=== PATIENT | female | born 1960 | race Caucasian/White ===

== ENCOUNTER → 2017-11-15 13:47 | Outpatient (CLI) | payer OTHER, SELFPAY ==
--- NOTE | 2017-11-15 15:04 | NEURO ---
NCS and/or EMG Patient Report Ordering Doctor: Eron Benitez DATE OF SERVICE: 11/15/17 Annia Briggs is a 57 year old female who presents for electrodiagnostic testing of the left upper limb due to hand numbness. electrodiagnostic findings: prolonged left median motor latency with normal amplitude and reduced conduction velocity. Normal ulnar motor response, including conduction across the elbow. Prolonged median sensory latency. Normal ulnar and radial sensory responses. Needle EMG testing reveals no evidence of denervation with normal motor unit action potentials. Electrodiagnostic Asssessment: This is an abnormal study 1) Findings demonstrate left median mononeuropathy. This is consistent with an advanced left carpal tunnel syndrome.
== END ==
PROVIDERS: Family Provider Family Medicine; PCP Family Medicine; Visit Provider Orthopaedic Surgery
DX: G56.02 Carpal tunnel syndrome, left upper limb (principal)
CPT/HCPCS: 95886; 95910

== ENCOUNTER → 2017-12-20 16:00 | Outpatient (CLI) | payer OTHER, SELFPAY ==
[2017-12-23 12:42] LABS: HPV Reflexed? NOT INDICATED
== END ==
PROVIDERS: Visit Provider Obstetrics & Gynecology
DX: Z12.4 Encounter for screening for malignant neoplasm of cervix (principal)
CPT/HCPCS: 88175; G0145

== ENCOUNTER 2018-02-09 23:02 | Emergency (ER) | payer OTHER, SELFPAY ==
--- NOTE | 2018-02-09 23:03 | ED.RN ---
NO OLD EKG'S IN MUSE
[2018-02-09 23:04] VITALS: BP 135/92; PULSE 184; RESP 25; TEMP 36.6; O2SAT 98; BMI 42.2
--- NOTE | 2018-02-09 23:20 | EKG12_ITS ---
Test Reason : CP/DISCOMFORT Blood Pressure : / mmHG Vent. Rate : 182 BPM Atrial Rate : 091 BPM P-R Int : 000 ms QRS Dur : 094 ms QT Int : 256 ms P-R-T Axes : 000 -44 117 degrees QTc Int : 445 ms Supraventricular tachycardia Left axis deviation Left ventricular hypertrophy with repolarization abnormality Abnormal ECG Confirmed by ARIN FORD ([id number]), website/blog editor ELIU ROACH ([id number] on 02/13/2018 2:52:55 PM Referred By: NICOLASA Confirmed By:ARIN FORD
--- NOTE | 2018-02-09 23:21 | ED.VISSUMM ---
- ER Visit Summary Date of Service: 02/09/18 Chief Complaint: [Palpitations and chest pain] History of Present Illness: The patient is a 57 F [who presents the emergency department with palpitations and chest pain. It started approximately an hour ago while she was watching TV. She felt like her heart was racing and then got tightness in her chest that felt like her asthma but she did not think it was her asthma. No shortness of breath. She feels a little weak and shaky no dizziness. She has diabetes and high cholesterol and asthma. No change of medications no change in diet] Physical Examination: [] Heart rate 181 blood pressure 135/92 respiratory rate 25 pulse 98% on room air temperature 97 WN WD NAD PERRL EOMI MMM NECK supple and nontender, no masses Regular tachycardic rhythm no murmur rub or gallop, no peripheral edema, symmetric radial pulses CTAB no respiratory distress ABDOMEN is soft and nontender, normal bowel sounds, no distension, no rebound or guarding SKIN is warm and dry no rashes Alert and Oriented x3, CN II-XII in tact, no motor or sensory deficits, gait normal No lymphadenopathy Anxious Test Results: [] Emergency Department Course and Treatment: [Vagal maneuvers were attempted but were unsuccessful. Patient was given 6 mg of adenosine and converted to a sinus rhythm. There were no complications patient was given fluids screening labs chest x-ray and TSH will be obtained. Like sugar was 291 TSH was mildly elevated. Repeat EKG after adenosine showed a sinus tachycardia with no ischemia and troponin was normal. I spoke with Dr. Pelayo the patient will be placed on 12.5 mg of Lopressor twice daily and she will follow-up with cardiology. She was given precautions for which to return. She is totally asymptomatic at this time.] Treatment Plan: [] Disposition: [Discharge] Impression: [1. SVT 2. Chemical cardioversion with adenosine 3. Mild hypothyroid 4. Hyperglycemia] This note was generated with [employer]du[employer]tvation software. It may contain incorrect words, spelling, and punctuation that were not noted in review of the chart prior to signing ED Disposition - Plan for ED Patient: Chief Complaint: Palpitations Referrals: Ismael Schafer MD [Primary Care Provider] -
[2018-02-09 23:24] VITALS: BP 129/96; PULSE 109; RESP 24; O2SAT 96
--- NOTE | 2018-02-09 23:24 | EKG12_ITS ---
Test Reason : REPEAT Blood Pressure : / mmHG Vent. Rate : 108 BPM Atrial Rate : 108 BPM P-R Int : 162 ms QRS Dur : 080 ms QT Int : 368 ms P-R-T Axes : 053 029 070 degrees QTc Int : 493 ms Sinus tachycardia Otherwise normal ECG Confirmed by ARIN FORD ([id number]), production editor ELIU ROACH ([id number]) on 02/13/2018 4:07:39 PM Referred By: NICOLASA Confirmed By:ARIN FORD
[2018-02-09] MEDS: Aspirin 81 MG TAB.CHEW 324 MG PO (23:31)
[2018-02-09] MEDS: 0.9% Normal Saline 1,000 ML 1000 ML IV (23:31)
[2018-02-09] MEDS: Adenosine 6 MG/2 ML Syringe IV (23:35)
[2018-02-09 23:37] LABS: Absolute Lymphocyte Count 2.45 X10^3/ul (0.83-4.51); Absolute Neutrophil Count 4.1 X10^3/uL (2.0-7.7); Basophil# 0.02 X10^3/uL; Basophil% 0.3 % (0-1); Hematocrit 41.5 % (37-47); Hemoglobin 13.4 g/dl (12.0-15.0); Lymphocyte # 2.45 X10^3/ul (4.0); Lymphocyte % 32.9 % (19-41); Mean Corp Hgb Conc 32.3 g/gl (32-36); Mean Corpuscular Hgb 30.4 pg (27.0-32.0); Mean Corpuscular Volume 94.1 fL (81-99); Mean Platelet Vol. 9.2 fl (6.2-12.0); Monocyte# 0.62 X10^3/uL; Monocyte% 8.3 % (0-10); Neutrophil # 4.05 X10^3/uL (2.7-7.7); Neutrophil % 54.4 % (47-70); POSITIVE COUNT NO; POSITIVE DIFFERENTIAL NO; POSITIVE MORPHOLOGY NO; Platelet Count 284 K/mm3 (150-450); RBC Distribution Width SD 44.9 fl (35.1-43.9); Red Blood Count 4.41 M/mm3 (4.2-5.4); White Blood Count 7.5 K/mm3 (4.4-11.0)
--- NOTE | 2018-02-09 23:40 | RAD_ITS ---
STUDY: X-RAY CHEST REASON FOR EXAM: Female, 57 years old. Palpitations TECHNIQUE: Single frontal view COMPARISON: None. FINDINGS: The lungs are clear and expanded. There is no demonstrated pleural abnormality. Normal size heart. Normal mediastinum and gena. Normal visualized pulmonary arteries. Normal visualized aortic arch and descending thoracic aorta. Normal visualized thoracic spine. Normal visualized ribs, clavicles, and shoulders. There is no demonstrated abnormality of the visualized soft tissue structures of the upper abdomen. RAD/Chest 1 View (Portable) IMPRESSION: Normal x-ray examination of the chest. Electronically Signed: Danyel Cullen MD at 0:47 EDT , Service support ,
[2018-02-10 00:01] LABS: Anion Gap 8 (5-15); BUN 16 mg/dL (7-18); BUN/Creat Ratio 16.9 RATIO (10-20); Calcium,Total 9.2 mg/dL (8.5-10.1); Chloride 104 mmol/L (98-107); Creatinine, Serum 0.95 mg/dL (0.55-1.02); EST Glomerular Filtration Rate 65 mL/min (>60); Est Glom Filt Rate - Afr Amer 78 mL/min (>60); Estimated Creatinine Clearance 56.42 ml/min; Glucose 291 mg/dL (74-106); Sodium Level 138 mmol/L (136-145); Thyroid Stim Hormone (TSH) 4.83 uIU/mL (0.358-3.74)
[2018-02-10 00:12] VITALS: BP 150/77; PULSE 109; RESP 13; O2SAT 96
[2018-02-10 00:34] VITALS: BP 130/68; PULSE 105; RESP 15; O2SAT 95
[2018-02-10] MEDS: Metoprolol Tartrate 25 MG Tablet 12.5 MG PO (00:47)
--- NOTE | 2018-02-10 00:51 | ED.DEP ---
ED Disposition - Plan for ED Patient: Chief Complaint: Palpitations Instructions: ED Tachycardia Pat PSVT Prescriptions: Metoprolol Tartrate [Lopressor (beta natividad)] 12.5 mg PO BID #60 tablet Referrals: Brando Pelayo MD [STAFF PHYSICIAN] - 1 Week Ismael Schafer MD [Primary Care Provider] - 1 Week
== END 2018-02-10 00:59 | disposition home or self-care (01) ==
LOC: ED 02-10 00:22
PROVIDERS: Emergency Provider Emergency Medicine; Family Provider Family Medicine; PCP Family Medicine
DX: I47.1 Supraventricular tachycardia (principal); E03.9 Hypothyroidism, unspecified; E11.65 Type 2 diabetes mellitus with hyperglycemia; E78.00 Pure hypercholesterolemia, unspecified; J45.909 Unspecified asthma, uncomplicated; E66.9 Obesity, unspecified
CPT/HCPCS: 92960; 71045; 80048; 84443; 84484; 85025; 93005; 99285; A4216; J0153

== ENCOUNTER → 2018-02-20 12:20 | Outpatient (CLI) | payer OTHER, SELFPAY ==
[2018-02-20 13:26] LABS: AST(SGOT) 57 U/L (15-37); Alanine Aminotransfer ALT/SGPT 46 U/L (13-56); Albumin, Serum 3.9 g/dL (3.2-5.0); Alkaline Phosphatase 86 U/L (45-117); Bilirubin, Direct 0.14 mg/dL (0.00-0.30); Cholesterol 149 mg/dL (200); Globulin 3.6 g/dL (2.2-4.2); High Density Lipoprotein 63 mg/dL; Protein, Total 7.5 g/dL (6.4-8.2); T4 Total, Thyroxin 9.8 ug/dL (4.8-13.9); Thyroid Stim Hormone (TSH) 1.68 uIU/mL (0.358-3.74); Triglycerides 135 mg/dL; Very Low Density Lipoprotein 27 mg/dL (5-40)
== END ==
PROVIDERS: Family Provider Family Medicine; PCP Family Medicine; Visit Provider Internal Medicine Cardiovascular Disease
DX: E78.5 Hyperlipidemia, unspecified (principal); I47.1 Supraventricular tachycardia; E66.9 Obesity, unspecified
CPT/HCPCS: 36415; 80061; 80076; 84436; 84443

== ENCOUNTER → 2018-03-02 20:00 | Outpatient (CLI) | payer OTHER, SELFPAY | PROVIDERS: Family Provider Family Medicine; PCP Family Medicine; Visit Provider Internal Medicine Cardiovascular Disease | DX: G47.10 Hypersomnia, unspecified (principal); I47.1 Supraventricular tachycardia; E66.9 Obesity, unspecified | CPT/HCPCS: 95810 ==

== ENCOUNTER → 2018-03-07 12:49 | Outpatient (CLI) | payer OTHER, SELFPAY ==
--- NOTE | 2018-03-07 12:50 | ECHOD_ITS ---
Reason For Study: Arrhythmia Procedure This was a 2D Doppler, Color Flow transthoracic echocardiogram. Exam performed in department. Left Ventricle Mild concentric left ventricular hypertrophy. The estimated ejection fraction is 65 %. Stage 1 diastolic dysfunction. No regional wall motion abnormalities noted. Right Ventricle Normal size and thickness. Normal systolic function. Atria Normal left atrium. Normal right atrium. Normal atrial septum. Mitral Valve The mitral valve is structurally normal. No prolapse or stenosis seen. Tricuspid Valve Normal tricuspid valve. Unable to estimate RV systolic pressure due to inadequate jet, pulmonary artery pressure probably normal. Aortic Valve Trisinus/trileaflet aortic valve. Normal aortic valve. Pulmonic Valve The pulmonic valve is not well visualized. Great Vessels Normal aortic root. Normal arch. Normal inferior vena cava. Inferior vena cava collapse with sniff. Pericardium/Pleural No pericardial effusion. MMode/2D Measurements & Calculations LVIDd: 4.6 cm IVSd: 1.5 cm Ao root diam: 2.7 cm LVIDs: 2.6 cm LVPWd: 1.1 cm LA dimension: 3.1 cm RVDd: 3.3 cm FS: 43.9 % LAV(MOD-bp): 27.5 ml LA A4 area: 11.9 cm2 RA A4 area: 10.2 cm2 LAV(MOD-bp) Indexed: 12.9 ml/m2 LAV(MOD-sp2): 26.6 ml LAV(MOD-sp4): 23.7 ml Doppler Measurements & Calculations MV E max adam: 75.2 cm/sec Lat Peak E' Adam: 8.6 cm/sec Med Peak E' Adam: 9.2 cm/sec MV A max adam: 91.0 cm/sec E/E' lat: 8.8 E/E' med: 8.2 MV E/A: 0.83 Ao V2 max: 223.8 cm/sec LV V1 max: 119.3 cm/sec PA V2 max: 128.2 cm/sec Ao max P.4 mmHg LV V1 max P.7 mmHg Ao V2 mean: 157.8 cm/sec LV V1 mean P.5 mmHg Ao mean P.2 mmHg LV V1 mean: 89.3 cm/sec Ao V2 VTI: 38.2 cm LV V1 VTI: 22.6 cm Interpretation Summary Mild concentric left ventricular hypertrophy. The estimated ejection fraction is 65 %. Stage 1 diastolic dysfunction. Unable to estimate RV systolic pressure due to inadequate jet, pulmonary artery pressure probably normal. There is no comparison study available. Ordering Physician: Brando Pelayo Referring Physician: Ismael Schafer Performed By: Myrtle Jacome, BERNARD, RVT
== END ==
PROVIDERS: Family Provider Family Medicine; PCP Family Medicine; Visit Provider Internal Medicine Cardiovascular Disease
DX: I47.1 Supraventricular tachycardia (principal); E78.5 Hyperlipidemia, unspecified; E66.9 Obesity, unspecified
CPT/HCPCS: 93306

== ENCOUNTER → 2018-04-09 20:00 | Outpatient (CLI) | payer OTHER, SELFPAY | PROVIDERS: Family Provider Family Medicine; PCP Family Medicine; Visit Provider Nurse Practitioner Acute Care | DX: G47.33 Obstructive sleep apnea (adult) (pediatric) (principal) | CPT/HCPCS: 95811 ==

== ENCOUNTER → 2018-04-11 10:30 | Outpatient (CLI) | payer OTHER, SELFPAY ==
--- NOTE | 2018-04-11 10:32 | STE_ITS ---
Reason For Study: ARRHYTHMIA Stress Results Protocol: Henrique Protocol Maximum Predicted HR: 163 bpm Target HR: 139 bpm% Max imum Predicted HR: 101 % DurationHeart Rate Stage (mm:ss) (bpm) BPCom ment BASELINE 83 138/70 2CC DEFINITY STAGE 1 3:00 13 7 180/64 STAGE 2 3:00 16 4 186/68 RECOVERY 100 142/8 03CC DEFINITY Stress Duration: 6:00 mm:ss Maximum Stress HR: 164 bpm Baseline Echocardiogram Findings The estimated ejection fraction is 65 %. Stress Echo Wall motion Data Resting WMIntermediate WMStress WM Resting Wall Motion Wall Motion Stress No regional wall motion No regional wall motion abnormalities noted. abnormalities noted. EKG Data Normal intervals are noted. Normal stress electrocardiogram. The patient exercised according to the regular Henrique protocol for a total duration of 6:00. The maximum heart rate attained was 169 beats per minute. This was 103% of maximum predicted heart rate. The patient exercised into stage 3 of the Henrique protocol. During stress, there were no ST or T wave changes noted to suggest ischemia. No arrhythmias noted. Interpretation Summary The estimated ejection fraction is 65 %. Normal adequate treadmill echocardiogram. Negative for ischemia by EKG and echocardiographic criteria. No anginal symptoms noted. Below average exercise capacity for age. No arrhythmias noted. Decreased sensitivity due to poor echo windows requiring Definity enhancing agent. Final LVEF is 75%. No complications. Ordering Physician: Brando Pelayo Referring Physician: Brando Pelayo Performed By: Robe Jon RCS
== END ==
PROVIDERS: Family Provider Family Medicine; PCP Family Medicine; Visit Provider Internal Medicine Cardiovascular Disease
DX: E66.9 Obesity, unspecified (principal); E78.5 Hyperlipidemia, unspecified; I47.1 Supraventricular tachycardia
CPT/HCPCS: 93017; 93350; Q9957; A4216; C8928

== ENCOUNTER → 2018-05-01 10:00 | Outpatient (CLI) | payer OTHER, SELFPAY ==
--- NOTE | 2018-05-01 14:22 | PFT ---
INTRODUCTION: The patient is a 57-year-old female that presents for pulmonary function testing secondary to a diagnosis of asthma. Respiratory therapy reports good patient effort. Bronchodilators were used during testing. INTERPRETATION: Forced expiration spirometry demonstrates no evidence of a large airways obstructive ventilatory defect. There was no significant response to aerosolized bronchodilators, based upon strict ATS criteria. Spirograms are of good quality and plateau normally. The respiratory flow volume loop appears normal. Body plethysmography was performed and reveals a decreased TLC to 3.98 L, 81% of predicted, indicative of a mild restrictive ventilatory defect. The remainder of the lung volumes are symmetrically reduced. Diffusing capacity by single breath CO is mildly reduced at 73% of predicted. IMPRESSION: These pulmonary function studies demonstrate the presence of a mild restrictive ventilatory defect with symmetric reduction in diffusing capacity.
== END ==
PROVIDERS: Family Provider Family Medicine; PCP Family Medicine; Visit Provider Nurse Practitioner Acute Care
DX: J45.909 Unspecified asthma, uncomplicated (principal)
CPT/HCPCS: 94060; 94726; 94729

== ENCOUNTER → 2018-11-14 12:38 | Outpatient (CLI) | payer OTHER, SELFPAY ==
[2018-09-05 10:18] VITALS: BMI 45.4
[2018-10-29 12:44] VITALS: BMI 45.4
--- NOTE | 2018-11-14 12:42 | BI_ITS ---
MAMMOGRAPHY - BILATERAL SCREENING REASON FOR EXAM: Female, 58 years old. Routine annual screening examination. PERTINENT HISTORY: Non-contributory. TECHNIQUE: Digital bilateral breast kaylin (3D mammographic acquisition) in the CC and MLO projections. 2-D mediolateral oblique (MLO) and craniocaudad (CC) views of both breasts were obtained. CAD: Full Field Digital Mammography with Computer Added Detection was performed. COMPARISON: Comparison is made with prior study dated October 05, 2017 and August 10, 2016. FINDINGS: Breast Composition: The breasts are almost entirely fatty. There are no dominant masses or suspicious calcifications. No other significant abnormalities are identified. There has been no significant change since the prior study. BI/SCREENING MAMM (CAD), BILAT IMPRESSION: Stable bilateral screening mammogram. Yearly follow-up mammogram recommended. (A) ASSESSMENT CATEGORY: BIRADS Category 1: Negative. A letter regarding these results will be sent to the patient by the facility within 30 days. Approximately 10% of breast cancers are not detected by mammography. A normal mammogram should not delay biopsy of a clinically suspicious abnormality. [id number] Electronically Signed: John Pratt MD at 8:09 EST , Service support ,
== END ==
PROVIDERS: Family Provider Family Medicine; PCP Internal Medicine; Referring Provider Obstetrics & Gynecology; Visit Provider Obstetrics & Gynecology
DX: Z12.31 Encounter for screening mammogram for malignant neoplasm of breast (principal)
CPT/HCPCS: 77063; 77067

== ENCOUNTER → 2019-01-18 | Outpatient (CLI) | payer OTHER, SELFPAY ==
[2019-01-18 16:53] VITALS: BMI 45.4
--- NOTE | 2019-01-18 17:01 | RAD_ITS ---
STUDY: X-RAY CHEST REASON FOR EXAM: Female, 58 years old. Shortness of breath. TECHNIQUE: PA and lateral views of the chest. COMPARISON: February 09, 2018. FINDINGS: The lungs are expanded. There is patchy right basilar airspace consolidation and atelectasis. There is no demonstrated pleural abnormality. There is borderline cardiomegaly. Normal mediastinum and gena. Normal visualized pulmonary arteries. There is atherosclerotic calcification of the aortic arch with tortuosity. There is demineralization of the osseous structures. There are degenerative changes of the spine. Normal visualized ribs, clavicles, and shoulders. There is no demonstrated abnormality of the visualized soft tissue structures of the upper abdomen. RAD/Chest PA and Lateral IMPRESSION: Patchy right basilar airspace consolidation and/or atelectasis could represent early pneumonia. Electronically Signed: Niya Smith MD at 17:23 EDT , Service support ,
== END | disposition home or self-care (01) ==
LOC: MTRAD 17:00
PROVIDERS: Family Provider Family Medicine; PCP Family Medicine; Referring Provider Physician Assistant Surgical; Visit Provider Physician Assistant Surgical
DX: J20.9 Acute bronchitis, unspecified (principal)
CPT/HCPCS: 71046

== ENCOUNTER → 2019-01-22 08:43 | Outpatient (CLI) | payer OTHER, SELFPAY ==
[2019-01-22 08:18] VITALS: BMI 45.4
--- NOTE | 2019-01-22 09:12 | RAD_ITS ---
STUDY: X-RAY CHEST REASON FOR EXAM: Female, 58 years old. Chest pain. TECHNIQUE: Single frontal view of the chest. COMPARISON: January 18, 2019 FINDINGS: There is stable mild hyperexpansion. The right basilar opacity noted on the prior study has resolved. There is no demonstrated pleural abnormality. There is stable borderline cardiomegaly. Normal mediastinum and gena. Normal visualized pulmonary arteries. Normal visualized aortic arch and descending thoracic aorta. There are diffuse degenerative changes of the visualized thoracic spine. Normal visualized ribs, clavicles, and shoulders. There is no demonstrated abnormality of the visualized soft tissue structures of the upper abdomen. RAD/Chest PA and Lateral IMPRESSION: Borderline cardiomegaly with mild hyperexpansion. No right lower lobe opacity on today's study. No acute finding. Electronically Signed: Cuco Beal MD at 10:44 EDT , Service support ,
[2019-01-22 12:26] LABS: Absolute Lymphocyte Count 1.18 X10^3/ul (0.83-4.51); Absolute Neutrophil Count 3.4 X10^3/uL (2.0-7.7); Basophil# 0.01 X10^3/uL; Basophil% 0.2 % (0-1); Eosinophil# 0.33 X10^3/uL; Eosinophils% 6.2 % (0-5); Hematocrit 38.7 % (37-47); Hemoglobin 12.6 g/dl (12.0-15.0); Lymphocyte # 1.18 X10^3/ul (4.0); Lymphocyte % 22.1 % (19-41); Mean Corp Hgb Conc 32.6 g/gl (32-36); Mean Corpuscular Hgb 30.6 pg (27.0-32.0); Mean Corpuscular Volume 93.9 fL (81-99); Mean Platelet Vol. 9.3 fl (6.2-12.0); Monocyte# 0.39 X10^3/uL; Monocyte% 7.3 % (0-10); Neutrophil # 3.43 X10^3/uL (2.7-7.7); Platelet Count 262 K/mm3 (150-450); RBC Distribution Width CV 13.2 % (11.6-14.6); Red Blood Count 4.12 M/mm3 (4.2-5.4); White Blood Count 5.4 K/mm3 (4.4-11.0)
[2019-01-22 12:27] LABS: POSITIVE COUNT NO; POSITIVE DIFFERENTIAL NO; POSITIVE MORPHOLOGY NO
[2019-01-22 12:30] LABS: BUN 8 mg/dL (7-18); Creatinine, Serum 0.74 mg/dL (0.55-1.02); EST Glomerular Filtration Rate 86 mL/min (>60); Glucose 86 mg/dL (74-106)
[2019-01-22 12:31] LABS: ALB/GLOB Ratio 1.1 RATIO (0.9-2.4); AST(SGOT) 20 U/L (15-37); Alanine Aminotransfer ALT/SGPT 26 U/L (13-56); Albumin, Serum 3.7 g/dL (3.2-5.0); Alkaline Phosphatase 76 U/L (45-117); Anion Gap 6 (5-15); BUN/Creat Ratio 10.9 RATIO (10-20); Calcium,Total 8.7 mg/dL (8.5-10.1); Chloride 106 mmol/L (98-107); Est Glom Filt Rate - Afr Amer 104 mL/min (>60); Globulin 3.4 g/dL (2.2-4.2); Potassium 3.6 mmol/L (3.5-5.1); Protein, Total 7.1 g/dL (6.4-8.2); Sodium Level 140 mmol/L (136-145)
[2019-01-22 12:32] LABS: AST(SGOT) 20 U/L (15-37); Alanine Aminotransfer ALT/SGPT 26 U/L (13-56); Albumin, Serum 3.7 g/dL (3.2-5.0); Alkaline Phosphatase 73 U/L (45-117); Bilirubin, Direct 0.07 mg/dL (0.00-0.30); Cholesterol 141 mg/dL (200); Globulin 3.4 g/dL (2.2-4.2); High Density Lipoprotein 54 mg/dL; Protein, Total 7.1 g/dL (6.4-8.2); Triglycerides 216 mg/dL; Very Low Density Lipoprotein 43 mg/dL (5-40)
== END ==
PROVIDERS: Internal Medicine Cardiovascular Disease; Family Provider Internal Medicine; PCP Internal Medicine; Referring Provider Internal Medicine; Visit Provider Internal Medicine
DX: E78.5 Hyperlipidemia, unspecified (principal); E11.9 Type 2 diabetes mellitus without complications; J18.1 Lobar pneumonia, unspecified organism
CPT/HCPCS: 36415; 71046; 80053; 80061; 80076; 85025

== ENCOUNTER → 2019-09-24 13:04 | Outpatient (CLI) | payer OTHER, SELFPAY ==
[2019-08-28 15:29] VITALS: BMI 45.4
[2019-09-24 13:56] LABS: Absolute Lymphocyte Count 1.49 X10^3/uL (0.83-4.51); Absolute Neutrophil Count 3.8 X10^3/uL (2.0-7.7); Basophil# 0.02 X10^3/uL; Basophil% 0.3 % (0-1); Eosinophil# 0.22 X10^3/uL; Eosinophils% 3.7 % (0-5); Hematocrit 39.1 % (37-47); Hemoglobin 12.8 g/dL (12.0-15.0); Lymphocyte # 1.49 X10^3/ul (4.0); Mean Corp Hgb Conc 32.7 g/dL (32-36); Mean Corpuscular Hgb 30.8 pg (27.0-32.0); Mean Corpuscular Volume 94.2 fL (81-99); Monocyte# 0.45 X10^3/uL; Monocyte% 7.5 % (0-10); NRBC Flagged by Analyzer 0 % (0-5); Neutrophil # 3.76 X10^3/uL (2.7-7.7); Platelet Count 268 K/mm3 (150-450); RBC Distribution Width CV 12.7 % (11.6-14.6); Red Blood Count 4.15 M/mm3 (4.2-5.4)
[2019-09-24 14:23] LABS: ALB/GLOB Ratio 1.3 RATIO (0.9-2.4); AST(SGOT) 59 U/L (15-37); Alanine Aminotransfer ALT/SGPT 46 U/L (13-56); Albumin, Serum 4.1 g/dL (3.2-5.0); Alkaline Phosphatase 94 U/L (45-117); Anion Gap 7 (5-15); BUN 13 mg/dL (7-18); BUN/Creat Ratio 17.1 RATIO (10-20); Calcium,Total 9.3 mg/dL (8.5-10.1); Chloride 105 mmol/L (98-107); Creatinine, Serum 0.76 mg/dL (0.55-1.02); EST Glomerular Filtration Rate 83 mL/min (>60); Est Glom Filt Rate - Afr Amer 100 mL/min (>60); Globulin 3.2 g/dL (2.2-4.2); Glucose 166 mg/dL (74-106); Potassium 3.6 mmol/L (3.5-5.1); Protein, Total 7.3 g/dL (6.4-8.2); Sodium Level 141 mmol/L (136-145); T4 Free Direct 0.82 ng/dL (0.76-1.46); Thyroid Stim Hormone (TSH) 1.82 uIU/mL (0.358-3.74)
== END ==
PROVIDERS: Family Provider Internal Medicine; PCP Internal Medicine; Referring Provider Internal Medicine; Visit Provider Internal Medicine
DX: F32.9 Major depressive disorder, single episode, unspecified (principal)
CPT/HCPCS: 36415; 80053; 84439; 84443; 85025

== ENCOUNTER → 2020-11-20 13:23 | Outpatient (CLI) | payer OTHER, SELFPAY ==
[2020-11-05 09:03] VITALS: BMI 40.8
--- NOTE | 2020-11-20 13:25 | BI_ITS ---
MAMMOGRAPHY - BILATERAL SCREENING REASON FOR EXAM: Female, 60 years old. Routine annual screening examination. PERTINENT HISTORY: Non-contributory. TECHNIQUE: Digital bilateral breast merritt (3D mammographic acquisition) in the CC and MLO projections. 2-D mediolateral oblique (MLO) and craniocaudad (CC) views of both breasts were obtained. CAD: Full Field Digital Mammography with Computer Added Detection was performed. COMPARISON: Comparison is made with prior study dated 11/14/2018 and 10/05/2017. FINDINGS: Breast Composition: The breasts are almost entirely fatty. There are no dominant masses or suspicious calcifications. No other significant abnormalities are identified. There has been no significant change since the prior study. BI/SCRN MAMM (CAD)W/MERRITT BILAT IMPRESSION: Stable bilateral screening mammogram. Yearly follow-up mammogram recommended. (A) ASSESSMENT CATEGORY: BIRADS Category 1: Negative. A letter regarding these results will be sent to the patient by the facility within 30 days. Approximately 10% of breast cancers are not detected by mammography. A normal mammogram should not delay biopsy of a clinically suspicious abnormality. [id number] Electronically Signed: John Pratt MD at 14:33 EST , Service support ,
== END ==
PROVIDERS: PCP Internal Medicine; Referring Provider Student in an Organized Health Care Education/Training Program; Visit Provider Student in an Organized Health Care Education/Training Program
DX: Z12.31 Encounter for screening mammogram for malignant neoplasm of breast (principal)
CPT/HCPCS: 77063; 77067

== ENCOUNTER → 2020-12-18 11:54 | Outpatient (CLI) | payer OTHER, SELFPAY ==
[2020-11-05 09:03] VITALS: BMI 40.8
[2020-12-23 11:09] LABS: HPV APTIMA, High Risk Negative (Negative)
== END ==
PROVIDERS: PCP Internal Medicine; Visit Provider Student in an Organized Health Care Education/Training Program
DX: Z12.4 Encounter for screening for malignant neoplasm of cervix (principal)
CPT/HCPCS: 87624; 88175; G0145

== ENCOUNTER → 2021-04-15 11:35 | Outpatient (CLI) | payer OTHER, SELFPAY ==
[2021-04-15 11:09] VITALS: BMI 45.1
[2021-04-15 14:58] LABS: Absolute Lymphocyte Count 1.43 X10^3/uL (0.83-4.51); Absolute Neutrophil Count 2.9 X10^3/uL (2.0-7.7); Basophil# 0.02 X10^3/uL; Basophil% 0.4 % (0-1); Eosinophil# 0.26 X10^3/uL; Eosinophils% 5.2 % (0-5); Hematocrit 37.9 % (37-47); Hemoglobin 12.2 g/dL (12.0-15.0); Lymphocyte # 1.43 X10^3/ul (0.83-4.51); Lymphocyte % 28.6 % (19-41); Mean Corp Hgb Conc 32.2 g/dL (32-36); Mean Corpuscular Hgb 30.6 pg (27.0-32.0); Mean Platelet Vol. 9.3 fl (6.2-12.0); Monocyte# 0.39 X10^3/uL; Monocyte% 7.8 % (0-10); NRBC Flagged by Analyzer 0 % (0-5); Neutrophil # 2.89 X10^3/uL (2.7-7.7); Neutrophil % 57.8 % (47-70); Platelet Count 257 K/mm3 (150-450); RBC Distribution Width CV 12.9 % (11.6-14.6); RBC Distribution Width SD 44.6 fl (35.1-43.9); Red Blood Count 3.99 M/mm3 (4.2-5.4)
[2021-04-15 15:19] LABS: ALB/GLOB Ratio 1.3 RATIO (0.9-2.4); AST(SGOT) 18 U/L (15-37); Alanine Aminotransfer ALT/SGPT 28 U/L (13-56); Albumin, Serum 3.9 g/dL (3.2-5.0); Alkaline Phosphatase 91 U/L (45-117); Anion Gap 9 (5-15); BUN 13 mg/dL (7-18); Calcium,Total 8.8 mg/dL (8.5-10.1); Chloride 103 mmol/L (98-107); Cholesterol 168 mg/dL (200); Creatinine, Serum 0.69 mg/dL (0.55-1.02); EST Glomerular Filtration Rate 93 mL/min (>60); Est Glom Filt Rate - Afr Amer 112 mL/min (>60); Globulin 3.1 g/dL (2.2-4.2); Glucose 97 mg/dL (74-106); High Density Lipoprotein 72 mg/dL; Sodium Level 142 mmol/L (136-145); Thyroid Stim Hormone (TSH) 1.69 uIU/mL (0.358-3.74); Triglycerides 168 mg/dL; Very Low Density Lipoprotein 34 mg/dL (5-40)
== END ==
PROVIDERS: PCP Internal Medicine; Referring Provider Physician Assistant; Visit Provider Physician Assistant
DX: E11.9 Type 2 diabetes mellitus without complications (principal); F32.9 Major depressive disorder, single episode, unspecified; I10 Essential (primary) hypertension
CPT/HCPCS: 36415; 80053; 80061; 84443; 85025

== ENCOUNTER → 2021-06-25 09:33 | Outpatient (CLI) | payer OTHER, SELFPAY ==
[2021-05-25 09:54] VITALS: BMI 45.1
--- NOTE | 2021-06-26 10:17 | PFT ---
INTRODUCTION: The patient is a 60-year-old female that presents for pulmonary function studies secondary to a diagnosis of asthma. Respiratory therapy reported good patient effort. Bronchodilators were used during testing. INTERPRETATION: Forced expiration spirometry demonstrates no evidence of a large airways obstructive ventilatory defect. There was no significant response to aerosolized bronchodilators. Spirograms are of good quality and plateau normally. Body plethysmography was performed and reveals lung volumes to be within normal limits. Diffusing capacity by single breath CO is at the lower limits of normal. IMPRESSION: Grossly normal pulmonary function studies.
== END ==
PROVIDERS: PCP Internal Medicine; Referring Provider Nurse Practitioner Acute Care; Visit Provider Nurse Practitioner Acute Care
DX: J45.41 Moderate persistent asthma with (acute) exacerbation (principal)
CPT/HCPCS: 94060; 94726; 94729

== ENCOUNTER 2021-08-06 07:41 | Emergency (ER) | payer OTHER, SELFPAY ==
[2021-08-06] VITALS (7 sets, daily range): BP systolic 126–167; BP diastolic 69–105; PULSE 97–171; RESP 14–20; TEMP 36.7; O2SAT 94–96; BMI 44.6
[2021-08-06] MEDS: Adenosine 6 MG/2 ML Syringe IV (07:50)
--- NOTE | 2021-08-06 07:52 | EKG12_ITS ---
Test Reason : PALPS/TACHY Blood Pressure : / mmHG Vent. Rate : 169 BPM Atrial Rate : 178 BPM P-R Int : 000 ms QRS Dur : 096 ms QT Int : 302 ms P-R-T Axes : 000 -40 129 degrees QTc Int : 506 ms Poor data quality, interpretation may be adversely affected Supraventricular tachycardia Left axis deviation Left ventricular hypertrophy with repolarization abnormality Abnormal ECG Confirmed by SPARKLE MONTES, TRACEY ([id number]), manager editorial EMIL BLACK ([id number]) on 08/10/2021 10:33:55 AM Referred By: TANNA Confirmed By:TRACEY VILLAGRAN MD
--- NOTE | 2021-08-06 07:53 | EKG12_ITS ---
Test Reason : REPEAT-ADENOSINE Blood Pressure : / mmHG Vent. Rate : 161 BPM Atrial Rate : 161 BPM P-R Int : 248 ms QRS Dur : 090 ms QT Int : 296 ms P-R-T Axes : 095 -38 126 degrees QTc Int : 484 ms Supraventricular tachycardia Left axis deviation ST & T wave abnormality, consider lateral ischemia Abnormal ECG Confirmed by SPARKLE MONTES, TRACEY ([id number]), international editorial producer EMIL BLACK ([id number]) on 08/10/2021 10:34:26 AM Referred By: TANNA Confirmed By:TRACEY VILLAGRAN MD
--- NOTE | 2021-08-06 07:54 | EX.ED.DYSGE1 ---
HPI History of Present Illness Chief Complaint: Palpitations Informant: patient Onset/Context/Timing Onset: Hours (1) Context: Sudden Onset (woke her up from sleep) Timing: Continuous Quality: racing HB Location: chest Current Severity: Severe Maximum Severity: Severe Worsened by: nothing Relieved by: nothing Associated Symptoms Associated Symptoms: none Narrative Narrative: Patient woke up with racing palpitations. No chest pain, shortness of breath, lightheadedness, sweating, focal neurologic symptoms. No recent illness. Does not use illicit substances. Had this happen once before and required pharmacologic cardioversion after modified Valsalva failed. Did follow-up with cardiology and has had no other tests since then or medications. Prior similar symptoms: Yes [facility] Medical History Asthma Bronchitis Carpal tunnel syndrome Dysthymic disorder Hyperlipidemia Obesity Seasonal depression Supraventricular tachycardia Type 2 diabetes mellitus without complications Home Medications fluocinonide 0.05 % topical cream 1 applic TOPICAL BID #120 g 11/05/19 [Rx Last Taken Unknown] bupropion HCl 300 mg 24 hr tablet, extended release 300 mg PO QAM #90 tab 04/15/21 [Rx Last Taken Unknown] losartan 25 mg tablet 25 mg PO DAILY #90 tab 04/15/21 [Rx Last Taken Unknown] metformin 500 mg tablet 500 mg PO BID #180 tab 04/15/21 [Rx Last Taken Unknown] pioglitazone 30 mg tablet 30 mg PO DAILY #90 tab 04/15/21 [Rx Last Taken Unknown] rosuvastatin 10 mg tablet 10 mg PO QHS #90 tab 04/15/21 [Rx Last Taken Unknown] albuterol sulfate 90 mcg/actuation aerosol inhaler 2 puff INHALATION Q4H PRN PRN #18 g 04/30/21 [Rx Last Taken Unknown] omeprazole 40 mg capsule,delayed release 40 mg PO DAILY #30 cap 04/30/21 [Rx Last Taken Unknown] budesonide-formoterol HFA 160 mcg-4.5 mcg/actuation aerosol inhaler 2 puff INHALATION Q12H #10.2 g 05/06/21 [Rx Last Taken Unknown] azelastine-fluticasone 137 mcg-50 mcg/spray nasal spray 1 spray INTRANASAL BID #23 g 05/13/21 [Rx Last Taken Unknown] ipratropium 0.5 mg-albuterol 3 mg (2.5 mg base)/3 mL nebulization soln 3 ml INHALATION TID PRN #90 vial 05/17/21 [Rx Last Taken Unknown] cephalexin 500 mg tablet 500 mg PO TID #15 tab 06/28/21 [Rx Last Taken Unknown] dulaglutide 3 mg/0.5 mL subcutaneous pen injector 3 mg .ROUTE QWEEK 90 Days #2 ml 07/16/21 [Rx Last Taken Unknown] Allergy/AdvReac Type Severity Reaction Status Date / Time lisinopril AdvReac cough Verified 08/06/21 07:41 pravastatin AdvReac myalgias Verified 08/06/21 07:41 sertraline AdvReac anorgasmia Verified 08/06/21 07:41 simvastatin [From Zocor] AdvReac myalgias Verified 08/06/21 07:41 Family History Mother Diabetes Father COPD (chronic obstructive pulmonary disease) emphysema Alcohol abuse Surgical History History of appendectomy History of bilateral carpal tunnel release History of left oophorectomy Social History household members: spouse housing: house current occupational status: employed current occupation: [employer] [place], [place] pets and animals: Yes pets and animals: dog(s) Smoking Status: Unknown if ever smoked second hand exposure: No alcohol intake: never substance use type: does not use ROS ROS ED Constitutional Constitutional ED: Denies chills or fever(s) Eyes Eyes: Denies change in vision or diplopia ENT ENT ED: Denies rhinorrhea or sore throat Cardiovascular Cardiovascular: Reports palpitations; Denies chest pain Respiratory/Chest Respiratory/Chest: Denies cough or dyspnea Gastrointestinal Gastrointestinal: Denies abdominal pain, diarrhea, nausea or vomiting Genitourinary Genitourinary ED: Denies dysuria or hematuria Musculoskeletal Musculoskeletal: Denies back pain or neck pain Integumentary Denies abscess or rash Neurologic Neurologic: Denies headache(s), paresthesias or weakness Psychiatric Psychiatric: Denies anxiety or suicidal thoughts EXAM Physical Exam Const Vital Signs: 08/06/21 07:42 08/06/21 07:50 08/06/21 08:17 Temperature 98.1 F Temperature Source Temporal Pulse Rate 169 H 171 H 107 H Respiratory Rate 18 Blood Pressure 167/105 H Blood Pressure Mean 125 Pulse Ox 96 Oxygen Delivery Method Room Air 08/06/21 08:18 08/06/21 08:40 08/06/21 09:03 Temperature Temperature Source Pulse Rate 102 H 102 H 97 Respiratory Rate 14 17 16 Blood Pressure 141/76 H 141/76 H 126/69 H Blood Pressure Mean 97 97 88 Pulse Ox 96 94 95 Oxygen Delivery Method Room Air Room Air Room Air Positive well nourished, well developed and obese General Appearance ED: well developed and NAD Nutritional Appearance: obese HEENT Reports moist mucous membranes normocephalic and atraumatic Eyes PERRL and EOMs intact bilaterally Neck full ROM and supple Resp normal respiratory effort and clear to auscultation bilaterally Cardio regular rate, regular rhythm and no murmurs Jugular Venous Distention: Negative for JVD Rate: tachycardic GI non-tender and non-distended Auscultation: normoactive bowel sounds Palpation: soft Back/Spine no CVA tenderness General Back: other FROM Extremity normal to inspection General Extremety ED: Negative for edema, pulses abnormal or tenderness General Extremity: Negative for edema or pulses abnormal Neuro oriented x3, CN's II-XII intact bilaterally and no sensory deficits noted Sensorium / Orientation: awake and alert Motor Exam: strength 5/5 throughout Skin no rashes or lesions noted and no wounds MDM MDM MDM Narrative Medical decision making narrative: Patient was given adenosine 6 mg after we discussed this. She converted from 170s SVT to a different morphology narrow complex rhythm at around 140, but then after about 3 or 4 seconds went right back into the initial supraventricular tachycardia at 170 and she continued to feel palpitations. Therefore felt repeating adenosine probably was not valuable so started her on amiodarone, but before the bolus was begun the patient walked to the bathroom and came back and her heart rate was down to 105 and she is in sinus rhythm and her symptoms resolved. Therefore we observed her in the ER for another hour or 2, she had no recurrence of symptoms and she feels fine. Labs are unremarkable. EKG was repeated and is similar to her prior. Advised to follow-up with cardiology. Lab Data Attestation: I reviewed the patient's lab results. Labs: Laboratory Results - last 24 hr 08/06/21 08/06/21 07:45 07:45 WBC 5.0 RBC 4.44 Hgb 13.7 Hct 41.6 MCV 93.7 MCH 30.9 MCHC 32.9 RDW Std Deviation 42.8 RDW Coeff of Sia 12.4 Plt Count 288 MPV 9.0 Immature Gran % (Auto) 0.200 Neut % (Auto) 52.7 Lymph % (Auto) 33.3 Callaway % (Auto) 9.8 Eos % (Auto) 3.6 Baso % (Auto) 0.4 Absolute Neuts (auto) 2.6 Absolute Lymphs (auto) 1.66 Nucleated RBC % 0 Sodium 141 Potassium 3.5 Chloride 104 Carbon Dioxide 28.0 Anion Gap 9 BUN 15 Creatinine 0.81 Estim Creat Clear Calc 63.78 Est GFR (MDRD) Af Amer 92 Est GFR (MDRD) Non-Af 76 BUN/Creatinine Ratio 18.5 Glucose 162 H Calcium 9.5 Troponin I High Sens 7 EKG Initial EKG: Attestation: I personally reviewed and interpreted this EKG as follows: Interpretation: SVT Follow-up EKG: Attestation: I personally reviewed and interpreted this EKG as follows: Interpretation: Sinus Tachycardia Prior: Changed 3rd post spot conversion: Attestation: I personally reviewed and interpreted this EKG as follows: Interpretation: Sinus Rhythm and No Acute Injury Pattern Prior: Unchanged (compared w/ old EKGs) Discharge Plan Triage Chief Complaint: Palpitations ED Provider: Eron Bernabe Dx/Rx/DC Orders Clinical Impression: Supraventricular tachycardia Instructions: ED Tachycardia: PAT Prescriptions: No Action tiotropium bromide [Spiriva Respimat] 1.25 mcg/actuation mist RF: 0 pioglitazone 30 mg tablet 30 mg PO DAILY Qty: 90 RF: 3 metformin 500 mg tablet 500 mg PO BID Qty: 180 RF: 3 losartan 25 mg tablet 25 mg PO DAILY Qty: 90 RF: 3 bupropion HCl 300 mg tablet extended release 24 hr 300 mg PO QAM Qty: 90 RF: 0 rosuvastatin 10 mg tablet 10 mg PO QHS Qty: 90 RF: 3 Trulicity 3 mg/0.5 mL pen injector 3 mg .ROUTE QWEEK 90 Days Qty: 2 RF: 3 ipratropium-albuterol 0.5 mg-3 mg(2.5 mg base)/3 mL solution for nebulization 3 ml inhalation TID PRN (Reason: SOB &/OR WHEEZING) Qty: 90 RF: 6 fluocinonide 0.05 % cream 1 applic TOPICAL BID Qty: 120 RF: 2 omeprazole 40 mg capsule,delayed release(DR/EC) 40 mg PO DAILY Qty: 30 RF: 3 albuterol sulfate 90 mcg/actuation HFA aerosol inhaler 2 puff INHALATION Q4H PRN PRN (Reason: Sob &/Or Wheezing) Qty: 18 RF: 3 Symbicort 160-4.5 mcg/actuation HFA aerosol inhaler 2 puff INHALATION Q12H Qty: 10.2 RF: 6 azelastine-fluticasone 137-50 mcg/spray spray,non-aerosol 1 spray intranasal BID Qty: 23 RF: 6 cephalexin 500 mg tablet 500 mg PO TID Qty: 15 RF: 0 Primary Care Provider: Ramo Rico Referrals: Lino Meneses MD [STAFF PHYSICIAN] - As soon as possible Ramo Rico MD [Primary Care Provider] - Disposition Disposition: Home, Self Care
[2021-08-06 08:01] LABS: Absolute Lymphocyte Count 1.66 X10^3/uL (0.83-4.51); Absolute Neutrophil Count 2.6 X10^3/uL (2.0-7.7); Basophil# 0.02 X10^3/uL; Basophil% 0.4 % (0-1); Eosinophil# 0.18 X10^3/uL; Eosinophils% 3.6 % (0-5); Hematocrit 41.6 % (37-47); Hemoglobin 13.7 g/dL (12.0-15.0); Lymphocyte # 1.66 X10^3/ul (0.83-4.51); Lymphocyte % 33.3 % (19-41); Mean Corp Hgb Conc 32.9 g/dL (32-36); Mean Corpuscular Hgb 30.9 pg (27.0-32.0); Mean Corpuscular Volume 93.7 fL (81-99); Monocyte# 0.49 X10^3/uL; Monocyte% 9.8 % (0-10); NRBC Flagged by Analyzer 0 % (0-5); Neutrophil # 2.62 X10^3/uL (2.7-7.7); Neutrophil % 52.7 % (47-70); Platelet Count 288 K/mm3 (150-450); RBC Distribution Width CV 12.4 % (11.6-14.6); RBC Distribution Width SD 42.8 fl (35.1-43.9); Red Blood Count 4.44 M/mm3 (4.2-5.4)
[2021-08-06 08:19] LABS: Anion Gap 9 (5-15); BUN 15 mg/dL (7-18); BUN/Creat Ratio 18.5 RATIO (10-20); Calcium,Total 9.5 mg/dL (8.5-10.1); Chloride 104 mmol/L (98-107); Creatinine, Serum 0.81 mg/dL (0.55-1.02); EST Glomerular Filtration Rate 76 mL/min (>60); Est Glom Filt Rate - Afr Amer 92 mL/min (>60); Estimated Creatinine Clearance 63.78 ml/min; Glucose 162 mg/dL (74-106); Potassium 3.5 mmol/L (3.5-5.1); Sodium Level 141 mmol/L (136-145); Troponin-I HS 7 pg/mL (3.0-54.0)
--- NOTE | 2021-08-06 08:45 | EKG12_ITS ---
Test Reason : REPEAT Blood Pressure : / mmHG Vent. Rate : 097 BPM Atrial Rate : 097 BPM P-R Int : 168 ms QRS Dur : 076 ms QT Int : 370 ms P-R-T Axes : 043 012 058 degrees QTc Int : 469 ms Normal sinus rhythm Normal ECG Confirmed by SPARKLE MONTES, TRACEY ([id number]), associate entertainment editor EMIL BLACK ([id number]) on 08/10/2021 10:34:40 AM Referred By: TANNA Confirmed By:TRACEY VILLAGRAN MD
== END 2021-08-06 09:21 | disposition home or self-care (01) ==
PROVIDERS: Emergency Provider Emergency Medicine; PCP Internal Medicine
DX: I47.1 Supraventricular tachycardia (principal); E66.9 Obesity, unspecified
CPT/HCPCS: 80048; 84484; 85025; 93005; 96374; 99284; J7030; A4216; J0153

== ENCOUNTER → 2021-09-30 12:01 | Outpatient (CLI) | payer OTHER, SELFPAY ==
--- NOTE | 2021-09-30 12:02 | RAD_ITS ---
STUDY: X-RAY CHEST REASON FOR EXAM: Female, 61 years old. Technologist Notes covid pos 11 days ago, last 2 nights having trouble breathing covid positive TECHNIQUE: XR Chest 2 Views COMPARISON: 4.9.19 FINDINGS: Left lower lobe infiltrate. Normal size heart. Normal mediastinum and gena. Normal visualized pulmonary arteries. There is atherosclerotic calcification of the aortic arch with tortuosity. There are diffuse degenerative changes of the visualized thoracic spine. There is degenerative osteoarthritis of the bilateral shoulders. There is no demonstrated abnormality of the visualized soft tissue structures of the upper abdomen. RAD/Chest PA and Lateral IMPRESSION: Left lower lobe infiltrate. Electronically Signed: Gio Jaime MD at 16:50 EST , Service support ,
== END ==
PROVIDERS: PCP Internal Medicine; Referring Provider Nurse Practitioner Family; Visit Provider Nurse Practitioner Family
DX: U07.1 COVID-19 (principal)
CPT/HCPCS: 71046

== ENCOUNTER → 2021-10-11 09:58 | Outpatient (CLI) | payer OTHER, SELFPAY ==
[2021-10-11 12:44] LABS: T4 Free Direct 0.99 ng/dL (0.76-1.46); Thyroid Stim Hormone (TSH) 1.92 uIU/mL (0.358-3.74)
== END ==
PROVIDERS: PCP Internal Medicine; Referring Provider Internal Medicine; Visit Provider Internal Medicine
DX: R25.1 Tremor, unspecified (principal)
CPT/HCPCS: 36415; 84439; 84443

== ENCOUNTER 2021-10-27 10:54 | Outpatient (CLI) | payer OTHER, SELFPAY ==
--- NOTE | 2021-10-27 10:57 | ECHOCS_ITS ---
Reason For Study: Cardiac Murmur Procedure This was a 2D Doppler, Color Flow transthoracic echocardiogram. The study was technically difficult. Contrast injection was performed. Exam performed in department. Left Ventricle Normal LV size. Left ventricular systolic function is normal. The estimated ejection fraction is 65 %. No evidence for diastolic dysfunction. No regional wall motion abnormalities noted. Right Ventricle Normal RV size. Normal systolic function. Atria Normal left atrium. Normal right atrium. No doppler evidence for ASD. Mitral Valve There is no mitral annular calcification. Normal mitral valve. Trivial mitral valve insufficiency. Tricuspid Valve Normal tricuspid valve. Trivial tricuspid valve insufficiency. Right ventricular systolic pressure estimated to be 23 mmHg. Aortic Valve Trisinus/trileaflet aortic valve. Mild focal aortic valve calcification. Pulmonic Valve The pulmonic valve is not well visualized. Trivial pulmonic valve insufficiency. Great Vessels Normal sized aortic root. Pericardium/Pleural No pericardial effusion. Medication Diluted definity 3ml given slow IV push to enhance endocardial definition. MMode/2D Measurements & Calculations LVIDd: 6.0 cm IVSd: 1.1 cm LVOT diam: 2.1 cm LVIDs: 4.0 cm LVPWd: 1.1 cm RVDd: 3.3 cm FS: 33.4 % LVOT area: 3.4 cm2 Ao root diam: 2.8 cm LAV(MOD-bp): 46.7 ml LVAd ap4: 27.3 cm2 LAV(MOD-bp) Indexed: 21.2 ml/m2 LVLd ap4: 7.1 cm LAV(MOD-sp2): 49.7 ml EDV(MOD-sp4): 86.0 ml LAV(MOD-sp4): 41.8 ml EDV(sp4-el): 89.1 ml LVAs ap4: 14.6 cm2 LVLs ap4: 5.9 cm ESV(MOD-sp4): 30.6 ml ESV(sp4-el): 30.3 ml EF(MOD-sp4): 64.4 % EF(sp4-el): 66.0 % SV(MOD-sp4): 55.4 ml SV(sp4-el): 58.8 ml LA A4 area: 16.0 cm2 LA dimension(2D): 3.9 cm RA A4 area: 9.3 cm2 Doppler Measurements & Calculations MV E max adam: 77.8 cm/sec Lat Peak E' Adam: 7.2 cm/sec Med Peak E' Adam: 5.9 cm/sec MV A max adam: 97.2 cm/sec E/E' lat: 10.8 E/E' med: 13.1 MV E/A: 0.80 Ao V2 max: 253.6 cm/sec LV V1 max: 124.0 cm/sec SV(LVOT): 86.6 ml Ao max P.7 mmHg LV V1 max P.2 mmHg Ao V2 mean: 176.3 cm/sec LV V1 mean P.8 mmHg Ao mean P.7 mmHg LV V1 mean: 94.0 cm/sec Ao V2 VTI: 50.6 cm LV V1 VTI: 25.8 cm MARCIA(I,D): 1.7 cm2 MARCIA(V,D): 1.6 cm2 PA V2 max: 110.7 cm/sec TR max adam: 225.7 cm/sec TR max P.4 mmHg ECHO/Echo Complete W/ Contrast Interpretation Summary The study was technically difficult. Contrast injection was performed. Left ventricular systolic function is normal. The estimated ejection fraction is 65 %. Trivial mitral valve insufficiency. Trivial tricuspid valve insufficiency. Mild focal aortic valve calcification. Trivial pulmonic valve insufficiency. Right ventricular systolic pressure estimated to be 23 mmHg. No evidence for diastolic dysfunction. Ordering Physician: Mine Alvarado Referring Physician: Mine Alvarado Performed By: Myrtle Jacome RDCS, EARL
== END 2021-10-27 23:59 | disposition short-term general hospital (02) ==
LOC: PSN 10:56
PROVIDERS: PCP Internal Medicine; Referring Provider Nurse Practitioner Gerontology; Visit Provider Nurse Practitioner Gerontology
DX: I47.1 Supraventricular tachycardia (principal); R01.1 Cardiac murmur, unspecified
CPT/HCPCS: 93225; 93226; 93306; Q9957; A4216; C8929

== ENCOUNTER → 2022-10-28 | Outpatient (CLI) | payer OTHER, SELFPAY ==
[2022-10-28 12:29] LABS: Absolute Lymphocyte Count 1.29 X10^3/uL (0.83-4.51); Basophil# 0.01 X10^3/uL; Basophil% 0.2 % (0-1); Eosinophil# 0.21 X10^3/uL; Eosinophils% 3.5 % (0-5); Hematocrit 36.2 % (37-47); Hemoglobin 12.3 g/dL (12.0-15.0); Lymphocyte # 1.29 X10^3/ul (0.83-4.51); Lymphocyte % 21.8 % (19-41); Mean Corpuscular Hgb 31.6 pg (27.0-32.0); Mean Corpuscular Volume 93.1 fL (81-99); Mean Platelet Vol. 9.1 fl (6.2-12.0); Monocyte# 0.45 X10^3/uL; Monocyte% 7.6 % (0-10); NRBC Flagged by Analyzer 0 % (0-5); Neutrophil # 3.95 X10^3/uL (2.7-7.7); Neutrophil % 66.6 % (47-70); Platelet Count 256 K/mm3 (150-450); RBC Distribution Width CV 12.7 % (11.6-14.6); RBC Distribution Width SD 43.6 fl (35.1-43.9); Red Blood Count 3.89 M/mm3 (4.2-5.4); White Blood Count 5.9 K/mm3 (4.4-11.0)
[2022-10-28 13:34] LABS: ALB/GLOB Ratio 1.2 RATIO (0.9-2.4); AST(SGOT) 21 U/L (15-37); Alanine Aminotransfer ALT/SGPT 25 U/L (13-56); Albumin, Serum 3.8 g/dL (3.2-5.0); Alkaline Phosphatase 84 U/L (45-117); Anion Gap 6 (5-15); BUN 14 mg/dL (7-18); BUN/Creat Ratio 22.5 RATIO (10-20); Calcium,Total 9.1 mg/dL (8.5-10.1); Chloride 105 mmol/L (98-107); Cholesterol 132 mg/dL (200); Creatinine, Serum 0.62 mg/dL (0.55-1.02); EST Glomerular Filtration Rate 103 mL/min (>60); Est Glom Filt Rate - Afr Amer 125 mL/min (>60); Globulin 3.1 g/dL (2.2-4.2); Glucose 105 mg/dL (74-106); High Density Lipoprotein 69 mg/dL; Potassium 3.8 mmol/L (3.5-5.1); Protein, Total 6.9 g/dL (6.4-8.2); Sodium Level 140 mmol/L (136-145); Thyroid Stim Hormone (TSH) 1.61 uIU/mL (0.358-3.74); Triglycerides 132 mg/dL; Very Low Density Lipoprotein 26 mg/dL (5-40)
== END | disposition home or self-care (01) ==
PROVIDERS: PCP Internal Medicine; Referring Provider Nurse Practitioner Family; Visit Provider Nurse Practitioner Family
DX: I10 Essential (primary) hypertension (principal); E11.9 Type 2 diabetes mellitus without complications
CPT/HCPCS: 36415; 80053; 80061; 84443; 85025

== ENCOUNTER → 2023-02-09 | Outpatient (CLI) | payer OTHER, SELFPAY ==
--- NOTE | 2023-02-09 15:15 | RAD_ITS ---
STUDY: X-RAY CHEST REASON FOR EXAM: Female, 62 years old. short of breath TECHNIQUE: Single PA view of the chest. COMPARISON: 09/30/2021 FINDINGS: The lungs are clear and expanded. There is no demonstrated pleural abnormality. Normal size heart. Normal mediastinum and gena. Normal visualized pulmonary arteries. Normal visualized aortic arch and descending thoracic aorta. Normal visualized thoracic spine. Normal visualized ribs, clavicles, and shoulders. There is no demonstrated abnormality of the visualized soft tissue structures of the upper abdomen. RAD/Chest PA and Lateral IMPRESSION: No evidence of acute cardiopulmonary process. Electronically Signed: Zoran Molina DO at 15:40 EDT ,
== END | disposition home or self-care (01) ==
LOC: MTRAD 15:15
PROVIDERS: PCP Internal Medicine; Referring Provider Physician Assistant; Visit Provider Physician Assistant
DX: R06.02 Shortness of breath (principal)
CPT/HCPCS: 71046

== ENCOUNTER → 2023-03-07 | Outpatient (CLI) | payer OTHER, SELFPAY ==
[2023-03-07 17:07] LABS: Bacteria 0 SEEN /hpf (None Seen); Mucous, Urine 0 SEEN /hpf (<or=2+); Red Blood Cells-Urine 0 SEEN /hpf (0-5)
[2023-03-07 18:23] LABS: Color, Urine Yellow (Yellow); Glucose, Dipstick Normal (Normal); Ketone-Dipstick Negative (Negative); Leukocyte Esterase-Dipstick 500 /ul (Negative); Nitrite-Dipstick Negative (Negative); Occult Blood-Urine Negative /ul (Negative); Protein-Dipstick Negative (Negative); Urine Bilirubin Dipstick Negative (Negative); Urine Clarity Sl. Cloudy (Clear); Urine Urobilinogen Normal (Normal)
[2023-03-07 18:39] LABS: Amorphous Sediment 1+ URATE; Squamous Epithelial Cells - UA 0-5 SEEN /hpf (5-10); White Blood Cells 25-50 SEEN /hpf (0-5)
== END | disposition home or self-care (01) ==
LOC: LABSPEC 16:17
PROVIDERS: PCP Internal Medicine; Referring Provider Physician Assistant Surgical; Visit Provider Physician Assistant Surgical
DX: R39.15 Urgency of urination (principal)
CPT/HCPCS: 81001; 87077; 87086; 87088; 87186

== ENCOUNTER → 2023-05-05 | Outpatient (CLI) | payer OTHER, SELFPAY ==
[2023-05-05 13:12] LABS: Anion Gap 7 (5-15); BUN 14 mg/dL (7-18); BUN/Creat Ratio 21.7 RATIO (10-20); Calcium,Total 9.1 mg/dL (8.5-10.1); Chloride 106 mmol/L (98-107); Creatinine, Serum 0.65 mg/dL (0.55-1.02); EST Glomerular Filtration Rate 99 mL/min (>60); Est Glom Filt Rate - Afr Amer 119 mL/min (>60); Glucose 113 mg/dL (74-106); Potassium 3.8 mmol/L (3.5-5.1); Sodium Level 143 mmol/L (136-145)
[2023-05-05 14:54] LABS: AST(SGOT) 30 U/L (15-37); Alanine Aminotransfer ALT/SGPT 28 U/L (13-56); Albumin, Serum 3.7 g/dL (3.2-5.0); Alkaline Phosphatase 86 U/L (45-117); Bilirubin, Direct 0.15 mg/dL (0.00-0.30); Cholesterol 144 mg/dL (200); Globulin 3.1 g/dL (2.2-4.2); High Density Lipoprotein 77 mg/dL; Protein, Total 6.8 g/dL (6.4-8.2); Triglycerides 108 mg/dL; Very Low Density Lipoprotein 22 mg/dL (5-40)
[2023-05-05 14:55] LABS: Microalbumin,Random Urine 5.5 mg/L (NO RANGE EST.); Microalbumin:Creatinine Ratio 13.5 mg/g CRE (<30 mg/g CRE)
== END | disposition home or self-care (01) ==
LOC: BIMLAB 10:29
PROVIDERS: Nurse Practitioner Gerontology; PCP Internal Medicine; Referring Provider Internal Medicine; Visit Provider Internal Medicine
DX: E78.5 Hyperlipidemia, unspecified (principal); E11.9 Type 2 diabetes mellitus without complications
CPT/HCPCS: 36415; 80048; 80061; 80076; 82043; 82570

== ENCOUNTER → 2023-05-12 | Outpatient (CLI) | payer OTHER, SELFPAY ==
--- NOTE | 2023-05-12 10:39 | BI_ITS ---
MAMMOGRAPHY - BILATERAL SCREENING REASON FOR EXAM: Female, 62 years old. Routine annual screening examination. PERTINENT HISTORY: Non-contributory. TECHNIQUE: Digital bilateral breast merritt (3D mammographic acquisition) in the CC and MLO projections. 2-D mediolateral oblique (MLO) and craniocaudad (CC) views of both breasts were obtained. CAD: Full Field Digital Mammography with Computer Added Detection was performed. COMPARISON: Comparison is made with prior study of November 20, 2020 and November 14, 2018. FINDINGS: Breast Composition: The breasts are almost entirely fatty. There are no dominant masses or suspicious calcifications. Stable small benign appearing bilateral axillary lymph nodes. No other significant abnormalities are identified. There has been no significant change since the prior study. BI/SCRN MAMM (CAD)W/MERRITT BILAT IMPRESSION: Stable bilateral screening mammogram. Yearly follow-up mammogram recommended. (A) ASSESSMENT CATEGORY: BIRADS Category 2: Benign. A letter regarding these results will be sent to the patient by the facility within 30 days. Approximately 10% of breast cancers are not detected by mammography. A normal mammogram should not delay biopsy of a clinically suspicious abnormality. [id number] Electronically Signed: John Pratt MD at 12:23 EDT ,
== END | disposition home or self-care (01) ==
LOC: OPBI 10:38
PROVIDERS: PCP Internal Medicine; Referring Provider Internal Medicine; Visit Provider Internal Medicine
DX: Z12.31 Encounter for screening mammogram for malignant neoplasm of breast (principal)
CPT/HCPCS: 77063; 77067

== ENCOUNTER → 2023-05-19 | Outpatient (CLI) | payer OTHER, SELFPAY ==
--- NOTE | 2023-05-19 15:10 | RAD_ITS ---
HISTORY: Left Knee Pain. TECHNIQUE: XR Knee 3 Views. COMPARISON: None. FINDINGS: BONES : No acute fracture identified. Mineralization unremarkable. JOINTS: No dislocation. Mild joint space narrowing and small degenerative osteophytes. Mild joint effusion. SOFT TISSUES: Peripheral vascular disease noted. RAD/Knee 3 Views IMPRESSION: No acute fracture or dislocation identified . Mild degenerative change of the left knee. Electronically Signed: Charis Mai MD at 14:53 EDT ,
== END | disposition home or self-care (01) ==
LOC: MTRAD 15:09
PROVIDERS: PCP Internal Medicine; Referring Provider Internal Medicine; Visit Provider Internal Medicine
DX: M25.562 Pain in left knee (principal)
CPT/HCPCS: 73562

== ENCOUNTER → 2023-11-10 | Outpatient (CLI) | payer OTHER, SELFPAY ==
--- OUTSIDE RECORDS SUMMARY | 2023-11-10 11:28 | XMS RPT_ITS | CCD ---
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 Role Phone SIDNEY CONTEH Attending Unavailable SIDNEY CONTEH Referring Unavailable MIKE POOL (PA) Referring Unavailable BRENDA GARCIA (HEALTH SAFETY MANAGER) Attending UnavailWILLIAM Espino Attending Unavailable SIDNEY CONTEH Referring Unavailable SIDNEY CONTEH Attending Unavailable SIDNEY CONTEH Referring Unavailable SIDNEY CONTEH Referring Unavailable Allergies Allergy Classification Reported Allergen(s) Allergy Type Date of Onset Reaction(s) Facility (1 source) Lisinopril; Translations: [LISINOPRIL] Drug Allergy 12-16-2016 [facility] Repository (1 source) Pravastatin; Translations: [PRAVASTATIN SODIUM] Drug Allergy 11-08-2007 [facility] Repository (1 source) Sertraline; Translations: [SERTRALINE] Drug Allergy 06-26-2008 [facility] Repository (1 source) Simvastatin; Translations: [SIMVASTATIN] Drug Allergy 11-08-2007 [facility] Repository Problems Active Problems Problem Classification Problem Date Documented Da te Episodic/Chronic Diabetes mellitus without complication (1 source) Type 2 diabetes mellitus without complications; Translations: [Type 2 diabetes mellitus without complications] Onset: 04-30-2018 Chronic Disorders of lipid metabolism (1 source) Hyperlipidemia, unspecified; Translations: [Hyperlipidemia, unspecified] Onset: 09-07-2016 Chronic Past or Other Problems Problem Classification Problem Date Documented Da te Episodic/Chronic Other aftercare (1 source) 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; Translations: [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] Onset: 04-30-2018 Episodic Results Test Name Value Interpretation Reference Range Facil ity Encounters Encounter Date Encounter Type Care Provider Facility Start: 07-30-2018 End: 07-30-2018 Patient encounter procedure SIDNEY CONTEH [facility] Start: 07-30-2018 End: 07-31-2018 Patient encounter procedure SIDNEY Kulkarni [facility] Start: 05-29-2018 End: 05-29-2018 Patient encounter procedure WILLIAM Plunkett LISS [facility] Start: 05-07-2018 End: 05-09-2018 Patient encounter procedure BRENDA (HEALTH SAFETY MANAGER) JOSE [facility] Start: 05-04-2018 End: 05-07-2018 Patient encounter procedure MIKE (PA) [facility] Start: 04-30-2018 End: 04-30-2018 Patient encounter procedure SIDNEY Kulkarni [facility] Start: 04-27-2018 End: 04-30-2018 Patient encounter procedure SIDNEY Kulkarni [facility] Summary Purpose Family History No Family History Records FoundNo Family History Records Found Advance Directives No Advanced Directives Records FoundNo Advanced Directives Records Found Additional Source Comments INFORMATION SOURCE (unrecogn ized section and content) DATE CREATED AUTHOR AUTHOR'S ORGANIZ ATION 02/08/2019 [facility] FOR RECORDS PERTAINING TO PATIENTS WHO ARE OR HAVE BEEN ENROLLED IN A CHEMICAL DEPENDENCY/SUBSTANCEABUSE PROGRAM, SOME INFORMATION MAY BE OMITTED. This clinical summary was aggregated from multiple sources. Caution should be exercised in using it in the provision of clinical care. This summary normalizes information from multiple sources, and as a consequence, information in this document may materially change the coding, format and clinical context of patient data. In addition, data may be omitted in some cases. CLINICAL DECISIONS SHOULD BE BASED ON THE PRIMARY CLINICAL RECORDS. [employer] provides no warranty or guarantee of the accuracy or completeness of information in this document.
[2023-11-10 12:49] LABS: Anion Gap 4 (5-15); BUN 15 mg/dL (7-18); BUN/Creat Ratio 20.5 RATIO (10-20); Calcium,Total 9.3 mg/dL (8.5-10.1); Chloride 105 mmol/L (98-107); Creatinine, Serum 0.73 mg/dL (0.55-1.02); EST Glomerular Filtration Rate 85 mL/min (>60); Est Glom Filt Rate - Afr Amer 103 mL/min (>60); Glucose 115 mg/dL (74-106); Sodium Level 141 mmol/L (136-145)
[2023-11-10 12:51] LABS: AST(SGOT) 22 U/L (15-37); Alanine Aminotransfer ALT/SGPT 25 U/L (13-56); Albumin, Serum 3.9 g/dL (3.2-5.0); Alkaline Phosphatase 83 U/L (45-117); Bilirubin, Direct 0.16 mg/dL (0.00-0.30); Cholesterol 137 mg/dL (200); Globulin 2.7 g/dL (2.2-4.2); High Density Lipoprotein 82 mg/dL; Protein, Total 6.6 g/dL (6.4-8.2); Triglycerides 97 mg/dL; Very Low Density Lipoprotein 19 mg/dL (5-40)
== END | disposition home or self-care (01) ==
LOC: BIMLAB 10:36
PROVIDERS: Physician Assistant Medical; PCP Internal Medicine; Referring Provider Internal Medicine; Visit Provider Internal Medicine
DX: I10 Essential (primary) hypertension (principal); E78.00 Pure hypercholesterolemia, unspecified
CPT/HCPCS: 36415; 80048; 80061; 80076

== ENCOUNTER → 2024-02-02 | Outpatient (CLI) | payer OTHER, SELFPAY ==
[2024-02-02 12:19] LABS: Absolute Lymphocyte Count 1.08 X10^3/uL (0.83-4.51); Absolute Neutrophil Count 2.7 X10^3/uL (2.0-7.7); Basophil# 0.03 X10^3/uL; Basophil% 0.7 % (0-1); Eosinophil# 0.12 X10^3/uL; Eosinophils% 2.8 % (0-5); Hematocrit 37.6 % (37-47); Lymphocyte # 1.08 X10^3/ul (0.83-4.51); Lymphocyte % 24.9 % (19-41); Mean Corp Hgb Conc 31.9 g/dL (32-36); Mean Corpuscular Hgb 30.3 pg (27.0-32.0); Mean Corpuscular Volume 94.9 fL (81-99); Mean Platelet Vol. 9.3 fl (6.2-12.0); Monocyte# 0.41 X10^3/uL; Monocyte% 9.4 % (0-10); NRBC Flagged by Analyzer 0 % (0-5); Neutrophil # 2.69 X10^3/uL (2.7-7.7); Platelet Count 306 K/mm3 (150-450); RBC Distribution Width CV 13.2 % (11.6-14.6); RBC Distribution Width SD 45.8 fl (35.1-43.9); Red Blood Count 3.96 M/mm3 (4.2-5.4); White Blood Count 4.3 K/mm3 (4.4-11.0)
[2024-02-02 12:37] LABS: Vitamin D,25 Hydroxy 24.1 ng/mL
[2024-02-02 12:41] LABS: ALB/GLOB Ratio 1.3 RATIO (0.9-2.4); AST(SGOT) 27 U/L (15-37); Alanine Aminotransfer ALT/SGPT 26 U/L (13-56); Albumin, Serum 3.9 g/dL (3.2-5.0); Alkaline Phosphatase 81 U/L (45-117); Anion Gap 5 (5-15); BUN 12 mg/dL (7-18); Calcium,Total 9.2 mg/dL (8.5-10.1); Chloride 108 mmol/L (98-107); Creatinine, Serum 0.67 mg/dL (0.55-1.02); EST Glomerular Filtration Rate 95 mL/min (>60); Est Glom Filt Rate - Afr Amer 115 mL/min (>60); Globulin 3.1 g/dL (2.2-4.2); Glucose 112 mg/dL (74-106); Potassium 3.9 mmol/L (3.5-5.1); Sodium Level 141 mmol/L (136-145)
== END | disposition home or self-care (01) ==
LOC: BIMLAB 11:15
PROVIDERS: PCP Internal Medicine; Visit Provider Internal Medicine
DX: Z13.21 Encounter for screening for nutritional disorder (principal); E11.9 Type 2 diabetes mellitus without complications
CPT/HCPCS: 36415; 80053; 82306; 85025

== ENCOUNTER → 2024-05-03 | Outpatient (CLI) | payer OTHER, SELFPAY ==
[2024-05-03 12:25] LABS: Absolute Lymphocyte Count 1.17 X10^3/uL (0.83-4.51); Absolute Neutrophil Count 2.9 X10^3/uL (2.0-7.7); Basophil# 0.03 X10^3/uL; Basophil% 0.6 % (0-1); Eosinophils% 4.3 % (0-5); Hematocrit 38.6 % (37-47); Hemoglobin 12.6 g/dL (12.0-15.0); Lymphocyte # 1.17 X10^3/ul (0.83-4.51); Lymphocyte % 24.9 % (19-41); Mean Corp Hgb Conc 32.6 g/dL (32-36); Mean Corpuscular Hgb 30.4 pg (27.0-32.0); Mean Platelet Vol. 9.3 fl (6.2-12.0); Monocyte# 0.38 X10^3/uL; Monocyte% 8.1 % (0-10); NRBC Flagged by Analyzer 0 % (0-5); Neutrophil % 61.9 % (47-70); Platelet Count 285 K/mm3 (150-450); Red Blood Count 4.15 M/mm3 (4.2-5.4); White Blood Count 4.7 K/mm3 (4.4-11.0)
[2024-05-03 12:35] LABS: Anion Gap 7 (5-15); BUN 12 mg/dL (7-18); BUN/Creat Ratio 15.1 RATIO (10-20); Calcium,Total 9.7 mg/dL (8.5-10.1); Chloride 104 mmol/L (98-107); EST Glomerular Filtration Rate 77 mL/min (>60); Est Glom Filt Rate - Afr Amer 94 mL/min (>60); Glucose 123 mg/dL (74-106); Potassium 3.8 mmol/L (3.5-5.1); Sodium Level 139 mmol/L (136-145)
[2024-05-03 12:37] LABS: Microalbumin,Random Urine 5.9 mg/L (NO RANGE EST.); Microalbumin:Creatinine Ratio 8.4 mg/g CRE (<30 mg/g CRE)
[2024-05-03 14:36] LABS: AST(SGOT) 22 U/L (15-37); Alanine Aminotransfer ALT/SGPT 24 U/L (13-56); Alkaline Phosphatase 86 U/L (45-117); Bilirubin, Direct 0.15 mg/dL (0.00-0.30); Cholesterol 129 mg/dL (200); Globulin 3.2 g/dL (2.2-4.2); High Density Lipoprotein 69 mg/dL; Protein, Total 7.2 g/dL (6.4-8.2); Triglycerides 107 mg/dL; Very Low Density Lipoprotein 21 mg/dL (5-40)
[2024-05-03 15:50] LABS: Vitamin D,25 Hydroxy 48.6 ng/mL
== END | disposition home or self-care (01) ==
PROVIDERS: Physician Assistant Medical; PCP Internal Medicine; Referring Provider Internal Medicine; Visit Provider Internal Medicine
DX: E11.9 Type 2 diabetes mellitus without complications (principal); I10 Essential (primary) hypertension; E78.00 Pure hypercholesterolemia, unspecified; Z13.21 Encounter for screening for nutritional disorder
CPT/HCPCS: 36415; 80048; 80061; 80076; 82043; 82306; 82570; 85025

== ENCOUNTER → 2024-05-08 | Outpatient (CLI) | payer OTHER, SELFPAY ==
--- NOTE | 2024-05-08 09:04 | ECHOD_ITS ---
Reason For Study: MURMUR Procedure This was a 2D Doppler, Color Flow transthoracic echocardiogram. Exam performed in department. Left Ventricle Normal LV size. Mild concentric left ventricular hypertrophy. The left ventricular ejection fraction is 65 %. Left ventricular systolic function is normal. Stage 1 diastolic dysfunction. No regional wall motion abnormalities noted. Right Ventricle Normal RV size. Normal systolic function. Tricuspid Valve Normal tricuspid valve. Aortic Valve Moderate focal aortic valve calcification. Peak aortic valve gradient 28 mmHg. Mean aortic valve gradient 17 mmHg. Mild aortic stenosis. Pulmonic Valve Normal pulmonic valve. Great Vessels Normal aortic root. The pulmonary artery is normal size. Inferior vena cava collapse with respiration. Pericardium/Pleural No pericardial effusion. MMode/2D Measurements & Calculations LVIDd: 4.4 cm IVSd: 1.4 cm LVOT diam: 2.0 cm LVIDs: 2.5 cm LVPWd: 1.2 cm LVOT area: 3.0 cm2 RVDd: 3.4 cm FS: 42.7 % Ao root diam: 3.1 cm LAV(MOD-bp): 46.6 ml LVAd ap4: 18.3 cm2 LAV(MOD-bp) Indexed: 22.2 ml/m2 LVLd ap4: 7.2 cm LAV(MOD-sp2): 45.2 ml EDV(MOD-sp4): 39.0 ml LAV(MOD-sp4): 46.3 ml EDV(sp4-el): 39.6 ml LVAs ap4: 9.7 cm2 LVLs ap4: 5.7 cm ESV(MOD-sp4): 14.3 ml ESV(sp4-el): 14.0 ml EF(MOD-sp4): 63.4 % EF(sp4-el): 64.5 % SV(MOD-sp4): 24.7 ml SV(MOD-sp2): 20.8 ml LVAd ap2: 16.7 cm2 LVLd ap2: 7.0 cm EDV(MOD-sp2): 33.7 ml EDV(sp2-el): 33.9 ml LVAs ap2: 9.4 cm2 LVLs ap2: 6.0 cm ESV(MOD-sp2): 12.8 ml ESV(sp2-el): 12.3 ml EF(MOD-sp2): 61.9 % SV(sp4-el): 25.5 ml LA A4 area: 18.0 cm2 LA dimension(2D): 3.8 cm TAPSE: 1.8 cm RA A4 area: 11.5 cm2 Time Measurements MV dec time: 0.19 sec Doppler Measurements & Calculations MV E max adam: 87.8 cm/sec Lat Peak E' Adam: 9.1 cm/sec Med Peak E' Adam: 7.6 cm/sec MV A max adam: 91.8 cm/sec E/E' lat: 9.6 E/E' med: 11.6 MV E/A: 0.96 MV dec slope: 458.9 cm/sec2 Ao V2 max: 267.3 cm/sec LV V1 max: 121.1 cm/sec Ao max P.7 mmHg LV V1 max P.9 mmHg Ao V2 mean: 199.0 cm/sec LV V1 mean P.5 mmHg Ao mean P.2 mmHg LV V1 mean: 104.6 cm/sec Ao V2 VTI: 54.6 cm LV V1 VTI: 27.5 cm AV (velocity ratio): 0.50 MARCIA(I,D): 1.5 cm2 MARCIA(V,D): 1.4 cm2 SV(LVOT): 83.2 ml PA V2 max: 102.3 cm/sec PA max PG (full): 3.1 mmHg ECHO/Echo Complete Interpretation Summary Normal LV size. The left ventricular ejection fraction is 65 %. Left ventricular systolic function is normal. Stage 1 diastolic dysfunction. Moderate focal aortic valve calcification. Mean aortic valve gradient 17 mmHg. Mild aortic stenosis. Mild concentric left ventricular hypertrophy. Ordering Physician: Alia Boo Referring Physician: Ramo Rico Performed By: Tena Corea RDCS
== END | disposition home or self-care (01) ==
LOC: CVS 08:55
PROVIDERS: PCP Internal Medicine; Referring Provider Physician Assistant Medical; Visit Provider Physician Assistant Medical
DX: R01.1 Cardiac murmur, unspecified (principal)
CPT/HCPCS: 93306

== ENCOUNTER → 2024-11-06 | Outpatient (CLI) | payer BC, SELFPAY ==
--- NOTE | 2024-11-06 09:04 | BI_ITS ---
MAMMOGRAPHY - BILATERAL SCREENING REASON FOR EXAM: Female, 64 years old. Routine annual screening examination. PERTINENT HISTORY: Non-contributory. TECHNIQUE: Digital bilateral breast merritt (3D mammographic acquisition) in the CC and MLO projections. 2-D mediolateral oblique (MLO) and craniocaudad (CC) views of both breasts were obtained. CAD: Full Field Digital Mammography with Computer Added Detection was performed. COMPARISON: Comparison is made with prior study dated May 12, 2023 and November 20, 2020. FINDINGS: Breast Composition: The breasts are almost entirely fatty. There are no dominant masses or suspicious calcifications. No other significant abnormalities are identified. There has been no significant change since the prior study. BI/SCRN MAMM (CAD)W/MERRITT BILAT IMPRESSION: Stable bilateral screening mammogram. Yearly follow-up mammogram recommended. (A) ASSESSMENT CATEGORY: BIRADS Category 1: Negative. A letter regarding these results will be sent to the patient by the facility within 30 days. Approximately 10% of breast cancers are not detected by mammography. A normal mammogram should not delay biopsy of a clinically suspicious abnormality. [id number] Electronically Signed: John Pratt MD at 10:51 EST ,
[2024-11-06 13:20] LABS: ALB/GLOB Ratio 1.2 RATIO (0.9-2.4); AST(SGOT) 14 U/L (15-37); Alanine Aminotransfer ALT/SGPT 21 U/L (13-56); Albumin, Serum 3.8 g/dL (3.2-5.0); Alkaline Phosphatase 82 U/L (45-117); Anion Gap 5 (5-15); BUN 20 mg/dL (7-18); BUN/Creat Ratio 28.7 RATIO (10-20); Bilirubin, Direct 0.13 mg/dL (0.00-0.30); Calcium,Total 9.4 mg/dL (8.5-10.1); Chloride 104 mmol/L (98-107); EST Glomerular Filtration Rate 90 mL/min (>60); Est Glom Filt Rate - Afr Amer 109 mL/min (>60); Globulin 3.3 g/dL (2.2-4.2); Glucose 92 mg/dL (74-106); Potassium 3.7 mmol/L (3.5-5.1); Protein, Total 7.1 g/dL (6.4-8.2); Sodium Level 139 mmol/L (136-145)
[2024-11-06 13:23] LABS: Cholesterol 143 mg/dL (200); High Density Lipoprotein 75 mg/dL; Triglycerides 86 mg/dL; Very Low Density Lipoprotein 17 mg/dL (5-40)
== END | disposition home or self-care (01) ==
PROVIDERS: Physician Assistant Medical; PCP Internal Medicine; Referring Provider Internal Medicine; Visit Provider Internal Medicine
DX: Z12.31 Encounter for screening mammogram for malignant neoplasm of breast (principal); E11.69 Type 2 diabetes mellitus with other specified complication; E78.00 Pure hypercholesterolemia, unspecified
CPT/HCPCS: 36415; 77063; 77067; 80053; 80061; 82248

== ENCOUNTER → 2024-12-25 | Outpatient (CLI) | payer BC, SELFPAY ==
[2024-12-31 15:08] LABS: HPV APTIMA, High Risk Negative (Negative)
== END | disposition home or self-care (01) ==
PROVIDERS: PCP Internal Medicine; Visit Provider Advanced Practice Midwife
DX: Z12.4 Encounter for screening for malignant neoplasm of cervix (principal); Z78.0 Asymptomatic menopausal state
CPT/HCPCS: 87624; 88175; G0145

== ENCOUNTER 2025-03-26 09:07 | Emergency (ER) | payer BC, SELFPAY ==
[2025-03-26 09:08] VITALS: BP 138/69; PULSE 91; RESP 18; TEMP 36.1; O2SAT 98; BMI 39.4
--- NOTE | 2025-03-26 10:00 | RAD_ITS ---
PROCEDURE: CHEST PA AND LATERAL 03/26/2025 REASON FOR EXAM: CHEST PAIN TECHNIQUE: Frontal and lateral views of the chest. COMPARISON: Chest x-ray of 02/09/2023. RAD/Chest PA and Lateral IMPRESSION: Generalized osteopenia is seen. No acute osseous change is evident. No pleural effusion or pneumothorax is seen. The lungs appear clear of acute disease. The cardiomediastinal silhouette is within the normal range. No evidence of acute cardiopulmonary disease. Reading Location: [address]
--- NOTE | 2025-03-26 10:00 | EKG12_ITS ---
Test Reason : Blood Pressure : */* mmHG Vent. Rate : 83 BPM Atrial Rate : 83 BPM P-R Int : 174 ms QRS Dur : 98 ms QT Int : 378 ms P-R-T Axes : 53 -28 85 degrees QTcB Int : 444 ms Sinus rhythm with Premature atrial complexes Incomplete right bundle branch block Moderate voltage criteria for LVH, may be normal variant ( R in aVL , Danyel product ) Borderline ECG Confirmed by Mynor Alvarado ([id number]), research editor EMIL BLACK ([id number]) on 03/27/2025 6:53:34 AM Referred By: Gatito Confirmed By: Mynor Alvarado
--- NOTE | 2025-03-26 10:06 | EDS_ITS ---
HPI History of Present Illness Chief Complaint: Palpitations Detail of Chief Complaint: Palpitations since 11 PM last night. Informant: patient and spouse/S.O. Onset/Context/Timing Onset: Today and Yesterday Activity at onset: sudden Timing: Intermittent Current Severity: Gone Narrative Narrative: 64-year-old female history of GERD and diabetes. No cardiac history otherwise. No prior NE nor stents nor bypass. States since 11 PM last night she has had palpitations. Currently they are resolved. She denies any chest pain or shortness of breath. No history of thyroid disease. Prior history of palpitations without specific diagnosis. Prior Similar Symptoms: Yes Recent Illness/Hospitalization: No CVD Risk Factors: Positive for Diabetes PE Risk Factors: Negative for Recent Travel/Surgery, Recent Immobilization, Prior DVT or PE, Cancer or OCP + Smoking + >/=35 TAD Risk Factors: Negative for Marfan's Syndrome [facility] Medical History Colon cancer screening Health care maintenance Intertriginous dermatitis associated with moisture Post-menopausal Encounter for vitamin deficiency screening Pneumonia Gastroenteritis Osteoarthritis of left knee Breast cancer screening Venous insufficiency (chronic) (peripheral) Left knee pain Asthmatic bronchitis with exacerbation Contact with and (suspected) exposure to other viral communicable diseases URI (upper respiratory infection) Essential hypertension Hearing impairment Tremor COVID-19 Carpal tunnel syndrome Strain of right ankle and foot Urinary tract infection Chills (without fever) Right lower lobe pneumonia Acute bronchitis Asthma Seasonal depression Bronchitis Dysthymic disorder Obesity Asthma Hyperlipidemia Type 2 diabetes mellitus without complications Supraventricular tachycardia Home Medications ?Medication ?Instructions ?Recorded ?Last Taken ?Type fluocinonide 0.05 % topical cream 1 applic topical BID #120 grams 01/06/23 Unknown Rx pioglitazone 45 mg tablet 45 mg PO DAILY #90 TABLETS 0 01/12/24 Unknown Rx blood sugar diagnostic (FreeStyle #200 ea 08/05/24 Unk nown Rx Lite Strips) blood-glucose meter (FreeStyle #1 ea 08/05/24 Unknown Rx Lite Meter kit) lancets 28 gauge (FreeStyle #200 ea 08/05/24 Unknown R x Lancets) bupropion HCl 300 mg 24 hr tablet, 300 mg PO QAM #90 t abs 12/04/24 Unknown Rx extended release rosuvastatin 5 mg tablet 5 mg PO QHS #90 tabs 5 Unknown Rx metformin 500 mg tablet,extended See Rx Instructions . Route 02/03/25 Unknown Rx release 24 hr .COMPLEX #180 tabs tirzepatide 7.5 mg/0.5 mL 7.5 mg (0.5 mL) subcut QWEEK 1 02/11/25 Unknown Rx subcutaneous pen injector month #2.5 mL losartan 25 mg tablet 25 mg PO DAILY #90 TABLETS 0 03/10/25 Unknown Rx Allergy/AdvReac Type Severity Reaction Status Date / Time lisinopril AdvReac cough Verified 02/17/25 15:11 pravastatin AdvReac myalgias Verified 02/17/25 15:11 sertraline AdvReac anorgasmia Verified 02/17/25 15:11 simvastatin (From Zocor) AdvReac myalgias Verified 02/17/25 15:11 Family History Mother Diabetes Father COPD (chronic obstructive pulmonary disease) emphysema Alcohol abuse Surgical History History of appendectomy History of left oophorectomy History of bilateral carpal tunnel release Social History adopted: No household members: spouse housing: house number of children: 6 current occupational status: employed current occupation: [employer] [place], [place] pets and animals: Yes pets and animals: dog(s) history of recent travel: No sexually active: Yes Smoking Status: Never smoker second hand exposure: No alcohol intake: never substance use type: does not use diet: other well-balanced diet: daily or most days caffeine: No eating out: rarely or never during the past year weight has: decreased > 10 lbs what type of physical activity do you participate in: walking manjula/mandaen: Non-Sabianist/Independent seatbelt use: always do you feel safe at home: Yes additional social history: - Don ROS ROS ED ROS Narrative Patient is currently resolved. No chest pain. No shortness of breath. Constitutional Constitutional ED: Denies chills or fever(s) Eyes Eyes: Reports none ENT ENT ED: Denies ear pain Cardiovascular Cardiovascular: Reports as per HPI and palpitations; Denies chest pain or racing heartbeat Respiratory/Chest Respiratory/Chest: Denies cough, dyspnea or dyspnea on exertion Gastrointestinal Gastrointestinal: Denies abdominal pain Genitourinary Genitourinary ED: Denies dysuria or hematuria Musculoskeletal Musculoskeletal: Denies arthralgias Integumentary Denies abscess Neurologic Neurologic: Denies headache(s) Psychiatric Psychiatric: Denies anxiety Endocrine Endocrinology: Denies cold intolerance Hematologic/Lymphatic Hematologic/Lymphatic: Denies easy bleeding, easy bruising or lymphadenopathy Allergic/Immunologic Allergic/Immunologic ED: Denies mouth swelling, tongue swelling or urticaria EXAM Physical Exam Narrative Exam Narrative: 64-year-old female sitting upright in bed. Vital signs are stable afebrile. Pulse ox 98% on room air no hypoxia. Spouse at bedside. H EENT exam pupils round react to light. Moist mucous membranes. No facial droop. Normal speech. Neck nontender. No JVD. No thyromegaly. No mass. Lungs clear to auscultation bilaterally. Heart regular rhythm rate about 90 no murmur. Currently she is not having any abnormal rhythm on the monitor. She is on normal sinus rhythm. On her EKG she has PACs. Abdomen soft, nontender, nondistended, normal bowel sounds without peritoneal signs. Moving all 4 extre mities. Nontender no edema. Normal strength. Normal range of motion. Back nontender. Neurologic exam she is awake alert. Answering questions following commands. Const Vital Signs: 03/26/25 09:08 03/26/25 09:53 03/26/25 10:00 Temperature 97 F L Temperature Source Temporal Pulse Rate 91 Respiratory Rate 18 Respiratory Effort Normal Respiratory Pattern Normal Blood Pressure 138/69 H Blood Pressure Mean 92 Pulse Ox 98 Oxygen Delivery Method Room Air Room Air 03/26/25 11:25 Temperature Temperature Source Pulse Rate 79 Respiratory Rate 16 Respiratory Effort Respiratory Pattern Blood Pressure 107/50 L Blood Pressure Mean 69 Pulse Ox 94 Oxygen Delivery Method Positive well developed; Negative for cachectic, contractures or unkempt General Appearance ED: well developed and NAD; Negative for unkempt, cachectic, contractures or pallor Nutritional Appearance: Negative for cachectic HEENT Reports moist mucous membranes normocephalic and atraumatic; Negative for trauma or tenderness Eyes PERRL and EOMs intact bilaterally General Eye ED: Negative for pale conjunctiva or scleral icterus Neck no lymphadenopathy, supple and no JVD General: Negative for tenderness Chest Wall inspection of chest normal and palpation of chest normal Chest: Negative for tenderness Resp normal respiratory effort and clear to auscultation bilaterally Auscultation: Negative for rales, rhonchi, wheezes or diminished lung sounds Cardio regular rate, regular rhythm, S1 normal heart sound, S2 normal heart sound and no murmurs Rate: Negative for bradycardia or tachycardic Rhythm: Negative for abnormal rhythm Peripheral Pulses: pulses 2+ throughout GI normal to inspection, nondistended, normoactive bowel sounds, soft to palpation, non-tender, non-distended and no masses Back/Spine no CVA tenderness and no thoracic nor lumbar tenderness General Back: Negative for CVA tenderness Cervical Spine: Negative for cervical spine tenderness Extremity normal to inspection General Extremety ED: Negative for edema, pulses abnormal or tenderness General Extremity: Negative for edema or pulses abnormal Neuro oriented x3 and CN's II-XII intact bilaterally Sensorium / Orientation: awake, alert, oriented to person, oriented to place and oriented to time; Negative for confused, lethargic or stuporous Motor Exam: strength 5/5 throughout Psych mental status grossly normal Appearance: Negative for unkempt Attitude: No agitated Mood & Affect: Negative for depressed, anxious or tearful Skin no rashes or lesions noted and no wounds General Skin Exam: Negative for jaundice or pallor Rashes: No rashes noted Trauma: Negative for abrasion or laceration MDM MDM MDM Narrative Medical decision making narrative: 64-year-old female with palpitations currently resolved. Consider thyroid disease, anemia, electrolyte abnormalities. She undergo cardiac workup. If that is negative she will be discharged to home. I do not think this is an NE. Repeat exam patient doing well at 12 PM. Normal sinus rhythm rate of 83. We went over her test results. She and her are comfortable being discharged to home. History & Record Review Discussion w/independent historian: Patient and Family Additional record(s) reviewed:: Prior inpatient record, Prior outpatient record, Prior ED visit and Prior labs Lab Data Attestation: I reviewed the patient's lab results. Lab results narrative: CBC showed a white count of 4.2. H&H 12.5 and 37. Platelets 244. Electrolytes show sodium 140. Gap 12. BUN of 18 creatinine 0.64. Glucose 92. Troponins 8. TSH is normal at 2.0. Chest x-ray normal. Labs: Laboratory Results - last 24 hr 03/26/25 10:00 WBC 4.2 L RBC 4.01 L Hgb 12.5 Hct 37.2 MCV 92.8 MCH 31.2 MCHC 33.6 RDW Std Deviation 43.9 RDW Coeff of Sia 12.8 Plt Count 244 MPV 8.8 Immature Gran % (Auto) 0.200 Neut % (Auto) 63.0 Lymph % (Auto) 23.7 [place] % (Auto) 9.3 Eos % (Auto) 3.6 Baso % (Auto) 0.2 Absolute Neuts (auto) 2.6 Absolute Lymphs (auto) 0.99 Nucleated RBC % 0 Sodium 140 Potassium 3.7 Chloride 103 Carbon Dioxide 24.7 Anion Gap 12 BUN 18 Creatinine 0.64 L Estim Creat Clear Calc 104.51 Est GFR (MDRD) Non-Af 99 BUN/Creatinine Ratio 27.5 H Glucose 92 Calcium 9.5 Troponin T High Sens 8 TSH 2.030 Radiography Chest X-Ray - ED: 2 View, Read by ED Physician, Read by Radiologist, Normal, Lungs, Mediastinum, Bony Structures, No Acute Disease and Chronic Changes Diagnostic Testing: Clinical Impression(s) from Imaging Studies Chest X-Ray 03/26/25 10:00 IMPRESSION: Generalized osteopenia is seen. No acute osseous change is evident. No pleural effusion or pneumothorax is seen. The lungs appear clear of acute disease. The cardiomediastinal silhouette is within the normal range. No evidence of acute cardiopulmonary disease. Reading Location: [address] Chest x-ray, 2 views, interpreted by myself and radiologist. Shows chronic changes no acute process. Normal cardiac silhouette. Normal lung magana. Normal mediastinum. Rhythm Strip Rhythm Strip: Sinus Rhythm Rate: 83 Ectopy: None and PAC(s) EKG Initial EKG: Attestation: I personally reviewed and interpreted this EKG as follows: Interpretation: Sinus Rhythm and No Acute Injury Pattern Comments: Normal sinus rhythm rate of 83 no acute signs of NE or ischemia. Occasional PACs. Discharge Plan Triage Chief Complaint: Palpitations ED Provider: Mich Jimenez Dx/Rx/DC Orders Clinical Impression: Heart palpitations, APC (atrial premature contractions), History of diabetes mellitus Instructions: ED Palpitations Prescriptions: No Action (DME) lancets [FreeStyle Lancets] 28 gauge misc See Rx Instructions .ROUTE .MEDSUPPLY Qty: 200 3RF Rx Instructions: check blood glucose bid for type 2 DM (DME) FreeStyle Lite Strips Strip See Rx Instructions .ROUTE .MEDSUPPLY Qty: 200 3RF Rx Instructions: check blood glucose BID for type 2 DM (DME) blood-glucose meter [FreeStyle Lite Meter] Kit See Rx Instructions .MEDSUPPLY Qty: 1 0RF Rx Instructions: As directed, check blood glucose daily for type 2 DM fluocinonide 0.05 % cream 1 applic TOPICAL BID Qty: 120 2RF pioglitazone 45 mg tablet 45 mg PO DAILY Qty: 90 3RF bupropion HCl 300 mg tablet extended release 24 hr 300 mg PO QAM Qty: 90 1RF rosuvastatin 5 mg tablet 5 mg PO QHS Qty: 90 1RF metformin 500 mg tablet extended release 24 hr See Rx Instructions .ROUTE .COMPLEX Qty: 180 1RF Dose Instruction: TAKE 1 TABLET TWICE A DAY Rx Instructions: TAKE 1 TABLET TWICE A DAY tirzepatide 7.5 mg/0.5 mL pen injector 7.5 mg subcut QWEEK 30 Days Qty: 2.5 3RF losartan 25 mg tablet 25 mg PO DAILY Qty: 90 1RF Primary Care Provider: Ramo Rico Referrals: Ramo Rico MD [Primary Care Provider] - As Needed Activity Restrictions/Additional Instructions: You have premature atrial contractions. Your labs look good. Follow-up with your doctor as needed. Generally these will come and go. They s hould resolve on their own. There is no medications we need to put you on for them. Print Language: Pashto Disposition Disposition: Home, Self Care
[2025-03-26 10:31] LABS: Absolute Lymphocyte Count 0.99 X10^3/uL (0.83-4.51); Absolute Neutrophil Count 2.6 X10^3/uL (2.0-7.7); Basophil# 0.01 X10^3/uL; Basophil% 0.2 % (0-1); Eosinophil# 0.15 X10^3/uL; Eosinophils% 3.6 % (0-5); Hematocrit 37.2 % (37-47); Hemoglobin 12.5 g/dL (12.0-15.0); Lymphocyte # 0.99 X10^3/ul (0.83-4.51); Lymphocyte % 23.7 % (19-41); Mean Corp Hgb Conc 33.6 g/dL (32-36); Mean Corpuscular Hgb 31.2 pg (27.0-32.0); Mean Corpuscular Volume 92.8 fL (81-99); Mean Platelet Vol. 8.8 fl (6.2-12.0); Monocyte# 0.39 X10^3/uL; Monocyte% 9.3 % (0-10); NRBC Flagged by Analyzer 0 % (0-5); Neutrophil # 2.63 X10^3/uL (2.7-7.7); Platelet Count 244 K/mm3 (150-450); RBC Distribution Width CV 12.8 % (11.6-14.6); RBC Distribution Width SD 43.9 fl (35.1-43.9); Red Blood Count 4.01 M/mm3 (4.2-5.4); White Blood Count 4.2 K/mm3 (4.4-11.0)
[2025-03-26 11:18] LABS: Anion Gap 12 (5-15); BUN 18 mg/dL (4-19); BUN/Creat Ratio 27.5 RATIO (10-20); Calcium,Total 9.5 mg/dL (7.6-11.0); Carbon Dioxide 24.7 mmol/L (21.0-32.0); Chloride 103 mmol/L (98-108); Creatinine, Serum 0.64 mg/dL (0.70-1.20); EST Glomerular Filtration Rate 99 (>60); Estimated Creatinine Clearance 104.51 ml/min (50-250); Glucose 92 mg/dL (70-99); Potassium 3.7 mmol/L (3.3-5.1); Sodium Level 140 mmol/L (133-145); Troponin T High Sensitivity 8 ng/L (<=14)
[2025-03-26 11:25] VITALS: BP 107/50; PULSE 79; RESP 16; O2SAT 94
[2025-03-26 12:00] VITALS: BP 108/74; PULSE 72; RESP 18; TEMP 36.6; O2SAT 99
--- OUTSIDE RECORDS SUMMARY | 2025-03-26 20:34 | XMS RPT_ITS | CCD ---
Author Organization [facility] CliniSyal Care Team Providers Care Business Solutions Architect Name Role Phone SIDNEY SCHAFER Attending Unavailable SIDNEY SCHAFER Referring Unavailable MIKE ROBBINS (PA) Referring Unavailable MELBA GU (JOSI) Attending UnavailWILLIAM Espino Attending Unavailable SIDNEY SCHAFER Referring Unavailable SIDNEY SCHAFER Attending Unavailable SIDNEY SCHAFER Referring Unavailable SIDNEY SCHAFER Referring Unavailable Dr. Ramo Rico Primary Care Provider [phone] Dr. Ramo Rico Referring Provider [phone] Dr. Alberto Pan Attending Provider Lisbeth REGIONAL LOSS PREVENTION MANAGER, REGIONAL LOSS PREVENTION MANAGER-C Sidney Attending Provider Dr. Ramo Rico Primary Care Provider [phone] Dr. Ramo Rico Referring Provider [phone] Lisbeth REGIONAL LOSS PREVENTION MANAGER, REGIONAL LOSS PREVENTION MANAGER-C Sidney Attending Provider [phone] Emilie REGIONAL LOSS PREVENTION MANAGER, REGIONAL LOSS PREVENTION MANAGER-C Anh Attending Provider JAKE Mann Attending Provider Dr. Ramo Rico Primary Care Provider [phone] Dr. Ramo Rico Referring Provider [phone] JAKE Murillo Attending Provider JAKE Connors Attending Provider Dr. Ramo Rico Attending Provider [phone] Narciso Ramirez Attending Provider [phone] Dr. Ramo Rico Primary Care Provider [phone] Oleghe, Dr. Ralph Referring Provider [phone] Emilie TREVINO, DES Kamara Attending Provider JAKE Murillo Attending Provider Jacky, Dr. Ralph Attending Provider [phone] Jacky, Dr. Ralph Primary Care Provider [phone] Dr. Ramo Rico Attending Provider [phone] Jacky, Dr. Ralph Referring Provider [phone] Dr. Henrique Liang Attending Provider JAKE Murillo Attending Provider Jacky MONTES, Dr. Ralph Primary Care Provider Jacky MONTES, Dr. Ralph Attending Provider [phone] Jacky MONTES, Dr. Ralph Referring Provider [phone] Xenia Leija CNM Attending Provider [phone] Jacky MONTES, Dr. Ralph Primary Care Provider Jacky MONTES, Dr. Ralph Referring Provider [phone] Jacky MONTES, Dr. Ralph Attending Provider [phone] Dr. Breezy Martinez DO Attending Provider Zaira MONTES, Dr. Huynh Attending Provider [phone] Clifford Mann Attending Provider Olebreezye, Efewongbe Attending Unavailable Oleghe, Efewongbe Primary Care Unavailable Oleghe, Efewongbe Referring Unavailable Oleghe, Efewongbe Primary Care Unavailable Meagan Connors Referring Unavail able Meagan Connors Attending Unavail able Oleghe, Efewongbe Referring Unavailable Anh Phan NP Attending Unavailable Oleghe, Efewongbe Primary Care Unavailable Oleghe, Efewongbe Attending Unavailable Oleghe, Efewongbe Referring Unavailable Oleghe, Efewongbe Primary Care Unavailable Oleghe, Efewongbe Primary Care Unavailable Oleghe, Efewongbe Referring Unavailable Meagan Connors Attending Unavail able Oleghe, Efewongbe Attending Unavailable Oleghe, Efewongbe Primary Care Unavailable Oleghe, Efewongbe Referring Unavailable Oleghe, Efewongbe Referring Unavailable Clifford Mann Attending Unavailable Oleghe, Efewongbe Primary Care Unavailable Oleghe, Efewongbe Referring Unavailable Oleghe, Efewongbe Attending Unavailable Oleghe, Efewongbe Primary Care Unavailable Oleghe, Efewongbe Referring Unavailable Xenia Leija Attending Unavailable Oleghe, Efewongbe Primary Care Unavailable Oleghe, Efewongbe Referring Unavailable Oleghe, Efewongbe Attending Unavailable Oleghe, Efewongbe Primary Care Unavailable Oleghe, Efewongbe Referring Unavailable Breezy Martinez Attending Unavailable Oleghe, Efewongbe Primary Care Unavailable Oleghe, Efewongbe Primary Care Unavailable Lino Meneses Attending Unavailable Oleghe, Efewongbe Primary Care Unavailable Oleghe, Efewongbe Referring Unavailable Clifford Mann Attending Unavailable Oleghe, Efewongbe Primary Care Unavailable Lino Meneses Attending Unavailable Oleghe, Efewongbe Referring Unavailable Oleghe, Efewongbe Primary Care Unavailable Ale Esposito Attending Unavailable Xenia Leija Attending Unavailable Oleghe, Efewongbe Primary Care Unavailable Oleghe, Efewongbe Attending Unavailable Oleghe, Efewongbe Referring Unavailable Oleghe, Efewongbe Primary Care Unavailable Dr. Mich Jimenez MD Emergency Provider Allergies Allergy Classification Reported Allergen(s) Allergy Type Date of Onset Reaction(s) Facility (11 sources) Lisinopril; Translations: [LISINOPRIL] Drug Allergy 12-16-2016 cough [facility] Repository (1 source) Pravastatin; Translations: [PRAVASTATIN SODIUM] Drug Allergy 11-08-2007 [facility] Repository (11 sources) Sertraline; Translations: [SERTRALINE] Drug Allergy 06-26-2008 anorgasmia [facility] Repository (11 sources) Simvastatin; Translations: [SIMVASTATIN] Drug Allergy 11-08-2007 myalgias [facility] Repository (9 sources) Pravastatin Drug Allergy 10-28-2022 myalgias [facility] (1 source) Pravastatin Drug Allergy 02-17-2025 [facility] Repository Medications Current Medications Medication Drug Class(es) Dates Sig (Normalized) Sig (Original) Blood-Glucose Meter (Freestyle Lite Meter) kit (3 sources) Start: 08-05-2024 Blood-Glucose Meter (Freestyle Lite Meter) kit Active 0 .MEDSUPPLY August 05, 2024 12:00am As directed, check blood glucose daily for type 2 DM Tirzepatide 7.5 mg/0.5 mL pen injector (4 sources) Start: 02-11-2025 Tirzepatide 7.5 mg/0.5 mL pen injector Active 7.5 mg SC EVERY WEEK 2.5 February 11, 2025 1:52pm Start: 02-10-2025 End: 02-11-2025 Tirzepatide 7.5 mg/0.5 mL pe n injector Discontinued 5 mg SC EVERY WEEK 1.666 February 10, 2025 10:47am February 11, 2025 1:52pm Completed/Discontinued Medications Medication Drug Class(es) Dates Sig (Normalized) Sig (Original) [id number] 200 actuat albuterol 0.09 mg/actuat metered dose inhaler (20 sources) beta2-Adrenergic Agonist Start: 01-31-2020 End: 05-03-2024 Albuterol Sulfate 90 mcg/actuation HFA aerosol inhaler Discontinued 2 NMA INHALATION EVERY 4 HOURS NEEDED as needed for Sob &/Or Wheezing 6.7 October 25, 2023 11:21am May 03, 2024 10:55am Start: 01-31-2020 End: 10-25-2023 take 1 puff(s) by inhalation every four hours as needed Albuterol Sulfate Discontinued 2 PUFF INHALATION EVERY 4 HOURS NEEDED 18 April 30, 2021 2:22pm October 28, 2022 12:22pm Start: 02-10-2018 End: 01-31-2020 Albuterol Sulfate 1 INHALER inhaler Discontinued 2 NMA INHALATION EVERY 4 HOURS NEEDED as needed for Sob &/Or Wheezing February 10, 2018 12:00am January 31, 2020 11:19am Start: 02-10-2018 End: 01-31-2020 take 1 puff(s) by inhalation every four hours as needed Albuterol Sulfate Discontinued 2 PUFF INHALATION EVERY 4 HOURS NEEDED February 10, 2018 12:00am January 31, 2020 11:19am albuterol 0.833 mg/ml / ipratropium bromide 0.167 mg/ml inhalation solution (9 sources) Anticholinergic, beta2-Adrenergic Agonist Start: 05-17-2021 End: 05-03-2024 take 1 mL by inhalation three times daily as needed for wheezing Ipratropium-Albuterol 0.5 mg-3 mg(2.5 mg base)/3 mL solution for nebulization Discontinued 3 mL INHALATION THREE TIMES A DAY as needed for SOB &/OR WHEEZING May 17, 2021 12:00am May 03, 2024 10:56am Start: 05-17-2021 take 1 mL by inhalat ion three times daily Ipratropium-Albuterol Active 3 ML INHALATION THREE TIMES A DAY May 17, 2021 12:00am amoxicillin 500 mg oral tablet (3 sources) Penicillin-class Antibacterial Start: 06-11-2024 End: 07-01-2024 take 1 tablet by mouth three times daily Amoxicillin 500 mg tablet Discontinued 500 mg PO THREE TIMES A DAY June 11, 2024 12:00am July 01, 2024 1:52pm amoxicillin 875 mg / clavulanate 125 mg oral tablet (13 sources) Penicillin-class Antibacterial Start: 01-16-2024 End: 01-26-2024 Amoxicillin-Pot Clavulanate 875-125 mg tablet Discontinued 1 {tbl} PO Q12H 20 January 16, 2024 12:00am January 25, 2024 12:00am January 26, 2024 12:07am Start: 01-16-2024 End: 01-26-2024 take 1 tablet by mouth every twelve hours Amoxicillin-Pot Clavulanate Discontinued 1 TABLET PO Q12H 20 January 16, 2024 12:00am January 26, 2024 12:07am Start: 01-15-2019 End: 01-22-2019 Amoxicillin-Pot Clavulanate (Augmentin) 875-125 mg tablet Discontinued 1 {tbl} PO TWICE A DAY January 15, 2019 12:00am January 22, 2019 8:53am azelastine hydrochloride 0.137 mg/actuat / fluticasone propionate 0.05 mg/actuat metered dose nasal spray (20 sources) Corticosteroid, Histamine-1 Receptor Antagonist Start: 03-25-2021 End: 08-05-2024 Azelastine-Fluticasone 137-50 mcg/spray spray,non-aerosol Discontinued 1 NMA INTRANASAL TWICE A DAY April 26, 2023 8:07am August 05, 2024 10:41am administer into each nostril Start: 03-25-2021 End: 04-26-2023 take 1 spray(s) nasal route twice daily Azelastine-Fluticasone Discontinued 1 SPRAY INTRANASAL TWICE A DAY May 13, 2021 11:16am April 26, 2023 8:08am administer into each nostril azithromycin 250 mg oral tablet (20 sources) Macrolide Antimicrobial Start: 2023 End: 11-10-2023 take 2-5 tablets by mouth once daily Azithromycin 250 mg tablet Discontinued 0 PO .COMPLEX 2023 1:00am November 10, 2023 11:06am take 500 mg today (day 1), then 250 mg for 4 days (days 2-5) PO Start: 02-09-2023 End: 04-11-2023 Azithromycin 250 mg tablet Discontinued 250 mg PO daily February 09, 2023 12:00am April 11, 2023 10:13am 2 tablets today, then 1 tablet daily on days 2 through 5 Start: 09-30-2021 End: 10-11-2021 Azithromycin 250 mg tablet Discontinued 0 PO .COMPLEX September 30, 2021 1:00am October 11, 2021 10:32am Take two tablets by mouth on day one then one tablet by mouth on days 2-5 Start: 10-23-2018 End: 10-29-2018 take 1 tablet by mouth once daily Azithromycin 250 mg tablet Discontinued 250 mg PO daily October 23, 2018 1:00am October 29, 2018 9:22am 120 actuat budesonide 0.16 mg/actuat / formoterol fumarate 0.0045 mg/actuat metered dose inhaler (20 sources) Corticosteroid, beta2-Adrenergic Agonist Start: 05-06-2021 End: 05-26-2022 Budesonide-Formoterol (Symbicort) 160-4.5 mcg/actuation HFA aerosol inhaler Discontinued 2 NMA INHALATION Q12H 10.2 May 23, 2022 9:28am May 26, 2022 9:26am Start: 05-06-2021 End: 05-26-2022 take 1 puff(s) by inhalation every twelve hours Budesonide-Formoterol (Symbicort) 160-4.5 mcg/actuation HFA aerosol inhaler Discontinued 2 PUFF INHALATION Q12H 10.2 May 23, 2022 9:28am May 26, 2022 9:26am Start: 08-05-2020 End: 05-06-2021 Budesonide-Formoterol (Symbi isi) 160-4.5 mcg/actuation HFA aerosol inhaler Discontinued 2 NMA INHALATION Q12H 10.2 August 05, 2020 1:33pm May 06, 2021 2:43pm Start: 08-05-2020 End: 05-06-2021 take 1 puff(s) by inhalation every twelve hours Budesonide-Formoterol (Symbicort) 160-4.5 mcg/actuation HFA aerosol inhaler Discontinued 2 PUFF INHALATION Q12H 10.2 August 05, 2020 1:33pm May 06, 2021 2:43pm Start: 08-05-2020 End: 05-06-2021 take 1 puff(s) by inhalation every twelve hours Budesonide-Formoterol (Symbicort) 160-4.5 mcg/actuation HFA aerosol inhaler Discontinued 2 PUFF INHALATION Q12H 10.2 August 05, 2020 12:33pm May 06, 2021 1:43pm Start: 03-16-2018 End: 08-05-2020 Budesonide-Formoterol (Symbi isi) 160-4.5 mcg/actuation HFA aerosol inhaler Discontinued 2 NMA INHALATION Q12H 10.2 July 03, 2019 8:42am January 31, 2020 11:19am Start: 03-16-2018 End: 08-05-2020 take 1 puff(s) by inhalation every twelve hours Budesonide-Formoterol (Symbicort) 160-4.5 mcg/actuation HFA aerosol inhaler Discontinued 2 PUFF INHALATION Q12H 10.2 July 03, 2019 8:42am January 31, 2020 11:19am 24 hr buPROPion hydrochloride 300 mg extended release oral tablet (20 sources) Aminoketone Start: 11-05-2019 End: 12-04-2024 take 1 tablet by mouth once daily in the morning Bupropion Hcl 300 mg tablet extended release 24 hr Discontinued 300 mg PO EVERY MORNING February 13, 2024 10:40am December 04, 2024 1:42pm Start: 08-28-2019 End: 11-05-2019 take 1 tablet by mouth once daily in the morning Bupropion Hcl 150 mg tablet extended release 24 hr Discontinued 150 mg PO EVERY MORNING October 29, 2019 9:51am November 05, 2019 1:07pm Start: 10-29-2018 End: 08-28-2019 take 1 tablet by mouth once daily in the morning Bupropion Hcl 300 mg tablet extended release 24 hr Discontinued 300 mg PO EVERY MORNING October 29, 2018 1:00am August 28, 2019 4:45pm Start: 02-20-2018 End: 10-29-2018 take 1 tablet by mouth twice daily Bupropion Hcl 200 mg tablet extended release 12 hr Discontinued 200 mg PO TWICE A DAY February 20, 2018 10:37am October 29, 2018 11:40am Start: 02-10-2018 End: 02-20-2018 take 1 tablet by mouth once daily Bupropion Hcl 200 MG tablet extended release 12 hr Discontinued 200 mg PO DAILY February 10, 2018 12:00am February 20, 2018 10:38am cephalexin 500 mg oral tablet (9 sources) Cephalosporin Antibacterial Start: 06-28-2021 End: 09-07-2021 take 1 tablet by mouth three times daily Cephalexin 500 mg tablet Discontinued 500 mg PO THREE TIMES A DAY June 28, 2021 12:00am September 07, 2021 4:11pm dexamethasone 6 mg oral tablet (9 sources) Corticosteroid Start: 09-30-2021 End: 10-11-2021 take 1 tablet by mouth once daily Dexamethasone (Decadron) 6 mg tablet Discontinued 6 mg PO DAILY September 30, 2021 1:00am October 11, 2021 10:32am Dulaglutide (20 sources) GLP-1 Receptor Agonist Start: 04-16-2024 End: 08-05-2024 Dulaglutide 3 mg/0.5 mL pen injector Discontinued 3 mg SC EVERY WEEK 6.5 April 16, 2024 4:56pm August 05, 2024 10:57am Start: 10-20-2023 End: 04-16-2024 Dulaglutide 3 mg/0.5 mL pen injector Discontinued 3 mg SC EVERY WEEK 6.5 October 20, 2023 3:40pm April 16, 2024 4:57pm Start: 10-20-2023 Dulaglutide Ac tive 3 MG SC EVERY WEEK 6.5 October 20, 2023 3:40pm Start: 10-20-2023 Dulaglutide Ac tive 3 MG SC EVERY WEEK 6.5 October 20, 2023 2:40pm Start: 11-04-2022 End: 10-20-2023 Dulaglutide 3 mg/0.5 mL pen injector Discontinued 3 mg SC EVERY WEEK 6.5 November 04, 2022 8:40am October 20, 2023 3:40pm Start: 11-04-2022 End: 10-20-2023 Dulaglutide Discontinued 3 M G SC EVERY WEEK 6.5 November 04, 2022 8:40am October 20, 2023 3:40pm Start: 11-04-2022 End: 10-20-2023 Dulaglutide Discontinued 3 M G SC EVERY WEEK 6.5 November 04, 2022 7:40am October 20, 2023 2:40pm Start: 11-04-2022 Dulaglutide Ac tive 3 MG SC EVERY WEEK 6.5 November 04, 2022 8:40am Start: 11-04-2022 Dulaglutide Ac tive 3 MG SC EVERY WEEK 6.5 November 04, 2022 7:40am Start: 10-28-2022 End: 11-04-2022 Dulaglutide 3 mg/0.5 mL pen injector Discontinued 3 mg SC EVERY WEEK 6.5 October 28, 2022 12:20pm November 04, 2022 8:40am Start: 10-28-2022 End: 11-04-2022 Dulaglutide Discontinued 3 M G SC EVERY WEEK 6.5 October 28, 2022 12:20pm November 04, 2022 8:40am Start: 10-28-2022 End: 11-04-2022 Dulaglutide Discontinued 3 M G SC EVERY WEEK 6.5 October 28, 2022 11:20am November 04, 2022 7:40am Start: 12-07-2021 End: 10-28-2022 Dulaglutide 3 mg/0.5 mL pen injector Discontinued 3 mg SC EVERY WEEK 6.5 December 07, 2021 8:47am October 28, 2022 12:20pm Start: 12-07-2021 End: 10-28-2022 Dulaglutide Discontinued 3 M G SC EVERY WEEK 6.5 December 07, 2021 8:47am October 28, 2022 12:20pm Start: 12-07-2021 End: 10-28-2022 Dulaglutide Discontinued 3 M G SC EVERY WEEK 6.5 December 07, 2021 7:47am October 28, 2022 11:20am Start: 12-02-2021 End: 12-07-2021 Dulaglutide 3 mg/0.5 mL pen injector Discontinued 3 mg SC EVERY WEEK 6.5 December 02, 2021 4:10pm December 07, 2021 8:49am Start: 12-02-2021 End: 12-07-2021 Dulaglutide Discontinued 3 M G SC EVERY WEEK 6.5 December 02, 2021 4:10pm December 07, 2021 8:49am Start: 12-02-2021 End: 12-07-2021 Dulaglutide Discontinued 3 M G SC EVERY WEEK 6.5 December 02, 2021 3:10pm December 07, 2021 7:49am Start: 12-02-2021 End: 12-02-2021 Dulaglutide 3 mg/0.5 mL pen injector Discontinued 3 mg SC EVERY WEEK 6.5 December 02, 2021 3:20pm December 02, 2021 4:10pm Start: 12-02-2021 End: 12-02-2021 Dulaglutide Discontinued 3 M G SC EVERY WEEK 6.5 December 02, 2021 3:20pm December 02, 2021 4:10pm Start: 12-02-2021 End: 12-02-2021 Dulaglutide Discontinued 3 M G SC EVERY WEEK 6.5 December 02, 2021 2:20pm December 02, 2021 3:10pm Start: 12-02-2021 End: 12-02-2021 inject 4.5 mg by subcutaneous injection every week Dulaglutide 3 mg/0.5 mL pen injector Discontinued 3 mg SC EVERY WEEK 6.5 December 02, 2021 3:20pm December 02, 2021 3:21pm 4.5 mg subcut every week; Start: 12-02-2021 End: 12-02-2021 inject 4.5 mg by subcutaneous injection every week Dulaglutide Discontinued 3 MG SC EVERY WEEK 6.5 December 02, 2021 3:20pm December 02, 2021 3:21pm 4.5 mg subcut every week; Start: 12-02-2021 End: 12-02-2021 inject 4.5 mg by subcutaneous injection every week Dulaglutide Discontinued 3 MG SC EVERY WEEK 6.5 December 02, 2021 2:20pm December 02, 2021 2:21pm 4.5 mg subcut every week; Start: 10-11-2021 End: 12-02-2021 inject 4.5 mg by subcutaneous injection every week Dulaglutide 4.5 mg/0.5 mL pen injector Discontinued 4.5 mg SC EVERY WEEK 2 October 11, 2021 10:51am December 02, 2021 3:20pm 4.5 mg subcut every week; Start: 10-11-2021 End: 12-02-2021 inject 4.5 mg by subcutaneous injection every week Dulaglutide Discontinued 4.5 MG SC EVERY WEEK 2 October 11, 2021 10:51am December 02, 2021 3:20pm 4.5 mg subcut every week; Start: 10-11-2021 End: 12-02-2021 inject 4.5 mg by subcutaneous injection every week Dulaglutide Discontinued 4.5 MG SC EVERY WEEK 2 October 11, 2021 9:51am December 02, 2021 2:20pm 4.5 mg subcut every week; Start: 07-16-2021 End: 10-11-2021 Dulaglutide (Trulicity) 3 mg /0.5 mL pen injector Discontinued 3 mg .ROUTE EVERY WEEK 2 July 16, 2021 11:24am October 11, 2021 10:52am 3 mg every week; Start: 07-16-2021 End: 10-11-2021 Dulaglutide (Trulicity) 3 mg /0.5 mL pen injector Discontinued 3 MG .ROUTE EVERY WEEK 2 July 16, 2021 11:24am October 11, 2021 10:52am 3 mg every week; Start: 07-16-2021 End: 10-11-2021 Dulaglutide (Trulicity) 3 mg /0.5 mL pen injector Discontinued 3 MG .ROUTE EVERY WEEK 2 July 16, 2021 10:24am October 11, 2021 9:52am 3 mg every week; Start: 06-14-2021 End: 07-16-2021 Dulaglutide (Trulicity) 1.5 mg/0.5 mL pen injector Discontinued 1.5 mg .ROUTE EVERY WEEK 2 June 14, 2021 4:39pm July 16, 2021 11:25am 1.5 mg every week; Start: 05-02-2019 End: 06-14-2021 Dulaglutide (Trulicity) 1.5 mg/0.5 mL pen injector Discontinued 0 .ROUTE .COMPLEX 2 April 05, 2021 12:37pm April 15, 2021 11:34am INJECT 1 DOSE ONCE EVERY WEEK Start: 11-26-2018 End: 05-02-2019 Dulaglutide 1.5 mg/0.5 mL pe n injector Discontinued 1.5 mg SC EVERY WEEK 2 February 13, 2019 8:40am May 02, 2019 9:25am Start: 10-29-2018 End: 11-26-2018 Dulaglutide (Trulicity) 0.75 mg/0.5 mL pen injector Discontinued 0.75 mg SC EVERY WEEK 2 October 29, 2018 1:00am November 26, 2018 12:14pm exenatide (9 sources) GLP-1 Receptor Agonist Start: 02-10-2018 End: 03-16-2018 inject 10 ug by subcutaneous injection twice daily Bymario Discontinued 10 ug SQ TWICE A DAY February 10, 2018 12:00am March 16, 2018 10:51am Start: 02-10-2018 End: 03-16-2018 inject 10 ug by subcutaneous injection twice daily Byetta Discontinued 10 MCG SQ TWICE A DAY February 10, 2018 12:00am March 16, 2018 10:51am Start: 02-10-2018 End: 03-16-2018 inject 10 ug by subcutaneous injection twice daily Byetta Discontinued 10 MCG SQ TWICE A DAY February 09, 2018 11:00pm March 16, 2018 9:51am fluocinonide 0.5 mg/ml topical cream (20 sources) Corticosteroid Start: 11-05-2019 End: 01-06-2023 Fluocinonide 0.05 % cream Discontinued 1 NMA TOPICAL TWICE A DAY 120 November 05, 2019 2:30pm January 06, 2023 11:10am fluticasone propionate 0.05 mg/actuat metered dose nasal spray (20 sources) Corticosteroid Start: 03-16-2018 End: 03-25-2021 Fluticasone Propionate 50 mcg/actuation spray,suspension Discontinued 2 NMA INTRANASAL DAILY July 29, 2020 9:23am March 25, 2021 11:13am Start: 03-16-2018 End: 03-25-2021 Fluticasone Propionate Disco ntinued 2 SPRAY INTRANASAL DAILY July 29, 2020 9:23am March 25, 2021 11:13am Fluticasone Propion-Salmeterol (20 sources) Corticosteroid, beta2-Adrenergic Agonist Start: 01-02-2024 End: 01-16-2024 Fluticasone Propion-Salmeterol (Advair Hfa) 230-21 mcg/actuation HFA aerosol inhaler Discontinued 2 NMA INHALATION TWICE A DAY 3 January 02, 2024 8:49am January 16, 2024 4:12pm Start: 01-02-2024 End: 01-16-2024 take 1 puff(s) by inhalation twice daily Fluticasone Propion-Salmeterol (Advair Hfa) 230-21 mcg/actuation HFA aerosol inhaler Discontinued 2 PUFF INHALATION TWICE A DAY 3 January 02, 2024 8:49am January 16, 2024 4:12pm Start: 01-03-2023 End: 01-02-2024 Fluticasone Propion-Salmeter ol (Advair Hfa) 230-21 mcg/actuation HFA aerosol inhaler Discontinued 2 NMA INHALATION TWICE A DAY 3 January 03, 2023 10:52am January 02, 2024 8:49am Start: 01-03-2023 End: 01-02-2024 take 1 puff(s) by inhalation twice daily Fluticasone Propion-Salmeterol (Advair Hfa) 230-21 mcg/actuation HFA aerosol inhaler Discontinued 2 PUFF INHALATION TWICE A DAY 3 January 03, 2023 10:52am January 02, 2024 8:49am Start: 01-03-2023 take 1 puff(s) by in halation twice daily Fluticasone Propion-Salmeterol (Advair Hfa) 230-21 mcg/actuation HFA aerosol inhaler Active 2 PUFF INHALATION TWICE A DAY 3 January 03, 2023 9:52am Start: 01-03-2023 take 1 puff(s) by in halation twice daily Fluticasone Propion-Salmeterol (Advair Hfa) 230-21 mcg/actuation HFA aerosol inhaler Active 2 PUFF INHALATION TWICE A DAY 3 January 03, 2023 10:52am Start: 05-26-2022 End: 01-03-2023 Fluticasone Propion-Salmeter ol (Advair Hfa) 230-21 mcg/actuation HFA aerosol inhaler Discontinued 2 NMA INHALATION TWICE A DAY 3 May 26, 2022 12:00am January 03, 2023 10:52am Start: 05-26-2022 End: 01-03-2023 take 1 puff(s) by inhalation twice daily Fluticasone Propion-Salmeterol (Advair Hfa) 230-21 mcg/actuation HFA aerosol inhaler Discontinued 2 PUFF INHALATION TWICE A DAY 3 May 25, 2022 11:00pm January 03, 2023 9:52am Start: 05-26-2022 End: 01-03-2023 take 1 puff(s) by inhalation twice daily Fluticasone Propion-Salmeterol (Advair Hfa) 230-21 mcg/actuation HFA aerosol inhaler Discontinued 2 PUFF INHALATION TWICE A DAY 3 May 26, 2022 12:00am January 03, 2023 10:52am Start: 05-26-2022 take 1 puff(s) by in halation twice daily Fluticasone Propion-Salmeterol (Advair Hfa) 230-21 mcg/actuation HFA aerosol inhaler Active 2 PUFF INHALATION TWICE A DAY 3 May 25, 2022 11:00pm glimepiride 2 mg oral tablet (20 sources) Sulfonylurea Start: 11-26-2018 End: 09-24-2019 take 1 tablet by mouth once daily in the morning Glimepiride 2 mg tablet Discontinued 2 mg PO EVERY MORNING August 07, 2019 5:13pm September 24, 2019 2:36pm Start: 03-16-2018 End: 11-26-2018 take 1 tablet by mouth once daily in the morning Glimepiride (Amaryl) 4 mg tablet Discontinued 4 mg PO EVERY MORNING March 16, 2018 12:00am November 26, 2018 12:14pm levoFLOXacin 750 mg oral tablet (18 sources) Quinolone Antimicrobial Start: 01-18-2019 End: 01-27-2019 take 1 tablet by mouth once daily Levofloxacin (Levaquin) 750 mg tablet Discontinued 750 mg PO DAILY 5 5 January 22, 2019 2:00pm January 26, 2019 12:00am January 27, 2019 12:09am 3 ml liraglutide 6 mg/ml pen injector (18 sources) GLP-1 Receptor Agonist Start: 10-29-2018 End: 10-29-2018 Liraglutide (Victoza 2-Vasquez) 0.6 mg/0.1 mL (18 mg/3 mL) pen injector Discontinued 1.2 mg SC DAILY October 29, 2018 10:56am October 29, 2018 11:43am Start: 09-28-2018 End: 10-29-2018 Liraglutide (Victoza 2-Vasquez) 0.6 mg/0.1 mL (18 mg/3 mL) pen injector Discontinued 0.6 mg SC DAILY September 28, 2018 1:00am October 29, 2018 10:57am losartan potassium 25 mg oral tablet (20 sources) Angiotensin 2 Receptor Vasile Start: 10-29-2018 End: 03-10-2025 take 1 tablet by mouth once daily Losartan 25 mg tablet Discontinued 25 mg PO DAILY May 30, 2024 7:54am March 10, 2025 8:12pm Start: 02-10-2018 End: 03-16-2018 take 1 tablet by mouth once daily Losartan 25 MG tablet Discontinued 25 mg PO DAILY February 10, 2018 12:00am March 16, 2018 10:51am 24 hr metFORMIN hydrochloride 500 mg extended release oral tablet (20 sources) Biguanide Start: 05-01-2023 End: 02-03-2025 Metformin 500 mg tablet extended release 24 hr Discontinued 0 .ROUTE .COMPLEX 180 October 21, 2024 10:23am February 03, 2025 11:11am TAKE 1 TABLET TWICE A DAY Start: 05-01-2023 Metformin Acti ve 0 .ROUTE .COMPLEX 180 May 01, 2023 5:39pm TAKE 1 TABLET TWICE A DAY Start: 02-08-2022 End: 05-01-2023 take 1 tablet by mouth twice daily Metformin 500 mg tablet extended release 24hr Discontinued 500 mg PO TWICE A DAY 180 May 04, 2022 1:51pm May 01, 2023 5:39pm Start: 11-11-2021 End: 02-08-2022 Metformin 500 mg tablet Discontinued 500 mg PO THREE TIMES A DAY 270 90 November 11, 2021 2:31pm February 08, 2022 9:58am Take 1000mg at night and 500 in the morning. Start: 11-11-2021 End: 02-08-2022 Metformin Discontinued 500 M G PO THREE TIMES A DAY 270 90 November 11, 2021 2:31pm February 08, 2022 9:58am Take 1000mg at night and 500 in the morning. Start: 09-28-2018 End: 11-11-2021 take 1 tablet by mouth twice daily Metformin 500 mg tablet Discontinued 500 mg PO TWICE A DAY 180 October 29, 2020 10:44am April 15, 2021 11:34am Start: 03-16-2018 End: 09-28-2018 Metformin 1,000 mg tablet Discontinued 1500 mg PO TWICE DAILY WITH MEALS March 16, 2018 10:51am September 28, 2018 12:56pm Start: 03-16-2018 End: 09-28-2018 take 1500 mg by mouth twice daily at mealtime Metformin Discontinued 1500 MG PO TWICE DAILY WITH MEALS March 16, 2018 10:51am September 28, 2018 12:56pm Start: 02-10-2018 End: 03-16-2018 take 1 tablet by mouth twice daily at mealtime Metformin 1,000 MG tablet Discontinued 1000 mg PO TWICE DAILY WITH MEALS February 10, 2018 12:00am March 16, 2018 10:52am methylPREDNISolone 4 mg oral tablet (13 sources) Corticosteroid Start: 2023 End: 09-20-2023 take 1 tablet by mouth once Methylprednisolone (Medrol (Vasquez)) 4 mg tablets,dose pack Discontinued 4 mg PO per package directions 05 04September 14, 2023 1:00am September 19, 2023 1:00am September 20, 2023 1:05am Start: 02-09-2023 End: 04-11-2023 take 1 tablet by mouth once Methylprednisolone (Medrol (Vasquez)) 4 mg tablets,dose pack Discontinued 0 PO per package directions February 09, 2023 12:00am April 11, 2023 10:14am PO PER PKG DIR 24 hr metoprolol succinate 50 mg extended release oral tablet (20 sources) beta-Adrenergic Vasile Start: 10-12-2022 End: 04-11-2023 take 1 tablet by mouth once daily Metoprolol Succinate 50 mg tablet extended release 24 hr Discontinued 50 mg PO DAILY October 12, 2022 1:00am April 11, 2023 10:14am Start: 09-28-2018 End: 10-29-2018 Metoprolol Tartrate 25 mg ta blet Discontinued 12.5 mg PO .COMPLEX September 28, 2018 1:00am October 29, 2018 10:55am 12.5 mg PO bid but pt has not been taking; Start: 09-28-2018 End: 10-29-2018 take 12.5 mg by mouth twice daily Metoprolol Tartrate Discontinued 12.5 MG PO .COMPLEX September 28, 2018 1:00am October 29, 2018 10:55am 12.5 mg PO bid but pt has not been taking; Start: 02-10-2018 End: 09-05-2018 Metoprolol Tartrate 25 MG ta blet Discontinued 12.5 mg PO TWICE A DAY 60 February 10, 2018 12:00am September 05, 2018 12:14pm Start: 02-10-2018 End: 09-05-2018 take 12.5 mg by mouth twice daily Metoprolol Tartrate Discontinued 12.5 MG PO TWICE A DAY 60 February 10, 2018 12:00am September 05, 2018 12:14pm naproxen 250 mg oral tablet (18 sources) Nonsteroidal Anti-inflammatory Drug Start: 01-22-2019 End: 05-09-2019 take 1 tablet by mouth twice daily as needed for fever Naproxen 250 mg tablet Discontinued 250 mg PO TWICE A DAY as needed for Chills/fever 60 February 19, 2019 4:59pm May 09, 2019 2:23pm Nirmatrelvir-Ri tonavir (9 sources) Start: 06-16-2022 End: 10-12-2022 Nirmatrelvir-Riton avir (Paxlovid (Eua)) 300 mg (150 mg x 2)-100 mg tablets,dose pack Discontinued 0 PO .COMPLEX June 16, 2022 12:00am October 12, 2022 2:50pm take TWO 150 mg tablets of nirmatrelvir with ONE 100 mg tablet of ritonavir twice daily for 5 days PO Start: 06-16-2022 End: 10-12-2022 Nirmatrelvir-Ritonavir (Paxl ovid (Eua)) 300 mg (150 mg x 2)-100 mg tablets,dose pack Discontinued 0 PO .COMPLEX June 15, 2022 11:00pm October 12, 2022 1:50pm take TWO 150 mg tablets of nirmatrelvir with ONE 100 mg tablet of ritonavir twice daily for 5 days PO nitrofurantoin, macrocrystals 25 mg / nitrofurantoin, monohydrate 75 mg oral capsule (20 sources) Nitrofuran Antibacterial Start: 03-09-2023 End: 03-16-2023 take 1 capsule by mouth every twelve hours at mealtime Nitrofurantoin Monohyd/M-Cryst 100 mg capsule Discontinued 1 NMA PO Q12H 14 March 09, 2023 12:00am March 15, 2023 12:00am March 16, 2023 12:03am administer with a meal/food; swallow whole; do not open, crush, dissolve , or chew Start: 06-27-2021 End: 06-28-2021 take 1 capsule by mouth twice daily at mealtime Nitrofurantoin Monohyd/M-Cryst (Macrobid) 100 mg capsule Discontinued 100 mg PO TWICE A DAY June 27, 2021 12:00am June 28, 2021 9:11am must administer with a meal/food Start: 04-19-2019 End: 04-27-2019 take 1 capsule by mouth every twelve hours at mealtime Nitrofurantoin Monohyd/M-Cryst 100 mg capsule Discontinued 1 NMA PO Q12H 14 April 19, 2019 12:00am April 25, 2019 12:00am April 27, 2019 12:08am administer with a meal/food; swallow whole; do not open, crush, dissolve , or chew nystatin 100 unt/mg topical powder (3 sources) Polyene Antifungal Start: 05-03-2024 End: 07-01-2024 Nystatin 100,000 unit/gram powder Discontinued 1 NMA TOPICAL THREE TIMES A DAY 60 May 03, 2024 12:00am July 01, 2024 1:52pm omeprazole 40 mg delayed release oral capsule (20 sources) Proton Pump Inhibitor Start: 04-30-2021 End: 02-10-2025 take 1 capsule by mouth once daily Omeprazole 40 mg capsule,delayed release(DR/EC) Discontinued 40 mg PO DAILY December 30, 2024 4:12pm February 10, 2025 10:22am pioglitazone 45 mg oral tablet (20 sources) Peroxisome Proliferator Receptor alpha Agonist, Peroxisome Proliferator Receptor gamma Agonist, Thiazolidinedione Start: 10-12-2022 End: 01-12-2024 Pioglitazone 45 mg tablet Discontinued 0 .ROUTE .COMPLEX January 16, 2023 8:43am January 12, 2024 8:34am TAKE 1 TABLET DAILY Start: 04-27-2022 End: 10-12-2022 Pioglitazone 45 mg tablet Discontinued 30 mg PO DAILY April 27, 2022 9:36am October 12, 2022 2:51pm Start: 04-27-2022 End: 10-12-2022 take 30 mg by mouth once daily Pioglitazone Discontinu ed 30 MG PO DAILY April 27, 2022 9:36am October 12, 2022 2:51pm Start: 02-08-2022 End: 04-27-2022 take 1 tablet by mouth once daily Pioglitazone 45 mg tablet Discontinued 45 mg PO DAILY February 08, 2022 10:00am April 27, 2022 9:37am Start: 08-12-2019 End: 02-08-2022 take 1 tablet by mouth once daily Pioglitazone 30 mg tablet Discontinued 30 mg PO DAILY July 08, 2020 2:11pm April 15, 2021 11:34am Start: 02-10-2018 End: 05-27-2019 take 1 tablet by mouth once daily Pioglitazone 30 MG tablet Discontinued 30 mg PO DAILY February 10, 2018 12:00am May 27, 2019 11:19am predniSONE 20 mg oral tablet (20 sources) Start: 05-17-2021 End: 05-25-2021 take 3 tablets by mouth once daily at mealtime Prednisone 20 mg tablet Discontinued 60 mg PO daily May 17, 2021 12:00am May 25, 2021 12:48pm administer with food or milk Start: 05-17-2021 End: 05-25-2021 take 60 mg by mouth once daily at mealtime Prednisone Discontinued 60 MG PO daily May 17, 2021 12:00am May 25, 2021 12:48pm administer with food or milk Start: 01-15-2019 End: 01-22-2019 take 2 tablets by mouth once daily at mealtime Prednisone 20 mg tablet Discontinued 40 mg PO daily January 15, 2019 12:00am January 22, 2019 8:53am administer with food or milk Start: 01-15-2019 End: 01-22-2019 take 40 mg by mouth once daily at mealtime Prednisone Discontinued 40 MG PO daily January 15, 2019 12:00am January 22, 2019 8:53am administer with food or milk Start: 10-23-2018 End: 10-29-2018 take 3 tablets by mouth once daily at mealtime Prednisone 20 mg tablet Discontinued 60 mg PO daily October 23, 2018 1:00am October 29, 2018 9:23am administer with food or milk Start: 10-23-2018 End: 10-29-2018 take 60 mg by mouth once daily at mealtime Prednisone Discontinued 60 MG PO daily October 23, 2018 1:00am October 29, 2018 9:23am administer with food or milk promethazine hydrochloride 12.5 mg oral tablet (9 sources) Phenothiazine Start: 01-22-2019 End: 05-09-2019 take 1 tablet by mouth three times daily as needed for nausea and vomiting Promethazine 12.5 mg tablet Discontinued 12.5 mg PO THREE TIMES A DAY as needed for nausea and vomiting January 22, 2019 12:00am May 09, 2019 2:23pm rosuvastatin calcium 5 mg oral tablet (20 sources) HMG-CoA Reductase Inhibitor Start: 04-05-2024 End: 12-04-2024 take 1 tablet by mouth at bedtime Rosuvastatin 5 mg tablet Discontinued 5 mg PO AT BEDTIME August 22, 2024 9:18am December 04, 2024 1:42pm Start: 02-10-2018 End: 04-05-2024 take 1 tablet by mouth at bedtime Rosuvastatin 10 mg tablet Discontinued 10 mg PO AT BEDTIME 90 June 14, 2023 7:37pm April 05, 2024 10:27am Tirzepatide (Mounjaro) 5 mg/ 0.5 mL pen injector (8 sources) Start: 02-03-2025 End: 02-10-2025 Tirzepatide (Mounjaro) 5 mg/ 0.5 mL pen injector Discontinued 5 mg SC EVERY WEEK 2 February 03, 2025 10:12am February 10, 2025 10:49am Start: 09-05-2024 End: 02-03-2025 Tirzepatide (Mounjaro) 5 mg/ 0.5 mL pen injector Discontinued 5 mg SC EVERY WEEK 2 September 05, 2024 8:00pm February 03, 2025 10:13am Start: 09-05-2024 Tirzepatide (M ounjaro) 5 mg/0.5 mL pen injector Active 5 mg SC EVERY WEEK 2 September 05, 2024 8:00pm Start: 08-05-2024 End: 09-05-2024 Tirzepatide (Mounjaro) 5 mg/ 0.5 mL pen injector Discontinued 5 mg SC EVERY WEEK August 05, 2024 12:00am September 05, 2024 8:00pm 24 hr venlafaxine 75 mg extended release oral capsule (9 sources) Serotonin and Norepinephrine Reuptake Inhibitor Start: 08-28-2019 End: 09-24-2019 take 1 capsule by mouth once daily Venlafaxine 75 mg capsule,extended release 24hr Discontinued 75 mg PO DAILY 60 August 28, 2019 1:00am September 24, 2019 2:37pm Problems Active Problems Problem Classification Problem Date Documented Date Episodic/Chronic Abdominal pain (9 sources) Female genital organ symptoms; Translations: [Pelvic and perineal pain] 03-07-2023 Episodic Acute bronchitis (9 sources) Acute bronchitis; Translations: [Acute bronchitis, unspecified] 10-05-2022 Episodic Asthma (20 sources) Moderate persistent asthma uncontrolled; Translations: [Moderate persistent asthma, uncomplicated] 12-12-2018 Chronic Cardiac dysrhythmias (13 sources) Supraventricular tachycardia; Translations: [Supraventricular tachycardia] 08-06-2021 Chronic Cardiac dysrhythmias (11 sources) Palpitations; Translations: [Palpitations] 09-07-2021 Episodic Diabetes mellitus with complications (2 sources) Type 2 diabetes mellitus with other specified complication; Translations: [Type 2 diabetes mellitus with hyperglycemia] Onset: 08-05-2024 Chronic Diabetes mellitus without complication (20 sources) Type 2 diabetes mellitus without complications; Translations: [Type 2 diabetes mellitus] Onset: 04-30-2018 11-11-2021 Chronic Disorders of lipid metabolism (15 sources) Hyperlipidemia, unspecified; Translations: [Hyperlipidemia] Onset: 09-07-2016 02-19-2018 Chronic Essential hypertension (20 sources) Essential hypertension; Translations: [Essential (primary) hypertension] Onset: 11-06-2024 10-05-2022 Chronic Heart valve disorders (13 sources) Heart murmur; Translations: [Cardiac murmur, unspecified] Onset: 05-22-2024 09-07-2021 Episodic Immunizations and screening for infectious disease (11 sources) Contact with and (suspected) exposure to other viral communicable diseases; Translations: [Contact with or suspected exposure to other viral communicable disease] 02-09-2023 Episodic Mood disorders (11 sources) Depressive disorder; Translations: [Depression] Onset: 11-06-2024 10-29-2018 Chronic Noninfectious gastroenteritis (7 sources) Gastroenteritis; Translations: [Noninfective gastroenteritis and colitis, unspecified] 11-10-2023 Episodic Osteoarthritis (12 sources) Osteoarthritis of left knee joint; Translations: [Unilateral primary osteoarthritis, left knee] Onset: 02-10-2025 05-25-2023 Chronic Other diseases of veins and lymphatics (7 sources) Peripheral venous insufficiency; Translations: [Venous insufficiency (chronic) (peripheral)] 05-05-2023 Episodic Other diseases of veins and lymphatics (5 sources) Venous insufficiency (chronic) (peripheral); Translations: [Venous (peripheral) insufficiency, unspecified] 05-05-2023 Episodic Other ear and sense organ disorders (9 sources) Hearing loss; Translations: [Unspecified hearing loss, unspecified ear] 02-08-2022 Chronic Other inflammatory condition of skin (3 sources) Irritant contact dermatitis; Translations: [Erythema intertrigo] 05-03-2024 Episodic Other lower respiratory disease (9 sources) Dyspnea; Translations: [Shortness of breath] 05-25-2021 Episodic Other nervous system disorders (9 sources) Carpal tunnel syndrome; Translations: [Carpal tunnel syndrome, unspecified upper limb] 07-16-2021 Chronic Other nervous system disorders (9 sources) Tremor; Translations: [Tremor, unspecified] 10-11-2021 Episodic Other non-traumatic joint disorders (11 sources) Pain in left knee; Translations: [Left knee pain] Onset: 02-17-2025 05-05-2023 Episodic Other nutritional; endocrine; and metabolic disorders (11 sources) Body mass index 40+ - severely obese; Translations: [Morbid (severe) obesity due to excess calories] 10-29-2018 Chronic Other nutritional; endocrine; and metabolic disorders (9 sources) Obesity; Translations: [Obesity, unspecified] 05-30-2018 Chronic Other nutritional; endocrine; and metabolic disorders (2 sources) Morbid (severe) obesity due to excess calories; Translations: [Morbid obesity] 12-27-2022 Chronic Other nutritional; endocrine; and metabolic disorders (1 source) Obesity, unspecified; Translations: [Obesity, unspecified] 08-17-2023 Chronic Other nutritional; endocrine; and metabolic disorders (1 source) H/O: diabetes mellitus; Translations: [Personal history of other endocrine, nutritional and metabolic disease] 03-26-2025 Episodic Other screening for suspected conditions (not mental disorders or infectious disease) (20 sources) Patient encounter status; Translations: [Encounter for other screening for malignant neoplasm of breast] Onset: 05-03-2024 05-05-2023 Episodic Other upper respiratory infections (20 sources) Posterior rhinorrhea; Translations: [Postnasal drip] 03-16-2018 Episodic Pneumonia (except that caused by tuberculosis or sexually transmitted disease) (9 sources) Right lower zone pneumonia; Translations: [Pneumonia, unspecified organism] 10-05-2022 Episodic Residual codes; unclassified (9 sources) Obstructive sleep apnea syndrome; Translations: [Obstructive sleep apnea (adult) (pediatric)] 08-05-2020 Chronic Comment on above: CPAP 15 cmH2O by ful lface mask Residual codes; unclassified (3 sources) Obstructive sleep apnea (adult) (pediatric); Translations: [Obstructive sleep apnea (adult)(pediatric)] 12-27-2022 Chronic Residual codes; unclassified (9 sources) Chill; Translations: [Chills (without fever)] 10-05-2022 Episodic Residual codes; unclassified (4 sources) Postmenopausal state; Translations: [Asymptomatic menopausal state] 02-02-2024 Episodic Residual codes; unclassified (1 source) Asymptomatic menopausal state; Translations: [Asymptomatic postmenopausal status (age-related) (natural)] 02-02-2024 Episodic Sprains and strains (9 sources) Strain of tendon of foot and ankle; Translations: [Strain of unspecified muscle and tendon at ankle and foot level, right foot, initial encounter] 10-05-2022 Episodic Unclassified (4 sources) Osteoarthritis of left knee; Translations: [M17.12 - Unilateral primary osteoarthritis, left knee] Urinary tract infections (9 sources) Urinary tract infectious disease; Translations: [Urinary tract infection, site not specified] 10-05-2022 Episodic Viral infection (9 sources) Disease caused by 2019-nCoV; Translations: [COVID-19] 10-05-2022 Episodic Past or Other Problems Problem Classification Problem Date Documented Da te Episodic/Chronic Other aftercare (1 source) Other penitentiary (current) drug therapy; Translations: [Other superintendent terminal (current) drug therapy] Onset: 04-30-2018 Episodic Results Test Name Value Interpretation Reference Range Facility Absolute lymphocyte countOrd ered By: Mich Jimenez on 03-26-2025 Lymphocytes Auto (Unsp spec) [#/Vol] 0.99 10*3/uL 0.83-4.51 [facility] Absolute neutrophil countOrd ered By: Mich Jimenez on 03-26-2025 Neutrophils (Bld) [#/Vol] 2.6 10*3/uL 2.0-7.7 [facility] Anion gap in Serum or Plasma Ordered By: Mich Jimenez on 03-26-2025 Anion gap [Moles/Vol] 12 mmol/L 5-15 [facility] Automated lymphocyte count a s percentage of total leukocytesOrdered By: Mich Jimenez on 03-26-2025 Lymphocytes/100 WBC Auto (Unsp spec) 23.7 % 19-41 [facility] BUN/creatinine ratioOrdered By: Mich Jimenez on 03-26-2025 Urea nitrogen/Creatinine [Mass ratio] 27.5 mg/mg High 10-20 [facility] Basophil percentageOrdered B y: Mich Jimenez on 03-26-2025 Basophils/100 WBC (Bld) 0.2 % 0-1 [facility] Carbon dioxide, total [Moles /volume] in Central venous bloodOrdered By: Mich Jimenez on 03-26-2025 CO2 [Moles/Vol] 24.7 mmol/L 21.0-32.0 [facility] Chloride assayOrdered By: Simeon Jimenez on 03-26-2025 Chloride [Moles/Vol] 103 mmol/L 98-108 [facility] Eosinophil percentageOrdered By: Mich Jimenez on 03-26-2025 Eosinophils/100 WBC (Bld) 3.6 % 0-5 [facility] Erythrocyte distribution wid th ratioOrdered By: Mich Jimenez on 03-26-2025 Erythrocyte distribution width (RBC) [Ratio] 12.8 % 11.6-14.6 [facility] Erythrocyte distribution wid th standard deviationOrdered By: Mich Jimenez on 03-26-2025 Erythrocyte distribution width (RBC) [Ratio] 43.9 fl 35.1-43.9 [facility] Glomerular filtration rate ( GFR) estimation/1.73 sq m using serum, plasma, or whole bOrdered By: Mich Jimenez on 03-26-2025 GFR/1.73 sq M.predicted among non-blacks MDRD (S/P/Bld) [Vol rate/Area] 99 mL/min/{1.73_m2} >60 [facility] Comment on above: mL/min/1.73m2 CKD-EP I Creatinine Equation (2020) Hematocrit Auto (Bld) [Volum e fraction]Ordered By: Mich Jimenez on 03-26-2025 Hematocrit (Bld) [Volume fraction] 37.2 % 37-47 [facility] Hemoglobin measurementOrdere d By: Mich Jimenez on 03-26-2025 Hemoglobin (Bld) [Mass/Vol] 12.5 g/dL 12.0-15.0 [facility] Immature granulocytes/100 WB C Auto (Bld)Ordered By: Mich Jimenez on 03-26-2025 Immature granulocytes/100 WBC (Bld) 0.200 % 0.0-0.9 [facility] Comment on above: IG% - Immature Granu locytes (promyelocytes, myelocytes and metamyelocytes) > 1% indicates that a LEFT SHIFT is Present. MCV (mean corpuscular volume ) determinationOrdered By: Mich Jimenez on 03-26-2025 MCV (RBC) [Entitic vol] 92.8 fL 81-99 [facility] Mean corpuscular hemoglobin (MCH) determinationOrdered By: Mich Jimenez on 03-26-2025 MCH (RBC) [Entitic mass] 31.2 pg 27.0-32.0 [facility] Mean corpuscular hemoglobin concentration (MCHC) determinationOrdered By: Mich Jimenez on 03-26-2025 MCHC (RBC) [Mass/Vol] 33.6 g/dL 32-36 [facility] Mean platelet volume determi nationOrdered By: Mich Jimenez on 03-26-2025 Platelet mean volume (Bld) [Entitic vol] 8.8 fL 6.2-12.0 [facility] Monocyte percentageOrdered B y: Mich Jimenez on 03-26-2025 Monocytes/100 WBC (Bld) 9.3 % 0-10 [facility] Neutrophil percentageOrdered By: Mich Jimenez on 03-26-2025 Neutrophils/100 WBC (Bld) 63.0 % 47-70 [facility] Nucleated red blood cell per centageOrdered By: Mich Jimenez on 03-26-2025 Nucleated RBC/100 WBC (Bld) [Ratio] 0 % 0-5 [facility] Platelet countOrdered By: Simeon Jimenez on 03-26-2025 Platelets (Bld) [#/Vol] 244 10*3/uL 150-450 [facility] Potassium measurement (mass/ volume)Ordered By: Mich Jimenez on 03-26-2025 Potassium (Unsp spec) [Mass/Vol] 3.7 mmol/L 3.3-5.1 [facility] RBC Auto (Bld) [#/Vol]Ordere d By: Mich Jimenez on 03-26-2025 RBC (Bld) [#/Vol] 4.01 10*6/uL Low 4.2-5.4 [facility] Serum creatinine measurement (mass/volume)Ordered By: Mich Jimenez on 03-26-2025 Creatinine [Mass/Vol] 0.64 mg/dL Low 0.70-1.20 [facility] Serum glucose measurement (m ass/volume)Ordered By: Mich Jimenez on 03-26-2025 Glucose [Mass/Vol] 92 mg/dL 70-99 [facility] Serum or plasma calcium paolo urement (mass/volume)Ordered By: Mich Jimenez on 03-26-2025 Calcium [Mass/Vol] 9.5 mg/dL 7.6-11.0 [facility] Serum or plasma urea nitroge n measurement (mass/volume)Ordered By: Mich Jimenez on 03-26-2025 Urea nitrogen [Mass/Vol] 18 mg/dL 4-19 [facility] Sodium levelOrdered By: Mich Jimenez on 03-26-2025 Sodium [Moles/Vol] 140 mmol/L 133-145 [facility] TSH DL <= 0.005 mIU/L QnOrde red By: Mich Jimenez on 03-26-2025 TSH Qn 2.030 uIU/mL 0.300-4.200 [facility] Troponin T.cardiac [Mass/vol ume] in Serum or Plasma by High sensitivity methodOrdered By: Mich Jimenez on 03-26-2025 Troponin T.cardiac High sensitivity method [Mass/Vol] 8 ng/L <14 [facility] White blood cell (WBC) count Ordered By: Mich Jimenez on 03-26-2025 WBC (Bld) [#/Vol] 4.2 10*3/uL Low 4.4-11.0 [facility] Rapid group A Streptococcus antigen assay at point of careOrdered By: Clifford Damon on 03-17-2025 S. pyogenes Ag IA.rapid Ql (Throat) Negative [facility] Urgent Care Visit Reporton 0 03-17-2025 Urgent Care Visit Report [facility] [address], [address] [place] [address] OFFICE VISIT Date of Service: 03/17/25 MR#: [id number] Acct: [id number] Name: CHESTERANNIA Dylon Rep #: [id number] : [id number] Provider: JAKE Lewis Age/Sex: 64/F Location: [facility] Status: Signed Intake Vital Signs 02/17/25 15:11 03/17/25 11:36 Height 5 ft 4 in Weight: 235 lb 2 oz BMI 40.4 BP 130/80 H Position Sitting Pulse 93 Temp 98.8 F Temp Source Oral Pulse Oximetry (%) 98 Oxygen Delivery Method room air Intake Visit Reasons: SORE THROAT Accompanied by: Self Allergies lisinopril Adverse Reaction (Verified 02/17/25 15:11) cough pravastatin Adverse Reaction (Verified 02/17/25 15:11) myalgias sertraline Adverse Reaction (Verified 02/17/25 15:11) anorgasmia simvastatin (From Zocor) Adverse Reaction (Verified 02/17/25 15:11) myalgias Nurse's Note: Patient has a Sore throat that has been going on since last mon. Patient states when it first happen she would get jolts of pain shooting to her left ear. PFS Medical History Colon cancer screening Health care maintenance Intertriginous dermatitis associated with moisture Post-menopausal Encounter for vitamin deficiency screening Pneumonia Gastroenteritis Osteoarthritis of left knee Breast cancer screening Venous insufficiency (chronic) (peripheral) Left knee pain Asthmatic bronchitis with exacerbation Contact with and (suspected) exposure to other viral communicable diseases URI (upper respiratory infection) Essential hypertension Hearing impairment Tremor COVID-19 Carpal tunnel syndrome Strain of right ankle and foot Urinary tract infection Chills (without fever) Right lower lobe pneumonia Acute bronchitis Asthma Seasonal depression Bronchitis Dysthymic disorder Obesity Asthma Hyperlipidemia Type 2 diabetes mellitus without complications Supraventricular tachycardia Surgical History History of appendectomy History of left oophorectomy History of bilateral carpal tunnel release Family History Mother Diabetes Father COPD (chronic obstructive pulmonary disease) emphysema Alcohol abuse Social History adopted: No household members: spouse housing: house number of children: 6 current occupational status: employed current occupation: [employer] pets and animals: Yes pets and animals: dog(s) history of recent travel: No sexually active: Yes Smoking Status: Never smoker second hand exposure: No alcohol intake: never substance use type: does not use diet: other well-balanced diet: daily or most days caffeine: No eating out: rarely or never during the past year weight has: decreased > 10 lbs what type of physical activity do you participate in: walking manjula/yarsani: Non-Anabaptist/Indep endent seatbelt use: always do you feel safe at home: Yes additional social history: - Don Female Reproductive History Menstrual Date of menopause: 11/16/99 (early 40s) HPI HPI Details: ANNIA BRIGGS, is a 64 F who presents to the office today for initial evaluation at the [facility] for approximately 5-day history of persistent irritated/sore throat without swollen tender cervical lymph nodes in front of neck, no cough, no fever. Minimally painful swallowing appreciated though no difficulty swallowing/drooling. No rash. No complaints of chest pressure/shortness of breath/dyspnea on exertion. No close contacts with similar complaints. ???No [id number] products taken to assist. Requesting POC screening for streptococcal pharyngitis. No other associated symptoms and no other alleviating/aggravating factors. ROS Const Constitutional: No other (As above) Exam Const General: cooperative, healthy appearing and no acute distress Orientation: alert, awake and oriented x3 HENMT Head: normal to inspection Ears: hearing grossly normal bilaterally, external ears normal, TM's normal bilaterally and EAC's normal Nose: external nose normal, nares normal, septum normal and no nasal discharge Face and sinus: normal facial exam, sinuses nontender and face symmetric Mouth: oral mucosae normal, lip normal, tongue normal and oropharynx normal Throat: posterior oropharynx normal, uvula midline, abnormal tonsil bilaterally trace erythema; no exudates and no hypertrophy and no postnasal drainage Eyes General: appearance normal, both eyes and all related structures Neck Neck: normal visual inspection, full ROM, no meningeal signs, supple and no lymphadenopathy (Bilateral anterior cervical lymph node without s (more content not included)... Normal [facility] Knee 4 or More Viewson 02-17 Knee 4 or More Views [facility] [address] [place] [address] Knee 4 or More Views MR#: [id number] Acct: [id number] Name: ANNIA BRIGGS Rep #: [id number] : 1960 F 64 From: Nas Alexandra MD PCP: Dr. Ramo Rico MD Status: DEP AMB Study: Knee 4 or More Views Date of Exam: 02/17/25 Exam# [id number] Ordering Dr: Breezy Martinez DO PROCEDURE: KNEE 4 OR MORE VIEWS 02/17/2025 REASON FOR EXAM: KNEE PAIN TECHNIQUE: Four views left knee COMPARISON: 05/19/2023 FINDINGS: Interval increase of the lateral joint space narrowing now moderate with again note of marginal osteophyte formation. There is a moderate joint effusion. Mild joint space narrowing of the medial aspect of the patellofemoral compartment. No fracture or dislocation. Arterial vascular calcifications again noted. RAD/Knee 4 or More Views IMPRESSION: Interval worsening of the previously noted osteoarthrosis within the lateral compartment as above. There is a moderate joint effusion. Reading Location: [facility] CC: Dr. Ramo Rico MD; Dr. 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 Breezy powell DO Age/Sex: 64/F Location: [facility] Status: Signed Intake Vital Signs 02/10/25 10:23 02/17/25 15:11 Height 5 ft 4 in 5 ft 4 in Weight: 240 lb 6 oz 235 lb 2 oz BMI 41.2 40.4 BP 116/72 Blood Pressure Location Lt brachial Position Sitting Respiration 16 Pulse 85 Pulse Source Monitor Temp 96.6 F L Temp Source Temporal Pulse Oximetry (%) 95 Oxygen Delivery Method room air Intake Visit Reasons: LEFT KNEE Chief Complaint: Left Knee Pain Accompanied by: Self Is patient in pain?: Yes Allergies lisinopril Adverse Reaction (Verified 02/17/25 15:11) cough pravastatin Adverse Reaction (Verified 02/17/25 15:11) myalgias sertraline Adverse Reaction (Verified 02/17/25 15:11) anorgasmia simvastatin (From Zocor) Adverse Reaction (Verified 02/17/25 15:11) myalgias Medications ???Medication ???Instructions ???Recorded ???Confirmed ???Type fluocinonide 0.05 % topical cream 1 applic topical BID #120 grams 0 01/06/23 02/17/25 Rx pioglitazone 45 mg tablet 45 mg PO DAILY #90 TABLETS 4 02/17/25 Rx losartan 25 mg tablet 25 mg PO DAILY #90 TABLETS 4 02/17/25 Rx blood sugar diagnostic (FreeStyle #200 ea 08/05/24 02/17/25 Rx Lite Strips) blood-glucose meter (FreeStyle #1 ea 08/05/24 02/17/25 Rx Lite Meter kit) lancets 28 gauge (FreeStyle #200 ea 08/05/24 02/17/25 Rx Lancets) bupropion HCl 300 mg 24 hr tablet, 300 mg PO QAM #90 tabs 12/04/24 02/17/25 Rx extended release rosuvastatin 5 mg tablet 5 mg PO QHS #90 tabs 12/04/24 05/03/09 Rx metformin 500 mg tablet,extended See Rx Instructions .Route 5 02/17/25 Rx release 24 hr .COMPLEX #180 tabs tirzepatide 7.5 mg/0.5 mL 7.5 mg (0.5 mL) subcut QWEEK 1 02/17/25 Rx subcutaneous pen injector month #2.5 mL PFSH Medical History Colon cancer screening Health care maintenance Intertriginous dermatitis associated with moisture Post-menopausal Encounter for vitamin deficiency screening Pneumonia Gastroenteritis Osteoarthritis of left knee Breast cancer screening Venous insufficiency (chronic) (peripheral) Left knee pain Asthmatic bronchitis with exacerbation Contact with and (suspected) exposure to other viral communicable diseases URI (upper respiratory infection) Essential hypertension Hearing impairment Tremor COVID-19 Carpal tunnel syndrome Strain of right ankle and foot Urinary tract infection Chills (without fever) Right lower lobe pneumonia Acute bronchitis Asthma Seasonal depression Bronchitis Dysthymic disorder Obesity Asthma Hyperlipidemia Type 2 diabetes mellitus without complications Supraventricular tachycardia Surgical History History of appendectomy History of left oophorectomy History of bilateral carpal tunnel release Family History Mother Diabetes Father COPD (chronic obstructive pulmonary disease) emphysema Alcohol abuse Social History adopted: No household members: spouse housing: house number of children: 6 current occupational status: employed current occupation: [employer] [place], [place] pets and animals: Yes pets and animals: dog(s) history of recent travel: No sexually active: Yes Smoking Status: Never smoker second hand exposure: No alcohol intake: never substance use type: does not use diet: other well-balanced diet: daily or most days caffeine: No eating out: rarely or never during the past year weight has: decreased > 10 lbs what type of physical activity do you participate in: walking manjula/yarsani: Non-Anabaptist/Indep endent seatbelt use: always do you feel safe at home: Yes additional social history: - Don HPI LEFT KNEE Details: This documentation accurately reflects the service provided and the decisions made by me, Dr. Breezy Martinez, DO 02/17/25 0815. Part of today???s visit was documented by Magy Nieto ATC, acting as scribe. ANNIA BRIGGS is a 64 year old F with medical history significant for but not limited to Asthma, Bronchitis, Dysthymic disorder, Hyperlipidemia, Obesity BMI 41.2, Seasonal depression, Supraventricular tachycardia, Type 2 diabetes mellitus, chronic venous insufficiency, hearing impairment, tremor, here today for left knee pain. Patient states the knee has been bothering her for at least 3 months. She denies any injury t (more content not included)... Normal [facility] Internal Medicine Office Vis itoteetee 02-10-2025 Internal Medicine Office Visit [facility] [address] [place] [address] [place] [address] OFFICE VISIT Date of Service: 02/10/25 MR#: [id number] Acct: [id number] Name: ANNIA BRIGGS Rep #: [id number] : 1960 Provider: Dr. Ramo chairez MD Age/Sex: 64/F Location: [facility] Status: Signed Intake Vital Signs 11/06/24 09:43 12/25/24 11:07 02/10/25 10:23 Height 5 ft 4 in 5 ft 4 in 5 ft 4 in Weight: 240 lb 6 oz BMI 41.2 BP 116/72 Blood Pressure Location Lt brachial Position Sitting Respiration 16 Pulse 85 Pulse Source Monitor Temp 96.6 F L Temp Source Temporal Pulse Oximetry (%) 95 Oxygen Delivery Method room air Intake Visit Reasons: 3 M FU Chief Complaint: fu Cleaner Required: No Accompanied by: Self Is patient in pain?: Yes (left knee pain and giving out when bending ) Pain scale (1-10): 5 Allergies lisinopril Adverse Reaction (Verified 02/10/25 10:12) cough pravastatin Adverse Reaction (Verified 02/10/25 10:12) myalgias sertraline Adverse Reaction (Verified 02/10/25 10:12) anorgasmia simvastatin (From Zocor) Adverse Reaction (Verified 02/10/25 10:12) myalgias Medications ???Medication ???Instructions ???Recorded ???Confirmed ???Type fluocinonide 0.05 % topical cream 1 applic topical BID #120 grams 0 01/06/23 02/10/25 Rx pioglitazone 45 mg tablet 45 mg PO DAILY #90 TABLETS 4 02/10/25 Rx losartan 25 mg tablet 25 mg PO DAILY #90 TABLETS 4 02/10/25 Rx blood sugar diagnostic (FreeStyle #200 ea 08/05/24 02/10/25 Rx Lite Strips) blood-glucose meter (FreeStyle #1 ea 08/05/24 02/10/25 Rx Lite Meter kit) lancets 28 gauge (FreeStyle #200 ea 08/05/24 02/10/25 Rx Lancets) bupropion HCl 300 mg 24 hr tablet, 300 mg PO QAM #90 tabs 12/04/24 02/10/25 Rx extended release rosuvastatin 5 mg tablet 5 mg PO QHS #90 tabs 12/04/2401/15 Rx metformin 500 mg tablet,extended See Rx Instructions .Route 5 02/10/25 Rx release 24 hr .COMPLEX #180 tabs tirzepatide 7.5 mg/0.5 mL 5 mg (0.3333 mL) subcut QWEEK 1 02/10/25 Rx subcutaneous pen injector month #1.666 mL Have you fallen in the past year?: No Nurse's Note: left knee swollen painful and difficult with ambulation PFSH Medical History Colon cancer screening Health care maintenance Intertriginous dermatitis associated with moisture Post-menopausal Encounter for vitamin deficiency screening Pneumonia Gastroenteritis Osteoarthritis of left knee Breast cancer screening Venous insufficiency (chronic) (peripheral) Left knee pain Asthmatic bronchitis with exacerbation Contact with and (suspected) exposure to other viral communicable diseases URI (upper respiratory infection) Essential hypertension Hearing impairment Tremor COVID-19 Carpal tunnel syndrome Strain of right ankle and foot Urinary tract infection Chills (without fever) Right lower lobe pneumonia Acute bronchitis Asthma Seasonal depression Bronchitis Dysthymic disorder Obesity Asthma Hyperlipidemia Type 2 diabetes mellitus without complications Supraventricular tachycardia Surgical History History of appendectomy History of left oophorectomy History of bilateral carpal tunnel release Family History Mother Diabetes Father COPD (chronic obstructive pulmonary disease) emphysema Alcohol abuse Social History adopted: No household members: spouse housing: house number of children: 6 current occupational status: employed current occupation: [employer] [place], [place] pets and animals: Yes pets and animals: dog(s) history of recent travel: No sexually active: Yes Smoking Status: Never smoker second hand exposure: No alcohol intake: never substance use type: does not use diet: other well-balanced diet: daily or most days caffeine: No eating out: rarely or never during the past year weight has: decreased > 10 lbs what type of physical activity do you participate in: walking manjula/yarsani: Non-Anabaptist/Indep endent seatbelt use: always do you feel safe at home: Yes additional social history: - Don Female Reproductive History Menstrual Date of menopause: 11/16/99 (early 40s) HPI HPI Chief Complaint: fu Details: ANNIA BRIGGS, is a 64 F who presents to the office today for follow-up of her chronic conditions. Also has some concerns. Chronic left knee pain/osteoarthritis. In 2022, she received an injection which she found helpful. Lately, has noted worsening pain. Worse with activity. No falls. History of diabetes mellitus type 2 and A1c stable at 6. (more content not included)... Normal [facility] Laboratory - Hematology and Cell countsOrdered By: Ramo Rico on 02-10-2025 HbA1c (Bld) [Mass fraction] 6.0 % 4.2-6.3 [facility] PAP IG HPV APTIMA /,45on 12-31-2024 ADEQ Comment Normal . [facility] Comment on above: Order Comment: Speci men Comment: [id number] Comment: Source.............CervixSpecimen Comment: Other..............Post MenopausalSpecimen Comment: No. of containers..01 ThinPrep Vial Result Comment: Sati sfactory for evaluation. Endocervical and/or squamous metaplastic cells (endocervical component) are present. Areas of partially obscuring inflammatory exudate are present. Performed By: #### L 7400.0280 ####[facility] [id number] [facility]. [place], [place], [id number] COMM . Normal . [facility] Comment on above: [facility]: [id number] Comment: Source.............CervixSpecimen Comment: Other..............Post MenopausalSpecimen Comment: No. of containers..01 ThinPrep Vial Performed By: #### L 7400.0280 ####[facility] [address] [facility]. [place], [place], [id number] COMMENT Comment Normal . [facility] Comment on above: [facility]: [facility] Comment: [id number] Comment: Source.............CervixSpecimen Comment: Other..............Post MenopausalSpecimen Comment: No. of containers..01 ThinPrep Vial Result Comment: This liquid based ThinPrep(R) pap test was screened with the use of an image guided system. Performed By: #### L 7400.0280 ####[facility] [address] [place], [address] DIAG Comment Normal . [facility] Comment on above: Order Comment: Speci men Comment: [id number] Comment: Source.............CervixSpecimen Comment: Other..............Post MenopausalSpecimen Comment: No. of containers..01 ThinPrep Vial Result Comment: NEGA TIVE FOR INTRAEPITHELIAL LESION OR MALIGNANCY. Performed By: #### L 7400.0280 ####[facility] [address] [place], [address] HPV APTIMA, HR Negative Normal Negative [facility] Comment on above: Order Comment: Speci men Comment: [id number] Comment: Source.............CervixSpecimen Comment: Other..............Post MenopausalSpecimen Comment: No. of containers..01 ThinPrep Vial Result Comment: This nucleic acid amplification test detects fourteen high- risk HPV types (16,18,31,33,35,39,45,51,52,56,58,59,66,68) without differentiation. Performed By: #### L 7400.0280 ####[facility] [address] [place], [address] HPV Marissa Rfx Comment Normal . [facility] Comment on above: Order Comment: Speci men Comment: [id number] Comment: Source.............CervixSpecimen Comment: Other..............Post MenopausalSpecimen Comment: No. of containers..01 ThinPrep Vial Result Comment: Crit eria not met, HPV Genotype not performed. Performed at: - [facility] [id number] Exhibit Technician: Radha Bolivar MD, Phone: [phone] Performed at: = - [facility] [address] [id number] Exhibit Technician: Radha Bolivar MD, Phone: [phone] Performed By: #### L 7400.0280 ####[facility] [address] [place], [address] PAPSMR Comment Normal . [facility] Comment on above: Order Comment: Speci men Comment: [id number] Comment: Source.............CervixSpecimen Comment: Other..............Post MenopausalSpecimen Comment: No. of containers..01 ThinPrep Vial Result Comment: The Pap smear is a screening test designed to aid in the detection of premalignant and malignant conditions of the uterine cervix. It is not a diagnostic procedure and should not be used as the sole means of detecting cervical cancer. Both false-positive and false-negative reports do occur. Performed By: #### L 7400.0280 ####[facility] [address] [place], [address] PERFORM Comment Normal . [facility] Comment on above: Order Comment: Speci men Comment: [id number] Comment: Source.............CervixSpecimen Comment: Other..............Post MenopausalSpecimen Comment: No. of containers..01 ThinPrep Vial Result Comment: Marissa Salas, Traffic Counter (ASCP) Performed By: #### L 7400.0280 ####[facility] [address] [place], [address] Cervical or vaginal specimen microscopic examination by liquid based cytology (reportOrdered By: Xenia Leija on 12-25-2024 Cytology report Cyto stain.thin prep Doc (Cvx/Vag) Comment . [facility] Comment on above: Criteria not met, HP V Genotype not performed.Performed at: [address] [id number] Director: Radha Bolivar MD, Phone: [phone] at: =[address] [id number] Director: Radha Bolivar MD, Phone: [phone] Cervical or vagninal specime n microscopic examination by cytology stain (reported asOrdered By: Xenia Leija on 12-25-2024 Cytology report Cyto stain Doc (Cvx/Vag) Comment . [facility] Comment on above: The Pap smear is a s creening test designed to aid in thedetection of premalignant and malignant conditions of theuterine cervix. It is not a diagnostic procedure andshould not be used as the sole means of detecting cervicalcancer. Both false-positive and false-negative reports dooccur. Erp Implementation Consultant Cyto stain Nom (C vx/Vag) [ID]Ordered By: Xenia Leija on 12-25-2024 Pap Smear Performed By Comment . [facility] Comment on above: Carlos Grant totechnologist (ASCP) Cytology report Cyto stain D oc (Cvx/Vag)Ordered By: Xenia Leija on 12-25-2024 Thin Prep Pap Smear Comment . [facility] Comment on above: The Pap smear is a s creening test designed to aid in thedetection of premalignant and malignant conditions of theuterine cervix. It is not a diagnostic procedure andshould not be used as the sole means of detecting cervicalcancer. Both false-positive and false-negative reports dooccur. Cytology report Cyto stain.t hin prep Doc (Cvx/Vag)Ordered By: Xenia Leija on 12-25-2024 HPV Genotype Special Info Comment . [facility] Comment on above: Criteria not met, HP V Genotype not performed.Performed at: [address] [id number] Director: Radha Bolivar MD, Phone: [phone] at: =G - [facility] [address] [place] [id number] Director: Radha Bolivar MD, Phone: [phone] Detection in cervical specim en of any of human papilloma virus (HPV) 16, 18, 31, 33,Ordered By: Xneia Leija on 12-25-2024 HPV 16+18+31+33+35+39+45+51 +52+56+58+59+66+68 DNA Probe+sig amp Ql (Cvx) Negative Negative [facility] Comment on above: This nucleic acid am plification test detects fourteen high-risk HPV types (16,18,31,33,35,39,45,51,52,56,58,59,66,68)without differentiation. HPV 16+18+31+33+35+39+45+51+ 52+56+58+59+66+68 DNA Probe+sig amp Ql (Cvx)Ordered By: Xenia Leija on 12-25-2024 Human Papillomavirus High Risk Negative Negative [facility] Comment on above: This nucleic acid am plification test detects fourteen high-risk HPV types (16,18,31,33,35,39,45,51,52,56,58,59,66,68)without differentiation. Image-guided ThinPrep PapOrd ered By: Xenia Leija on 12-25-2024 Pap Smear Note Comment . [facility] Comment on above: This liquid based Th inPrep(R) pap test was screened withthe use of an image guided system. Image-guided liquid-based Pa pOrdered By: Xenia Leija on 12-25-2024 Pap Smear Diagnosis Comment . [facility] Comment on above: NEGATIVE FOR INTRAEP ITHELIAL LESION OR MALIGNANCY. Laboratory - CytologyOrdered By: Xenia Leija on 12-25-2024 Erp Implementation Consultant Cyto stain Nom (Cvx/Vag) [ID] Comment . [facility] Comment on above: Carlos Grant totechnologist (ASCP) Laboratory - Miscellaneous t estsOrdered By: Xenia Leija on 12-25-2024 Service comment (Unsp spec) [Interp] . . [facility] No Panel InformationOrdered By: Xenia Leija on 12-25-2024 Pap Smear Specimen Adequacy Comment . [facility] Comment on above: Satisfactory for jluis luation. Endocervical and/or squamous metaplasticcells (endocervical component) are present.Areas of partially obscuring inflammatory exudate are present. Construction Safety Manager Office Visit Reporton 12-25-2024 Construction Safety Manager Office Visit Report [facility] [address] [facility] [address] [facility], [address] [place] [address] OFFICE VISIT Date of Service: 12/25/24 MR#: [id number] Acct: [id number] Name: ANNIA BRIGGS Rep #: [id number] : 1960 Provider: MAHESH Childs ams Age/Sex: 64/F Location: [facility] Status: Signed Intake Vital Signs 08/05/24 10:41 11/06/24 09:43 12/25/24 11:04 12/25/24 11:07 Height 5 ft 4 in 5 ft 4 in 5 ft 4 in 5 ft 4 in Weight: 227 lb 229 lb 233 lb BMI 38.9 39.3 39.9 BP 122/70 H 136/66 H 119/66 Blood Pressure Location Lt brachial Lt brachial Position Sitting Sitting Respiration 14 16 Pulse 75 87 Pulse Source Monitor Monitor Temp 98.9 F Pulse Oximetry (%) 98 98 Oxygen Delivery Method room air room air 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) Allergies lisinopril Adverse Reaction (Verified 12/25/24 11:05) cough pravastatin Adverse Reaction (Verified 12/25/24 11:05) myalgias sertraline Adverse Reaction (Verified 12/25/24 11:05) anorgasmia simvastatin (From Zocor) Adverse Reaction (Verified 12/25/24 11:05) myalgias Medications ???Medication ???Instructions ???Recorded ???Confirmed ???Type fluocinonide 0.05 % topical cream 1 applic topical BID #120 grams 0 01/06/23 12/25/24 Rx pioglitazone 45 mg tablet 45 mg PO DAILY #90 TABLETS 4 12/25/24 Rx omeprazole 40 mg capsule,delayed 40 mg PO DAILY #90 caps 05/13/24 0 12/25/24 Rx release losartan 25 mg tablet 25 mg PO DAILY #90 TABLETS 4 12/25/24 Rx blood sugar diagnostic (FreeStyle #200 ea 08/05/24 12/25/24 Rx Lite Strips) blood-glucose meter (FreeStyle #1 ea 08/05/24 12/25/24 Rx Lite Meter kit) lancets 28 gauge (FreeStyle #200 ea 08/05/24 12/25/24 Rx Lancets) tirzepatide 5 mg/0.5 mL 5 mg (0.5 mL) subcut QWEEK #2 mL 1 11/05/23 12/25/24 Rx subcutaneous pen injector (Mauri) metformin 500 mg tablet,extended See Rx Instructions .Route 5 12/25/24 Rx release 24 hr .COMPLEX #180 tabs bupropion HCl 300 mg 24 hr tablet, 300 mg PO QAM #90 tabs 12/04/24 12/25/24 Rx extended release rosuvastatin 5 mg tablet 5 mg PO QHS #90 tabs 12/04/2412/14 Rx Post menopausal: Yes Date of menopause: 11/16/99 (early 40s) [facility] Medical History Colon cancer screening Health care maintenance Intertriginous dermatitis associated with moisture Post-menopausal Encounter for vitamin deficiency screening Pneumonia Gastroenteritis Osteoarthritis of left knee Breast cancer screening Venous insufficiency (chronic) (peripheral) Left knee pain Asthmatic bronchitis with exacerbation Contact with and (suspected) exposure to other viral communicable diseases URI (upper respiratory infection) Essential hypertension Hearing impairment Tremor COVID-19 Carpal tunnel syndrome Strain of right ankle and foot Urinary tract infection Chills (without fever) Right lower lobe pneumonia Acute bronchitis Asthma Seasonal depression Bronchitis Dysthymic disorder Obesity Asthma Hyperlipidemia Type 2 diabetes mellitus without complications Supraventricular tachycardia Surgical History History of appendectomy History of left oophorectomy History of bilateral carpal tunnel release Family History Mother Diabetes Father COPD (chronic obstructive pulmonary disease) emphysema Alcohol abuse Social History adopted: No household members: spouse housing: house number of children: 6 current occupational status: employed current occupation: [employer] [place], [place] pets and animals: Yes pets and animals: dog(s) history of recent travel: No sexually active: Yes Smoking Status: Never smoker second hand exposure: No alcohol intake: never substance use type: does not use diet: other well-balanced diet: daily or most days caffeine: No eating out: rarely or never during the past year weight has: decreased > 10 lbs what type of physical activity do you participate in: walking manjula/yarsani: Non-Anabaptist/Indep endent seatbelt use: always do you feel safe at home: Yes additional social history: - Don HPI Encounter for routine gynecological examination Details: ANNIA BRIGGS is a 64 year old who presents for new annual exam. Last PAP: 12/2020 History of abnormal PAP: no Last mammogram: 10/2024-PCP History of abnormal mammogram: no Colon cancer screening: PCP Other preventative health care screenings: PCP Female Reproductive History Questions: sexually active: Yes, dyspareunia: No and PCB: No Date of menopause: 11/16/99 (early 40s) Menopausal Symptoms: No hot flashes, No night (more content not included)... Normal [facility] Service comment (Unsp spec) [Interp]Ordered By: Xenia Leija on 12-25-2024 Pap Smear Comment (3) . . [facility] Albumin to globulin ratioOrd ered By: Ramo Rico on 11-06-2024 Albumin/Globulin [Mass ratio] 1.2 {ratio} 0.9-2.4 [facility] Bilirubin directOrdered By: Ramo Rico on 11-06-2024 Bilirubin.direct [Mass/Vol] 0.13 mg/dL 0.00-0.30 [facility] Bilirubin, Directon 11-06-19 25 Bilirubin.direct [Mass/Vol] 0.13 mg/dL Normal 0.00-0.30 [facility] Comment on above: Order Comment: DR. Mauricio PLATA ORDERED CMP MEAGAN NICHOLS ORDERED LIVER Performed By: #### L 501.4700, L500.4050 #### [facility] Laboratory [address] [place], [address] Bilirubin, totalOrdered By: Ramo Rico on 11-06-2024 Bilirubin [Mass/Vol] 0.40 mg/dL 0.20-1.00 [facility] Comment on above: For patients on eltr ombopag therapy, use of Dimension [place] TBIL is not recommended. Blood urea nitrogen (BUN)/cr eatinine ratioOrdered By: Ramo Rico on 11-06-2024 Urea nitrogen/Creatinine [Mass ratio] 28.7 mg/mg High 10-20 [facility] Carbon dioxide measurementOr dered By: Ramo Rico on 11-06-2024 CO2 [Moles/Vol] 30.0 mmol/L 21.0-32.0 [facility] Chloride measurementOrdered By: Ramo Rico on 11-06-2024 Chloride [Moles/Vol] 104 mmol/L 98-107 [facility] Comprehensive Metabolic Prof ilon 11-06-2024 Albumin [Mass/Vol] 3.8 g/dL Normal 3.2-5.0 [facility] Comment on above: Order Comment: DR. Mauricio PLATA ORDERED CMP MEAGAN VITALNUNO ORDERED LIVER Performed By: #### L 501.4700, L500.4050 #### [facility] [address] [place], [address] Albumin/Globulin [Mass ratio] 1.2 {ratio} Normal 0.9-2.4 [facility] Comment on above: Order Comment: DR. Mauricio PLATA ORDERED PIERCE LACYELLE ZAHRAANUNO ORDERED LIVER Performed By: #### L 501.4700, L500.4050 #### [facility] [address] [place], [address] ALK P 82 U/L Normal 45-117 [facility] Comment on above: Order Comment: DR. Mauricio PLATA ORDERED CMP MEAGAN VITALNUNO ORDERED LIVER Performed By: #### L 501.4700, L500.4050 #### [facility] [address] [place], [address] ALT [Catalytic activity/Vol] 21 U/L Normal 13-56 [facility] Comment on above: Order Comment: DR. Mauricio PLATA ORDERED CMP MEAGAN NICHOLS ORDERED LIVER Performed By: #### L 501.4700, [id number] #### [facility] [address] [place], [address] AST [Catalytic activity/Vol] 14 U/L Low 15-37 [facility] Comment on above: Order Comment: DR. Mauricio PLATA ORDERED CMP MEAGAN NICHOLS ORDERED LIVER Performed By: #### L 501.4700, [id number] #### [facility] [address] [place], [address] Bilirubin [Mass/Vol] 0.40 mg/dL Normal 0.20-1.00 [facility] Comment on above: Order Comment: DR. Mauricio PLATA ORDERED CMP MEAGAN NICHOLS ORDERED LIVER Result Comment: For patients on eltrombopag therapy, use of Dimension [place] TBIL is not recommended. Performed By: #### L 501.4700, L500.4050 #### [facility] [address] [place], [address] BUN/CRE 28.7 RATIO High 10-20 [facility] Comment on above: Order Comment: DR. Mauricio PLATA ORDERED CMP MEAGAN NICHOLS ORDERED LIVER Performed By: #### L 501.4700, [id number] #### [facility] [address] [place], [address] CA,Total 9.4 mg/dL Normal 8.5-10.1 [facility] Comment on above: Order Comment: DR. Mauricio PLATA ORDERED CMP MEAGAN NICHOLS ORDERED LIVER Performed By: #### L 501.4700, [id number] #### [facility] [address] [place], [address] Chloride [Moles/Vol] 104 mmol/L Normal 98-107 [facility] Comment on above: Order Comment: DR. Mauricio PLATA ORDERED CMP MEAGAN NICHOLS ORDERED LIVER Performed By: #### L 501.4700, [id number] #### [facility] [address] [place], [address] CO2 [Moles/Vol] 30.0 mmol/L Normal 21.0-32.0 [facility] Comment on above: Order Comment: DR. Mauricio PLATA ORDERED CMP MEAGAN MAGDALENA ORDERED LIVER Performed By: #### L 501.4700, [id number] #### [facility] [address] [place], [address] Creatinine [Mass/Vol] 0.70 mg/dL Normal 0.55-1.02 [facility] Comment on above: Order Comment: DR. Mauricio PLATA ORDERED CMP MEAGAN TAPIASUBHA ORDERED LIVER Result Comment: The validity of the calculated GFR GFRAA in patients over 70 years has not been determined. Clinical correlation is essential. Performed By: #### L 501.4700, L500.4050 #### [facility] [address] [place], [address] EST GFR - AA 109 mL/min Normal >60 [facility] Comment on above: Order Comment: DR. Mauricio PLATA ORDERED CMP MEAGAN NICHOLS ORDERED LIVER Result Comment: Afri can Tristanian GFR Calc Performed By: #### L 501.4700, L500.4050 #### [facility] [address] [place], [address] GAP 5 Normal 5-15 [facility] Comment on above: Order Comment: DR. Mauricio PLATA ORDERED CMP MEAGAN VITALNUNO ORDERED LIVER Performed By: #### L 501.4700, [id number] #### [facility] [address] [place], [address] GFR/1.73 sq M.predicted among non-blacks MDRD (S/P/Bld) [Vol rate/Area] 90 mL/min/{1.73_m2} Normal >60 [facility] Comment on above: Order Comment: DR. Mauricio PLATA ORDERED CMP MEAGAN NICHOLS ORDERED LIVER Result Comment: Non- GFR Calc Performed By: #### L 501.4700, L500.4050 #### [facility] [address] [place], [address] Globulin (S) [Mass/Vol] 3.3 g/dL Normal 2.2-4.2 [facility] Comment on above: Order Comment: DR. Mauricio PLATA ORDERED CMP MEAGAN NICHOLS ORDERED LIVER Performed By: #### L 501.4700, [id number] #### [facility] [address] [place], [address] Glucose [Mass/Vol] 92 mg/dL Normal 74-106 [facility] Comment on above: Order Comment: DR. Mauricio PLATA ORDERED CMP MEAGAN NICHOLS ORDERED LIVER Performed By: #### L 501.4700, [id number] #### [facility] [address] [place], [address] Potassium [Moles/Vol] 3.7 mmol/L Normal 3.5-5.1 [facility] Comment on above: Order Comment: DR. Mauricio PLATA ORDERED CMP MEAGAN NICHOLS ORDERED LIVER Performed By: #### L 501.4700, [id number] #### [facility] [address] [place], [address] Sodium [Moles/Vol] 139 mmol/L Normal 136-145 [facility] Comment on above: Order Comment: DR. Mauricio PLATA ORDERED CMP MEAGAN TAPIALL ORDERED LIVER Performed By: #### L 501.4700, [id number] #### [facility] [address] [place], [address] T PROT 7.1 g/dL Normal 6.4-8.2 [facility] Comment on above: Order Comment: DR. Mauricio PLATA ORDERED CMP MEAGAN TAPIALL ORDERED LIVER Performed By: #### L 501.4700, [id number] #### [facility] [address] [place], [address] Urea nitrogen [Mass/Vol] 20 mg/dL High 7-18 [facility] Comment on above: Order Comment: DR. Mauricio PLATA ORDERED CMP MEAGAN NICHOLS ORDERED LIVER Performed By: #### L 501.4700, L500.4050 #### [facility] [address] [place], [address] Estimated glomerular filtrat ion rate (GFR) AmericanOrdered By: Ramo Rico on 11-06-2024 Estimated GFR (MDRD) Amer 109 mL/min >60 [facility] Comment on above: GFR Calc Glomerular filtration rate ( GFR) estimationOrdered By: Ramo Rico on 11-06-2024 Estimated GFR (MDRD) Non-Af Amer 90 mL/min >60 [facility] Comment on above: Non- GFR Calc Glucose measurementOrdered B y: Ramo Rico on 11-06-2024 Glucose [Mass/Vol] 92 mg/dL 74-106 [facility] High density lipoprotein (HD L) measurementOrdered By: Meagan Boo on 11-06-2024 Cholesterol in HDL [Mass/Vol] 75 mg/dL >40 [facility] Comment on above: The drugs N-Acetylcy steine and Metamizole may falsely depress this assay. Reference Range HDL <40 mg/dL Low HDL Cholesterol HDL >or= 60 mg/dL High HDL Cholesterol Internal Medicine Office Vis iton 11-06-2024 Internal Medicine Office Visit [facility] [address] [place] [address] [place] [address] OFFICE VISIT Date of Service: 11/06/24 MR#: [id number] Acct: [id number] Name: ANNIA BRIGGS Rep #: [id number] : 1960 Provider: Dr. Ramo chairez MD Age/Sex: 64/F Location: [facility] Status: Signed Intake Vital Signs 08/05/24 10:41 11/06/24 09:43 Height 5 ft 4 in 5 ft 4 in Weight: 229 lb BMI 39.3 BP 136/66 H Blood Pressure Location Lt brachial Position Sitting Respiration 16 Pulse 87 Pulse Source Monitor Pulse Oximetry (%) 98 Oxygen Delivery Method room air Intake Visit Reasons: 3 M FU Chief Complaint: Follow-up chronic conditions Cleaner Required: No Accompanied by: Self Is patient in pain?: No Allergies lisinopril Adverse Reaction (Verified 11/06/24 09:41) cough pravastatin Adverse Reaction (Verified 11/06/24 09:41) myalgias sertraline Adverse Reaction (Verified 11/06/24 09:41) anorgasmia simvastatin (From Zocor) Adverse Reaction (Verified 11/06/24 09:41) myalgias Medications ???Medication ???Instructions ???Recorded ???Confirmed ???Type fluocinonide 0.05 % topical cream 1 applic topical BID #120 grams 01/06/23 11/06/24 Rx pioglitazone 45 mg tablet 45 mg PO DAILY #90 TABLETS 01/12/24 11/06/24 Rx bupropion HCl 300 mg 24 hr tablet, 300 mg PO QAM #90 tabs 02/13/24 11/06/24 Rx extended release omeprazole 40 mg capsule,delayed 40 mg PO DAILY #90 caps 05/13/24 11/06/24 Rx release losartan 25 mg tablet 25 mg PO DAILY #90 TABLETS 05/30/24 11/06/24 Rx blood sugar diagnostic (FreeStyle #200 ea 08/05/24 08/05/24 Rx Lite Strips) blood-glucose meter (FreeStyle #1 ea 08/05/24 08/05/24 Rx Lite Meter kit) lancets 28 gauge (FreeStyle #200 ea 08/05/24 08/05/24 Rx Lancets) rosuvastatin 5 mg tablet 5 mg PO QHS #90 tabs 08/22/24 11/06/24 Rx tirzepatide 5 mg/0.5 mL 5 mg (0.5 mL) subcut QWEEK #2 mL 09/05/24 11/06/24 Rx subcutaneous pen injector (Mauri) metformin 500 mg tablet,extended See Rx Instructions .Route 10/21/24 11/06/24 Rx release 24 hr .COMPLEX #180 tabs PFSH Medical History Colon cancer screening Health care maintenance Intertriginous dermatitis associated with moisture Post-menopausal Encounter for vitamin deficiency screening Pneumonia Gastroenteritis Osteoarthritis of left knee Breast cancer screening Venous insufficiency (chronic) (peripheral) Left knee pain Asthmatic bronchitis with exacerbation Contact with and (suspected) exposure to other viral communicable diseases URI (upper respiratory infection) Essential hypertension Hearing impairment Tremor COVID-19 Carpal tunnel syndrome Strain of right ankle and foot Urinary tract infection Chills (without fever) Right lower lobe pneumonia Acute bronchitis Asthma Seasonal depression Bronchitis Dysthymic disorder Obesity Asthma Hyperlipidemia Type 2 diabetes mellitus without complications Supraventricular tachycardia Surgical History History of appendectomy History of left oophorectomy History of bilateral carpal tunnel release Family History Mother Diabetes Father COPD (chronic obstructive pulmonary disease) emphysema Alcohol abuse Social History household members: spouse housing: house current occupational status: employed current occupation: [employer] [place], [place] pets and animals: Yes pets and animals: dog(s) Smoking Status: Never smoker second hand exposure: No alcohol intake: never substance use type: does not use HPI HPI Chief Complaint: Follow-up chronic conditions Details: ANNIA BRIGGS, is a 64 F who presents to the office today for follow-up of her chronic medical conditions. No acute concerns at this time. History of diabetes mellitus type 2 and at her last visit, she was switched to Mounjaro for due to availability concerns of Trulicity. Tolerated Mounjaro well with no concerns for hypoglycemia. Also on Actos and metformin which she is taking as prescribed. History of hypertension, initial blood pressure was 136/66, repeat was 132/70 mmHg. Currently on losartan which she is also taking as prescribed. No chest pain, palpitation or shortness of breath. Other chronic medical conditions are stable. ROS Const Constitutional: No body ache, chills, excessive sweating, fatigue, fever(s), frequent falls, headache(s), snoring, weakness, sleep problems or change in appetite Eyes Eyes: No blurry vision, change in vision, discharge, floaters, visual disturbances, eye pain or Light sensitivity ENT ENT: No abnormal hearing, ear or mastoid pain, tinnitus, balance pro (more content not included)... Normal [facility] Laboratory - Chemistry and C hemistry - challengeOrdered By: Ramo Rico on 11-06-2024 AST [Catalytic activity/Vol] 14 U/L Low 15-37 [facility] - Hematology and Cell countson 11-06-2024 HbA1c (Bld) [Mass fraction] 6.0 % 4.2-6.3 [facility] Lipid Profileon 11-06-2024 Cholesterol [Mass/Vol] 143 mg/dL Normal 200 [facility] Comment on above: Result Comment: <200 mg/dL Desirable 200-240 mg/dL Borderline >240 mg/dL High Risk Performed By: #### L 500.4100 ####[facility] [id number] [facility] [address] Cholesterol in HDL [Mass/Vol] 75 mg/dL Normal [facility] Comment on above: Result Comment: The drugs N-Acetylcysteine and Metamizole may falsely depress this assay. Reference Range HDL <40 mg/dL Low HDL Cholesterol HDL >or= 60 mg/dL High HDL Cholesterol Performed By: #### L 500.4100 ####[facility] [id number] [facility] [address] Cholesterol in LDL [Mass/Vol] 51 mg/dL Normal 0-130 [facility] Comment on above: Performed By: #### L 500.4100 ####[facility] [id number] [facility] [address] Cholesterol in VLDL [Mass/Vol] 17 mg/dL Normal 5-40 [facility] Comment on above: Performed By: #### L 500.4100 ####[facility] [address] [facility] [address] Triglyceride [Mass/Vol] 86 mg/dL Normal [facility] Comment on above: Result Comment: The drugs N-Acetylcysteine and Metamizole may falsely depress this assay. Serum Triglycerides Reference Interval Normal <150 mg/dL Borderline high 150 - 199 mg/dL High 200 - 499 mg/dL Very High > or = 500 mg/dL Performed By: #### L 500.4100 ####[facility] [id number] [place], [place], [address] Low density lipoprotein (LDL ) cholesterol measurementOrdered By: Meagan Boo on 11-06-2024 Cholesterol in LDL [Mass/Vol] 51 mg/dL 0-130 [facility] Potassium measurementOrdered By: Ramo Rico on 11-06-2024 Potassium [Moles/Vol] 3.7 mmol/L 3.5-5.1 [facility] SCRN MAMM (CAD)W/MERRITT BILATo n 11-06-2024 SCRN MAMM (CAD)W/MERRITT BILAT [facility] Imaging Services [address] [place], [place] [id number] SCRN MAMM (CAD)W/MERRITT BILAT MR#: [id number] Acct: [id number] Name: ANNIA BRIGGS Rep #: [id number] : 1960 F 64 From: John hu MD PCP: Dr. Ramo Rico MD Status: [facility] Study: SCRN MAMM (CAD)W/MERRITT BILAT Date of Exam: 10/17 12/10 Exam# [id number] Ordering Dr: Ramo Rico MD [id number] MAMMOGRAPHY - BILATERAL SCREENING REASON FOR EXAM: Female, 64 years old. Routine annual screening examination. PERTINENT HISTORY: Non-contributory. TECHNIQUE: Digital bilateral breast merritt (3D mammographic acquisition) in the CC and MLO projections. 2-D mediolateral oblique (MLO) and craniocaudad (CC) views of both breasts were obtained. CAD: Full Field Digital Mammography with Computer Added Detection was performed. COMPARISON: Comparison is made with prior study dated May 12, 2023 and November 20, 2020. FINDINGS: Breast Composition: The breasts are almost entirely fatty. There are no dominant masses or suspicious calcifications. No other significant abnormalities are identified. There has been no significant change since the prior study. BI/SCRN MAMM (CAD)W/MERRITT BILAT IMPRESSION: Stable bilateral screening mammogram. Yearly follow-up mammogram recommended. (A) ASSESSMENT CATEGORY: BIRADS Category 1: Negative. A letter regarding these results will be sent to the patient by the facility within 30 days. Approximately 10% of breast cancers are not detected by mammography. A normal mammogram should not delay biopsy of a clinically suspicious abnormality. [id number] Electronically Signed: John Pratt MD at 10:51 EST , CC: Dr. 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 Normal [facility] Serum anion gap measurementO rdered By: Ramo Rico on 11-06-2024 Anion gap [Moles/Vol] 5 mmol/L 5-15 [facility] Serum globulin measurementOr dered By: Ramo Rico on 11-06-2024 Globulin (S) [Mass/Vol] 3.3 g/dL 2.2-4.2 [facility] Serum or plasma alanine clancy otransferase (ALT) measurementOrdered By: Ramo Rico on 11-06-2024 ALT [Catalytic activity/Vol] 21 U/L 13-56 [facility] Serum or plasma albumin paolo urement (mass/volume)Ordered By: Ramo Rico on 11-06-2024 Albumin [Mass/Vol] 3.8 g/dL 3.2-5.0 [facility] Serum or plasma alkaline shantel sphatase measurementOrdered By: Ramo Rico on 11-06-2024 ALP [Catalytic activity/Vol] 82 U/L 45-117 [facility] Serum or plasma calcium paolo urement (mass/volume)Ordered By: Ramo Rico on 11-06-2024 Calcium [Mass/Vol] 9.4 mg/dL 8.5-10.1 [facility] Serum or plasma cholesterol measurement (mass/volume)Ordered By: Meagan Boo on 11-06-2024 Cholesterol [Mass/Vol] 143 mg/dL <200 [facility] Comment on above: <200 mg/dL Desirable 200-240 mg/dL Borderline >240 mg/dL High Risk Serum or plasma creatinine m easurement (mass/volume)Ordered By: Ramo Rico on 11-06-2024 Creatinine [Mass/Vol] 0.70 mg/dL 0.55-1.02 [facility] Comment on above: The validity of the calculated GFR & GFRAA in patients over 70 years has not been determined. Clinical correlation is essential. Serum or plasma urea nitroge n measurement (mass/volume)Ordered By: Ramo Rico on 11-06-2024 Urea nitrogen [Mass/Vol] 20 mg/dL High 7-18 [facility] Sodium levelOrdered By: Zeynep Rico on 11-06-2024 Sodium [Moles/Vol] 139 mmol/L 136-145 [facility] Total proteinOrdered By: Lowell Rico on 11-06-2024 Protein [Mass/Vol] 7.1 g/dL 6.4-8.2 [facility] Triglycerides measurementOrd ered By: Meagan Boo on 11-06-2024 Triglyceride [Mass/Vol] 86 mg/dL <199 [facility] Comment on above: The drugs N-Acetylcy steine and Metamizole may falsely depress this assay.Serum Triglycerides Reference Interval Normal <150 mg/dL Borderline high 150 - 199 mg/dL High 200 - 499 mg/dL Very High > or = 500 mg/dL Very low density lipoprotein (VLDL) cholesterol measurementOrdered By: Meagan Boo on 11-06-2024 VLDL Cholesterol 17 mg/dL 5-40 [facility] Internal Medicine Office Vis kvng 08-05-2024 Internal Medicine Office Visit [facility] [address] [place] [address] [place] [address] OFFICE VISIT Date of Service: 08/05/24 MR#: [id number] Acct: [id number] Name: ANNIA BRIGGS Rep #: [id number] : 1960 Provider: Dr. Ramo chairez MD Age/Sex: 63/F Location: [facility] Status: Signed Intake Vital Signs 05/03/24 10:57 07/01/24 08:03 08/05/24 10:41 Height 5 ft 4 in 5 ft 4 in 5 ft 4 in Weight: 225 lb 227 lb BMI 38.6 38.9 BP 117/69 122/70 H Blood Pressure Location Lt brachial Lt brachial Position Sitting Sitting Respiration 18 14 Pulse 82 75 Pulse Source Monitor Monitor Temp 96.9 F L 98.9 F Temp Source Temporal Pulse Oximetry (%) 96 98 Oxygen Delivery Method room air room air Intake Visit Reasons: 3 M FU Chief Complaint: 3 M FU Cleaner Required: No Is patient in pain?: No Allergies lisinopril Adverse Reaction (Verified 08/05/24 10:33) cough pravastatin Adverse Reaction (Verified 08/05/24 10:33) myalgias sertraline Adverse Reaction (Verified 08/05/24 10:33) anorgasmia simvastatin (From Zocor) Adverse Reaction (Verified 08/05/24 10:33) myalgias Medications ???Medication ???Instructions ???Recorded ???Confirmed ???Type fluocinonide 0.05 % topical cream 1 applic topical BID #120 grams 01/06/23 08/05/24 Rx pioglitazone 45 mg tablet 45 mg PO DAILY #90 TABLETS 01/12/24 08/05/24 Rx bupropion HCl 300 mg 24 hr tablet, 300 mg PO QAM #90 tabs 02/13/24 08/05/24 Rx extended release rosuvastatin 5 mg tablet 5 mg PO QHS #90 tabs 04/05/24 08/05/24 Rx metformin 500 mg tablet,extended See Rx Instructions .Route 04/23/24 08/05/24 Rx release 24 hr .COMPLEX #180 tabs omeprazole 40 mg capsule,delayed 40 mg PO DAILY #90 caps 05/13/24 08/05/24 Rx release losartan 25 mg tablet 25 mg PO DAILY #90 TABLETS 05/30/24 08/05/24 Rx blood sugar diagnostic (FreeStyle #200 ea 08/05/24 08/05/24 Rx Lite Strips) blood-glucose meter (FreeStyle #1 ea 08/05/24 08/05/24 Rx Lite Meter kit) lancets 28 gauge (FreeStyle #200 ea 08/05/24 08/05/24 Rx Lancets) tirzepatide 5 mg/0.5 mL 5 mg (0.5 mL) subcut QWEEK #2 mL 08/05/24 08/05/24 Rx subcutaneous pen injector (Mauri) Nurse's Note: Declines flu shot. [facility] Medical History (Updated 08/05/24 @ 12:[address] Ramo Rico MD) Colon cancer screening Health care maintenance Intertriginous dermatitis associated with moisture Post-menopausal Encounter for vitamin deficiency screening Pneumonia Gastroenteritis Osteoarthritis of left knee Breast cancer screening Venous insufficiency (chronic) (peripheral) Left knee pain Asthmatic bronchitis with exacerbation Contact with and (suspected) exposure to other viral communicable diseases URI (upper respiratory infection) Essential hypertension Hearing impairment Tremor COVID-19 Carpal tunnel syndrome Strain of right ankle and foot Urinary tract infection Chills (without fever) Right lower lobe pneumonia Acute bronchitis Asthma Seasonal depression Bronchitis Dysthymic disorder Obesity Asthma Hyperlipidemia Type 2 diabetes mellitus without complications Supraventricular tachycardia Surgical History History of appendectomy History of left oophorectomy History of bilateral carpal tunnel release Family History Mother Diabetes Father COPD (chronic obstructive pulmonary disease) emphysema Alcohol abuse Social History household members: spouse housing: house current occupational status: employed current occupation: [place], [place] pets and animals: Yes pets and animals: dog(s) Smoking Status: Never smoker second hand exposure: No alcohol intake: never substance use type: does not use HPI HPI Chief Complaint: 3 M FU Details: ANNIA BRIGGS, is a 63 F who presents to the office today for follow-up of her chronic medical conditions. No acute concerns at this time. A1c today is at 5.8 down from 6. No concerns for hypoglycemia. Does not routinely check her numbers at home largely because she has run out of testing strips. Has had difficulties feeling Trulicity. Also on metformin and pioglitazone. Other chronic medical conditions are stable. Blood pressure today at 122/70 mmHg. No chest pain, palpitation or shortness of breath. ROS Const Constitutional: No body ache, chills, excessive sweating, fatigue, fever(s), frequent falls, headache(s), snoring, weakness, sleep problems or change in appetite Eyes Eyes: No blurry vision, change in vision, floaters, visual disturbances, eye pain or Light sensitivity ENT ENT: No abnormal hearing, ear or mastoid pain, tinnitus, b (more content not included)... Normal [facility] Pulmonary Visit Reporton Pulmonary Visit Report [facility] of [address] [place] [address] OFFICE VISIT Date of Service: 07/01/24 MR#: [id number] Acct: [id number] Name: ANNIA BRIGGS Rep #: [id number] : 1960 Provider: DES Phan Age/Sex: 63/F Location: [facility] Status: Signed Assessment and Plan Assessment and Plan (1) EMELYN (obstructive sleep apnea): Status: Chronic Comment: CPAP 15 cmH2O by fullface mask Plan: Stable, she is using and benefiting from Pap therapy. No indication for titration study at this time. Contact the office for any new or worsening symptoms in the meantime. Follow-up in 1 year. (2) Obesity: Status: Chronic Qualifiers: Obesity type: due to excess calories Obesity classification: adult class 3 (BMI >= 40) Serious obesity comorbidity presence: with serious comorbidity Body mass index: BMI 40.0-44.9 Qualified Code(s): E66.01 - Morbid (severe) obesity due to excess calories; Z68.41 - Body mass index (BMI) 40.0-44.9, adult Plan: Continue to encourage weight loss. (3) Asthma: Status: Chronic Qualifiers: Asthma severity: moderate Asthma persistence: persistent Asthma complication type: with acute exacerbation Qualified Code(s): J45.41 - Moderate persistent asthma with (acute) exacerbation Plan: Asymptomatic at this time. She is not requiring any maintenance medications. No additional testing at this time. Follow-up in 1 year. Contact the office with any new or worsening symptoms in the meantime. Plan Details Follow Up: 1 Year ([facility]) HPI 6 M FU Chief Complaint: Routine follow-up HPI Comments Details: This patient presents to the office today for follow-up of her obstructive sleep apnea. She is ambulatory and currently on room air. She has not been seen in the ED or urgent care recently for any respiratory illness. She has not required any antibiotics or prednisone for any breathing problems. She is not currently on any maintenance inhalers. She is no longer requiring the use of nasal steroids. If you recall, she is a lifelong never smoker. She denies any shortness of breath whatsoever. She denies any cough, sputum production or hemoptysis. She denies any wheezing, chest tightness, chest pain or palpitations. She denies any fever, chills or body aches. She reports excellent compliance with PAP therapy. She wakes up feeling rested and refreshed. She denies any difficulty with excessive nocturia. She denies any difficulty with dry mouth. She is waking up feeling rested and refreshed. She has not been having morning headaches. Compliance report for the past 30 days shows 100% compliance with an average use of 7 hours and 14 minutes per night. Current setting is CPAP 15 cm of water with a residual AHI 0.8 events per hour. Leaks do not appear to be an issue. Intake Vital Signs 12/25/23 11:25 05/03/24 10:57 07/01/24 08:03 Height 5 ft 4 in 5 ft 4 in 5 ft 4 in Weight: 225 lb BMI 38.6 BP 117/69 Blood Pressure Location Lt brachial Position Sitting Respiration 18 Pulse 82 Pulse Source Monitor Temp 96.9 F L Temperature Source Temporal Artery Pulse Oximetry (%) 96 Oxygen Delivery Method room air Intake Visit Reasons: 6 M FU Cleaner Required: No DME Vendor: cpap- [employer] Accompanied by: Self Is patient in pain?: No Allergies lisinopril Adverse Reaction (Verified 05/03/24 10:55) cough pravastatin Adverse Reaction (Verified 05/03/24 10:55) myalgias sertraline Adverse Reaction (Verified 05/03/24 10:55) anorgasmia simvastatin (From Zocor) Adverse Reaction (Verified 05/03/24 10:55) myalgias Medications ???Medication ???Instructions ???Recorded ???Confirmed ???Type fluocinonide 0.05 % topical cream 1 applic topical BID #120 grams 01/06/23 07/01/24 Rx azelastine 137 mcg-fluticasone 50 1 spray intranasal BID #23 grams 04/26/23 07/01/24 Rx mcg/spray nasal spray pioglitazone 45 mg tablet 45 mg PO DAILY #90 TABLETS 01/12/24 07/01/24 Rx bupropion HCl 300 mg 24 hr tablet, 300 mg PO QAM #90 tabs 02/13/24 07/01/24 Rx extended release rosuvastatin 5 mg tablet 5 mg PO QHS #90 tabs 04/05/24 07/01/24 Rx dulaglutide 3 mg/0.5 mL 3 mg (0.5 mL) subcut QWEEK 3 04/16/24 07/01/24 Rx subcutaneous pen injector months #6.5 mL metformin 500 mg tablet,extended See Rx Instructions .Route 04/23/24 07/01/24 Rx release 24 hr .COMPLEX #180 tabs omeprazole 40 mg capsule,delayed 40 mg PO DAILY #90 caps 05/13/24 07/01/24 Rx release losartan 25 mg tablet 25 mg PO DAILY #90 TABLETS 05/30/24 07/01/24 Rx Have you fallen in the past year?: No [facility] Medical History (Reviewed 07/01/24 @ 14:01 by Anh Phan REGIONAL LOSS PREVENTION MANAGER, REGIONAL LOSS PREVENTION MANAGER-C) Intertriginous dermatitis associated with moisture Post-menopausal Encounter for vitamin deficiency screening Pneumonia Gastr (more content not included)... Normal [facility] Urgent Care Visit Reporton 0 06-11-2024 Urgent Care Visit Report [facility] [address] , [address] [place] [address] OFFICE VISIT Date of Service: 06/11/24 MR#: [id number] Acct: [id number] Name: ANNIA BRIGGS Rep #: [id number] : 1960 Provider: JAKE Lewis Age/Sex: 63/F Location: [facility] Status: Signed Intake Vital Signs 05/03/24 10:57 06/11/24 12:17 Height 5 ft 4 in Weight: 232 lb BMI 39.8 BP 130/70 H 128/68 H Blood Pressure Location Lt brachial Lt brachial Position Sitting Sitting Respiration 16 14 Pulse 80 86 Pulse Source Monitor Auscultation Temp 97.6 F L 97.8 F Temp Source Temporal Temporal Pulse Oximetry (%) 97 97 Oxygen Delivery Method room air Intake Visit Reasons: TABARES/SINUS PRESSURE/CHEST CONGESTION Chief Complaint: 3 M FU Allergies lisinopril Adverse Reaction (Verified 05/03/24 10:55) cough pravastatin Adverse Reaction (Verified 05/03/24 10:55) myalgias sertraline Adverse Reaction (Verified 05/03/24 10:55) anorgasmia simvastatin (From Zocor) Adverse Reaction (Verified 05/03/24 10:55) myalgias [facility] Medical History (Updated 05/03/24 @ 12:[address] Ramo Rico MD) Intertriginous dermatitis associated with moisture Post-menopausal Encounter for vitamin deficiency screening Pneumonia Gastroenteritis Osteoarthritis of left knee Breast cancer screening Venous insufficiency (chronic) (peripheral) Left knee pain Asthmatic bronchitis with exacerbation Contact with and (suspected) exposure to other viral communicable diseases URI (upper respiratory infection) Essential hypertension Hearing impairment Tremor COVID-19 Carpal tunnel syndrome Strain of right ankle and foot Urinary tract infection Chills (without fever) Right lower lobe pneumonia Acute bronchitis Asthma Seasonal depression Bronchitis Dysthymic disorder Obesity Asthma Hyperlipidemia Type 2 diabetes mellitus without complications Supraventricular tachycardia Surgical History History of appendectomy History of left oophorectomy History of bilateral carpal tunnel release Family History Mother Diabetes Father COPD (chronic obstructive pulmonary disease) emphysema Alcohol abuse Social History household members: spouse housing: house current occupational status: employed current occupation: [place], [place] pets and animals: Yes pets and animals: dog(s) Smoking Status: Never smoker second hand exposure: No alcohol intake: never substance use type: does not use HPI HPI Chief Complaint: 3 M FU Details: ANNIA BRIGGS, is a 63 F who presents to the office today for initial evaluation at the [facility] for approximately 5-day history of progressively worsening chills, forehead pressure/congestion with purulent postnasal drip newly developing over last 48-72 hours and irritated throat. No complaints of fever, myalgias, fatigue, runny nose, or nausea/vomiting/diarrhea . No complaints of chest pain/shortness of breath/dyspnea on exertion. No close contacts with similar complaints. Home COVID- 19 test this morning was negative; refusing all POC screening here as a result. No other associated symptoms and no other alleviating/aggravating factors. ROS Const Constitutional: No other (as above) Exam Const General: cooperative, healthy appearing and no acute distress Nutritional Appearance: average body habitus Orientation: alert, awake and oriented x3 HENMT Head: normal to inspection Ears: hearing grossly normal bilaterally, external ears normal, TM's normal bilaterally and EAC's normal Nose: external nose normal, nares normal, septum normal and no nasal discharge Face and sinus: normal facial exam, sinuses tender (bilateral frontal) and face symmetric Mouth: oral mucosae normal, lip normal, tongue normal and oropharynx normal Throat: posterior oropharynx normal, tonsils normal, uvula midline and postnasal drainage (Purulent) Eyes General: appearance normal, both eyes and all related structures Neck Neck: normal visual inspection, full ROM, no meningeal signs, supple and lymphadenopathy (Bilateral anterior cervical lymph node swelling/tender to palpation) Neck mass: No Thyroid: thyroid normal Chest Chest palpation inspection: normal inspection of the chest Resp Effort Inspection: normal respiratory effort and able to speak in complete sentences Auscultation: Bilateral: Clear to Auscultation Cardio Palpation: normal PMI Rate: regular rate Rhythm: regular rhythm Heart Sounds: S1 normal, S2 normal, no gallops, no murmurs and no rubs Pulses: radial pulses present GI Inspection: normal to inspection Skin General: no rashes or lesions noted (more content not included)... Normal [facility] Echo Completeon 05-08-2024 Echo Complete [facility] [place] [address] Echo Complete 05/08/24 0916 MR#: [id number] Acct: [id number] Name: ANNIA BRIGGS Rep #: [id number] : 1960 63 From: Lino Meneses MD Attending Dr: JAKE Givens Status: REG CLI Ordering Dr: Meagan Boo Date: 04/16 02/06 Location: [facility] Sex: F C Admitted: Reason For Study: MURMUR Procedure This was a 2D Doppler, Color Flow transthoracic echocardiogram. Exam performed in department. Left Ventricle Normal LV size. Mild concentric left ventricular hypertrophy. The left ventricular ejection fraction is 65 %. Left ventricular systolic function is normal. Stage 1 diastolic dysfunction. No regional wall motion abnormalities noted. Right Ventricle Normal RV size. Normal systolic function. Tricuspid Valve Normal tricuspid valve. Aortic Valve Moderate focal aortic valve calcification. Peak aortic valve gradient 28 mmHg. Mean aortic valve gradient 17 mmHg. Mild aortic stenosis. Pulmonic Valve Normal pulmonic valve. Great Vessels Normal aortic root. The pulmonary artery is normal size. Inferior vena cava collapse with respiration. Pericardium/Pleural No pericardial effusion. MMode/2D Measurements Calculations LVIDd: 4.4 cm IVSd: 1.4 cm LVOT diam: 2.0 cm LVIDs: 2.5 cm LVPWd: 1.2 cm LVOT area: 3.0 cm2 RVDd: 3.4 cm FS: 42.7 % Ao root diam: 3.1 cm LAV(MOD-bp): 46.6 ml LVAd ap4: 18.3 cm2 LAV(MOD-bp) Indexed: 22.2 ml/m2 LVLd ap4: 7.2 cm LAV(MOD-sp2): 45.2 ml EDV(MOD-sp4): 39.0 ml LAV(MOD-sp4): 46.3 ml EDV(sp4-el): 39.6 ml LVAs ap4: 9.7 cm2 LVLs ap4: 5.7 cm ESV(MOD-sp4): 14.3 ml ESV(sp4-el): 14.0 ml EF(MOD-sp4): 63.4 % EF(sp4-el): 64.5 % SV(MOD-sp4): 24.7 ml SV(MOD-sp2): 20.8 ml LVAd ap2: 16.7 cm2 LVLd ap2: 7.0 cm EDV(MOD-sp2): 33.7 ml EDV(sp2-el): 33.9 ml LVAs ap2: 9.4 cm2 LVLs ap2: 6.0 cm ESV(MOD-sp2): 12.8 ml ESV(sp2-el): 12.3 ml EF(MOD-sp2): 61.9 % SV(sp4-el): 25.5 ml LA A4 area: 18.0 cm2 LA dimension(2D): 3.8 cm TAPSE: 1.8 cm RA A4 area: 11.5 cm2 Time Measurements MV dec time: 0.19 sec Doppler Measurements Calculations MV E max lakhwinder: 87.8 cm/sec Lat Peak E' Lakhwinder: 9.1 cm/sec Med Peak E' Lakhwinder: 7.6 cm/sec MV A max lakhwinder: 91.8 cm/sec E/E' lat: 9.6 E/E' med: 11.6 MV E/A: 0.96 MV dec slope: 458.9 cm/sec2 Ao V2 max: 267.3 cm/sec LV V1 max: 121.1 cm/sec Ao max P.7 mmHg LV V1 max P.9 mmHg Ao V2 mean: 199.0 cm/sec LV V1 mean P.5 mmHg Ao mean P.2 mmHg LV V1 mean: 104.6 cm/sec Ao V2 VTI: 54.6 cm LV V1 VTI: 27.5 cm AV (velocity ratio): 0.50 MARCIA(I,D): 1.5 cm2 MARCIA(V,D): 1.4 cm2 SV(LVOT): 83.2 ml PA V2 max: 102.3 cm/sec PA max PG (full): 3.1 mmHg ECHO/Echo Complete Interpretation Summary Normal LV size. The left ventricular ejection fraction is 65 %. Left ventricular systolic function is normal. Stage 1 diastolic dysfunction. Moderate focal aortic valve calcification. Mean aortic valve gradient 17 mmHg. Mild aortic stenosis. Mild concentric left ventricular hypertrophy. Ordering Physician: Meagan Boo Referring Physician: Ramo Rico Performed By: Tena Corea RDCS 05/08/24 1039 Date Lino Meneses MD CC: Dr. 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, [address] CA,Total 9.7 mg/dL Normal 8.5-10.1 [facility] Comment on above: Performed By: #### L 100.0100, L502.0250, L500.2500, L506.1000 ####[facility] [address] [place], [address] Chloride [Moles/Vol] 104 mmol/L Normal 98-107 [facility] Comment on above: Performed By: #### L 100.0100, L502.0250, L500.2500, L506.1000 ####[facility] [address] [place], [address] CO2 [Moles/Vol] 28.0 mmol/L Normal 21.0-32.0 [facility] Comment on above: Performed By: #### L 100.0100, L502.0250, L500.2500, L506.1000 ####[facility] [address] [place], [address] Creatinine [Mass/Vol] 0.80 mg/dL Normal 0.55-1.02 [facility] Comment on above: Result Comment: The validity of the calculated GFR GFRAA in patients over 70 years has not been determined. Clinical correlation is essential. Performed By: #### L 100.0100, L502.0250, L500.2500, L506.1000 ####[facility] [address] [place], [address] EST GFR - AA 94 mL/min Normal >60 [facility] Comment on above: Result Comment: Afri can Tristanian GFR Calc Performed By: #### L 100.0100, L502.0250, L500.2500, L506.1000 ####[facility] [address] [place], [address] GAP 7 Normal 5-15 [facility] Comment on above: Performed By: #### L 100.0100, L502.0250, L500.2500, L506.1000 ####[facility] [address] [place], [address] GFR/1.73 sq M.predicted among non-blacks MDRD (S/P/Bld) [Vol rate/Area] 77 mL/min/{1.73_m2} Normal >60 [facility] Comment on above: Result Comment: Non- GFR Calc Performed By: #### L 100.0100, L502.0250, L500.2500, L506.1000 ####[facility] [address] [place], [address] Glucose [Mass/Vol] 123 mg/dL High 74-106 [facility] Comment on above: Result Comment: Fast ing Glucose result from 100 to 125 mg/dL suggests IMPAIRED HOMEOSTASIS per A.D.A. criteria. Performed By: #### L 100.0100, L502.0250, L500.2500, L506.1000 ####[facility] [address] [place], [address] Potassium [Moles/Vol] 3.8 mmol/L Normal 3.5-5.1 [facility] Comment on above: Performed By: #### L 100.0100, L502.0250, L500.2500, L506.1000 ####[facility] [address] [place], [address] Sodium [Moles/Vol] 139 mmol/L Normal 136-145 [facility] Comment on above: Performed By: #### L 100.0100, L502.0250, L500.2500, L506.1000 ####[facility] [address] [place], [address] Urea nitrogen [Mass/Vol] 12 mg/dL Normal 7-18 [facility] Comment on above: Performed By: #### L 100.0100, L502.0250, L500.2500, L506.1000 ####[facility] [address] [place], [address] CBC W/Diff, Automatedon 04-15 Absolute Lymph 1.17 X10 3/uL Normal 0.83-4.51 [facility] Comment on above: Performed By: #### L 100.0100, L502.0250, L500.2500, L506.1000 #### [facility] [address] [place], [address] Absolute Neut 2.9 X10 3/uL Normal 2.0-7.7 [facility] Comment on above: Performed By: #### L 100.0100, L502.0250, L500.2500, L506.1000 #### [facility] [address] [place], [address] Basophils/100 WBC (Bld) 0.6 % Normal 0-1 [facility] Comment on above: Performed By: #### L 100.0100, L502.0250, L500.2500, L506.1000 #### [facility] [address] [place], [address] Eosinophils/100 WBC (Bld) 4.3 % Normal 0-5 [facility] Comment on above: Performed By: #### L 100.0100, L502.0250, L500.2500, L506.1000 #### [facility] [address] [place], [address] Erythrocyte distribution width (RBC) [Ratio] 13.0 % Normal 11.6-14.6 [facility] Comment on above: Performed By: #### L 100.0100, L502.0250, L500.2500, L506.1000 #### [facility] [address] [place], [address] Hematocrit (Bld) [Volume fraction] 38.6 % Normal 37-47 [facility] Comment on above: Performed By: #### L 100.0100, L502.0250, L500.2500, L506.1000 #### [facility] [address] [place], [address] Hemoglobin (Bld) [Mass/Vol] 12.6 g/dL Normal 12.0-15.0 [facility] Comment on above: Performed By: #### L 100.0100, L502.0250, L500.2500, L506.1000 #### [facility] [address] [place], [address] IG% 0.200 Normal 0.0-0.9 [facility] Comment on above: Result Comment: IG% - Immature Granulocytes (promyelocytes, myelocytes and metamyelocytes) > 1% indicates that a LEFT SHIFT is Present. Performed By: #### L 100.0100, L502.0250, L500.2500, L506.1000 #### [facility] [address] [place], [address] Lymphocytes/100 WBC (Bld) 24.9 % Normal 19-41 [facility] Comment on above: Performed By: #### L 100.0100, L502.0250, L500.2500, L506.1000 #### [facility] [address] [place], [address] MCH (RBC) [Entitic mass] 30.4 pg Normal 27.0-32.0 [facility] Comment on above: Performed By: #### L 100.0100, L502.0250, L500.2500, L506.1000 #### [facility] [address] [place], [address] MCHC (RBC) [Mass/Vol] 32.6 g/dL Normal 32-36 [facility] Comment on above: Performed By: #### L 100.0100, L502.0250, L500.2500, L506.1000 #### [facility] [address] [place], [address] MCV (RBC) [Entitic vol] 93.0 fL Normal 81-99 [facility] Comment on above: Performed By: #### L 100.0100, L502.0250, L500.2500, L506.1000 #### [facility] [address] [place], [address] Monocytes/100 WBC (Bld) 8.1 % Normal 0-10 [facility] Comment on above: Performed By: #### L 100.0100, L502.0250, L500.2500, L506.1000 #### [facility] [address] [place], [address] Neutrophils/100 WBC (Bld) 61.9 % Normal 47-70 [facility] Comment on above: Performed By: #### L 100.0100, L502.0250, L500.2500, L506.1000 #### [facility] [address] [place], [address] Nucleated RBC (Bld) [#/Vol] 0 10*3/uL Normal 0-5 [facility] Comment on above: Performed By: #### L 100.0100, L502.0250, L500.2500, L506.1000 #### [facility] [address] [place], [address] Platelet mean volume (Bld) [Entitic vol] 9.3 fL Normal 6.2-12.0 [facility] Comment on above: Performed By: #### L 100.0100, L502.0250, L500.2500, L506.1000 #### [facility] [address] [place], [address] Platelets (Bld) [#/Vol] 285 10*3/uL Normal 150-450 [facility] Comment on above: Performed By: #### L 100.0100, L502.0250, L500.2500, L506.1000 #### [facility] [address] [place], [address] RBC (Bld) [#/Vol] 4.15 10*6/uL Low 4.2-5.4 [facility] Comment on above: Performed By: #### L 100.0100, L502.0250, L500.2500, L506.1000 #### [facility] [address] [place], [address] RDW SD 44.0 fl High 35.1-43.9 [facility] Comment on above: Performed By: #### L 100.0100, L502.0250, L500.2500, L506.1000 #### [facility] [address] [place], [address] WBC (Bld) [#/Vol] 4.7 10*3/uL Normal 4.4-11.0 [facility] Comment on above: Performed By: #### L 100.0100, L502.0250, L500.2500, L506.1000 #### [facility] [place], [address] Internal Medicine Office Vis kvng 05-03-2024 Internal Medicine Office Visit [facility] [address] [place] [address] [place] [address] OFFICE VISIT Date of Service: 05/03/24 MR#: [id number] Acct: [id number] Name: ANNIA BRIGGS Rep #: [id number] : 1960 Provider: Dr. Ramo chairez MD Age/Sex: 63/F Location: [facility] Status: Signed Intake Vital Signs 02/02/24 10:58 04/05/24 10:06 05/03/24 10:57 Height 5 ft 4 in 5 ft 4 in 5 ft 4 in Weight: 232 lb BMI 39.8 BP 130/70 H Blood Pressure Location Lt brachial Position Sitting Respiration 16 Pulse 80 Pulse Source Monitor Temp 97.6 F L Temp Source Temporal Pulse Oximetry (%) 97 Oxygen Delivery Method room air Intake Visit Reasons: 3 M FU Chief Complaint: 3 M FU Is patient in pain?: No Allergies lisinopril Adverse Reaction (Verified 05/03/24 10:55) cough pravastatin Adverse Reaction (Verified 05/03/24 10:55) myalgias sertraline Adverse Reaction (Verified 05/03/24 10:55) anorgasmia simvastatin (From Zocor) Adverse Reaction (Verified 05/03/24 10:55) myalgias Medications ???Medication ???Instructions ???Recorded ???Confirmed ???Type fluocinonide 0.05 % topical cream 1 applic topical BID #120 grams 01/06/23 05/03/24 Rx azelastine 137 mcg-fluticasone 50 1 spray intranasal BID #23 grams 04/26/23 05/03/24 Rx mcg/spray nasal spray losartan 25 mg tablet 25 mg PO DAILY #90 tabs 06/05/23 05/03/24 Rx omeprazole 40 mg capsule,delayed 40 mg PO DAILY #90 caps 06/06/23 05/03/24 Rx release pioglitazone 45 mg tablet 45 mg PO DAILY #90 TABLETS 01/12/24 05/03/24 Rx bupropion HCl 300 mg 24 hr tablet, 300 mg PO QAM #90 tabs 02/13/24 05/03/24 Rx extended release rosuvastatin 5 mg tablet 5 mg PO QHS #90 tabs 04/05/24 05/03/24 Rx dulaglutide 3 mg/0.5 mL 3 mg (0.5 mL) subcut QWEEK 3 04/16/24 05/03/24 Rx subcutaneous pen injector months #6.5 mL metformin 500 mg tablet,extended See Rx Instructions .Route 04/23/24 05/03/24 Rx release 24 hr .COMPLEX #180 tabs nystatin 100,000 unit/gram topical 1 applic topical TID #60 grams 05/03/24 05/03/24 Rx powder Have you fallen in the past year?: No [facility] Medical History (Updated 05/03/24 @ 12:[address] Ramo Rico MD) Intertriginous dermatitis associated with moisture Post-menopausal Encounter for vitamin deficiency screening Pneumonia Gastroenteritis Osteoarthritis of left knee Breast cancer screening Venous insufficiency (chronic) (peripheral) Left knee pain Asthmatic bronchitis with exacerbation Contact with and (suspected) exposure to other viral communicable diseases URI (upper respiratory infection) Essential hypertension Hearing impairment Tremor COVID-19 Carpal tunnel syndrome Strain of right ankle and foot Urinary tract infection Chills (without fever) Right lower lobe pneumonia Acute bronchitis Asthma Seasonal depression Bronchitis Dysthymic disorder Obesity Asthma Hyperlipidemia Type 2 diabetes mellitus without complications Supraventricular tachycardia Surgical History History of appendectomy History of left oophorectomy History of bilateral carpal tunnel release Family History Mother Diabetes Father COPD (chronic obstructive pulmonary disease) emphysema Alcohol abuse Social History household members: spouse housing: house current occupational status: employed current occupation: [employer] [place] pets and animals: Yes pets and animals: dog(s) Smoking Status: Never smoker second hand exposure: No alcohol intake: never substance use type: does not use HPI HPI Chief Complaint: 3 M FU Details: ANNIA BRIGGS, is a 63 F who presents to the office today for follow-up of her chronic medical conditions. A1c is at 6, down from 6.6 . Continues to make dietary changes. Taking medication as prescribed. No concerns for hypoglycemia. With the weather, she had noted increased redness/irritation between her abdominal folds. OTC measures have not been helpful. NO chills, fever or feeling of unwell. Other chronic medical conditions are stable. ROS Const Constitutional: No body ache, chills, excessive sweating, fatigue, fever(s), frequent falls, headache(s), snoring, weakness, sleep problems or change in appetite Eyes Eyes: No blurry vision, change in vision, bulging eyes, floaters, visual disturbances or Light sensitivity ENT ENT: No abnormal hearing, ear or mastoid pain, tinnitus, nosebleed/epistaxis, nasal congestion, nasal discharge, headache(s), neck pain or sore throat Resp Respiratory: No cough, chest congestion, pain on inspiration, shortness of breath, snoring or wheezing Cardio Cardiology: No chest pain at rest, chest pain with exertio (more content not included)... Normal [facility] Lipid Profileon 05-03-2024 Cholesterol [Mass/Vol] 129 mg/dL Normal 200 [facility] Comment on above: Result Comment: <200 mg/dL Desirable 200-240 mg/dL Borderline >240 mg/dL High Risk Performed By: #### L 500.4100, L500.3400 ####[facility] [address] [place], [address] Cholesterol in HDL [Mass/Vol] 69 mg/dL Normal [facility] Comment on above: Result Comment: The drugs N-Acetylcysteine and Metamizole may falsely depress this assay. Reference Range HDL <40 mg/dL Low HDL Cholesterol HDL >or= 60 mg/dL High HDL Cholesterol Performed By: #### L 500.4100, L500.3400 ####[facility] [address] [place], [address] Cholesterol in LDL [Mass/Vol] 39 mg/dL Normal 0-130 [facility] Comment on above: Performed By: #### L 500.4100, L500.3400 ####[facility] [address] [place], [address] Cholesterol in VLDL [Mass/Vol] 21 mg/dL Normal 5-40 [facility] Comment on above: Performed By: #### L 500.4100, L500.3400 ####[facility] [address] [place], [address] Triglyceride [Mass/Vol] 107 mg/dL Normal [facility] Comment on above: Result Comment: The drugs N-Acetylcysteine and Metamizole may falsely depress this assay. Serum Triglycerides Reference Interval Normal <150 mg/dL Borderline high 150 - 199 mg/dL High 200 - 499 mg/dL Very High > or = 500 mg/dL Performed By: #### L 500.4100, L500.3400 ####[facility] [address] [place], [address] Liver Profileon 05-03-2024 Albumin [Mass/Vol] 4.0 g/dL Normal 3.2-5.0 [facility] Comment on above: Performed By: #### L 500.4100, L500.3400 ####[facility] [address] [place], [address] ALK P 86 U/L Normal 45-117 [facility] Comment on above: Performed By: #### L 500.4100, L500.3400 ####[facility] [address] [place], [address] ALT [Catalytic activity/Vol] 24 U/L Normal 13-56 [facility] Comment on above: Performed By: #### L 500.4100, L500.3400 ####[facility] [address] [place], [address] AST [Catalytic activity/Vol] 22 U/L Normal 15-37 [facility] Comment on above: Performed By: #### L 500.4100, L500.3400 ####[facility] [address] [place], [address] Bilirubin [Mass/Vol] 0.40 mg/dL Normal 0.20-1.00 [facility] Comment on above: Result Comment: For patients on eltrombopag therapy, use of Dimension [place] TBIL is not recommended. Performed By: #### L 500.4100, L500.3400 ####[facility] [address] [place], [address] Bilirubin.direct [Mass/Vol] 0.15 mg/dL Normal 0.00-0.30 [facility] Comment on above: Performed By: #### L 500.4100, L500.3400 ####[facility] [address] [place], [address] Globulin (S) [Mass/Vol] 3.2 g/dL Normal 2.2-4.2 [facility] Comment on above: Performed By: #### L 500.4100, L500.3400 ####[facility] [address] [place], [address] T PROT 7.2 g/dL Normal 6.4-8.2 [facility] Comment on above: Performed By: #### L 500.4100, L500.3400 ####[facility] [address] [place], [address] Microalb:Creat Ratio,Random URon 05-03-2024 Creatinine [Mass/Vol] 70.20 mg/dL Normal NO RAN GE EST. [facility] Comment on above: Performed By: #### L 100.0100, L502.0250, L500.2500, L506.1000 ####[facility] [address] [place], [address] MALB:CRE 8.4 mg/g CRE Normal <30 mg/g CRE [facility] Comment on above: Performed By: #### L 100.0100, L502.0250, L500.2500, L506.1000 ####[facility] [address] [place], [address] MICROALBUMIN,UR 5.9 mg/L Normal NO RANGE EST. [facility] Comment on above: Performed By: #### L 100.0100, L502.0250, L500.2500, L506.1000 ####[facility] [address] [place], [address] Vitamin D,25 Hydroxyon 05-03 Vitamin D 25-OH 48.6 ng/mL Normal [facility] Comment on above: Result Comment: Lulu min D 25(OH) Status Range Deficiency <20 ng/mL (50nmol/L) Insufficiency 20 - 30 ng/mL (50 - 75 nmol/L) Sufficiency 30 - 100 ng/mL (75 - 250 nmol/L) Toxicity >100 ng/mL (>250 nmol/L) Performed By: #### L 100.0100, L502.0250, L500.2500, L506.1000 ####[facility] [address] [place], [address] Cardiology Visit Reporton Cardiology Visit Report [facility] [address] [place] [address] OFFICE VISIT Date of Service: 04/05/24 MR#: [id number] Acct: [id number] Name: ANNIA BRIGGS Rep #: [id number] : 1960 Provider: JAKE Escoto Age/Sex: 63/F Location: [facility] Status: Signed HPI [facility] History of Present Illness Details: ANNIA BRIGGS, is a 32 year old female that presents to the office today for a cardiovascular visit. She has a history of SVT, diabetes, hypertension, hypercholesterolemia, obstructive sleep apnea. Pt does occasionally have palpitations, these do not last long. These are pretty rare. She does not have any chest pain or worsening shortness of breath. She does not have any lightheadedness and or dizziness. She has changed her diet and has lost 20 pounds since the beginning of the year. Intake Vital Signs 04/11/23 10:04 02/02/24 10:58 04/05/24 10:02 04/05/24 10:06 Height 5 ft 4 in 5 ft 4 in 5 ft 4 in 5 ft 4 in Weight: 236 lb BMI 40.5 BP 130/73 H Blood Pressure Location Lt brachial Position Sitting Respiration 18 Pulse 77 Pulse Source Monitor Pulse Oximetry (%) 98 Intake Visit Reasons: 1 Y FU Cleaner Required: No Is patient in pain?: No Allergies lisinopril Adverse Reaction (Verified 04/05/24 10:02) cough pravastatin Adverse Reaction (Verified 04/05/24 10:02) myalgias sertraline Adverse Reaction (Verified 04/05/24 10:02) anorgasmia simvastatin (From Zocor) Adverse Reaction (Verified 04/05/24 10:02) myalgias Medications ???Medication ???Instructions ???Recorded ???Confirmed ???Type ipratropium 0.5 mg-albuterol 3 mg 3 ml inhalation TID PRN SOB /OR 05/17/21 04/05/24 Rx (2.5 mg base)/3 mL nebulization WHEEZING #90 vials soln fluocinonide 0.05 % topical cream 1 applic topical BID #120 grams 01/06/23 04/05/24 Rx azelastine 137 mcg-fluticasone 50 1 spray intranasal BID #23 grams 04/26/23 04/05/24 Rx mcg/spray nasal spray metformin 500 mg tablet,extended See Rx Instructions .Route 05/01/23 04/05/24 Rx release 24 hr .COMPLEX #180 tabs losartan 25 mg tablet 25 mg PO DAILY #90 tabs 06/05/23 04/05/24 Rx omeprazole 40 mg capsule,delayed 40 mg PO DAILY #90 caps 06/06/23 04/05/24 Rx release dulaglutide 3 mg/0.5 mL 3 mg (0.5 mL) subcut QWEEK 3 10/20/23 04/05/24 Rx subcutaneous pen injector months #6.5 mL albuterol sulfate 90 mcg/actuation 2 puff inhalation Q4H PRN PRN Sob 10/25/23 04/05/24 Rx aerosol inhaler /Or Wheezing #6.7 grams pioglitazone 45 mg tablet 45 mg PO DAILY #90 TABLETS 01/12/24 04/05/24 Rx bupropion HCl 300 mg 24 hr tablet, 300 mg PO QAM #90 tabs 02/13/24 04/05/24 Rx extended release rosuvastatin 5 mg tablet 5 mg PO QHS #90 tabs 04/05/24 04/05/24 Rx PFSH Medical History (Updated 02/02/24 @ 11:[address] Ramo Rico MD) Post-menopausal Encounter for vitamin deficiency screening Pneumonia Gastroenteritis Osteoarthritis of left knee Breast cancer screening Venous insufficiency (chronic) (peripheral) Left knee pain Asthmatic bronchitis with exacerbation Contact with and (suspected) exposure to other viral communicable diseases URI (upper respiratory infection) Essential hypertension Hearing impairment Tremor COVID-19 Carpal tunnel syndrome Strain of right ankle and foot Urinary tract infection Chills (without fever) Right lower lobe pneumonia Acute bronchitis Asthma Seasonal depression Bronchitis Dysthymic disorder Obesity Asthma Hyperlipidemia Type 2 diabetes mellitus without complications Supraventricular tachycardia Surgical History History of appendectomy History of left oophorectomy History of bilateral carpal tunnel release Family History Mother Diabetes Father COPD (chronic obstructive pulmonary disease) emphysema Alcohol abuse Social History household members: spouse housing: house current occupational status: employed current occupation: [employer] [place] pets and animals: Yes pets and animals: dog(s) Smoking Status: Never smoker second hand exposure: No alcohol intake: never substance use type: does not use ROS Const Const: Negative for fatigue, weakness, headache(s), frequent falls, difficulty sleeping or excessive sweating Eyes Eyes: Negative for loss of peripheral vision, transient loss of vision, blurry vision, double vision or tunnel vision ENT ENT: Negative for headache(s), dizziness, Nosebleed/epistaxis or balance problems Cardio Chest Pain: No Palpitations: Yes feels like its: irregular Edema: Bilateral (Occasionally) Muscle aches with walking: None Resp Respiratory: Negativ (more content not included)... Normal [facility] Absolute lymphocyte countOrd ered By: Ramo Rico on 02-02-2024 Lymphocytes Auto (Unsp spec) [#/Vol] 1.08 10*3/uL 0.83-4.51 [facility] Automated lymphocyte count a s percentage of total leukocytesOrdered By: Ramo Rico on 02-02-2024 Lymphocytes/100 WBC Auto (Unsp spec) 24.9 % 19-41 [facility] Basophil percentageOrdered B y: Ramo Rico on 02-02-2024 Basophils/100 WBC (Bld) 0.7 % 0-1 [facility] Bilirubin [Mass/Vol] 0.50 mg/dL 0.20-1.00 [facility] Comment on above: For patients on eltr ombopag therapy, use of Dimension [place] TBIL is not recommended. Chloride [Moles/Vol] 108 mmol/L 98-107 [facility] Eosinophils/100 WBC (Bld) 2.8 % 0-5 [facility] Glucose [Mass/Vol] 112 mg/dL 74-106 [facility] Comment on above: Fasting Glucose resu lt from 100 to 125 mg/dL suggests IMPAIRED HOMEOSTASIS per A.D.A. criteria. Hemoglobin (Bld) [Mass/Vol] 12.0 g/dL 12.0-15.0 [facility] Monocytes/100 WBC (Bld) 9.4 % 0-10 [facility] Neutrophils (Bld) [#/Vol] 2.7 10*3/uL 2.0-7.7 [facility] Neutrophils/100 WBC (Bld) 62.0 % 47-70 [facility] Potassium [Moles/Vol] 3.9 mmol/L 3.5-5.1 [facility] Protein [Mass/Vol] 7.0 g/dL 6.4-8.2 [facility] Sodium [Moles/Vol] 141 mmol/L 136-145 [facility] WBC (Bld) [#/Vol] 4.3 10*3/uL 4.4-11.0 [facility] Determination of erythrocyte mean corpuscular volume (MCV)Ordered By: Ramo Bolivarbela on 02-02-2024 MCV (RBC) [Entitic vol] 94.9 fL 81-99 [facility] Erythrocyte distribution wid th ratioOrdered By: Ramo Rico on 02-02-2024 Erythrocyte distribution width (RBC) [Ratio] 13.2 % 11.6-14.6 [facility] Erythrocyte distribution wid th standard deviationOrdered By: [facility] Bolivarkiarra on 02-02-2024 Erythrocyte distribution width (RBC) [Entitic vol] 45.8 fL 35.1-43.9 [facility] Hematocrit Auto (Bld) [Volum e fraction]Ordered By: [facility] Brunswickabimbola Rico on 02-02-2024 Hematocrit (Bld) [Volume fraction] 37.6 % 37-47 [facility] Immature granulocytes/100 WB C Auto (Bld)Ordered By: [facility] Jacky on 02-02-2024 Immature granulocytes/100 WBC (Bld) 0.200 % 0.0-0.9 [facility] Comment on above: IG% - Immature Granu locytes (promyelocytes, myelocytes and metamyelocytes) > 1% indicates that a LEFT SHIFT is Present. Laboratory - Chemistry and C hemistry - challengeOrdered By: reynabrooklynabimbola Lutzkiarra on 02-02-2024 Albumin/Globulin [Mass ratio] 1.3 {ratio} 0.9-2.4 [facility] ALP [Catalytic activity/Vol] 81 U/L 45-117 [facility] ALT [Catalytic activity/Vol] 26 U/L 13-56 [facility] CO2 [Moles/Vol] 28.0 mmol/L 21.0-32.0 [facility] Globulin (S) [Mass/Vol] 3.1 g/dL 2.2-4.2 [facility] Urea nitrogen/Creatinine [Mass ratio] 18.0 mg/mg 10-20 [facility] - Hematology and Cell countsOrdered By: Zeynepbrooklynabimbola Rico on 02-02-2024 MCH (RBC) [Entitic mass] 30.3 pg 27.0-32.0 [facility] MCHC (RBC) [Mass/Vol] 31.9 g/dL 32-36 [facility] Nucleated RBC/100 WBC (Bld) [Ratio] 0 % 0-5 [facility] Platelet mean volume (Bld) [Entitic vol] 9.3 fL 6.2-12.0 [facility] Platelets (Bld) [#/Vol] 306 10*3/uL 150-450 [facility] - Hematology and Cell countson 02-02-2024 HbA1c (Bld) [Mass fraction] 6.6 % 4.2-6.3 [facility] No Panel InformationOrdered By: Ramo Rico on 02-02-2024 Estimated GFR (MDRD) Amer 115 mL/min >60 [facility] Comment on above: GFR Calc Estimated GFR (MDRD) Non-Af Amer 95 mL/min >60 [facility] Comment on above: Non- GFR Calc Vitamin D 25-Hydroxy 24.1 ng/mL [facility] Comment on above: Vitamin D 25(OH) Sta tus Range Deficiency <20 ng/mL (50nmol/L) Insufficiency 20 - 30 ng/mL (50 - 75 nmol/L) Sufficiency 30 - 100 ng/mL (75 - 250 nmol/L) Toxicity >100 ng/mL (>250 nmol/L) RBC Auto (Bld) [#/Vol]Ordere d By: Ramo Rico on 02-02-2024 RBC (Bld) [#/Vol] 3.96 10*6/uL 4.2-5.4 [facility] Serum or plasma calcium paolo urement (mass/volume)Ordered By: Ramo Rico on 02-02-2024 Calcium [Mass/Vol] 9.2 mg/dL 8.5-10.1 [facility] Serum or plasma creatinine m easurement (mass/volume)Ordered By: Ramo Rico on 02-02-2024 Creatinine [Mass/Vol] 0.67 mg/dL 0.55-1.02 [facility] Comment on above: The validity of the calculated GFR & GFRAA in patients over 70 years has not been determined. Clinical correlation is essential. Serum or plasma urea nitroge n measurement (mass/volume)Ordered By: Ramo Rico on 02-02-2024 Urea nitrogen [Mass/Vol] 12 mg/dL 7-18 [facility] Thin prep Papanicolaou smear with manual screeningOrdered By: Ramo Rico on 02-02-2024 Thin prep Papanicolaou smear with manual screening 3.9 g/dL 3.2-5.0 [facility] Thin prep Papanicolaou smear with manual screening 27 U/L 15-37 [facility] Thin prep Papanicolaou smear with manual screening 5 5-15 [facility] Laboratory - Microbiology an d Antimicrobial susceptibilityon 01-16-2024 SARS-CoV-2 (COVID-19) RNA KIRA+probe Ql (Unsp spec) Not detected [facility] No Panel Informationon 01-15 Influenza Types A,B Rapid (Clinic) Not detected [facility] Basophil percentageOrdered B y: Meagan Boo on 11-10-2023 Bilirubin [Mass/Vol] 0.40 mg/dL 0.20-1.00 [facility] Comment on above: For patients on eltr ombopag therapy, use of Dimension [place] TBIL is not recommended. Cholesterol [Mass/Vol] 137 mg/dL <200 [facility] Comment on above: <200 mg/dL Desirable 200-240 mg/dL Borderline >240 mg/dL High Risk Protein [Mass/Vol] 6.6 g/dL 6.4-8.2 [facility] Triglyceride [Mass/Vol] 97 mg/dL <199 [facility] Comment on above: The drugs N-Acetylcy steine and Metamizole may falsely depress this assay.Serum Triglycerides Reference Interval Normal <150 mg/dL Borderline high 150 - 199 mg/dL High 200 - 499 mg/dL Very High > or = 500 mg/dL Basophil percentageOrdered B y: Ramo Rico on 11-10-2023 Chloride [Moles/Vol] 105 mmol/L 98-107 [facility] Glucose [Mass/Vol] 115 mg/dL 74-106 [facility] Comment on above: Fasting Glucose resu lt from 100 to 125 mg/dL suggests IMPAIRED HOMEOSTASIS per A.D.A. criteria. Potassium [Moles/Vol] 4.0 mmol/L 3.5-5.1 [facility] Sodium [Moles/Vol] 141 mmol/L 136-145 [facility] Direct bilirubinOrdered By: Meagan Boo on 11-10-2023 Bilirubin.direct [Mass/Vol] 0.16 mg/dL 0.00-0.30 [facility] High density lipoprotein (HD L) measurementOrdered By: Meagan Boo on 11-10-2023 Cholesterol in HDL (Body fld) [Mass/Vol] 82 mg/dL >40 [facility] Comment on above: The drugs N-Acetylcy steine and Metamizole may falsely depress this assay. Reference Range HDL <40 mg/dL Low HDL Cholesterol HDL >or= 60 mg/dL High HDL Cholesterol Laboratory - Chemistry and C hemistry - challengeOrdered By: Meagan Boo on 11-10-2023 ALP [Catalytic activity/Vol] 83 U/L 45-117 [facility] ALT [Catalytic activity/Vol] 25 U/L 13-56 [facility] Globulin (S) [Mass/Vol] 2.7 g/dL 2.2-4.2 [facility] Laboratory - Chemistry and C hemistry - challengeOrdered By: Ramo Rico on 11-10-2023 CO2 [Moles/Vol] 32.0 mmol/L 21.0-32.0 [facility] Urea nitrogen/Creatinine [Mass ratio] 20.5 mg/mg 10-20 [facility] Laboratory - Hematology and Cell countson 11-10-2023 HbA1c (Bld) [Mass fraction] 7.0 % 4.2-6.3 [facility] Low density lipoprotein (LDL ) cholesterol measurementOrdered By: Meagan Boo on 11-10-2023 Cholesterol in LDL (Body fld) [Moles/Vol] 36 mg/dL 0-130 [facility] No Panel InformationOrdered By: Ramo Rico on 11-10-2023 Estimated GFR (MDRD) Amer 103 mL/min >60 [facility] [facility] Comment on above: GFR Calc Estimated GFR (MDRD) Non-Af Amer 85 mL/min >60 [facility] Comment on above: Non- GFR Calc Serum or plasma calcium paolo urement (mass/volume)Ordered By: Ramo Rico on 11-10-2023 Calcium [Mass/Vol] 9.3 mg/dL 8.5-10.1 [facility] Serum or plasma creatinine m easurement (mass/volume)Ordered By: Ramo Rico on 11-10-2023 Creatinine [Mass/Vol] 0.73 mg/dL 0.55-1.02 [facility] Comment on above: The validity of the calculated GFR & GFRAA in patients over 70 years has not been determined. Clinical correlation is essential. Serum or plasma urea nitroge n measurement (mass/volume)Ordered By: Ramo Rico on 11-10-2023 Urea nitrogen [Mass/Vol] 15 mg/dL 7-18 [facility] Thin prep Papanicolaou smear with manual screeningOrdered By: Meagan Boo on 11-10-2023 Thin prep Papanicolaou smear with manual screening 3.9 g/dL 3.2-5.0 [facility] Thin prep Papanicolaou smear with manual screening 22 U/L 15-37 [facility] Thin prep Papanicolaou smear with manual screeningOrdered By: Ramo Rico on 11-10-2023 Thin prep Papanicolaou smear with manual screening 4 5-15 [facility] Very low density lipoprotein (VLDL) cholesterol measurementOrdered By: Meagan Boo on 11-10-2023 Cholesterol in VLDL Calc [Moles/Vol] 19 mg/dL 5-40 [facility] Basophil percentageOrdered B y: Xenia Alvarado on 05-05-2023 Bilirubin [Mass/Vol] 0.50 mg/dL 0.20-1.00 [facility] Comment on above: For patients on eltr ombopag therapy, use of Dimension [place] TBIL is not recommended. Cholesterol [Mass/Vol] 144 mg/dL <200 [facility] Comment on above: <200 mg/dL Desirable 200-240 mg/dL Borderline >240 mg/dL High Risk Protein [Mass/Vol] 6.8 g/dL 6.4-8.2 [facility] Triglyceride [Mass/Vol] 108 mg/dL <199 [facility] Comment on above: The drugs N-Acetylcy steine and Metamizole may falsely depress this assay.Serum Triglycerides Reference Interval Normal <150 mg/dL Borderline high 150 - 199 mg/dL High 200 - 499 mg/dL Very High > or = 500 mg/dL Basophil percentageOrdered B y: Ramo Rico on 05-05-2023 Chloride [Moles/Vol] 106 mmol/L 98-107 [facility] Glucose [Mass/Vol] 113 mg/dL 74-106 [facility] Comment on above: Fasting Glucose resu lt from 100 to 125 mg/dL suggests IMPAIRED HOMEOSTASIS per A.D.A. criteria. Potassium [Moles/Vol] 3.8 mmol/L 3.5-5.1 [facility] Sodium [Moles/Vol] 143 mmol/L 136-145 [facility] Direct bilirubinOrdered By: Xenia Alvarado on 05-05-2023 Bilirubin.direct [Mass/Vol] 0.15 mg/dL 0.00-0.30 [facility] Laboratory - Chemistry and C hemistry - challengeOrdered By: Xenia Alvarado on 05-05-2023 ALP [Catalytic activity/Vol] 86 U/L 45-117 [facility] ALT [Catalytic activity/Vol] 28 U/L 13-56 [facility] Globulin (S) [Mass/Vol] 3.1 g/dL 2.2-4.2 [facility] Laboratory - Chemistry and C hemistry - challengeOrdered By: Ramo Rico on 05-05-2023 CO2 [Moles/Vol] 30.0 mmol/L 21.0-32.0 [facility] Urea nitrogen/Creatinine [Mass ratio] 21.7 mg/mg 10-20 [facility] Laboratory - Hematology and Cell countson 05-05-2023 HbA1c (Bld) [Mass fraction] 7.0 % 4.2-6.3 [facility] No Panel InformationOrdered By: Ramo Rico on 05-05-2023 Urine Microalbumin/Creatinine Ratio 13.5 mg/g CRE <30 [facility] Estimated GFR (MDRD) Amer 119 mL/min >60 [facility] Comment on above: GFR Calc Estimated GFR (MDRD) Non-Af Amer 99 mL/min >60 [facility] Comment on above: Non- GFR Calc Serum or plasma albumin paolo urement (mass/volume)Ordered By: Xenia Alvarado on 07-21-2023 Albumin [Mass/Vol] 3.7 g/dL 3.2-5.0 [facility] Serum or plasma calcium paolo urement (mass/volume)Ordered By: Ramo Rico on 05-05-2023 Calcium [Mass/Vol] 9.1 mg/dL 8.5-10.1 [facility] Serum or plasma cholesterol in HDL measurement (mass/volume)Ordered By: Xenia Alvarado on 05-05-2023 Cholesterol in HDL [Mass/Vol] 77 mg/dL >40 [facility] Comment on above: The drugs N-Acetylcy steine and Metamizole may falsely depress this assay. Reference Range HDL <40 mg/dL Low HDL Cholesterol HDL >or= 60 mg/dL High HDL Cholesterol Serum or plasma cholesterol in VLDL measurement (mass/volume)Ordered By: Xenia Alvarado on 05-05-2023 Cholesterol in VLDL [Mass/Vol] 22 mg/dL 5-40 [facility] Serum or plasma creatinine m easurement (mass/volume)Ordered By: Ramo Rico on 05-05-2023 Creatinine [Mass/Vol] 0.65 mg/dL 0.55-1.02 [facility] Comment on above: The validity of the calculated GFR & GFRAA in patients over 70 years has not been determined. Clinical correlation is essential. Serum or plasma low density lipoprotein (LDL) cholesterol measurement (mass/volume)Ordered By: Xenia Alvarado on 05-05-2023 Cholesterol in LDL [Mass/Vol] 45 mg/dL 0-130 [facility] Serum or plasma urea nitroge n measurement (mass/volume)Ordered By: Ramo Rico on 05-05-2023 Urea nitrogen [Mass/Vol] 14 mg/dL 7-18 [facility] Thin prep Papanicolaou smear with manual screeningOrdered By: Ramo Rico on 05-05-2023 Thin prep Papanicolaou smear with manual screening 5.5 mg/L NO RANGE EST. [facility] Thin prep Papanicolaou smear with manual screening 7 5-15 [facility] Thin prep Papanicolaou smear with manual screeningOrdered By: Xenia Alvarado on 05-05-2023 Thin prep Papanicolaou smear with manual screening 30 U/L 15-37 [facility] Urine creatinine measurement (mass/volume)Ordered By: Ramo Rico on 05-05-2023 Creatinine (U) [Mass/Vol] 40.80 mg/dL NO RANGE EST. [facility] Amorphous sediment detection in urine sediment by light microscopyOrdered By: Luis Manuel Montalvo on 03-07-2023 Amorphous sediment LM Ql (Urine sed) 1+ URATE [facility] Basophil percentageOrdered B y: Luis Manuel Montalvo on 03-07-2023 Basophil percentage 25-50 SEEN /hpf 0-5 [facility] Bilirubin Test strip Ql (U)O rdered By: Luis Manuel Montalvo on 03-07-2023 Bilirubin Ql (U) Negative Negative [facility] Culture, urineOrdered By: Dennis Montalvo on 03-07-2023 Bacteria identified Cx Nom (U) Klebsiella pneumoniae sp pneum [facility] Ketones Test strip Ql (U)Ord ered By: Luis Manuel Montalvo on 03-07-2023 Ketones Ql (U) Negative Negative [facility] Laboratory - Chemistry and C hemistry - challengeon 03-07-2023 Bilirubin Ql (U) Negative [facility] Glucose Ql (U) Negative [facility] Ketones Ql (U) Negative [facility] pH (U) 6.0 [pH] [facility] Specific gravity (U) [Rel density] 1.020 [facility] Urobilinogen (U) [Mass/Vol] 0.9505396 mg/dL [facility] Laboratory - Hematology and Cell countson 03-07-2023 Hemoglobin Ql (U) Negative [facility] Laboratory - Specimen inform ationon 03-07-2023 Clarity (U) Clear [facility] Color (U) Yellow [facility] Laboratory - Urinalysison Nitrite Ql (U) Negative [facility] Protein Ql (U) Negative [facility] Mucus LM Ql (Urine sed)Order ed By: Luis Manuel Montalvo on 03-07-2023 Mucus Ql (Urine sed) 0 SEEN /hpf [facility] Nitrite Test strip Ql (U)Ord ered By: Luis Manuel Montalvo on 03-07-2023 Nitrite Ql (U) Negative Negative [facility] No Panel Informationon 03-07 Urine Leukocytes Negatve [facility] Urine Non-Hemolyzed Blood Negative [facility] Protein Test strip Ql (U)Ord ered By: Luis Manuel Montalvo on 03-07-2023 Protein Ql (U) Negative Negative [facility] Squamous epithelial cells de tection in urine sediment by light microscopyOrdered By: Luis Manuel Montalvo on 03-07-2023 Epithelial cells.squamous LM Ql (Urine sed) 0-5 SEEN /hpf 5-10 [facility] Urine blood detectionOrdered By: Luis Manuel Montalvo on 03-07-2023 RBC Ql (U) Negative Negative [facility] RBC Ql (U) 0 SEEN /hpf 0-5 [facility] Urine clarityOrdered By: Paras Montalvo on 03-07-2023 Clarity (U) Sl. Cloudy Clear [facility] Urine color determinationOrd ered By: Luis Manuel Montalvo on 03-07-2023 Color (U) Yellow Yellow [facility] Urine glucose detectionOrder ed By: Luis Manuel Montalvo on 03-07-2023 Glucose Ql (U) Normal mg/dl Normal [facility] Urine leukocyte esterase det ection by dipstickOrdered By: Luis Manuel Montalvo on 03-07-2023 Leukocyte esterase Test strip Ql (U) 500 /ul Negative [facility] Urine pHOrdered By: Luis Manuel sanchez on 03-07-2023 pH (U) 6.0 [pH] 5.0 - 8.0 [facility] Urine sediment bacteria coun t by microscopy (number/high power field)Ordered By: Luis Manuel Montalvo on 03-07-2023 Bacteria LM.HPF (Urine sed) [#/Area] 0 /[HPF] None Seen [facility] Urine specific gravity measu rementOrdered By: Luis Manuel Montalvo on 03-07-2023 Specific gravity (U) [Rel density] 1.010 1.002-1.030 [facility] Urobilinogen Auto test strip Ql (U)Ordered By: Luis Manuel Montalvo on 03-07-2023 Urobilinogen Ql (U) Normal mg/dl Normal [facility] Absolute lymphocyte countOrd ered By: Sidney Bob on 10-28-2022 Lymphocytes Auto (Unsp spec) [#/Vol] 1.29 10*3/uL 0.83-4.51 [facility] Basophil percentageOrdered B y: Sidney Bob on 10-28-2022 Basophils/100 WBC (Bld) 0.2 % 0-1 [facility] Bilirubin [Mass/Vol] 0.50 mg/dL 0.20-1.00 [facility] Comment on above: For patients on eltr ombopag therapy, use of Dimension [place] TBIL is not recommended. Chloride [Moles/Vol] 105 mmol/L 98-107 [facility] Cholesterol [Mass/Vol] 132 mg/dL <200 [facility] Comment on above: <200 mg/dL Desirable 200-240 mg/dL Borderline >240 mg/dL High Risk Eosinophils/100 WBC (Bld) 3.5 % 0-5 [facility] Glucose [Mass/Vol] 105 mg/dL 74-106 [facility] Comment on above: Fasting Glucose resu lt from 100 to 125 mg/dL suggests IMPAIRED HOMEOSTASIS per A.D.A. criteria. Neutrophils (Bld) [#/Vol] 4.0 10*3/uL 2.0-7.7 [facility] Neutrophils/100 WBC (Bld) 66.6 % 47-70 [facility] Potassium [Moles/Vol] 3.8 mmol/L 3.5-5.1 [facility] Protein [Mass/Vol] 6.9 g/dL 6.4-8.2 [facility] Sodium [Moles/Vol] 140 mmol/L 136-145 [facility] Triglyceride [Mass/Vol] 132 mg/dL <199 [facility] Comment on above: The drugs N-Acetylcy steine and Metamizole may falsely depress this assay.Serum Triglycerides Reference Interval Normal <150 mg/dL Borderline high 150 - 199 mg/dL High 200 - 499 mg/dL Very High > or = 500 mg/dL WBC (Bld) [#/Vol] 5.9 10*3/uL 4.4-11.0 [facility] Blood erythrocytes count (nu mber/volume)Ordered By: Sidney Bob on 10-28-2022 RBC (Bld) [#/Vol] 3.89 10*6/uL 4.2-5.4 [facility] Blood hemoglobin measurement (mass/volume)Ordered By: Sidney Bob on 10-28-2022 Hemoglobin (Bld) [Mass/Vol] 12.3 g/dL 12.0-15.0 [facility] Blood lymphocytes/100 leukoc ytesOrdered By: Sidney Bob on 10-28-2022 Lymphocytes/100 WBC (Bld) 21.8 % 19-41 [facility] Blood monocytes/100 leukocyt esOrdered By: Sidney Bob on 10-28-2022 Monocytes/100 WBC (Bld) 7.6 % 0-10 [facility] Blood platelet mean volumeOr dered By: Sidney Bob on 10-28-2022 Platelet mean volume (Bld) [Entitic vol] 9.1 fL 6.2-12.0 [facility] Determination of erythrocyte mean corpuscular volume (MCV)Ordered By: Sidney Bob on 10-28-2022 MCV (RBC) [Entitic vol] 93.1 fL 81-99 [facility] Hematocrit Auto (Bld) [Volum e fraction]Ordered By: Sidney Bob on 10-28-2022 Hematocrit (Bld) [Volume fraction] 36.2 % 37-47 [facility] Laboratory - Chemistry and C hemistry - challengeOrdered By: Sidney Bob on 10-28-2022 ALP [Catalytic activity/Vol] 84 U/L 45-117 [facility] ALT [Catalytic activity/Vol] 25 U/L 13-56 [facility] CO2 [Moles/Vol] 29.0 mmol/L 21.0-32.0 [facility] Globulin (S) [Mass/Vol] 3.1 g/dL 2.2-4.2 [facility] Urea nitrogen/Creatinine [Mass ratio] 22.5 mg/mg 10-20 [facility] Laboratory - Hematology and Cell countsOrdered By: Sidney Bob on 10-28-2022 Erythrocyte distribution width (RBC) [Entitic vol] 43.6 fL 35.1-43.9 [facility] Erythrocyte distribution width (RBC) [Ratio] 12.7 % 11.6-14.6 [facility] Immature granulocytes/100 WBC (Bld) 0.300 % 0.0-0.9 [facility] Comment on above: IG% - Immature Granu locytes (promyelocytes, myelocytes and metamyelocytes) > 1% indicates that a LEFT SHIFT is Present. MCH (RBC) [Entitic mass] 31.6 pg 27.0-32.0 [facility] Nucleated RBC/100 WBC (Bld) [Ratio] 0 % 0-5 [facility] MCHC Auto (RBC) [Mass/Vol]Or dered By: Sidney Bob on 10-28-2022 MCHC (RBC) [Mass/Vol] 34.0 g/dL 32-36 [facility] No Panel InformationOrdered By: Sidney Bob on 10-28-2022 Estimated GFR (MDRD) Amer 125 mL/min >60 [facility] Comment on above: GFR Calc Estimated GFR (MDRD) Non-Af Amer 103 mL/min >60 [facility] Comment on above: Non- GFR Calc Thyroid Stimulating Hormone (TSH) 1.61 uIU/mL 0.358-3.74 [facility] Platelets bldOrdered By: Maranda Bob on 10-28-2022 Platelets (Bld) [#/Vol] 256 10*3/uL 150-450 [facility] Serum or plasma albumin paolo urement (mass/volume)Ordered By: Sidney Bob on 10-28-2022 Albumin [Mass/Vol] 3.8 g/dL 3.2-5.0 [facility] Serum or plasma albumin/glob ulin mass ratioOrdered By: Sidney Bob on 10-28-2022 Albumin/Globulin [Mass ratio] 1.2 {ratio} 0.9-2.4 [facility] Serum or plasma calcium paolo urement (mass/volume)Ordered By: Sidney Bob on 10-28-2022 Calcium [Mass/Vol] 9.1 mg/dL 8.5-10.1 [facility] Serum or plasma cholesterol in HDL measurement (mass/volume)Ordered By: Sidney Bob on 10-28-2022 Cholesterol in HDL [Mass/Vol] 69 mg/dL >40 [facility] Comment on above: The drugs N-Acetylcy steine and Metamizole may falsely depress this assay. Reference Range HDL <40 mg/dL Low HDL Cholesterol HDL >or= 60 mg/dL High HDL Cholesterol Serum or plasma cholesterol in VLDL measurement (mass/volume)Ordered By: Sidney Bob on 10-28-2022 Cholesterol in VLDL [Mass/Vol] 26 mg/dL 5-40 [facility] Serum or plasma creatinine m easurement (mass/volume)Ordered By: Sidney Bob on 10-28-2022 Creatinine [Mass/Vol] 0.62 mg/dL 0.55-1.02 [facility] Comment on above: The validity of the calculated GFR & GFRAA in patients over 70 years has not been determined. Clinical correlation is essential. Serum or plasma low density lipoprotein (LDL) cholesterol measurement (mass/volume)Ordered By: Sidney Bob on 10-28-2022 Cholesterol in LDL [Mass/Vol] 37 mg/dL 0-130 [facility] Serum or plasma urea nitroge n measurement (mass/volume)Ordered By: Sidney Bob on 10-28-2022 Urea nitrogen [Mass/Vol] 14 mg/dL 7-18 [facility] Thin prep Papanicolaou smear with manual screeningOrdered By: Sidney Bob on 10-28-2022 Thin prep Papanicolaou smear with manual screening 21 U/L 15-37 [facility] Thin prep Papanicolaou smear with manual screening 6 5-15 [facility] OBSOLETEon 02-04-2019 OBSOLETE Refill (FAMPWS) -------- ANNIA BRIGGS ([id number]) 1960 F Date Time Provider Department 02/04/19 YENIFER STOVER FAMPWS During your visit today, we recorded the following information about you: Lucy Flores LPN 02/04/2019 10:00 AM Signed Received a fax request for prescription listed below. Patient has been identified by name and date of : Yes Pharmacy phones for refill(s): Pending Prescriptions Disp Refills ROSUVASTATIN 10 MG TABLET 90 tablet 3 Sig: Take 1 tablet by mouth daily at bedtime. JOVANA: No Date of last office visit in primary care: 07/30/18 Last 2 Encounter Wt Readings: Date: Wt: 07/30/2018 117.4 kg (258 lb 12.8 oz) 05/29/2018 115.3 kg (254 lb 3.2 oz) Previous labs/tests for medication: Cholesterol: HDL Cholesterol (mg/dL) Date Value 04/30/2018 61 LDL Cholesterol (mg/dL) Date Value 04/30/2018 57 ALT (U/L) Date Value 04/30/2018 22 Non HDL Cholesterol (mg/dL) Date Value 04/30/2018 84 Please advise. Thank you. Lucy Flores [employer] Allergies As of Date: 02/04/2019 Noted Allergy Reaction LISINOPRIL 12/16/2016 3 - Cough PRAVACHOL (PRAVASTATIN SODIUM) 11/08/2007 5 - Intolerance Comments: Severe myalgias SERTRALINE 06/26/2008 5 - Intolerance Comments: anorgasmia ZOCOR (SIMVASTATIN) 11/08/2007 5 - Intolerance Comments: Severe myalgias Date Reviewed: 07/30/2018 Reviewed by: Angela Maxwell Ma - Fully Assessed Reason for Visit: Refill Request [94] Refill Request [94] Reason For Visit History Recorded Order(s):rosuvastatin (CRESTOR) 10 mg tabletTake 1 tablet by mouth daily at bedtime.Disp: 90 tabletRfl: 0 Prescriptions as of 02/04/2019 Sig: ROSUVASTATIN 10 MG TABLET Take 1 tablet by mouth daily * GLIMEPIRIDE 4 MG TABLET TAKE 1 TABLET DAILY WITH SARAHI* METFORMIN ER 500 MG TABLET,EX* Take 2 in the am and 1 at nig* PIOGLITAZONE 30 MG TABLET TAKE 1 TABLET DAILY FLUOCINONIDE 0.05 % TOPICAL C* Apply 1 application to affect* LIRAGLUTIDE 0.6 MG/0.1 ML (18* Inject 1.2 mg daily via pen BUPROPION HCL SR 200 MG TABLE* TAKE 1 TABLET TWICE A DAY BLOOD SUGAR DIAGNOSTIC STRIPS Test blood sugar(s) 2 times d* LOSARTAN 25 MG TABLET TAKE 1 TABLET DAILY FLUTICASONE PROPIONATE 50 MCG* Use 1 [place] in each nostril o* COMPOUNDED PRESCRIPTION Nebulizer machine with tubing* ALBUTEROL SULFATE 2.5 MG/3 ML* Use 3 mL via nebulizer every * ALBUTEROL SULFATE HFA 90 MCG/* Inhale 2 Puffs as instructed * BUDESONIDE-FORMOTEROL HFA 160* Inhale 2 Puffs as instructed * BLOOD-GLUCOSE METER KIT Glucose Meter of Choice - Kit* LANCETS Test blood sugar(s) 2 times d* PEN NEEDLE, DIABETIC 31 GAUGE* Use as directed 2-3 times bonnie* OMEGA-3 FATTY ACIDS 500 MG CA* Take 2 capsules by mouth once* ADULT LOW DOSE ASPIRIN 81 MG * Take one(1) tablet daily. Problem List As Of Date 02/04/2019 Noted Resolved Type II or unspecified type diabetes mellitus w*INVALID FOR*09/07/2016 More... Hyperlipidemia [E78.5] INVALID FOR* Obesity, unspecified [E66.9] INVALID FOR*03/31/2017 Abdominal pain, generalized [R10.84] INVALID FOR*11/30/2010 DYSTHYMIC DISORDER [F34.1] INVALID FOR* Asthma [J45.909] INVALID FOR* Type 2 diabetes mellitus without complication (*INVALID FOR* More... Trigger ring finger of right hand [M65.341] INVALID FOR*11/24/2017 Morbid obesity (HCC) [E66.01] Left carpal tunnel syndrome [G56.02] INVALID FOR* More... Essential hypertension [I10] INVALID FOR* Prescriptions ordered this encounter Disp Refills Start End ROSUVASTATIN 10 MG TABLET 90 t* 0 02/04/2019 Route: ORAL Sig: Take 1 tablet by mouth daily at bedtime. Medications Discontinued During This Encounter rosuvastatin (CRESTOR) 10 mg tablet 90 t* 3 02/08/2018 02/04/2019 Sig: TAKE 1 TABLET DAILY AT BEDTIME Disc: Reason for discontinue is not on file. Encounter Status:Closed by LUCY FLORES LPN on 02/07/19 [facility] OBSOLETEon 01-17-2019 OBSOLETE Refill (FAMPWS) -------- ANNIA BRIGGS ([id number]) 1960 F Date Time Provider Department 01/17/19 SIDNEY SCHAFER FAMPWS During your visit today, we recorded the following information about you: Germania Ellsworthjaden Jaden 01/17/2019 9:18 AM Signed Patient has been identified by name and date of : Yes Pending Prescriptions Disp Refills GLIMEPIRIDE 4 MG TABLET 90 tablet 1 JOVANA: No RX INSTRUCTIONS: Patient aware RX will be sent to pharmacy. No need to notify patient. Last visit 07/30/18 Future visit none Last filled 07/16/18 90 with 1 Germania Kaufman Julee Mejia APRN.CNP 01/17/2019 9:20 AM Signed Needs to reschedule 3 month follow up for diabetes, chronic medical conditions. The following approved medication requests have been transmitted electronically. Signed Prescriptions Disp Refills glimepiride (AMARYL) 4 mg tablet 90 tablet 1 Sig: TAKE 1 TABLET DAILY WITH BREAKFAST JOVANA: No Authorizing Provider: HUSEYIN MEJIA ([facility]) SHON Frankel Ma 01/17/2019 9:30 AM Signed Please contact pt to set up appt. Dede Gallardo 01/17/2019 11:05 AM Signed Spoke with patient and she reported that she is now seeing Dr. Rico at [facility] Dede Chaudhari Ma 01/17/2019 11:10 AM Signed PCP updated. Dede Chaudhari Ma Allergies As of Date: 01/17/2019 Noted Allergy Reaction LISINOPRIL 12/16/2016 3 - Cough PRAVACHOL (PRAVASTATIN SODIUM) 11/08/2007 5 - Intolerance Comments: Severe myalgias SERTRALINE 06/26/2008 5 - Intolerance Comments: anorgasmia ZOCOR (SIMVASTATIN) 11/08/2007 5 - Intolerance Comments: Severe myalgias Date Reviewed: 07/30/2018 Reviewed by: Angela Maxwell Ma - Fully Assessed Order(s):glimepiride (AMARYL) 4 mg tabletTAKE 1 TABLET DAILY WITH BREAKFASTDisp: 90 tabletRfl: 1 Prescriptions as of 01/17/2019 Sig: GLIMEPIRIDE 4 MG TABLET TAKE 1 TABLET DAILY WITH SARAHI* METFORMIN ER 500 MG TABLET,EX* Take 2 in the am and 1 at nig* PIOGLITAZONE 30 MG TABLET TAKE 1 TABLET DAILY FLUOCINONIDE 0.05 % TOPICAL C* Apply 1 application to affect* LIRAGLUTIDE 0.6 MG/0.1 ML (18* Inject 1.2 mg daily via pen BUPROPION HCL SR 200 MG TABLE* TAKE 1 TABLET TWICE A DAY BLOOD SUGAR DIAGNOSTIC STRIPS Test blood sugar(s) 2 times d* LOSARTAN 25 MG TABLET TAKE 1 TABLET DAILY FLUTICASONE PROPIONATE 50 MCG* Use 1 [place] in each nostril o* COMPOUNDED PRESCRIPTION Nebulizer machine with tubing* ALBUTEROL SULFATE 2.5 MG/3 ML* Use 3 mL via nebulizer every * ROSUVASTATIN 10 MG TABLET TAKE 1 TABLET DAILY AT BEDTIME ALBUTEROL SULFATE HFA 90 MCG/* Inhale 2 Puffs as instructed * BUDESONIDE-FORMOTEROL HFA 160* Inhale 2 Puffs as instructed * BLOOD-GLUCOSE METER KIT Glucose Meter of Choice - Kit* LANCETS Test blood sugar(s) 2 times d* PEN NEEDLE, DIABETIC 31 GAUGE* Use as directed 2-3 times bonnie* OMEGA-3 FATTY ACIDS 500 MG CA* Take 2 capsules by mouth once* ADULT LOW DOSE ASPIRIN 81 MG * Take one(1) tablet daily. Problem List As Of Date 01/17/2019 Noted Resolved Type II or unspecified type diabetes mellitus w*INVALID FOR*09/07/2016 More... Hyperlipidemia [E78.5] INVALID FOR* Obesity, unspecified [E66.9] INVALID FOR*03/31/2017 Abdominal pain, generalized [R10.84] INVALID FOR*11/30/2010 DYSTHYMIC DISORDER [F34.1] INVALID FOR* Asthma [J45.909] INVALID FOR* Type 2 diabetes mellitus without complication (*INVALID FOR* More... Trigger ring finger of right hand [M65.341] INVALID FOR*11/24/2017 Morbid obesity (HCC) [E66.01] Left carpal tunnel syndrome [G56.02] INVALID FOR* More... Essential hypertension [I10] INVALID FOR* Prescriptions ordered this encounter Disp Refills Start End GLIMEPIRIDE 4 MG TABLET 90 t* 1 01/17/2019 Sig: TAKE 1 TABLET DAILY WITH BREAKFAST Medications Discontinued During This Encounter glimepiride (AMARYL) 4 mg tablet 90 t* 1 07/16/2018 01/17/2019 Sig: TAKE 1 TABLET DAILY WITH BREAKFAST Disc: Reason for discontinue is not on file. Encounter Status:Closed by DEDE CHAUDHARI MA on 01/17/19 Normal [facility] OBSOLETEon 12-06-2018 OBSOLETE Refill (FAMPWS) -------- ANNIA BRIGGS ([id number]) 1960 F Date Time Provider Department 12/06/18 SIDNEY SCHAFER FAMPWS During your visit today, we recorded the following information about you: Yvette Maya LPN 12/06/2018 10:33 AM Signed [facility] sent fax for refill. Med Chart with current directions updated 07/30/18. Last OV: 07/30/18 Last A1C: 07/30/18 - 7.5 Patient has been identified by name and date of : Yes Pending Prescriptions Disp Refills METFORMIN ER 500 MG TABLET,EXTENDED RELEASE 24 HR 270 tablet 3 Sig: Take 2 in the am and 1 at night JOVANA: No RX INSTRUCTIONS: Patient aware RX will be sent to pharmacy. No need to notify patient. Yvette Mejia APRN.CNP 12/06/2018 11:14 AM Signed The following approved medication requests have been transmitted electronically. Pending Prescriptions Disp Refills METFORMIN ER 500 MG TABLET,EXTENDED RELEASE 24 HR 270 tablet 3 Sig: Take 2 in the am and 1 at night JOVANA: No Huseyin Mejia APRN.CNP Allergies As of Date: 12/06/2018 Noted Allergy Reaction LISINOPRIL 12/16/2016 3 - Cough PRAVACHOL (PRAVASTATIN SODIUM) 11/08/2007 5 - Intolerance Comments: Severe myalgias SERTRALINE 06/26/2008 5 - Intolerance Comments: anorgasmia ZOCOR (SIMVASTATIN) 11/08/2007 5 - Intolerance Comments: Severe myalgias Date Reviewed: 07/30/2018 Reviewed by: Angela Maxwell Ma - Fully Assessed Reason for Visit: Refill Request [94] Visit Diagnosis:Type 2 diabetes mellitus without complication, without long-term current use of insulin (HCC) [E11.9] Order(s):metFORMIN ER (GLUCOPHAGE XR) 500 mg 24 hr tabletTake 2 in the am and 1 at nightDisp: 270 tabletRfl: 3 Prescriptions as of 12/06/2018 Sig: METFORMIN ER 500 MG TABLET,EX* Take 2 in the am and 1 at nig* PIOGLITAZONE 30 MG TABLET TAKE 1 TABLET DAILY FLUOCINONIDE 0.05 % TOPICAL C* Apply 1 application to affect* LIRAGLUTIDE 0.6 MG/0.1 ML (18* Inject 1.2 mg daily via pen BUPROPION HCL SR 200 MG TABLE* TAKE 1 TABLET TWICE A DAY GLIMEPIRIDE 4 MG TABLET TAKE 1 TABLET DAILY WITH SARAHI* BLOOD SUGAR DIAGNOSTIC STRIPS Test blood sugar(s) 2 times d* LOSARTAN 25 MG TABLET TAKE 1 TABLET DAILY FLUTICASONE 50 MCG/ACTUATION * Use 1 [place] in each nostril o* COMPOUNDED PRESCRIPTION Nebulizer machine with tubing* ALBUTEROL SULFATE 2.5 MG/3 ML* Use 3 mL via nebulizer every * ROSUVASTATIN 10 MG TABLET TAKE 1 TABLET DAILY AT BEDTIME ALBUTEROL SULFATE HFA 90 MCG/* Inhale 2 Puffs as instructed * BUDESONIDE-FORMOTEROL HFA 160* Inhale 2 Puffs as instructed * BLOOD-GLUCOSE METER KIT Glucose Meter of Choice - Kit* LANCETS Test blood sugar(s) 2 times d* PEN NEEDLE, DIABETIC 31 GAUGE* Use as directed 2-3 times bonnie* [place]-3 FATTY ACIDS 500 MG CA* Take 2 capsules by mouth once* ADULT LOW DOSE ASPIRIN 81 MG * Take one(1) tablet daily. Problem List As Of Date 12/06/2018 Noted Resolved Type II or unspecified type diabetes mellitus w*INVALID FOR*09/07/2016 More... Hyperlipidemia [E78.5] INVALID FOR* Obesity, unspecified [E66.9] INVALID FOR*03/31/2017 Abdominal pain, generalized [R10.84] INVALID FOR*11/30/2010 DYSTHYMIC DISORDER [F34.1] INVALID FOR* Asthma [J45.909] INVALID FOR* Type 2 diabetes mellitus without complication (*INVALID FOR* More... Trigger ring finger of right hand [M65.341] INVALID FOR*11/24/2017 Morbid obesity (HCC) [E66.01] Left carpal tunnel syndrome [G56.02] INVALID FOR* More... Essential hypertension [I10] INVALID FOR* Prescriptions ordered this encounter Disp Refills Start End METFORMIN ER 500 MG TABLET,EXTENDED * 270 * 3 12/06/2018 Sig: Take 2 in the am and 1 at night Medications Discontinued During This Encounter metFORMIN ER (GLUCOPHAGE XR) 500 mg * 270 * 3 07/30/2018 12/06/2018 Class: Historical Med Sig: Take 2 in the am and 1 at night Disc: Reason for discontinue is not on file. Encounter Status:Closed by HUSEYIN MEJIA CNP on 12/06/18 [facility] CNOVon 07-30-2018 CNOV Office Visit (FAMPWS ) -------- CHESTERANNIA Dylon ([id number]) 1960 F Date Time Provider Department 07/30/18 11:40 AM SIDNEY SCHAFER During your visit today, we recorded the following information about you: Pulse Respiration Blood pressure Weight 84/minute 16/minute 136/78 117.4 kg Sidney Schafer MD 07/31/2018 2:12 PM Signed Chief Complaint Patient presents with: F/U 3 Month HPI Annia Osborne Chester is a 57 year old female who presents here today for a 3 mo f/u. DM - Checks sugars about 5 x per week. FBS ranging from 135-184. Pt gets the shakes with no improvement of eating candy and also testing her sugar at that time and it isn't low. Denies any neuropathy symptoms, but has swelling in her left ankle/lower leg. Seen Chiropractor for adjustment and hoping it was due to lower back issues. Has gained weight. Current regimen of Metformin 500 mg 2 tabs in the am and 1 in the evening, Actos 30 mg 1 tab daily, Amaryl 4 mg 1 tab daily and Victoza 0.6 mg daily. HTN - Denies checking at home. No symptoms of chest pain, sob or dizziness. Currenlty taking Losartan 25 mg 1 tab po once daily. Asthma - Currently, pt is doing well with regimen. Currently taking Symbicort 2 puffs bid, Ventolin prn and uses nebulizer regimen prn when she feels ill or has a cold. Has episodes previously where she would use a steroid and she would begin shaking and would tire her out. Lipids - Denies watching her diet real well or exercising. Currently taking Crestor 10 mg 1 tab po once daily. Still thinking about the bariatric surgery, went up and had a discussion about it. Talked about it with her and came to an agreement. Sleep Apnea - On CPAP and seems to be doing pretty well. Past medical history, appointments, medications, allergies reviewed. Previous Medical History PAST MEDICAL HISTORY Diagnosis Date - Asthma 03/30/2010 - Depressive disorder, not elsewhere classified - Intestinal disaccharidase deficiencies and disaccharide malabsorption - Morbid obesity (HCC) - Sleep apnea - Type II or unspecified type diabetes mellitus without mention of complication, not stated as uncontrolled 07/16 Previous Surgical History PAST SURGICAL HISTORY Procedure Laterality Date - APPENDECTOMY 09/28/02 - INCISE FINGER TENDON SHEATH Right 11/15/2016 Right ring trigger finger release - L'SCOPE DX W/WO BRUSHINGS/WASHINGS 1980 Laparoscopy - REMOVAL OF OVARY/TUBE(S) Salpingo-oophorectomy - left - REVISE MEDIAN N/CARPAL TUNNEL SURG Bilateral Carpal tunnel decomp Family History FAMILY HISTORY Problem Relation Age of Onset - Diabetes Mother - Emphysema Father - Alcohol/Drug Father alcoholic Patient Allergies ALLERGIES Allergen Reactions - Lisinopril Cough - Pravachol [Pravasta* Intolerance Severe myalgias - Sertraline Intolerance anorgasmia - Zocor [Simvastatin] Intolerance Severe myalgias Current Medications Current Outpatient Prescriptions on File Prior to Visit: buPROPion HCl 200 mg 12 hr tablet TAKE 1 TABLET TWICE A DAY glimepiride (AMARYL) 4 mg tablet TAKE 1 TABLET DAILY WITH BREAKFAST blood sugar diagnostic (BLOOD GLUCOSE TEST) test strip Test blood sugar(s) 2 times daily. Dx: Type 2 DM - Uncontrolled E11.65 Insulin: No losartan (COZAAR) 25 mg tablet TAKE 1 TABLET DAILY liraglutide (VICTOZA) 0.6 mg/ 0.1 ml subcutaneous pen injector Inject 0.6 mg daily via pen pioglitazone (ACTOS) 30 mg tablet TAKE 1 TABLET DAILY fluticasone (FLONASE ALLERGY RELIEF) 50 mcg/actuation nasal spray Use 1 [place] in each nostril once daily. COMPOUNDED PRESCRIPTION Nebulizer machine with tubing and mask or pipe (per patient preference). albuterol (PROVENTIL) 2.5 mg /3 mL (0.083 %) nebulizer solution Use 3 mL via nebulizer every 4 hours as needed for Wheezing/Shortness of Breath. Use over 5-15minutes. rosuvastatin (CRESTOR) 10 mg tablet TAKE 1 TABLET DAILY AT BEDTIME albuterol HFA (VENTOLIN HFA) 90 mcg/actuation inhaler Inhale 2 Puffs as instructed every 4 hours as needed for Wheezing/Shortness of Breath. budesonide-formoterol (SYMBICORT) 160-4.5 mcg/actuation inhaler Inhale 2 Puffs as instructed twice daily. fluocinonide (LIDEX) 0.05 % cream Apply 1 application to affected area twice daily. Blood-Glucose Meter monitoring kit Glucose Meter of Choice - Kit - Dx: Type 2 DM - Uncontrolled E11.65 Lancets lancets Test blood sugar(s) 2 times daily. Dx: Type 2 DM - Uncontrolled E11.65 Insulin: No Insulin [place], Disposable, (PEN NEEDLES) 31 gauge x 1/4 ndle Use as directed 2-3 times daily. [place]-3 Fatty Acids (FISH OIL) 500 mg cap Take 2 capsules by mouth once daily. ADULT LOW DOSE ASPIRIN 81 MG TAB, DELAYED RELEASE Take one(1) tablet daily. No current facility-administered medications on file prior to visit. Social History Social History Marital status: Spouse name: Years of education: Number of children: Social History Main Topics Smoking status: Never Smoker Smokeless tobacco: Never Used Alcohol use: No Drug use: No Social History Narrative BIOSCRIPT AT FAX # EXAM: BP 136/78 (BP Site: Left Arm, BP Position: Sitting, BP Cuff Size: Regular Adult) Pulse 84 Resp 16 Wt 117.4 kg (258 lb 12.8 oz) LMP 11/04/2006 BMI 44.42 kg/m? General Appearance: Well appearing, alert, in no acute distress, well-hydrated, well nourished. and Obese. Lungs: Lungs clear to auscultation. No wheezing, rhonchi, rales. Heart: RRR without murmur, gallop, or rubs. No ectopy. Health Maintenance List BP CONTROLLED (<130/80) due on 1978 HPV EVERY 5 YEARS due on 1990 INFLUENZA(1) due on 06/16/2018 HBA1C due on 07/31/2018 STATIN MED ADHERENCE due on 08/16/2018 DIABETES MED ADHERENCE due on 08/16/2018 STEROID INHALER ADHERENCE due on 08/16/2018 MAMMOGRAM due on 10/05/2018 DILATED RETINAL EXAM due on 04/12/2019 DIABETIC FOOT EXAM due on 04/27/2019 URINE ALBUMIN:CREATININE RATIO due on 04/30/2019 LDL CHOLESTEROL due on 04/30/2019 ANNUAL PCP TEAM CHRONIC DISEASE VISIT due on 05/07/2019 COLORECTAL CANCER SCREENING,SEE MODIFIER due on 11/30/2020 PAP EVERY 5 YEARS due on 08/26/2021 DTAP,TDAP,TD(3 - Td) due on 09/27/2026 ONE PNEUMOVAX PRIOR TO AGE 65 Completed HEPATITIS C SCREENING Completed Data reviewed No visits with results within 2 Month(s) from this visit. Latest known visit with results is: Appointment on 04/30/2018 Component Date Value - Creatinine, Ur Random (U* 04/30/2018 36.4 - Albumin, Urine Random 04/30/2018 <12.0 - Albumin/Creat Ratio 04/30/2018 Not calculated - Hemoglobin A1C 04/30/2018 8.2* - Estimated Average Glucose 04/30/2018 189 - Cholesterol, Total 04/30/2018 145 - Triglyceride 04/30/2018 135 - HDL Cholesterol 04/30/2018 61 - LDL Cholesterol 04/30/2018 57 - Non HDL Cholesterol 04/30/2018 84 - Fasting Time 04/30/2018 10 - VLDL Cholesterol 04/30/2018 27 - TC:HDL Ratio 04/30/2018 2.38 - LDL:HDL Ratio 04/30/2018 0.93 - Protein, Total 04/30/2018 6.8 - Albumin 04/30/2018 4.4 - Calcium 04/30/2018 9.3 - Bilirubin, Total 04/30/2018 0.4 - Alkaline Phosphatase 04/30/2018 79 - AST 04/30/2018 24 - Glucose 04/30/2018 186* - BUN 04/30/2018 13 - Creatinine 04/30/2018 0.58 - Sodium 04/30/2018 139 - Potassium 04/30/2018 4.1 - Chloride 04/30/2018 100 - CO2 04/30/2018 25 - Anion Gap 04/30/2018 14 - ALT 04/30/2018 22 - eGFR- 04/30/2018 >60 - eGFR-All Other Races 04/30/2018 >60 ASSESSMENT/PLAN: 1. Type 2 diabetes mellitus without complication, without long-term current use of insulin (HCC) - ICD9: 250.00, ICD10: E11.9 (primary diagnosis) - Check A1c today dated 07/17/18 - Continue current medications, recheck labs in 3 months - METFORMIN ER 500 MG TABLET,EXTENDED RELEASE 24 HR 2. Hyperlipidemia, unspecified hyperlipidemia type - ICD9: 272.4, ICD10: E78.5 - Continue current medication regimen. 3. Essential hypertension - ICD9: 401.9, ICD10: I10 - good control - Continue current medication(s) - Recommended regular aerobic exercise. - Recommend home blood pressure monitoring, to bring results in on next visit - Goal of BP <130/80 4. Mild intermittent asthma without complication - ICD9: 493.90, ICD10: J45.20 Mild intermittent Asthma stable - Continue current meds - Avoidance of triggers recommended 3 mo f/u. Complete A1c dated 07/17/18 today and repeat labs in 3 mo I agree with the Chief Complaint, ROS, and Past Histories independently gathered by the clinical operations support professionals and the remaining scribed note accurately describes my personal service to the patient. Sidney Schafer MD The documentation for this note was completed by Angela Maxwell Ma acting as scribe for Sidney Schafer MD. July 30, 2018 11:58 AM. Referring Provider: SIDNEY SCHAFER [[id number]] Allergies As of Date: 07/30/2018 Noted Allergy Reaction LISINOPRIL 12/16/2016 3 - Cough PRAVACHOL (PRAVASTATIN SODIUM) 11/08/2007 5 - Intolerance Comments: Severe myalgias SERTRALINE 06/26/2008 5 - Intolerance Comments: anorgasmia ZOCOR (SIMVASTATIN) 11/08/2007 5 - Intolerance Comments: Severe myalgias Date Reviewed: 07/30/2018 Reviewed by: Angela Maxwell Ma - Fully Assessed Reason for Visit: F/U 3 Month [443] Primary Visit Diagnosis:Type 2 diabetes mellitus without complication, without long-term current use of insulin (HCC) [E11.9] Other Visit Diagnoses:Hyperlipidemia , unspecified hyperlipidemia type [E78.5] Essential hypertension [I10] Mild intermittent asthma without complication [J45.20] Order(s):HGB A1C [UIFVL8T] Order #: [id number] FUTURE HGB A1C [LMGUQ6A] Order #: [id number] FUTURE COMP METABOLIC PANEL [SQCMP] Order #: [id number] FUTURE LIPID PANEL BASIC [SQLIPB] Order #: [id number] FUTURE Prescriptions as of 07/30/2018 Sig: METFORMIN ER 500 MG TABLET,EX* Take 2 in the am and 1 at nig* BUPROPION HCL SR 200 MG TABLE* TAKE 1 TABLET TWICE A DAY GLIMEPIRIDE 4 MG TABLET TAKE 1 TABLET DAILY WITH SARAHI* BLOOD SUGAR DIAGNOSTIC STRIPS Test blood sugar(s) 2 times d* LOSARTAN 25 MG TABLET TAKE 1 TABLET DAILY LIRAGLUTIDE 0.6 MG/0.1 ML (18* Inject 0.6 mg daily via pen PIOGLITAZONE 30 MG TABLET TAKE 1 TABLET DAILY FLUTICASONE 50 MCG/ACTUATION * Use 1 [place] in each nostril o* COMPOUNDED PRESCRIPTION Nebulizer machine with tubing* ALBUTEROL SULFATE 2.5 MG/3 ML* Use 3 mL via nebulizer every * ROSUVASTATIN 10 MG TABLET TAKE 1 TABLET DAILY AT BEDTIME ALBUTEROL SULFATE HFA 90 MCG/* Inhale 2 Puffs as instructed * BUDESONIDE-FORMOTEROL HFA 160* Inhale 2 Puffs as instructed * FLUOCINONIDE 0.05 % TOPICAL C* Apply 1 application to affect* BLOOD-GLUCOSE METER KIT Glucose Meter of Choice - Kit* LANCETS Test blood sugar(s) 2 times d* PEN NEEDLE, DIABETIC 31 GAUGE* Use as directed 2-3 times bonnie* OMEGA-3 FATTY ACIDS 500 MG CA* Take 2 capsules by mouth once* ADULT LOW DOSE ASPIRIN 81 MG * Take one(1) tablet daily. Medication notes this encounter COMPOUNDED PRESCRIPTION >> Angela Maxwell Ma 07/30/2018 11:53 AM >> ANGELA MAXWELL MA Mon Jul 30, 2018 11:53 AM Uses prn July 30, 2018 Problem List As Of Date 07/30/2018 Noted Resolved Type II or unspecified type diabetes mellitus w*INVALID FOR*09/07/2016 More... Hyperlipidemia [E78.5] INVALID FOR* Obesity, unspecified [E66.9] INVALID FOR*03/31/2017 Abdominal pain, generalized [R10.84] INVALID FOR*11/30/2010 DYSTHYMIC DISORDER [F34.1] INVALID FOR* Asthma [J45.909] INVALID FOR* Type 2 diabetes mellitus without complication (*INVALID FOR* More... Trigger ring finger of right hand [M65.341] INVALID FOR*11/24/2017 Morbid obesity (HCC) [E66.01] Left carpal tunnel syndrome [G56.02] INVALID FOR* More... Essential hypertension [I10] INVALID FOR* Medications Discontinued During This Encounter metFORMIN ER (GLUCOPHAGE XR) 500 mg * 270 * 3 11/06/2017 07/30/2018 Sig: Take one with breakfast and 2 tablets with dinner. Disc: Reason for discontinue is not on file. coconut oil 1,000 mg cap 0 04/30/2014 07/30/2018 Class: OTC Route: ORAL Sig: Take 1 capsule by mouth once daily. Disc: Discontinued by Patient Disposition: Return in about 3 months (around 10/30/2018). Follow-up and Disposition History Recorded Encounter Status:Closed by SIDNEY SCHAFER MD on 07/31/18 Normal [facility] Hemoglobin A1con 07-30-2018 Hemoglobin A1c/Hemoglobin.total mass fraction (Bld) 169 mg/dL Normal [facility] Comment on above: Result Comment: eAG: (Estimated average glucose) is a calculated value from HgbA1c and is eligibility services representative of the average blood glucose level in the last 2-3 month period. Performed By: #### H BA1C ####[facility] [id number] [place], [place] [phone] Hemoglobin A1c/Hemoglobin.total mass fraction (Bld) 7.5 % High 4.3-5.6 [facility] Comment on above: Performed By: #### H BA1C ####[facility] [id number] [place], [place] [phone] PROGRESSon 07-30-2018 Protein mass conc HNO ID: [id number] Author: Sidney Schafer Service: (none) Author Type: Physician Type: Progress Notes Filed: 07/31/2018 2:12 PM Note Text: Chief Complaint Patient presents with: F/U 3 Month HPI Annia Briggs is a 57 year old female who presents here today for a 3 mo f/u. DM - Checks sugars about 5 x per week. FBS ranging from 135-184. Pt gets the shakes with no improvement of eating candy and also testing her sugar at that time and it isn't low. Denies any neuropathy symptoms, but has swelling in her left ankle/lower leg. Seen Chiropractor for adjustment and hoping it was due to lower back issues. Has gained weight. Current regimen of Metformin 500 mg 2 tabs in the am and 1 in the evening, Actos 30 mg 1 tab daily, Amaryl 4 mg 1 tab daily and Victoza 0.6 mg daily. HTN - Denies checking at home. No symptoms of chest pain, sob or dizziness. Currenlty taking Losartan 25 mg 1 tab po once daily. Asthma - Currently, pt is doing well with regimen. Currently taking Symbicort 2 puffs bid, Ventolin prn and uses nebulizer regimen prn when she feels ill or has a cold. Has episodes previously where she would use a steroid and she would begin shaking and would tire her out. Lipids - Denies watching her diet real well or exercising. Currently taking Crestor 10 mg 1 tab po once daily. Still thinking about the bariatric surgery, went up and had a discussion about it. Talked about it with her and came to an agreement. Sleep Apnea - On CPAP and seems to be doing pretty well. Past medical history, appointments, medications, allergies reviewed. Previous Medical History PAST MEDICAL HISTORY Diagnosis Date - Asthma 03/30/2010 - Depressive disorder, not elsewhere classified - Intestinal disaccharidase deficiencies and disaccharide malabsorption - Morbid obesity (HCC) - Sleep apnea - Type II or unspecified type diabetes mellitus without mention of complication, not stated as uncontrolled 07/16 Previous Surgical History PAST SURGICAL HISTORY Procedure Laterality Date - APPENDECTOMY 09/28/02 - INCISE FINGER TENDON SHEATH Right 11/15/2016 Right ring trigger finger release - L'SCOPE DX W/WO BRUSHINGS/WASHINGS 1980 Laparoscopy - REMOVAL OF OVARY/TUBE(S) Salpingo-oophorectomy - left - REVISE MEDIAN N/CARPAL TUNNEL SURG Bilateral Carpal tunnel decomp Family History FAMILY HISTORY Problem Relation Age of Onset - Diabetes Mother - Emphysema Father - Alcohol/Drug Father alcoholic Patient Allergies ALLERGIES Allergen Reactions - Lisinopril Cough - Pravachol [Pravasta* Intolerance Severe myalgias - Sertraline Intolerance anorgasmia - Zocor [Simvastatin] Intolerance Severe myalgias Current Medications Current Outpatient Prescriptions on File Prior to Visit: buPROPion HCl 200 mg 12 hr tablet TAKE 1 TABLET TWICE A DAY glimepiride (AMARYL) 4 mg tablet TAKE 1 TABLET DAILY WITH BREAKFAST blood sugar diagnostic (BLOOD GLUCOSE TEST) test strip Test blood sugar(s) 2 times daily. Dx: Type 2 DM - Uncontrolled E11.65 Insulin: No losartan (COZAAR) 25 mg tablet TAKE 1 TABLET DAILY liraglutide (VICTOZA) 0.6 mg/ 0.1 ml subcutaneous pen injector Inject 0.6 mg daily via pen pioglitazone (ACTOS) 30 mg tablet TAKE 1 TABLET DAILY fluticasone (FLONASE ALLERGY RELIEF) 50 mcg/actuation nasal spray Use 1 [place] in each nostril once daily. COMPOUNDED PRESCRIPTION Nebulizer machine with tubing and mask or pipe (per patient preference). albuterol (PROVENTIL) 2.5 mg /3 mL (0.083 %) nebulizer solution Use 3 mL via nebulizer every 4 hours as needed for Wheezing/Shortness of Breath. Use over 5-15minutes. rosuvastatin (CRESTOR) 10 mg tablet TAKE 1 TABLET DAILY AT BEDTIME albuterol HFA (VENTOLIN HFA) 90 mcg/actuation inhaler Inhale 2 Puffs as instructed every 4 hours as needed for Wheezing/Shortness of Breath. budesonide-formoterol (SYMBICORT) 160-4.5 mcg/actuation inhaler Inhale 2 Puffs as instructed twice daily. fluocinonide (LIDEX) 0.05 % cream Apply 1 application to affected area twice daily. Blood-Glucose Meter monitoring kit Glucose Meter of Choice - Kit - Dx: Type 2 DM - Uncontrolled E11.65 Lancets lancets Test blood sugar(s) 2 times daily. Dx: Type 2 DM - Uncontrolled E11.65 Insulin: No Insulin [place], Disposable, (PEN NEEDLES) 31 gauge x 1/4 ndle Use as directed 2-3 times daily. [place]-3 Fatty Acids (FISH OIL) 500 mg cap Take 2 capsules by mouth once daily. ADULT LOW DOSE ASPIRIN 81 MG TAB, DELAYED RELEASE Take one(1) tablet daily. No current facility-administered medications on file prior to visit. Social History Social History Marital status: Spouse name: Years of education: Number of children: Social History Main Topics Smoking status: Never Smoker Smokeless tobacco: Never Used Alcohol use: No Drug use: No Social History Narrative BIOSCRIPT AT FAX # EXAM: BP 136/78 (BP Site: Left Arm, BP Position: Sitting, BP Cuff Size: Regular Adult) Pulse 84 Resp 16 Wt 117.4 kg (258 lb 12.8 oz) LMP 11/04/2006 BMI 44.42 kg/m? General Appearance: Well appearing, alert, in no acute distress, well-hydrated, well nourished. and Obese. Lungs: Lungs clear to auscultation. No wheezing, rhonchi, rales. Heart: RRR without murmur, gallop, or rubs. No ectopy. Health Maintenance List BP CONTROLLED (<130/80) due on 1978 HPV EVERY 5 YEARS due on 1990 INFLUENZA(1) due on 06/16/2018 HBA1C due on 07/31/2018 STATIN MED ADHERENCE due on 08/16/2018 DIABETES MED ADHERENCE due on 08/16/2018 STEROID INHALER ADHERENCE due on 08/16/2018 MAMMOGRAM due on 10/05/2018 DILATED RETINAL EXAM due on 04/12/2019 DIABETIC FOOT EXAM due on 04/27/2019 URINE ALBUMIN:CREATININE RATIO due on 04/30/2019 LDL CHOLESTEROL due on 04/30/2019 ANNUAL PCP TEAM CHRONIC DISEASE VISIT due on 05/07/2019 COLORECTAL CANCER SCREENING,SEE MODIFIER due on 11/30/2020 PAP EVERY 5 YEARS due on 08/26/2021 DTAP,TDAP,TD(3 - Td) due on 09/27/2026 ONE PNEUMOVAX PRIOR TO AGE 65 Completed HEPATITIS C SCREENING Completed Data reviewed No visits with results within 2 Month(s) from this visit. Latest known visit with results is: Appointment on 04/30/2018 Component Date Value - Creatinine, Ur Random (U* 04/30/2018 36.4 - Albumin, Urine Random 04/30/2018 <12.0 - Albumin/Creat Ratio 04/30/2018 Not calculated - Hemoglobin A1C 04/30/2018 8.2* - Estimated Average Glucose 04/30/2018 189 - Cholesterol, Total 04/30/2018 145 - Triglyceride 04/30/2018 135 - HDL Cholesterol 04/30/2018 61 - LDL Cholesterol 04/30/2018 57 - Non HDL Cholesterol 04/30/2018 84 - Fasting Time 04/30/2018 10 - VLDL Cholesterol 04/30/2018 27 - TC:HDL Ratio 04/30/2018 2.38 - LDL:HDL Ratio 04/30/2018 0.93 - Protein, Total 04/30/2018 6.8 - Albumin 04/30/2018 4.4 - Calcium 04/30/2018 9.3 - Bilirubin, Total 04/30/2018 0.4 - Alkaline Phosphatase 04/30/2018 79 - AST 04/30/2018 24 - Glucose 04/30/2018 186* - BUN 04/30/2018 13 - Creatinine 04/30/2018 0.58 - Sodium 04/30/2018 139 - Potassium 04/30/2018 4.1 - Chloride 04/30/2018 100 - CO2 04/30/2018 25 - Anion Gap 04/30/2018 14 - ALT 04/30/2018 22 - eGFR- 04/30/2018 >60 - eGFR-All Other Races 04/30/2018 >60 ASSESSMENT/PLAN: 1. Type 2 diabetes mellitus without complication, without long-term current use of insulin (HCC) - ICD9: 250.00, ICD10: E11.9 (primary diagnosis) - Check A1c today dated 07/17/18 - Continue current medications, recheck labs in 3 months - METFORMIN ER 500 MG TABLET,EXTENDED RELEASE 24 HR 2. Hyperlipidemia, unspecified hyperlipidemia type - ICD9: 272.4, ICD10: E78.5 - Continue current medication regimen. 3. Essential hypertension - ICD9: 401.9, ICD10: I10 - good control - Continue current medication(s) - Recommended regular aerobic exercise. - Recommend home blood pressure monitoring, to bring results in on next visit - Goal of BP <130/80 4. Mild intermittent asthma without complication - ICD9: 493.90, ICD10: J45.20 Mild intermittent Asthma stable - Continue current meds - Avoidance of triggers recommended 3 mo f/u. Complete A1c dated 07/17/18 today and repeat labs in 3 mo I agree with the Chief Complaint, ROS, and Past Histories independently gathered by the clinical operations support professionals and the remaining scribed note accurately describes my personal service to the patient. Sidney Schafer MD The documentation for this note was completed by Angela Maxwell Ma acting as scribe for Sidney Schafer MD. July 30, 2018 11:58 AM. Normal [facility] CNPTOUTREACHon 07-17-2018 CNPTOUTREA Patient Outreach (FAMPST) -------- ANNIA BRIGGS ([id number]) 1960 F Date Time Provider Department 07/17/18 SIDNEY SCHAFER During your visit today, we recorded the following information about you: Allergies As of Date: 07/17/2018 Noted Allergy Reaction LISINOPRIL 12/16/2016 3 - Cough PRAVACHOL (PRAVASTATIN SODIUM) 11/08/2007 5 - Intolerance Comments: Severe myalgias SERTRALINE 06/26/2008 5 - Intolerance Comments: anorgasmia ZOCOR (SIMVASTATIN) 11/08/2007 5 - Intolerance Comments: Severe myalgias Date Reviewed: 05/29/2018 Reviewed by: Adriana Rivers Ma - Fully Assessed Visit Diagnosis:Medication management [Z79.899] Prescriptions as of 07/17/2018 Sig: GLIMEPIRIDE 4 MG TABLET TAKE 1 TABLET DAILY WITH SARAHI* BLOOD SUGAR DIAGNOSTIC STRIPS Test blood sugar(s) 2 times d* LOSARTAN 25 MG TABLET TAKE 1 TABLET DAILY X LIRAGLUTIDE 0.6 MG/0.1 ML (18* Inject 0.6 mg daily via pen PIOGLITAZONE 30 MG TABLET TAKE 1 TABLET DAILY FLUTICASONE 50 MCG/ACTUATION * Use 1 [place] in each nostril o* COMPOUNDED PRESCRIPTION Nebulizer machine with tubing* ALBUTEROL SULFATE 2.5 MG/3 ML* Use 3 mL via nebulizer every * ROSUVASTATIN 10 MG TABLET TAKE 1 TABLET DAILY AT BEDTIME X METFORMIN ER 500 MG TABLET,EX* Take one with breakfast and 2* ALBUTEROL SULFATE HFA 90 MCG/* Inhale 2 Puffs as instructed * X BUPROPION HCL SR 200 MG TABLE* TAKE 1 TABLET TWICE A DAY BUDESONIDE-FORMOTEROL HFA 160* Inhale 2 Puffs as instructed * X FLUOCINONIDE 0.05 % TOPICAL C* Apply 1 application to affect* BLOOD-GLUCOSE METER KIT Glucose Meter of Choice - Kit* LANCETS Test blood sugar(s) 2 times d* PEN NEEDLE, DIABETIC 31 GAUGE* Use as directed 2-3 times bonnie* OMEGA-3 FATTY ACIDS 500 MG CA* Take 2 capsules by mouth once* X COCONUT OIL 1,000 MG CAPSULE Take 1 capsule by mouth once * ADULT LOW DOSE ASPIRIN 81 MG * Take one(1) tablet daily. Problem List As Of Date 07/17/2018 Noted Resolved Type II or unspecified type diabetes mellitus w*INVALID FOR*09/07/2016 More... Hyperlipidemia [E78.5] INVALID FOR* Obesity, unspecified [E66.9] INVALID FOR*03/31/2017 Abdominal pain, generalized [R10.84] INVALID FOR*11/30/2010 DYSTHYMIC DISORDER [F34.1] INVALID FOR* Asthma [J45.909] INVALID FOR* Type 2 diabetes mellitus without complication (*INVALID FOR* More... Trigger ring finger of right hand [M65.341] INVALID FOR*11/24/2017 Morbid obesity (HCC) [E66.01] Left carpal tunnel syndrome [G56.02] INVALID FOR* More... Essential hypertension [I10] INVALID FOR* Encounter Status:Closed by ALCIDES NASH on 08/17/18 [facility] Cat 05-29-2018 CNOV Office Visit (GENARO ) -------- ANNIA BRIGGS ([id number]) 1960 F Date Time Provider Department 05/29/18 10:25 AM WILLIAM LEIJA During your visit today, we recorded the following information about you: Pulse Blood pressure Weight Height 91/minute 140/77 115.3 kg 1.626 m William Leija MD 05/29/2018 11:10 AM Signed BARIATRIC / METABOLIC REFERRAL Patient seen at the request of / referral from: Sidney Schafer MD RE: Morbid obesity I will communicate my recommendations and findings via [employer] [facility] EMR CC: interested in bariatric surgery PREVIOUS WT LOSS ATTEMPTS: physician-directed program in the past, and other self directed programs; no routine exercise HPI/PMHx: Annia Briggs is a 57 year old morbidly obese female who presents in referral for morbid obesity. The patient is interested in bariatric surgery tho notes that she has uncontrolled T2DM, she admits to not testing her blood sugars and stopped taking Byetta because it hurt her stomach. She is currently taking two oral agents, leads a very sedentary lifestyle, and ad juventino diet RISK FACTORS FOR OBSTRUCTIVE SLEEP APNEA: CPAP and reports using same routinely REVIEW OF SYSTEMS GENERAL: wt is going up HEENT: no problems with vision NECK: neg GI: denies : neg MUSCULOSKELETAL: denies SKIN: exzema PSYCH: depression HEMATOLOGY/LYMPHOLOGY denies NEURO: denies Medical History PAST MEDICAL HISTORY Diagnosis Date - Asthma 03/30/2010 - Depressive disorder, not elsewhere classified - Intestinal disaccharidase deficiencies and disaccharide malabsorption - Morbid obesity (HCC) - Type II or unspecified type diabetes mellitus without mention of complication, not stated as uncontrolled 07/16 Surgical History PAST SURGICAL HISTORY Procedure Laterality Date - APPENDECTOMY 09/28/02 - INCISE FINGER TENDON SHEATH Right 11/15/2016 Right ring trigger finger release - L'SCOPE DX W/WO BRUSHINGS/WASHINGS 1980 Laparoscopy - REMOVAL OF OVARY/TUBE(S) Salpingo-oophorectomy - left - REVISE MEDIAN N/CARPAL TUNNEL SURG Bilateral Carpal tunnel decomp Family History FAMILY HISTORY Problem Relation Age of Onset - Diabetes Mother - Emphysema Father - Alcohol/Drug Father alcoholic Social History Social History Marital status: Spouse name: Years of education: Number of children: Social History Main Topics Smoking status: Never Smoker Smokeless tobacco: Never Used Alcohol use: No Drug use: No Social History Narrative BIOSCRIPT AT FAX # Current Medications Current Outpatient Prescriptions on File Prior to Visit: albuterol (PROVENTIL) 2.5 mg /3 mL (0.083 %) nebulizer solution Use 3 mL via nebulizer every 4 hours as needed for Wheezing/Shortness of Breath. Use over 5-15minutes. pioglitazone (ACTOS) 30 mg tablet TAKE 1 TABLET DAILY rosuvastatin (CRESTOR) 10 mg tablet TAKE 1 TABLET DAILY AT BEDTIME glimepiride (AMARYL) 4 mg tablet TAKE 1 TABLET DAILY WITH BREAKFAST metFORMIN ER (GLUCOPHAGE XR) 500 mg 24 hr tablet Take one with breakfast and 2 tablets with dinner. albuterol HFA (VENTOLIN HFA) 90 mcg/actuation inhaler Inhale 2 Puffs as instructed every 4 hours as needed for Wheezing/Shortness of Breath. buPROPion HCl 200 mg 12 hr tablet TAKE 1 TABLET TWICE A DAY losartan (COZAAR) 25 mg tablet Take 1 tablet by mouth once daily. budesonide-formoterol (SYMBICORT) 160-4.5 mcg/actuation inhaler Inhale 2 Puffs as instructed twice daily. fluocinonide (LIDEX) 0.05 % cream Apply 1 application to affected area twice daily. Blood-Glucose Meter monitoring kit Glucose Meter of Choice - Kit - Dx: Type 2 DM - Uncontrolled E11.65 blood sugar diagnostic (BLOOD GLUCOSE TEST) test strip Test blood sugar(s) 2 times daily. Dx: Type 2 DM - Uncontrolled E11.65 Insulin: No Lancets lancets Test blood sugar(s) 2 times daily. Dx: Type 2 DM - Uncontrolled E11.65 Insulin: No Insulin [place], Disposable, (PEN NEEDLES) 31 gauge x 1/4 ndle Use as directed 2-3 times daily. [place]-3 Fatty Acids (FISH OIL) 500 mg cap Take 2 capsules by mouth once daily. coconut oil 1,000 mg cap Take 1 capsule by mouth once daily. COMPOUNDED PRESCRIPTION Nebulizer machine with tubing and mask or pipe (per patient preference). (Patient not taking: Reported on 05/29/2018 ) exenatide (BYETTA) 10 mcg/dose(250 mcg/mL) 2.4 mL pnij Inject dose 5-60 prior to breakfast AND dinner. Minimum 6 hours between meals. (Patient not taking: Reported on 05/29/2018 ) ADULT LOW DOSE ASPIRIN 81 MG TAB, DELAYED RELEASE Take one(1) tablet daily. No current facility-administered medications on file prior to visit. Supplements AND Compliance: none LABS Component Latest Ref Rng AND Units 12/14/2016 03/31/2017 11/24/2017 01/25/2018 04/30/2018 Protein, Total 6.3 - 8.0 g/dL 7.0 6.9 6.8 Albumin 3.9 - 4.9 g/dL 4.7 4.4 4.4 Calcium 8.5 - 10.2 mg/dL 9.8 9.9 9.3 Bilirubin, Total 0.2 - 1.3 mg/dL 0.3 0.2 0.4 Alkaline Phosphatase 32 - 117 U/L 84 82 79 AST 13 - 35 U/L 42 (H) 26 24 Glucose 74 - 99 mg/dL 113 (H) 167 (H) 186 (H) BUN 7 - 21 mg/dL 11 12 13 Creatinine 0.58 - 0.96 mg/dL 0.58 0.56 (L) 0.58 Sodium 136 - 144 mmol/L 143 142 139 Potassium 3.7 - 5.1 mmol/L 4.1 4.1 4.1 Chloride 97 - 105 mmol/L 98 100 100 CO2 22 - 30 mmol/L 29 25 25 Anion Gap 9 - 18 mmol/L 16 17 14 ALT 7 - 38 U/L 32 23 22 eGFR- >60 >60 >60 eGFR-All Other Races . >60 >60 >60 Triglyceride <150 mg/dL 152 (H) 179 (H) 135 Cholesterol, Total <200 mg/dL 151 159 145 HDL Cholesterol >39 mg/dL 63 66 61 VLDL Cholesterol <30 mg/dL 30 36 (H) 27 LDL Cholesterol <100 mg/dL 58 (L) 57 57 Fasting Time hrs 12 12 10 TC:HDL Ratio <5.10 2.40 2.41 2.38 LDL:HDL Ratio <2.54 0.92 0.86 0.93 Non HDL Cholesterol <130 mg/dL 88 (L) 93 84 Creatinine, Ur Random (UCRR) 20 - 300 mg/dL 36.4 Albumin, Urine Random 0.0 - 23.0 mg/L <12.0 Albumin/Creat Ratio 0 - 30 mg/g Not calculated Hemoglobin A1C 4.3 - 5.6 % 9.3 (H) 6.8 (H) 8.4 (H) 8.2 (H) Estimated Average Glucose mg/dL 220 148 194 189 PHYSICAL EXAMINATION: General appearance: Morbidly obese, alert and in no acute distress Skin: skin color, texture, turgor normal, no rashes or lesions Neck: Supple, no adenopathy; thyroid symmetric, normal size, no bruits Back: no pain to palpation over spine or costovertebral angles Heart: RRR with distant tones Lungs: CTAB Abdomen: obese with pannus Extremities: edema to mid calves Musculoskeletal: Spine range of motion normal. Muscular strength intact Neuro: Gait normal. Reflexes normal and symmetric. Sensation grossly intact. Assessment/Plan: 1. Morbid obesity (HCC) - ICD9: 278.01, ICD10: E66.01 (primary diagnosis) EBS of approx 120# - was provided the information to sign up for the informational seminar at the [facility] main campus if she is interested - answered all of their questions and urged them to attend 2. Type 2 diabetes mellitus without complication, without long-term current use of insulin (HCC) - ICD9: 250.00, ICD10: E11.9 - not at goal - she stopped the byetta due to intolerance - not testing blood sugars - not at goal and she understands that A1c will have to be at goal to be able to go to bariatric surgery. - I offered to see her back for this but informed her that I am a bit of a task-master and will require her to test her blood sugars bid at least 3d per week and bring her meter to her appointments - it is up to her The patient has my card, and knows how to reach my office. I thank you for the opportunity to participate in the care of this patient. Please do not hesitate to contact me if you have further concerns or questions. William Leija, MS, RD, MD, CCD, FACN, FACP, FACE Diplomate, [place] [employer] Diplomate, National Board of Physician Nutrition Specialists Endocrinology / / [facility] [id number] William Leija MD 05/29/2018 11:01 AM Addendum [email or web address] 1) Click on Tab: Pathway to surgery 2) Complete Step One: [place] for a free weight loss surgery seminar 3) Complete Step Two: Complete the on-line questionnaire You may also register by phone. Call and they will walk you through the registration and questionnaire Referring Provider: SIDNEY SCHAFER [[id number]] Allergies As of Date: 05/29/2018 Noted Allergy Reaction LISINOPRIL 12/16/2016 3 - Cough PRAVACHOL (PRAVASTATIN SODIUM) 11/08/2007 5 - Intolerance Comments: Severe myalgias SERTRALINE 06/26/2008 5 - Intolerance Comments: anorgasmia ZOCOR (SIMVASTATIN) 11/08/2007 5 - Intolerance Comments: Severe myalgias Date Reviewed: 05/29/2018 Reviewed by: Adriana Rivers Ma - Fully Assessed Reason for Visit: Weight Loss [882] Primary Visit Diagnosis:Morbid obesity (HCC) [E66.01] Other Visit Diagnosis:Type 2 diabetes mellitus without complication, without long-term current use of insulin (HCC) [E11.9] Prescriptions as of 05/29/2018 Sig: FLUTICASONE 50 MCG/ACTUATION * Use 1 [place] in each nostril o* ALBUTEROL SULFATE 2.5 MG/3 ML* Use 3 mL via nebulizer every * PIOGLITAZONE 30 MG TABLET TAKE 1 TABLET DAILY ROSUVASTATIN 10 MG TABLET TAKE 1 TABLET DAILY AT BEDTIME GLIMEPIRIDE 4 MG TABLET TAKE 1 TABLET DAILY WITH SARAHI* METFORMIN ER 500 MG TABLET,EX* Take one with breakfast and 2* ALBUTEROL SULFATE HFA 90 MCG/* Inhale 2 Puffs as instructed * BUPROPION HCL SR 200 MG TABLE* TAKE 1 TABLET TWICE A DAY LOSARTAN 25 MG TABLET Take 1 tablet by mouth once d* BUDESONIDE-FORMOTEROL HFA 160* Inhale 2 Puffs as instructed * FLUOCINONIDE 0.05 % TOPICAL C* Apply 1 application to affect* BLOOD-GLUCOSE METER KIT Glucose Meter of Choice - Kit* BLOOD SUGAR DIAGNOSTIC STRIPS Test blood sugar(s) 2 times d* LANCETS Test blood sugar(s) 2 times d* PEN NEEDLE, DIABETIC 31 GAUGE* Use as directed 2-3 times bonnie* OMEGA-3 FATTY ACIDS 500 MG CA* Take 2 capsules by mouth once* COCONUT OIL 1,000 MG CAPSULE Take 1 capsule by mouth once * COMPOUNDED PRESCRIPTION Nebulizer machine with tubing* Patient not taking: Reported on 05/29/2018 ADULT LOW DOSE ASPIRIN 81 MG * Take one(1) tablet daily. Problem List As Of Date 05/29/2018 Noted Resolved Type II or unspecified type diabetes mellitus w*INVALID FOR*09/07/2016 More... Hyperlipidemia [E78.5] INVALID FOR* Obesity, unspecified [E66.9] INVALID FOR*03/31/2017 Abdominal pain, generalized [R10.84] INVALID FOR*11/30/2010 DYSTHYMIC DISORDER [F34.1] INVALID FOR* Asthma [J45.909] INVALID FOR* Type 2 diabetes mellitus without complication (*INVALID FOR* More... Trigger ring finger of right hand [M65.341] INVALID FOR*11/24/2017 Morbid obesity (HCC) [E66.01] Left carpal tunnel syndrome [G56.02] INVALID FOR* More... Essential hypertension [I10] INVALID FOR* Other instructions from your clinician: [email or web address] 1) Click on Tab: Pathway to surgery 2) Complete Step One: [place] for a free weight loss surgery seminar 3) Complete Step Two: Complete the on-line questionnaire You may also register by phone. Call and they will walk you through the registration and questionnaire Medications Discontinued During This Encounter exenatide (BYETTA) 10 mcg/dose(250 m* 3 Pen 3 12/29/2016 05/29/2018 Sig: Inject dose 5-60 prior to breakfast AND dinner. Minimum 6 hours between meals. Patient not taking: Reported on 05/29/2018 Disc: Discontinued by Patient Cosign accepted by XENIA LEBRON [employer][[id number]] on 12/29/2016 4:42 PM Follow-up and Disposition History Recorded Encounter Status:Closed by WILLIAM LEIJA MD on 05/29/18 Normal [facility] PROGRESSon 05-29-2018 Protein mass conc HNO ID: [id number] Author: William Leija Service: (none) Author Type: Physician Type: Progress Notes Filed: 05/29/2018 11:10 AM Note Text: BARIATRIC / METABOLIC REFERRAL Patient seen at the request of / referral from: Sidney Schafer MD RE: Morbid obesity I will communicate my recommendations and findings via [employer] EMR CC: interested in bariatric surgery PREVIOUS WT LOSS ATTEMPTS: physician-directed program in the past, and other self directed programs; no routine exercise HPI/PMHx: Annia Briggs is a 57 year old morbidly obese female who presents in referral for morbid obesity. The patient is interested in bariatric surgery tho notes that she has uncontrolled T2DM, she admits to not testing her blood sugars and stopped taking Byetta because it hurt her stomach. She is currently taking two oral agents, leads a very sedentary lifestyle, and ad juventino diet RISK FACTORS FOR OBSTRUCTIVE SLEEP APNEA: CPAP and reports using same routinely REVIEW OF SYSTEMS GENERAL: wt is going up HEENT: no problems with vision NECK: neg GI: denies : neg MUSCULOSKELETAL: denies SKIN: exzema PSYCH: depression HEMATOLOGY/LYMPHOLOGY denies NEURO: denies Medical History PAST MEDICAL HISTORY Diagnosis Date - Asthma 03/30/2010 - Depressive disorder, not elsewhere classified - Intestinal disaccharidase deficiencies and disaccharide malabsorption - Morbid obesity (HCC) - Type II or unspecified type diabetes mellitus without mention of complication, not stated as uncontrolled 07/16 Surgical History PAST SURGICAL HISTORY Procedure Laterality Date - APPENDECTOMY 09/28/02 - INCISE FINGER TENDON SHEATH Right 11/15/2016 Right ring trigger finger release - L'SCOPE DX W/WO BRUSHINGS/WASHINGS 1980 Laparoscopy - REMOVAL OF OVARY/TUBE(S) Salpingo-oophorectomy - left - REVISE MEDIAN N/CARPAL TUNNEL SURG Bilateral Carpal tunnel decomp Family History FAMILY HISTORY Problem Relation Age of Onset - Diabetes Mother - Emphysema Father - Alcohol/Drug Father alcoholic Social History Social History Marital status: Spouse name: Years of education: Number of children: Social History Main Topics Smoking status: Never Smoker Smokeless tobacco: Never Used Alcohol use: No Drug use: No Social History Narrative BIOSCRIPT AT FAX # Current Medications Current Outpatient Prescriptions on File Prior to Visit: albuterol (PROVENTIL) 2.5 mg /3 mL (0.083 %) nebulizer solution Use 3 mL via nebulizer every 4 hours as needed for Wheezing/Shortness of Breath. Use over 5-15minutes. pioglitazone (ACTOS) 30 mg tablet TAKE 1 TABLET DAILY rosuvastatin (CRESTOR) 10 mg tablet TAKE 1 TABLET DAILY AT BEDTIME glimepiride (AMARYL) 4 mg tablet TAKE 1 TABLET DAILY WITH BREAKFAST metFORMIN ER (GLUCOPHAGE XR) 500 mg 24 hr tablet Take one with breakfast and 2 tablets with dinner. albuterol HFA (VENTOLIN HFA) 90 mcg/actuation inhaler Inhale 2 Puffs as instructed every 4 hours as needed for Wheezing/Shortness of Breath. buPROPion HCl 200 mg 12 hr tablet TAKE 1 TABLET TWICE A DAY losartan (COZAAR) 25 mg tablet Take 1 tablet by mouth once daily. budesonide-formoterol (SYMBICORT) 160-4.5 mcg/actuation inhaler Inhale 2 Puffs as instructed twice daily. fluocinonide (LIDEX) 0.05 % cream Apply 1 application to affected area twice daily. Blood-Glucose Meter monitoring kit Glucose Meter of Choice - Kit - Dx: Type 2 DM - Uncontrolled E11.65 blood sugar diagnostic (BLOOD GLUCOSE TEST) test strip Test blood sugar(s) 2 times daily. Dx: Type 2 DM - Uncontrolled E11.65 Insulin: No Lancets lancets Test blood sugar(s) 2 times daily. Dx: Type 2 DM - Uncontrolled E11.65 Insulin: No Insulin [place], Disposable, (PEN NEEDLES) 31 gauge x 1/4 ndle Use as directed 2-3 times daily. [place]-3 Fatty Acids (FISH OIL) 500 mg cap Take 2 capsules by mouth once daily. coconut oil 1,000 mg cap Take 1 capsule by mouth once daily. COMPOUNDED PRESCRIPTION Nebulizer machine with tubing and mask or pipe (per patient preference). (Patient not taking: Reported on 05/29/2018 ) exenatide (BYETTA) 10 mcg/dose(250 mcg/mL) 2.4 mL pnij Inject dose 5-60 prior to breakfast AND dinner. Minimum 6 hours between meals. (Patient not taking: Reported on 05/29/2018 ) ADULT LOW DOSE ASPIRIN 81 MG TAB, DELAYED RELEASE Take one(1) tablet daily. No current facility-administered medications on file prior to visit. Supplements AND Compliance: none LABS Component Latest Ref Rng AND Units 12/14/2016 03/31/2017 11/24/2017 01/25/2018 04/30/2018 Protein, Total 6.3 - 8.0 g/dL 7.0 6.9 6.8 Albumin 3.9 - 4.9 g/dL 4.7 4.4 4.4 Calcium 8.5 - 10.2 mg/dL 9.8 9.9 9.3 Bilirubin, Total 0.2 - 1.3 mg/dL 0.3 0.2 0.4 Alkaline Phosphatase 32 - 117 U/L 84 82 79 AST 13 - 35 U/L 42 (H) 26 24 Glucose 74 - 99 mg/dL 113 (H) 167 (H) 186 (H) BUN 7 - 21 mg/dL 11 12 13 Creatinine 0.58 - 0.96 mg/dL 0.58 0.56 (L) 0.58 Sodium 136 - 144 mmol/L 143 142 139 Potassium 3.7 - 5.1 mmol/L 4.1 4.1 4.1 Chloride 97 - 105 mmol/L 98 100 100 CO2 22 - 30 mmol/L 29 25 25 Anion Gap 9 - 18 mmol/L 16 17 14 ALT 7 - 38 U/L 32 23 22 eGFR- >60 >60 >60 eGFR-All Other Races . >60 >60 >60 Triglyceride <150 mg/dL 152 (H) 179 (H) 135 Cholesterol, Total <200 mg/dL 151 159 145 HDL Cholesterol >39 mg/dL 63 66 61 VLDL Cholesterol <30 mg/dL 30 36 (H) 27 LDL Cholesterol <100 mg/dL 58 (L) 57 57 Fasting Time hrs 12 12 10 TC:HDL Ratio <5.10 2.40 2.41 2.38 LDL:HDL Ratio <2.54 0.92 0.86 0.93 Non HDL Cholesterol <130 mg/dL 88 (L) 93 84 Creatinine, Ur Random (UCRR) 20 - 300 mg/dL 36.4 Albumin, Urine Random 0.0 - 23.0 mg/L <12.0 Albumin/Creat Ratio 0 - 30 mg/g Not calculated Hemoglobin A1C 4.3 - 5.6 % 9.3 (H) 6.8 (H) 8.4 (H) 8.2 (H) Estimated Average Glucose mg/dL 220 148 194 189 PHYSICAL EXAMINATION: General appearance: Morbidly obese, alert and in no acute distress Skin: skin color, texture, turgor normal, no rashes or lesions Neck: Supple, no adenopathy; thyroid symmetric, normal size, no bruits Back: no pain to palpation over spine or costovertebral angles Heart: RRR with distant tones Lungs: CTAB Abdomen: obese with pannus Extremities: edema to mid calves Musculoskeletal: Spine range of motion normal. Muscular strength intact Neuro: Gait normal. Reflexes normal and symmetric. Sensation grossly intact. Assessment/Plan: 1. Morbid obesity (HCC) - ICD9: 278.01, ICD10: E66.01 (primary diagnosis) EBS of approx 120# - was provided the information to sign up for the informational seminar at the [facility] main campus if she is interested - answered all of their questions and urged them to attend 2. Type 2 diabetes mellitus without complication, without long-term current use of insulin (HCC) - ICD9: 250.00, ICD10: E11.9 - not at goal - she stopped the byetta due to intolerance - not testing blood sugars - not at goal and she understands that A1c will have to be at goal to be able to go to bariatric surgery. - I offered to see her back for this but informed her that I am a bit of a task-master and will require her to test her blood sugars bid at least 3d per week and bring her meter to her appointments - it is up to her The patient has my card, and knows how to reach my office. I thank you for the opportunity to participate in the care of this patient. Please do not hesitate to contact me if you have further concerns or questions. William Leija MS, RD, MD, CCD, FACN, FACP, FACE Diplomate, [place] Board [employer] Obesity Medicine Diplomate, National Board of Physician Nutrition Specialists Endocrinology / / [facility] [id number] Normal [facility] CNOVon 05-07-2018 CNOV Office Visit (FAMPWS ) -------- ANNIA BRIGGS ([id number]) 1960 F Date Time Provider Department 05/07/18 2:40 PM MELBA GU (JOSI) SCAR During your visit today, we recorded the following information about you: Temperature Pulse Respiration Blood pressure 98.7 degrees 100/minute 20/minute 122/60 Weight 111.6 kg Melba Gu APRN.CNP 05/07/2018 4:04 PM Signed This is a 57 year old female who presents today with: Patient presents with: Cough: continue for 1 week HISTORY OF PRESENT ILLNESS: Annia Briggs is a 57 year old female. Patient presents with: Cough: continue for 1 week Pt presents today with complaint of not feeling good. Was to urgent care on Monday. Headaches, cough, trouble breathing. Started z-pack and prednisone. Refers that she developed the shakes, so she stopped everything. Symptoms started 6 days ago. Refers that she thought she would feel better within a couple of days, but really hasn't noticed much of an improvement. Using her symbicort twice daily. Using the albuterol MDI -- using every 4-6 hours. No fever/chills. CXRAY was normal. PAST MEDICAL HISTORY: PAST MEDICAL HISTORY Diagnosis Date - Asthma 03/30/2010 - Depressive disorder, not elsewhere classified - Intestinal disaccharidase deficiencies and disaccharide malabsorption - Morbid obesity (HCC) - Type II or unspecified type diabetes mellitus without mention of complication, not stated as uncontrolled 07/16 PAST SURGICAL HISTORY Procedure Laterality Date - APPENDECTOMY 09/28/02 - INCISE FINGER TENDON SHEATH Right 11/15/2016 Right ring trigger finger release - L'SCOPE DX W/WO BRUSHINGS/WASHINGS 1980 Laparoscopy - REMOVAL OF OVARY/TUBE(S) Salpingo-oophorectomy - left - REVISE MEDIAN N/CARPAL TUNNEL SURG Bilateral Carpal tunnel decomp ALLERGIES Lisinopril; Pravachol [Pravastatin Sodium]; Sertraline; Zocor [Simvastatin] MEDICATIONS Current Outpatient Prescriptions: pioglitazone (ACTOS) 30 mg tablet TAKE 1 TABLET DAILY rosuvastatin (CRESTOR) 10 mg tablet TAKE 1 TABLET DAILY AT BEDTIME glimepiride (AMARYL) 4 mg tablet TAKE 1 TABLET DAILY WITH BREAKFAST metFORMIN ER (GLUCOPHAGE XR) 500 mg 24 hr tablet Take one with breakfast and 2 tablets with dinner. albuterol HFA (VENTOLIN HFA) 90 mcg/actuation inhaler Inhale 2 Puffs as instructed every 4 hours as needed for Wheezing/Shortness of Breath. buPROPion HCl 200 mg 12 hr tablet TAKE 1 TABLET TWICE A DAY losartan (COZAAR) 25 mg tablet Take 1 tablet by mouth once daily. budesonide-formoterol (SYMBICORT) 160-4.5 mcg/actuation inhaler Inhale 2 Puffs as instructed twice daily. fluocinonide (LIDEX) 0.05 % cream Apply 1 application to affected area twice daily. [place]-3 Fatty Acids (FISH OIL) 500 mg cap Take 2 capsules by mouth once daily. coconut oil 1,000 mg cap Take 1 capsule by mouth once daily. azithromycin (ZITHROMAX Z-VASQUEZ) 250 mg tablet Take 2 tablets day one, then, 1 tablet daily until gone. (Patient not taking: Reported on 05/07/2018 ) predniSONE (DELTASONE) 20 mg tablet Take 2 tablets by mouth once daily for 5 days. (Patient not taking: Reported on 05/07/2018 ) exenatide (BYETTA) 10 mcg/dose(250 mcg/mL) 2.4 mL pnij Inject dose 5-60 prior to breakfast AND dinner. Minimum 6 hours between meals. (Patient not taking: Reported on 05/07/2018 ) Blood-Glucose Meter monitoring kit Glucose Meter of Choice - Kit - Dx: Type 2 DM - Uncontrolled E11.65 blood sugar diagnostic (BLOOD GLUCOSE TEST) test strip Test blood sugar(s) 2 times daily. Dx: Type 2 DM - Uncontrolled E11.65 Insulin: No Lancets lancets Test blood sugar(s) 2 times daily. Dx: Type 2 DM - Uncontrolled E11.65 Insulin: No Insulin [place], Disposable, (PEN NEEDLES) 31 gauge x 1/4 ndle Use as directed 2-3 times daily. ADULT LOW DOSE ASPIRIN 81 MG TAB, DELAYED RELEASE Take one(1) tablet daily. No current facility-administered medications for this visit. FAMILY HISTORY Problem Relation Age of Onset - Diabetes Mother - Emphysema Father - Alcohol/Drug Father alcoholic Social History Marital status: Spouse name: Years of education: Number of children: Social History Main Topics Smoking status: Never Smoker Smokeless tobacco: Never Used Alcohol use: No Drug use: No Social History Narrative BIOSCRIPT AT FAX # EXAM: BP 122/60 Pulse 100 Temp 37.1 ?C (98.7 ?F) (Tympanic) Resp 20 Wt 111.6 kg (246 lb) LMP 11/04/2006 SpO2 92% BMI 42.23 kg/m? PHYSICAL EXAM: General Appearance: Well appearing, alert, in no acute distress, well-hydrated, well nourished.. Skin: Skin color, texture, turgor normal, no suspicious rashes or lesions. Head: Normocephalic, no masses, lesions, tenderness or abnormalities. Eyes: Anicteric sclera. Pupils are equally round and reactive to light. Extraocular movements are intact. . Ears: External ears normal, canals clear, Normal TMs bilaterally. Neck: Supple, no adenopathy Lungs: audible exp wheezes. Scattered exp wheezes throughout. Heart: RRR without murmur, gallop, or rubs. No ectopy. Extremities: No deformities, edema, skin discoloration, clubbing or cyanosis. Good capillary refill. . Neurologic: Gait normal. Reflexes normal and symmetric. Sensation grossly intact.. ASSESSMENT/PLAN: 1. Intermittent asthma without complication, unspecified asthma severity - ICD9: 493.90, ICD10: J45.20 Finish the zithromax. Decrease the prednisone to one pill once daily. Start nebulizers -- use routinely every 4-6 hours for the next 48 hours. Nebulizer administered here -- Much less audible wheezing after nebulizer. 92% after nebulizer. - ALBUTEROL SULFATE 2.5 MG/3 ML (0.083 %) SOLUTION FOR NEBULIZATION - COMPOUNDED PRESCRIPTION - ALBUTEROL SULFATE 2.5 MG/3 ML (0.083 %) SOLUTION FOR NEBULIZATION Discussed treatment plan and patient voices understanding. Patient's questions answered appropriately. Medications and potential side effects were discussed and patient voices understanding. Return to the office as scheduled or as needed for worsening/no improvement. Melba Gu APRN.JOSI Veliz LPN 05/07/2018 3:24 PM Signed Albuterol Sulfate 0.083% solution aerosol treatment given per doctor's order at 3:07. O2 sat is 92% on room air. Vital signs: HR 100, RR 20. Melba Gu APRN.JOSI 05/07/2018 3:37 PM Signed 1. nebulizers every 4-6 hours (routinely for the next 24-48 hours), then as needed. 2. Decrease the prednisone to one pill once daily. 3. Robitussin. 4. Continue symbicort 2 puffs twice daily. 5. Stay well hydrated. 6. To the ER if anything worsens. Referring Provider: SELF [[id number]] Allergies As of Date: 05/07/2018 Noted Allergy Reaction LISINOPRIL 12/16/2016 3 - Cough PRAVACHOL (PRAVASTATIN SODIUM) 11/08/2007 5 - Intolerance Comments: Severe myalgias SERTRALINE 06/26/2008 5 - Intolerance Comments: anorgasmia ZOCOR (SIMVASTATIN) 11/08/2007 5 - Intolerance Comments: Severe myalgias Date Reviewed: 05/07/2018 Reviewed by: Ann Marie Veliz LPN - Fully Assessed Reason for Visit: Cough [28] Cmt: continue for 1 week Primary Visit Diagnosis:Intermittent asthma without complication, unspecified asthma severity [J45.20] Order(s):[] albuterol 2.5 mg /3 mL (0.083 %) 2.5 mg (PROVENTIL)Disp: Rfl: COMPOUNDED PRESCRIPTIONNebulizer machine with tubing and mask or pipe (per patient preference).Disp: 1 EachRfl: 0 albuterol (PROVENTIL) 2.5 mg /3 mL (0.083 %) nebulizer solutionUse 3 mL via nebulizer every 4 hours as needed for Wheezing/Shortness of Breath. Use over 5-15minutes.Disp: 50 VialRfl: 1 Prescriptions as of 05/07/2018 Sig: PIOGLITAZONE 30 MG TABLET TAKE 1 TABLET DAILY ROSUVASTATIN 10 MG TABLET TAKE 1 TABLET DAILY AT BEDTIME GLIMEPIRIDE 4 MG TABLET TAKE 1 TABLET DAILY WITH SARAHI* METFORMIN ER 500 MG TABLET,EX* Take one with breakfast and 2* ALBUTEROL SULFATE HFA 90 MCG/* Inhale 2 Puffs as instructed * BUPROPION HCL SR 200 MG TABLE* TAKE 1 TABLET TWICE A DAY LOSARTAN 25 MG TABLET Take 1 tablet by mouth once d* BUDESONIDE-FORMOTEROL HFA 160* Inhale 2 Puffs as instructed * FLUOCINONIDE 0.05 % TOPICAL C* Apply 1 application to affect* OMEGA-3 FATTY ACIDS 500 MG CA* Take 2 capsules by mouth once* COCONUT OIL 1,000 MG CAPSULE Take 1 capsule by mouth once * COMPOUNDED PRESCRIPTION Nebulizer machine with tubing* ALBUTEROL SULFATE 2.5 MG/3 ML* Use 3 mL via nebulizer every * AZITHROMYCIN 250 MG TABLET Take 2 tablets day one, then,* Patient not taking: Reported on 05/07/2018 PREDNISONE 20 MG TABLET Take 2 tablets by mouth once * Patient not taking: Reported on 05/07/2018 EXENATIDE 10 MCG/DOSE(250 MCG* Inject dose 5-60 prior to br* Patient not taking: Reported on 05/07/2018 BLOOD-GLUCOSE METER KIT Glucose Meter of Choice - Kit* BLOOD SUGAR DIAGNOSTIC STRIPS Test blood sugar(s) 2 times d* LANCETS Test blood sugar(s) 2 times d* PEN NEEDLE, DIABETIC 31 GAUGE* Use as directed 2-3 times bonnie* ADULT LOW DOSE ASPIRIN 81 MG * Take one(1) tablet daily. Problem List As Of Date 05/07/2018 Noted Resolved Type II or unspecified type diabetes mellitus w*INVALID FOR*09/07/2016 More... Hyperlipidemia [E78.5] INVALID FOR* Obesity, unspecified [E66.9] INVALID FOR*03/31/2017 Abdominal pain, generalized [R10.84] INVALID FOR*11/30/2010 DYSTHYMIC DISORDER [F34.1] INVALID FOR* Asthma [J45.909] INVALID FOR* Type 2 diabetes mellitus without complication (*INVALID FOR* More... Trigger ring finger of right hand [M65.341] INVALID FOR*11/24/2017 Morbid obesity (HCC) [E66.01] Left carpal tunnel syndrome [G56.02] INVALID FOR* More... Essential hypertension [I10] INVALID FOR* Other instructions from your clinician: 1. nebulizers every 4-6 hours (routinely for the next 24-48 hours), then as needed. 2. Decrease the prednisone to one pill once daily. 3. Robitussin. 4. Continue symbicort 2 puffs twice daily. 5. Stay well hydrated. 6. To the ER if anything worsens. Visit Notes: >> Ann Marie Veliz LPN Mon May 07, 2018 3:22 PM Status: Signed Albuterol Sulfate 0.083% solution aerosol treatment given per doctor's order at 3:07. O2 sat is 92% on room air. Vital signs: HR 100, RR 20. Prescriptions ordered this encounter Disp Refills Start End ALBUTEROL SULFATE 2.5 MG/3 ML (0.083* 05/07/2018 05/07/2018 Route: INHALATION COMPOUNDED PRESCRIPTION 1 Ea* 0 05/07/2018 Class: Print RX Sig: Nebulizer machine with tubing and mask or pipe (per patient preference). ALBUTEROL SULFATE 2.5 MG/3 ML (0.083* 50 V* 1 05/07/2018 Route: NEBULIZATION Sig: Use 3 mL via nebulizer every 4 hours as needed for Wheezing/Shortness of Breath. Use over 5-15minutes. Encounter Status:Closed by MELBA GU CNP on 05/07/18 Normal [facility] PROGRESSon 05-07-2018 Protein mass conc HNO ID: [id number] Author: Melba (Josi) Brittanie Service: (none) Author Type: Nurse Practitioner Type: Progress Notes Filed: 05/07/2018 4:04 PM Note Text: This is a 57 year old female who presents today with: Patient presents with: Cough: continue for 1 week HISTORY OF PRESENT ILLNESS: Annia Briggs is a 57 year old female. Patient presents with: Cough: continue for 1 week Pt presents today with complaint of not feeling good. Was to urgent care on Monday. Headaches, cough, trouble breathing. Started z-pack and prednisone. Refers that she developed the shakes, so she stopped everything. Symptoms started 6 days ago. Refers that she thought she would feel better within a couple of days, but really hasn't noticed much of an improvement. Using her symbicort twice daily. Using the albuterol MDI -- using every 4-6 hours. No fever/chills. CXRAY was normal. PAST MEDICAL HISTORY: PAST MEDICAL HISTORY Diagnosis Date - Asthma 03/30/2010 - Depressive disorder, not elsewhere classified - Intestinal disaccharidase deficiencies and disaccharide malabsorption - Morbid obesity (HCC) - Type II or unspecified type diabetes mellitus without mention of complication, not stated as uncontrolled 07/16 PAST SURGICAL HISTORY Procedure Laterality Date - APPENDECTOMY 09/28/02 - INCISE FINGER TENDON SHEATH Right 11/15/2016 Right ring trigger finger release - L'SCOPE DX W/WO BRUSHINGS/WASHINGS 1980 Laparoscopy - REMOVAL OF OVARY/TUBE(S) Salpingo-oophorectomy - left - REVISE MEDIAN N/CARPAL TUNNEL SURG Bilateral Carpal tunnel decomp ALLERGIES Lisinopril; Pravachol [Pravastatin Sodium]; Sertraline; Zocor [Simvastatin] MEDICATIONS Current Outpatient Prescriptions: pioglitazone (ACTOS) 30 mg tablet TAKE 1 TABLET DAILY rosuvastatin (CRESTOR) 10 mg tablet TAKE 1 TABLET DAILY AT BEDTIME glimepiride (AMARYL) 4 mg tablet TAKE 1 TABLET DAILY WITH BREAKFAST metFORMIN ER (GLUCOPHAGE XR) 500 mg 24 hr tablet Take one with breakfast and 2 tablets with dinner. albuterol HFA (VENTOLIN HFA) 90 mcg/actuation inhaler Inhale 2 Puffs as instructed every 4 hours as needed for Wheezing/Shortness of Breath. buPROPion HCl 200 mg 12 hr tablet TAKE 1 TABLET TWICE A DAY losartan (COZAAR) 25 mg tablet Take 1 tablet by mouth once daily. budesonide-formoterol (SYMBICORT) 160-4.5 mcg/actuation inhaler Inhale 2 Puffs as instructed twice daily. fluocinonide (LIDEX) 0.05 % cream Apply 1 application to affected area twice daily. [place]-3 Fatty Acids (FISH OIL) 500 mg cap Take 2 capsules by mouth once daily. coconut oil 1,000 mg cap Take 1 capsule by mouth once daily. azithromycin (ZITHROMAX Z-VASQUEZ) 250 mg tablet Take 2 tablets day one, then, 1 tablet daily until gone. (Patient not taking: Reported on 05/07/2018 ) predniSONE (DELTASONE) 20 mg tablet Take 2 tablets by mouth once daily for 5 days. (Patient not taking: Reported on 05/07/2018 ) exenatide (BYETTA) 10 mcg/dose(250 mcg/mL) 2.4 mL pnij Inject dose 5-60 prior to breakfast AND dinner. Minimum 6 hours between meals. (Patient not taking: Reported on 05/07/2018 ) Blood-Glucose Meter monitoring kit Glucose Meter of Choice - Kit - Dx: Type 2 DM - Uncontrolled E11.65 blood sugar diagnostic (BLOOD GLUCOSE TEST) test strip Test blood sugar(s) 2 times daily. Dx: Type 2 DM - Uncontrolled E11.65 Insulin: No Lancets lancets Test blood sugar(s) 2 times daily. Dx: Type 2 DM - Uncontrolled E11.65 Insulin: No Insulin [place], Disposable, (PEN NEEDLES) 31 gauge x 1/4 ndle Use as directed 2-3 times daily. ADULT LOW DOSE ASPIRIN 81 MG TAB, DELAYED RELEASE Take one(1) tablet daily. No current facility-administered medications for this visit. FAMILY HISTORY Problem Relation Age of Onset - Diabetes Mother - Emphysema Father - Alcohol/Drug Father alcoholic Social History Marital status: Spouse name: Years of education: Number of children: Social History Main Topics Smoking status: Never Smoker Smokeless tobacco: Never Used Alcohol use: No Drug use: No Social History Narrative BIOSCRIPT AT FAX # EXAM: BP 122/60 Pulse 100 Temp 37.1 ?C (98.7 ?F) (Tympanic) Resp 20 Wt 111.6 kg (246 lb) LMP 11/04/2006 SpO2 92% BMI 42.23 kg/m? PHYSICAL EXAM: General Appearance: Well appearing, alert, in no acute distress, well-hydrated, well nourished.. Skin: Skin color, texture, turgor normal, no suspicious rashes or lesions. Head: Normocephalic, no masses, lesions, tenderness or abnormalities. Eyes: Anicteric sclera. Pupils are equally round and reactive to light. Extraocular movements are intact. . Ears: External ears normal, canals clear, Normal TMs bilaterally. Neck: Supple, no adenopathy Lungs: audible exp wheezes. Scattered exp wheezes throughout. Heart: RRR without murmur, gallop, or rubs. No ectopy. Extremities: No deformities, edema, skin discoloration, clubbing or cyanosis. Good capillary refill. . Neurologic: Gait normal. Reflexes normal and symmetric. Sensation grossly intact.. ASSESSMENT/PLAN: 1. Intermittent asthma without complication, unspecified asthma severity - ICD9: 493.90, ICD10: J45.20 Finish the zithromax. Decrease the prednisone to one pill once daily. Start nebulizers -- use routinely every 4-6 hours for the next 48 hours. Nebulizer administered here -- Much less audible wheezing after nebulizer. 92% after nebulizer. - ALBUTEROL SULFATE 2.5 MG/3 ML (0.083 %) SOLUTION FOR NEBULIZATION - COMPOUNDED PRESCRIPTION - ALBUTEROL SULFATE 2.5 MG/3 ML (0.083 %) SOLUTION FOR NEBULIZATION Discussed treatment plan and patient voices understanding. Patient's questions answered appropriately. Medications and potential side effects were discussed and patient voices understanding. Return to the office as scheduled or as needed for worsening/no improvement. Melba Gu APRN.CNP Normal [facility] CNOVon 05-04-2018 CNOV Office Visit ([facility] ) -------- ANNIA BRIGGS ([id number]) 1960 F Date Time Provider Department 05/04/18 9:00 AM MIKE ROBBINS ([employer]) [facility] During your visit today, we recorded the following information about you: Temperature Pulse Respiration Blood pressure 98.3 degrees 86/minute 16/minute 122/64 Weight 112.9 kg Mike Robbins APRN.CNP 05/04/2018 12:07 PM Signed Subjective HPI HPI Annia Dylon Chester is a 57 year old female who presents today for CC of cough, chest congestion. This started 3 days. Has tried otc medication. Symptoms are worsened by nothing. Risk factors diabetes, obesity. .Patient presents with: chest congestion, cough, body aches: x 3 days PAST MEDICAL HISTORY Diagnosis Date - Asthma 03/30/2010 - Depressive disorder, not elsewhere classified - Intestinal disaccharidase deficiencies and disaccharide malabsorption - Morbid obesity (HCC) - Type II or unspecified type diabetes mellitus without mention of complication, not stated as uncontrolled 07/16 PAST SURGICAL HISTORY Procedure Laterality Date - APPENDECTOMY 09/28/02 - INCISE FINGER TENDON SHEATH Right 11/15/2016 Right ring trigger finger release - L'SCOPE DX W/WO BRUSHINGS/WASHINGS 1980 Laparoscopy - REMOVAL OF OVARY/TUBE(S) Salpingo-oophorectomy - left - REVISE MEDIAN N/CARPAL TUNNEL SURG Bilateral Carpal tunnel decomp ALLERGIES Lisinopril; Pravachol [Pravastatin Sodium]; Sertraline; Zocor [Simvastatin] MEDICATIONS pioglitazone (ACTOS) 30 mg tablet TAKE 1 TABLET DAILY rosuvastatin (CRESTOR) 10 mg tablet TAKE 1 TABLET DAILY AT BEDTIME glimepiride (AMARYL) 4 mg tablet TAKE 1 TABLET DAILY WITH BREAKFAST metFORMIN ER (GLUCOPHAGE XR) 500 mg 24 hr tablet Take one with breakfast and 2 tablets with dinner. albuterol HFA (VENTOLIN HFA) 90 mcg/actuation inhaler Inhale 2 Puffs as instructed every 4 hours as needed for Wheezing/Shortness of Breath. buPROPion HCl 200 mg 12 hr tablet TAKE 1 TABLET TWICE A DAY losartan (COZAAR) 25 mg tablet Take 1 tablet by mouth once daily. exenatide (BYETTA) 10 mcg/dose(250 mcg/mL) 2.4 mL pnij Inject dose 5-60 prior to breakfast AND dinner. Minimum 6 hours between meals. budesonide-formoterol (SYMBICORT) 160-4.5 mcg/actuation inhaler Inhale 2 Puffs as instructed twice daily. fluocinonide (LIDEX) 0.05 % cream Apply 1 application to affected area twice daily. Blood-Glucose Meter monitoring kit Glucose Meter of Choice - Kit - Dx: Type 2 DM - Uncontrolled E11.65 blood sugar diagnostic (BLOOD GLUCOSE TEST) test strip Test blood sugar(s) 2 times daily. Dx: Type 2 DM - Uncontrolled E11.65 Insulin: No Lancets lancets Test blood sugar(s) 2 times daily. Dx: Type 2 DM - Uncontrolled E11.65 Insulin: No Insulin [place], Disposable, (PEN NEEDLES) 31 gauge x 1/4 ndle Use as directed 2-3 times daily. [place]-3 Fatty Acids (FISH OIL) 500 mg cap Take 2 capsules by mouth once daily. coconut oil 1,000 mg cap Take 1 capsule by mouth once daily. ADULT LOW DOSE ASPIRIN 81 MG TAB, DELAYED RELEASE Take one(1) tablet daily. FAMILY HISTORY Problem Relation Age of Onset - Diabetes Mother - Emphysema Father - Alcohol/Drug Father alcoholic Social History Substance Use Topics - Smoking status: Never Smoker - Smokeless tobacco: Never Used - Alcohol use No Review of Systems Constitutional: Positive for malaise/fatigue. Negative for chills, diaphoresis, fever and weight loss. HENT: Positive for congestion and sore throat. Negative for ear pain and nosebleeds. Respiratory: Positive for cough and wheezing. Negative for sputum production and shortness of breath. Cardiovascular: Negative for chest pain. Musculoskeletal: Negative for neck pain. Objective Blood pressure 122/64, pulse 86, temperature 36.8 ?C (98.3 ?F), temperature source Tympanic, resp. rate 16, weight 112.9 kg (249 lb), last menstrual period 11/04/2006, SpO2 94 %. Physical Exam Constitutional: She is oriented to person, place, and time and well-developed, well-nourished, and in no distress. Non-toxic appearance. She does not have a sickly appearance. No distress. HENT: Head: Normocephalic and atraumatic. Right Ear: Hearing, tympanic membrane, external ear and ear canal normal. Left Ear: Hearing, tympanic membrane, external ear and ear canal normal. Nose: Nose normal. Mouth/Throat: Uvula is midline, oropharynx is clear and moist and mucous membranes are normal. Eyes: Conjunctivae and lids are normal. Pupils are equal, round, and reactive to light. Right eye exhibits no discharge. Left eye exhibits no discharge. No scleral icterus. Neck: Trachea normal and normal range of motion. Neck supple. Cardiovascular: Normal rate, regular rhythm and normal heart sounds. Pulmonary/Chest: Effort normal. She has wheezes (scattered throughout). After nebulizer treatment - improvement noted, fine scattered wheeze remained bilaterally Lymphadenopathy: She has no cervical adenopathy. Neurological: She is alert and oriented to person, place, and time. Skin: No rash noted. She is not diaphoretic. ASSESSMENT/PLAN: 1. Asthmatic bronchitis with acute exacerbation, unspecified asthma severity, unspecified whether persistent - ICD9: 493.92, ICD10: J45.901 (primary diagnosis) - Discussed supportive care, given educational handout - Limit exposure to smoke and other inhaled irritants - Discussed possible red flags and when to seek medical attention - Follow up in 3-5 days or sooner if no better or worse -If you experience chest pain/shortness of breath go to ER - AZITHROMYCIN 250 MG TABLET - PREDNISONE 20 MG TABLET 2. Wheeze - ICD9: 786.07, ICD10: R06.2 Improvement noted after nebulizer treatment - ALBUTEROL SULFATE 2.5 MG/3 ML (0.083 %) SOLUTION FOR NEBULIZATION - XR CHEST 2V FRONTAL/LAT - Dictated by : PHILIP ESPINOZA MD Impression IMPRESSION: No acute radiographic abnormality. Prescription instructions reviewed with patient as applicable. Patient advised if symptoms do not improve or if symptoms worsen sooner, to contact the office for further evaluation by their primary care physician. Potential red flag symptoms discussed with the patient. Reviewed appropriate action plan to take if red flag symptoms occur. Patient agreeable to treatment plan. Mike Robbins APRN.JOSI Morgan Ma 05/04/2018 9:30 AM Signed 2.5 solution aerosol treatment given per doctor's orders. Prior to treatment O2 Sat is 94%. Treatment completed. O2 sat is 95%. Tolerated well. Referring Provider: SELF [[id number]] Allergies As of Date: 05/04/2018 Noted Allergy Reaction LISINOPRIL 12/16/2016 3 - Cough PRAVACHOL (PRAVASTATIN SODIUM) 11/08/2007 5 - Intolerance Comments: Severe myalgias SERTRALINE 06/26/2008 5 - Intolerance Comments: anorgasmia ZOCOR (SIMVASTATIN) 11/08/2007 5 - Intolerance Comments: Severe myalgias Date Reviewed: 05/04/2018 Reviewed by: Mike (Josi) - Fully Assessed Reason for Visit: chest congestion, cough, body aches [Other] Cmt: x 3 days Primary Visit Diagnosis:Asthmatic bronchitis with acute exacerbation, unspecified asthma severity, unspecified whether persistent [J45.901] Other Visit Diagnosis:Wheeze [R06.2] Order(s):[] albuterol 2.5 mg /3 mL (0.083 %) 2.5 mg (PROVENTIL)Disp: Rfl: XR CHEST 2V FRONTAL/LAT [[id number]] Order #: [id number]. #:[id number] azithromycin (ZITHROMAX Z-VASQUEZ) 250 mg tabletTake 2 tablets day one, then, 1 tablet daily until gone.Disp: 1 PackageRfl: 0 predniSONE (DELTASONE) 20 mg tabletTake 2 tablets by mouth once daily for 5 days.Disp: 10 tabletRfl: 0 Prescriptions as of 05/04/2018 Sig: PIOGLITAZONE 30 MG TABLET TAKE 1 TABLET DAILY ROSUVASTATIN 10 MG TABLET TAKE 1 TABLET DAILY AT BEDTIME GLIMEPIRIDE 4 MG TABLET TAKE 1 TABLET DAILY WITH SARAHI* METFORMIN ER 500 MG TABLET,EX* Take one with breakfast and 2* ALBUTEROL SULFATE HFA 90 MCG/* Inhale 2 Puffs as instructed * BUPROPION HCL SR 200 MG TABLE* TAKE 1 TABLET TWICE A DAY LOSARTAN 25 MG TABLET Take 1 tablet by mouth once d* EXENATIDE 10 MCG/DOSE(250 MCG* Inject dose 5-60 prior to br* BUDESONIDE-FORMOTEROL HFA 160* Inhale 2 Puffs as instructed * FLUOCINONIDE 0.05 % TOPICAL C* Apply 1 application to affect* BLOOD-GLUCOSE METER KIT Glucose Meter of Choice - Kit* BLOOD SUGAR DIAGNOSTIC STRIPS Test blood sugar(s) 2 times d* LANCETS Test blood sugar(s) 2 times d* PEN NEEDLE, DIABETIC 31 GAUGE* Use as directed 2-3 times bonnie* OMEGA-3 FATTY ACIDS 500 MG CA* Take 2 capsules by mouth once* COCONUT OIL 1,000 MG CAPSULE Take 1 capsule by mouth once * AZITHROMYCIN 250 MG TABLET Take 2 tablets day one, then,* PREDNISONE 20 MG TABLET Take 2 tablets by mouth once * ADULT LOW DOSE ASPIRIN 81 MG * Take one(1) tablet daily. Problem List As Of Date 05/04/2018 Noted Resolved Type II or unspecified type diabetes mellitus w*INVALID FOR*09/07/2016 More... Hyperlipidemia [E78.5] INVALID FOR* Obesity, unspecified [E66.9] INVALID FOR*03/31/2017 Abdominal pain, generalized [R10.84] INVALID FOR*11/30/2010 DYSTHYMIC DISORDER [F34.1] INVALID FOR* Asthma [J45.909] INVALID FOR* Type 2 diabetes mellitus without complication (*INVALID FOR* More... Trigger ring finger of right hand [M65.341] INVALID FOR*11/24/2017 Morbid obesity (HCC) [E66.01] Left carpal tunnel syndrome [G56.02] INVALID FOR* More... Essential hypertension [I10] INVALID FOR* Visit Notes: >> Molly Morgan Ma [facility] May 04, 2018 9:30 AM Status: Signed 2.5 solution aerosol treatment given per doctor's orders. Prior to treatment O2 Sat is 94%. Treatment completed. O2 sat is 95%. Tolerated well. Prescriptions ordered this encounter Disp Refills Start End ALBUTEROL SULFATE 2.5 MG/3 ML (0.083* 05/04/2018 05/04/2018 Route: INHALATION AZITHROMYCIN 250 MG TABLET 1 Pa* 0 05/04/2018 05/09/2018 Sig: Take 2 tablets day one, then, 1 tablet daily until gone. PREDNISONE 20 MG TABLET 10 t* 0 05/04/2018 05/09/2018 Route: ORAL Sig: Take 2 tablets by mouth once daily for 5 days. Encounter Status:Closed by MIKE ROBBINS CNP on 05/04/18 Normal [facility] PROGRESSon 05-04-2018 Protein mass conc HNO ID: [id number] Author: Allison Olson Service: (none) Author Type: (none) Type: Progress Notes Filed: 05/04/2018 10:54 AM Note Text: Radiology Service Progress Note PATIENT NAME: Annia Briggs DATE OF SERVICE: May 04, 2018 TIME: 10:48 AM PATIENT IDENTITY VERIFICATION COMPLETED USING TWO (2) METHODS: Patient confirmed name verbally and Date of . PATIENT GENDER DATA: Female. status: : No status: NO. PATIENT RELEVANT IMPLANT DATA REVIEWED: Not Applicable RADIOLOGY DEPARTMENT: General X-ray: Exam(s) Completed: Chest X-Ray PERIPHERAL IV DATA: Not applicable SIGNED BY: Allison Olson May 04, 2018 10:48 AM Normal [facility] Protein mass conc HNO ID: [id number] Author: Mike Robbins Service: (none) Author Type: Nurse Practitioner Type: Progress Notes Filed: 05/04/2018 12:07 PM Note Text: Subjective HPI HPI Annia Briggs is a 57 year old female who presents today for CC of cough, chest congestion. This started 3 days. Has tried otc medication. Symptoms are worsened by nothing. Risk factors diabetes, obesity. .Patient presents with: chest congestion, cough, body aches: x 3 days PAST MEDICAL HISTORY Diagnosis Date - Asthma 03/30/2010 - Depressive disorder, not elsewhere classified - Intestinal disaccharidase deficiencies and disaccharide malabsorption - Morbid obesity (HCC) - Type II or unspecified type diabetes mellitus without mention of complication, not stated as uncontrolled 07/16 PAST SURGICAL HISTORY Procedure Laterality Date - APPENDECTOMY 09/28/02 - INCISE FINGER TENDON SHEATH Right 11/15/2016 Right ring trigger finger release - L'SCOPE DX W/WO BRUSHINGS/WASHINGS 1980 Laparoscopy - REMOVAL OF OVARY/TUBE(S) Salpingo-oophorectomy - left - REVISE MEDIAN N/CARPAL TUNNEL SURG Bilateral Carpal tunnel decomp ALLERGIES Lisinopril; Pravachol [Pravastatin Sodium]; Sertraline; Zocor [Simvastatin] MEDICATIONS pioglitazone (ACTOS) 30 mg tablet TAKE 1 TABLET DAILY rosuvastatin (CRESTOR) 10 mg tablet TAKE 1 TABLET DAILY AT BEDTIME glimepiride (AMARYL) 4 mg tablet TAKE 1 TABLET DAILY WITH BREAKFAST metFORMIN ER (GLUCOPHAGE XR) 500 mg 24 hr tablet Take one with breakfast and 2 tablets with dinner. albuterol HFA (VENTOLIN HFA) 90 mcg/actuation inhaler Inhale 2 Puffs as instructed every 4 hours as needed for Wheezing/Shortness of Breath. buPROPion HCl 200 mg 12 hr tablet TAKE 1 TABLET TWICE A DAY losartan (COZAAR) 25 mg tablet Take 1 tablet by mouth once daily. exenatide (BYETTA) 10 mcg/dose(250 mcg/mL) 2.4 mL pnij Inject dose 5-60 prior to breakfast AND dinner. Minimum 6 hours between meals. budesonide-formoterol (SYMBICORT) 160-4.5 mcg/actuation inhaler Inhale 2 Puffs as instructed twice daily. fluocinonide (LIDEX) 0.05 % cream Apply 1 application to affected area twice daily. Blood-Glucose Meter monitoring kit Glucose Meter of Choice - Kit - Dx: Type 2 DM - Uncontrolled E11.65 blood sugar diagnostic (BLOOD GLUCOSE TEST) test strip Test blood sugar(s) 2 times daily. Dx: Type 2 DM - Uncontrolled E11.65 Insulin: No Lancets lancets Test blood sugar(s) 2 times daily. Dx: Type 2 DM - Uncontrolled E11.65 Insulin: No Insulin [place], Disposable, (PEN NEEDLES) 31 gauge x 1/4 ndle Use as directed 2-3 times daily. [place]-3 Fatty Acids (FISH OIL) 500 mg cap Take 2 capsules by mouth once daily. coconut oil 1,000 mg cap Take 1 capsule by mouth once daily. ADULT LOW DOSE ASPIRIN 81 MG TAB, DELAYED RELEASE Take one(1) tablet daily. FAMILY HISTORY Problem Relation Age of Onset - Diabetes Mother - Emphysema Father - Alcohol/Drug Father alcoholic Social History Substance Use Topics - Smoking status: Never Smoker - Smokeless tobacco: Never Used - Alcohol use No Review of Systems Constitutional: Positive for malaise/fatigue. Negative for chills, diaphoresis, fever and weight loss. HENT: Positive for congestion and sore throat. Negative for ear pain and nosebleeds. Respiratory: Positive for cough and wheezing. Negative for sputum production and shortness of breath. Cardiovascular: Negative for chest pain. Musculoskeletal: Negative for neck pain. Objective Blood pressure 122/64, pulse 86, temperature 36.8 ?C (98.3 ?F), temperature source Tympanic, resp. rate 16, weight 112.9 kg (249 lb), last menstrual period 11/04/2006, SpO2 94 %. Physical Exam Constitutional: She is oriented to person, place, and time and well-developed, well-nourished, and in no distress. Non-toxic appearance. She does not have a sickly appearance. No distress. HENT: Head: Normocephalic and atraumatic. Right Ear: Hearing, tympanic membrane, external ear and ear canal normal. Left Ear: Hearing, tympanic membrane, external ear and ear canal normal. Nose: Nose normal. Mouth/Throat: Uvula is midline, oropharynx is clear and moist and mucous membranes are normal. Eyes: Conjunctivae and lids are normal. Pupils are equal, round, and reactive to light. Right eye exhibits no discharge. Left eye exhibits no discharge. No scleral icterus. Neck: Trachea normal and normal range of motion. Neck supple. Cardiovascular: Normal rate, regular rhythm and normal heart sounds. Pulmonary/Chest: Effort normal. She has wheezes (scattered throughout). After nebulizer treatment - improvement noted, fine scattered wheeze remained bilaterally Lymphadenopathy: She has no cervical adenopathy. Neurological: She is alert and oriented to person, place, and time. Skin: No rash noted. She is not diaphoretic. ASSESSMENT/PLAN: 1. Asthmatic bronchitis with acute exacerbation, unspecified asthma severity, unspecified whether persistent - ICD9: 493.92, ICD10: J45.901 (primary diagnosis) - Discussed supportive care, given educational handout - Limit exposure to smoke and other inhaled irritants - Discussed possible red flags and when to seek medical attention - Follow up in 3-5 days or sooner if no better or worse -If you experience chest pain/shortness of breath go to ER - AZITHROMYCIN 250 MG TABLET - PREDNISONE 20 MG TABLET 2. Wheeze - ICD9: 786.07, ICD10: R06.2 Improvement noted after nebulizer treatment - ALBUTEROL SULFATE 2.5 MG/3 ML (0.083 %) SOLUTION FOR NEBULIZATION - XR CHEST 2V FRONTAL/LAT - Dictated by : PHILIP ESPINOZA MD Impression IMPRESSION: No acute radiographic abnormality. Prescription instructions reviewed with patient as applicable. Patient advised if symptoms do not improve or if symptoms worsen sooner, to contact the office for further evaluation by their primary care physician. Potential red flag symptoms discussed with the patient. Reviewed appropriate action plan to take if red flag symptoms occur. Patient agreeable to treatment plan. Mike Robbins APRN.SUPERVISOR [employer] Normal [facility] XR CHEST 2V FRONTAL/LATon XR CHEST 2V FRONTAL/LAT * * *Final Repor t* * * DATE OF EXAM: May 04 2018 10:54AM [id number] - XR CHEST 2V FRONTAL/LAT / PROCEDURE REASON: Wheezing * * * * Physician Interpretation * * * * EXAMINATION: CHEST RADIOGRAPH (2 VIEW FRONTAL and LATERAL) Clinical History: Wheezing MQ: XC2_5 Comparison: None RESULT: Lines, tubes, and devices: None. Lungs and pleura: No consolidation. No lung mass. No pleural effusion. Cardiomediastinal silhouette: Normal cardiomediastinal silhouette. Other: . IMPRESSION: No acute radiographic abnormality. 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 Comment on above: Performed By: #### U ACR #### [facility] [address] [place], [place] [address] Creatinine,Urine,Ran 36.4 mg/dL Normal 20-300 [facility] Comment on above: Performed By: #### U ACR #### [facility] [address] [place] [address] Comp Metabolic Panelon 04-30 Albumin mass conc 4.4 g/dL Normal 3.9-4.9 [facility] Comment on above: Performed By: #### C MP, LIPB, HBA1C #### [facility] [address] [place] [phone] ALP enzyme act/vol 79 U/L Normal 32-117 [facility] Comment on above: Performed By: #### C MP, LIPB, HBA1C #### [place] [address] [place] [phone] ALT enzyme act/vol 22 U/L Normal 7-38 [facility] Comment on above: Performed By: #### C MP, LIPB, HBA1C #### [place] [address] [place] [phone] Anion gap molar conc 14 mmol/L Normal 9-18 [facility] Comment on above: Performed By: #### C MP, LIPB, HBA1C #### [place] [address] [place] [phone] AST enzyme act/vol 24 U/L Normal 13-35 [facility] Comment on above: Performed By: #### C MP, LIPB, HBA1C #### [place] [address] [place] [phone] Bilirubin mass conc 0.4 mg/dL Normal 0.2-1.3 [facility] Comment on above: Performed By: #### C MP, LIPB, HBA1C #### [place] [address] [place] [phone] Calcium mass conc 9.3 mg/dL Normal 8.5-10.2 [facility] Comment on above: Performed By: #### C MP, LIPB, HBA1C #### [place] [address] [place] [phone] Chloride molar conc 100 mmol/L Normal 97-105 [facility] Comment on above: Performed By: #### C MP, LIPB, HBA1C #### [facility] [address] [phone] CO2 molar conc 25 mmol/L Normal 22-30 [facility] Comment on above: Performed By: #### C MP, LIPB, HBA1C #### [facility] [address] [phone] Creatinine mass conc 0.58 mg/dL Normal 0.58-0.96 [facility] Comment on above: Performed By: #### C MP, LIPB, HBA1C #### [place] [address] [place] [phone] eGFR- Amer. >60 Normal [facility] Comment on above: Performed By: #### C MP, LIPB, HBA1C #### [facility] [address] [place] [phone] GFR/1.73 sq M predicted among non-blacks MDRD vol rate/area (S/P/Bld) mL/min/{1.73_m2} Normal [facility] Comment on above: Result Comment: eGFR (Estimated GFR) Units of measure: mL/min/1.73 meters squared eGFR is derived from the reexpressed MDRD Study equation using the following parameters: serum creatinine, age, gender and race. The creatinine assay has been calibrated to be traceable to IDMS. An eGFR <60 mL/min/1.73m2 for >3 months is consistent with chronic kidney disease. Refer to KDOQI guidelines for clinical interpretation. In patients with unstable renal function, e.g. those with acute kidney injury, the eGFR may not accurately reflect actual GFR. Performed By: #### C MP, LIPB, HBA1C #### [facility] [address] [place] [phone] Glucose mass conc 186 mg/dL High 74-99 [facility] Comment on above: Result Comment: The [place] Diabetes Association (ADA) provides guidance for cutoff values for fasting glucose and random glucose. The ADA defines fasting as no caloric intake for at least 8 hours. Fasting plasma glucose results between 100 to 125 mg/dL indicate increased risk for diabetes (prediabetes). Fasting plasma glucose results greater than or equal to 126 mg/dL meet the criteria for diagnosis of diabetes. In the absence of unequivocal hyperglycemia, results should be confirmed by repeat testing. In a patient with classic symptoms of hyperglycemia or hyperglycemic crisis, random plasma glucose results greater than or equal to 200 mg/dL meet the criteria for diagnosis of diabetes. Reference: Standards of Medical Care in Diabetes 2016, [place] [employer] Association. Diabetes Care. 2016.39(Suppl 1). Performed By: #### C MP, LIPB, HBA1C #### [place] [address] [place] [address] Potassium molar conc 4.1 mmol/L Normal 3.7-5.1 [facility] Comment on above: Performed By: #### C MP, LIPB, HBA1C #### [place] [phone] Protein mass conc 6.8 g/dL Normal 6.3-8.0 [facility] Comment on above: Performed By: #### C MP, LIPB, HBA1C #### [place] [address] [place] [address] Sodium molar conc 139 mmol/L Normal 136-144 [facility] Comment on above: Performed By: #### C MP, LIPB, HBA1C #### [place] [address] [place] [address] Urea nitrogen mass conc 13 mg/dL Normal 7-21 [facility] Comment on above: Performed By: #### C MP, LIPB, HBA1C #### [place] [address] [place] [address] Hemoglobin A1con 04-30-2018 Hemoglobin A1c/Hemoglobin.total mass fraction (Bld) 8.2 % High 4.3-5.6 [facility] Comment on above: Performed By: #### C MP, LIPB, HBA1C #### [facility] [address] [place] [phone] Hemoglobin A1c/Hemoglobin.total mass fraction (Bld) 189 mg/dL Normal [facility] Comment on above: Result Comment: eAG: (Estimated average glucose) is a calculated value from HgbA1c and is eligibility services representative of the average blood glucose level in the last 2-3 month period. Performed By: #### C MP, LIPB, HBA1C #### [facility] [address] [place] [address] Lipid Panel, [facility] 018 Cholesterol in HDL mass conc 61 mg/dL Normal >39 [facility] Comment on above: Result Comment: 40-5 9 mg/dL, Acceptable >59 mg/dL, High: Negative risk factor for coronary heart disease <40 mg/dL, Low: Positive risk factor for coronary heart disease Performed By: #### C MP, LIPB, HBA1C #### [facility] [place] [address] Cholesterol in LDL mass conc 57 mg/dL Normal <100 [facility] Comment on above: Result Comment: <100 mg/dL, Optimal 100-129 mg/dL, Near optimal/above optimal 130-159 mg/dL, Borderline high 160-189 mg/dL, High >189 mg/dL, Very high Secondary prevention optimal LDL Cholesterol levels are recommended to be < 70 mg/dL Performed By: #### C MP, LIPB, HBA1C #### [facility] [address] [place], [place] [address] Cholesterol mass conc 145 mg/dL Normal <200 [facility] Comment on above: Result Comment: <200 mg/dL, Desirable 200-239 mg/dL, Borderline high >239 mg/dL, High Performed By: #### C MP, LIPB, HBA1C #### [facility] [address] [place], [place] [address] Fasting Time 10 hrs Normal [facility] Comment on above: Performed By: #### C MP, LIPB, HBA1C #### [facility] [address] [place] [phone] LDL:HDL Ratio 0.93 Normal <2.54 [facility] Comment on above: Result Comment: Thierry corea: 1. National Cholesterol Education Program ATP III Guideline At-A-Glance Quick Desk Reference: National Heart, Lung, and Blood [place]. National Institutes of Health. 2001: NIH Publication No. 01-3305. 2. An International Atherosclerosis Society position paper: global recommendations for the management of dyslipidemia: executive summary, Atherosclerosis. 2014: 232(2):410-413. Performed By: #### C MP, LIPB, HBA1C #### [facility] [address] [place] [phone] Non HDL Cholesterol 84 mg/dL Normal <130 [facility] Comment on above: Result Comment: <130 mg/dL, Optimal 130-159 mg/dL, Near optimal/above optimal 160-189 mg/dL, Borderline high 190-219 mg/dL, High >219 mg/dL, Very high Secondary prevention optimal non HDL Cholesterol levels are recommended to be < 100 mg/dL Performed By: #### C MP, LIPB, HBA1C #### [facility] [address] [place] [phone] TC:HDL Ratio 2.38 Normal <5.10 [facility] Comment on above: Performed By: #### C MP, LIPB, HBA1C #### [facility] [address] [place] [phone] Triglyceride mass conc 135 mg/dL Normal <150 [facility] Comment on above: Result Comment: <150 mg/dL, Normal 150-199 mg/dL, Borderline high 200-499 mg/dL, High >499 mg/dL, Very high Performed By: #### C MP, LIPB, HBA1C #### [facility] [address] [place] [phone] VLDL Cholesterol 27 mg/dL Normal <30 [facility] Comment on above: Performed By: #### C MP, LIPB, HBA1C #### [facility] [address] [place], [place] [address] CNOVon 04-27-2018 CNOV Office Visit (FAMPWS ) -------- ANNIA BRIGGS ([id number]) 1960 F Date Time Provider Department 04/27/18 11:40 AM SIDNEY SCHAFERWS During your visit today, we recorded the following information about you: Temperature Pulse Respiration Blood pressure 98.1 degrees 96/minute 12/minute 132/80 Weight 113.7 kg Sidney Schafer MD 04/27/2018 11:50 AM Signed Chief Complaint Patient presents with: Follow Up HPI Annia Briggs is a 57 year old female who presents here today for DM follow up. DM: pt currently taking, actos 30 mg, amaryl 10 mg, and metformin 500 mg twice a day. She did stop byetta, states she felt like it was making her stomach feel different. She has not been checking her bs lately, the last time she did this was 2 weeks ago and her readings are in the 200s range in the am. Denies any numbness/tingling on hands and feet. She did have her diabetic eye exam. She is interested in bariatric surgery and would like to do more research for this. Cpap: pt is now using a cpap machine. Toe: pt states she scraped her toe when she was getting out of the shower, would like to have it checked to make sure it is not getting infected. Swelling: has noticed some swelling around her ankles and feet. Past medical history, appointments, medications, allergies reviewed. Previous Medical History PAST MEDICAL HISTORY Diagnosis Date - Asthma 03/30/2010 - Depressive disorder, not elsewhere classified - Intestinal disaccharidase deficiencies and disaccharide malabsorption - Morbid obesity (HCC) - Type II or unspecified type diabetes mellitus without mention of complication, not stated as uncontrolled 07/16 Previous Surgical History PAST SURGICAL HISTORY Procedure Laterality Date - APPENDECTOMY 12/14/02 - INCISE FINGER TENDON SHEATH Right 11/15/2016 Right ring trigger finger release - L'SCOPE DX W/WO BRUSHINGS/WASHINGS 1980 Laparoscopy - REMOVAL OF OVARY/TUBE(S) Salpingo-oophorectomy - left - REVISE MEDIAN N/CARPAL TUNNEL SURG Bilateral Carpal tunnel decomp Family History FAMILY HISTORY Problem Relation Age of Onset - Diabetes Mother - Emphysema Father - Alcohol/Drug Father alcoholic Patient Allergies ALLERGIES Allergen Reactions - Lisinopril Cough - Pravachol [Pravasta* Intolerance Severe myalgias - Sertraline Intolerance anorgasmia - Zocor [Simvastatin] Intolerance Severe myalgias Current Medications Current Outpatient Prescriptions on File Prior to Visit: pioglitazone (ACTOS) 30 mg tablet TAKE 1 TABLET DAILY rosuvastatin (CRESTOR) 10 mg tablet TAKE 1 TABLET DAILY AT BEDTIME glimepiride (AMARYL) 4 mg tablet TAKE 1 TABLET DAILY WITH BREAKFAST metFORMIN ER (GLUCOPHAGE XR) 500 mg 24 hr tablet Take one with breakfast and 2 tablets with dinner. buPROPion HCl 200 mg 12 hr tablet TAKE 1 TABLET TWICE A DAY losartan (COZAAR) 25 mg tablet Take 1 tablet by mouth once daily. budesonide-formoterol (SYMBICORT) 160-4.5 mcg/actuation inhaler Inhale 2 Puffs as instructed twice daily. [place]-3 Fatty Acids (FISH OIL) 500 mg cap Take 2 capsules by mouth once daily. coconut oil 1,000 mg cap Take 1 capsule by mouth once daily. albuterol HFA (VENTOLIN HFA) 90 mcg/actuation inhaler Inhale 2 Puffs as instructed every 4 hours as needed for Wheezing/Shortness of Breath. exenatide (BYETTA) 10 mcg/dose(250 mcg/mL) 2.4 mL pnij Inject dose 5-60 prior to breakfast AND dinner. Minimum 6 hours between meals. fluocinonide (LIDEX) 0.05 % cream Apply 1 application to affected area twice daily. Blood-Glucose Meter monitoring kit Glucose Meter of Choice - Kit - Dx: Type 2 DM - Uncontrolled E11.65 blood sugar diagnostic (BLOOD GLUCOSE TEST) test strip Test blood sugar(s) 2 times daily. Dx: Type 2 DM - Uncontrolled E11.65 Insulin: No Lancets lancets Test blood sugar(s) 2 times daily. Dx: Type 2 DM - Uncontrolled E11.65 Insulin: No Insulin [place], Disposable, (PEN NEEDLES) 31 gauge x 1/4 ndle Use as directed 2-3 times daily. ADULT LOW DOSE ASPIRIN 81 MG TAB, DELAYED RELEASE Take one(1) tablet daily. No current facility-administered medications on file prior to visit. Social History Social History Marital status: Spouse name: Years of education: Number of children: Social History Main Topics Smoking status: Never Smoker Smokeless tobacco: Never Used Alcohol use: No Drug use: No Social History Narrative BIOSCRIPT AT FAX # EXAM: BP 132/80 Pulse 96 Temp 36.7 ?C (98.1 ?F) (Left Tympanic) Resp 12 Wt 113.7 kg (250 lb 9.6 oz) LMP 11/04/2006 BMI 43.02 kg/m? General Appearance: Well appearing, alert, in no acute distress, well-hydrated, well nourished.. Lungs: Lungs clear to auscultation. No wheezing, rhonchi, rales. Heart: RRR without murmur, gallop, or rubs. No ectopy. Feet: Shoes and socks removed, No deformities, ulcers, calluses, normal distal pulses, sensitive to 10 gm monofilament and abrasion right middle toe, mild surrounding erythema Health Maintenance List HPV EVERY 5 YEARS due on 1990 ZOSTER VACCINE (SHINGRIX)(1 of 2) due on 2010 DIABETIC FOOT EXAM due on 08/29/2017 HBA1C due on 05/24/2018 INFLUENZA(1) due on 06/16/2018 MAMMOGRAM due on 10/05/2018 URINE ALBUMIN CREATININE RATIO due on 01/25/2019 LDL due on 01/25/2019 DILATED RETINAL EXAM due on 04/12/2019 COLORECTAL CANCER SCREENING,SEE MODIFIER due on 11/30/2020 PAP EVERY 5 YEARS due on 08/26/2021 DTAP,TDAP,TD(3 - Td) due on 09/27/2026 ONE PNEUMOVAX PRIOR TO AGE 65 Completed HEPATITIS C SCREENING Completed Data reviewed ASSESSMENT/PLAN: 1. Type 2 diabetes mellitus without complication, without long-term current use of insulin (HCC) - ICD9: 250.00, ICD10: E11.9 (primary diagnosis) uncontrolled Check labs; if A1c elevated consider victoza or trulicity (This may be covered by insurance), as she did not tolerate byetta - HGB A1C - LIPID PANEL BASIC - COMP METABOLIC PANEL 2. Hyperlipidemia, unspecified hyperlipidemia type - ICD9: 272.4, ICD10: E78.5 - LIPID PANEL BASIC 3. Morbid obesity (HCC) - ICD9: 278.01, ICD10: E66.01 Discussed bariatric surgery - [facility] 4. Essential hypertension - ICD9: 401.9, ICD10: I1 Notify of lab results; follow up in 3 months Sidney Schafer MD The documentation for this note was completed by Anca Alvarado Ma acting as scribe for Sidney Schafer MD. April 27, 2018 11:32 AM. Referring Provider: SELF [[id number]] Allergies As of Date: 04/27/2018 Noted Allergy Reaction LISINOPRIL 12/16/2016 3 - Cough PRAVACHOL (PRAVASTATIN SODIUM) 11/08/2007 5 - Intolerance Comments: Severe myalgias SERTRALINE 06/26/2008 5 - Intolerance Comments: anorgasmia ZOCOR (SIMVASTATIN) 11/08/2007 5 - Intolerance Comments: Severe myalgias Date Reviewed: 04/27/2018 Reviewed by: Anca Alvarado Ma - Fully Assessed Reason for Visit: Follow Up [171] Primary Visit Diagnosis:Type 2 diabetes mellitus without complication, without long-term current use of insulin (HCC) [E11.9] Other Visit Diagnoses:Hyperlipidemia , unspecified hyperlipidemia type [E78.5] Morbid obesity (HCC) [E66.01] Essential hypertension [I10] Order(s):HGB A1C [[id number]] Order #: [id number] FUTURE LIPID PANEL BASIC [SQLIPB] Order #: [id number] [facility] [[id number]] Order #: [id number]: 1 COMP METABOLIC PANEL [SQCMP] Order #: [id number] FUTURE Prescriptions as of 04/27/2018 Sig: PIOGLITAZONE 30 MG TABLET TAKE 1 TABLET DAILY ROSUVASTATIN 10 MG TABLET TAKE 1 TABLET DAILY AT BEDTIME GLIMEPIRIDE 4 MG TABLET TAKE 1 TABLET DAILY WITH SARAHI* METFORMIN ER 500 MG TABLET,EX* Take one with breakfast and 2* BUPROPION HCL SR 200 MG TABLE* TAKE 1 TABLET TWICE A DAY LOSARTAN 25 MG TABLET Take 1 tablet by mouth once d* BUDESONIDE-FORMOTEROL HFA 160* Inhale 2 Puffs as instructed * [place]ME[place]-3 FATTY ACIDS 500 MG CA* Take 2 capsules by mouth once* COCONUT OIL 1,000 MG CAPSULE Take 1 capsule by mouth once * ALBUTEROL SULFATE HFA 90 MCG/* Inhale 2 Puffs as instructed * EXENATIDE 10 MCG/DOSE(250 MCG* Inject dose 5-60 prior to br* FLUOCINONIDE 0.05 % TOPICAL C* Apply 1 application to affect* BLOOD-GLUCOSE METER KIT Glucose Meter of Choice - Kit* BLOOD SUGAR DIAGNOSTIC STRIPS Test blood sugar(s) 2 times d* LANCETS Test blood sugar(s) 2 times d* PEN NEEDLE, DIABETIC 31 GAUGE* Use as directed 2-3 times bonnie* ADULT LOW DOSE ASPIRIN 81 MG * Take one(1) tablet daily. Problem List As Of Date 04/27/2018 Noted Resolved Type II or unspecified type diabetes mellitus w*INVALID FOR*09/07/2016 More... Hyperlipidemia [E78.5] INVALID FOR* Obesity, unspecified [E66.9] INVALID FOR*03/31/2017 Abdominal pain, generalized [R10.84] INVALID FOR*11/30/2010 DYSTHYMIC DISORDER [F34.1] INVALID FOR* Asthma [J45.909] INVALID FOR* Type 2 diabetes mellitus without complication (*INVALID FOR* More... Trigger ring finger of right hand [M65.341] INVALID FOR*11/24/2017 Morbid obesity (HCC) [E66.01] Left carpal tunnel syndrome [G56.02] INVALID FOR* More... Essential hypertension [I10] INVALID FOR* Disposition: Return in about 3 months (around 07/28/2018). Follow-up and Disposition History Recorded Encounter Status:Closed by SIDNEY SCHAFER MD on 04/27/18 [facility] PROGRESSon 04-27-2018 Protein mass conc HNO ID: [id number] Author: Sidney Schafer Service: (none) Author Type: Physician Type: Progress Notes Filed: 04/27/2018 11:50 AM Note Text: Chief Complaint Patient presents with: Follow Up HPI Annia Briggs is a 57 year old female who presents here today for DM follow up. DM: pt currently taking, actos 30 mg, amaryl 10 mg, and metformin 500 mg twice a day. She did stop byetta, states she felt like it was making her stomach feel different. She has not been checking her bs lately, the last time she did this was 2 weeks ago and her readings are in the 200s range in the am. Denies any numbness/tingling on hands and feet. She did have her diabetic eye exam. She is interested in bariatric surgery and would like to do more research for this. Cpap: pt is now using a cpap machine. Toe: pt states she scraped her toe when she was getting out of the shower, would like to have it checked to make sure it is not getting infected. Swelling: has noticed some swelling around her ankles and feet. Past medical history, appointments, medications, allergies reviewed. Previous Medical History PAST MEDICAL HISTORY Diagnosis Date - Asthma 03/30/2010 - Depressive disorder, not elsewhere classified - Intestinal disaccharidase deficiencies and disaccharide malabsorption - Morbid obesity (HCC) - Type II or unspecified type diabetes mellitus without mention of complication, not stated as uncontrolled 07/16 Previous Surgical History PAST SURGICAL HISTORY Procedure Laterality Date - APPENDECTOMY 09/28/02 - INCISE FINGER TENDON SHEATH Right 11/15/2016 Right ring trigger finger release - L'SCOPE DX W/WO BRUSHINGS/WASHINGS 1980 Laparoscopy - REMOVAL OF OVARY/TUBE(S) Salpingo-oophorectomy - left - REVISE MEDIAN N/CARPAL TUNNEL SURG Bilateral Carpal tunnel decomp Family History FAMILY HISTORY Problem Relation Age of Onset - Diabetes Mother - Emphysema Father - Alcohol/Drug Father alcoholic Patient Allergies ALLERGIES Allergen Reactions - Lisinopril Cough - Pravachol [Pravasta* Intolerance Severe myalgias - Sertraline Intolerance anorgasmia - Zocor [Simvastatin] Intolerance Severe myalgias Current Medications Current Outpatient Prescriptions on File Prior to Visit: pioglitazone (ACTOS) 30 mg tablet TAKE 1 TABLET DAILY rosuvastatin (CRESTOR) 10 mg tablet TAKE 1 TABLET DAILY AT BEDTIME glimepiride (AMARYL) 4 mg tablet TAKE 1 TABLET DAILY WITH BREAKFAST metFORMIN ER (GLUCOPHAGE XR) 500 mg 24 hr tablet Take one with breakfast and 2 tablets with dinner. buPROPion HCl 200 mg 12 hr tablet TAKE 1 TABLET TWICE A DAY losartan (COZAAR) 25 mg tablet Take 1 tablet by mouth once daily. budesonide-formoterol (SYMBICORT) 160-4.5 mcg/actuation inhaler Inhale 2 Puffs as instructed twice daily. [place]-3 Fatty Acids (FISH OIL) 500 mg cap Take 2 capsules by mouth once daily. coconut oil 1,000 mg cap Take 1 capsule by mouth once daily. albuterol HFA (VENTOLIN HFA) 90 mcg/actuation inhaler Inhale 2 Puffs as instructed every 4 hours as needed for Wheezing/Shortness of Breath. exenatide (BYETTA) 10 mcg/dose(250 mcg/mL) 2.4 mL pnij Inject dose 5-60 prior to breakfast AND dinner. Minimum 6 hours between meals. fluocinonide (LIDEX) 0.05 % cream Apply 1 application to affected area twice daily. Blood-Glucose Meter monitoring kit Glucose Meter of Choice - Kit - Dx: Type 2 DM - Uncontrolled E11.65 blood sugar diagnostic (BLOOD GLUCOSE TEST) test strip Test blood sugar(s) 2 times daily. Dx: Type 2 DM - Uncontrolled E11.65 Insulin: No Lancets lancets Test blood sugar(s) 2 times daily. Dx: Type 2 DM - Uncontrolled E11.65 Insulin: No Insulin [place], Disposable, (PEN NEEDLES) 31 gauge x 1/4 ndle Use as directed 2-3 times daily. ADULT LOW DOSE ASPIRIN 81 MG TAB, DELAYED RELEASE Take one(1) tablet daily. No current facility-administered medications on file prior to visit. Social History Social History Marital status: Spouse name: Years of education: Number of children: Social History Main Topics Smoking status: Never Smoker Smokeless tobacco: Never Used Alcohol use: No Drug use: No Social History Narrative BIOSCRIPT AT FAX # EXAM: BP 132/80 Pulse 96 Temp 36.7 ?C (98.1 ?F) (Left Tympanic) Resp 12 Wt 113.7 kg (250 lb 9.6 oz) LMP 11/04/2006 BMI 43.02 kg/m? General Appearance: Well appearing, alert, in no acute distress, well-hydrated, well nourished.. Lungs: Lungs clear to auscultation. No wheezing, rhonchi, rales. Heart: RRR without murmur, gallop, or rubs. No ectopy. Feet: Shoes and socks removed, No deformities, ulcers, calluses, normal distal pulses, sensitive to 10 gm monofilament and abrasion right middle toe, mild surrounding erythema Health Maintenance List HPV EVERY 5 YEARS due on 1990 ZOSTER VACCINE (SHINGRIX)(1 of 2) due on 2010 DIABETIC FOOT EXAM due on 08/29/2017 HBA1C due on 05/24/2018 INFLUENZA(1) due on 06/16/2018 MAMMOGRAM due on 10/05/2018 URINE ALBUMIN CREATININE RATIO due on 01/25/2019 LDL due on 01/25/2019 DILATED RETINAL EXAM due on 04/12/2019 COLORECTAL CANCER SCREENING,SEE MODIFIER due on 11/30/2020 PAP EVERY 5 YEARS due on 08/26/2021 DTAP,TDAP,TD(3 - Td) due on 09/27/2026 ONE PNEUMOVAX PRIOR TO AGE 65 Completed HEPATITIS C SCREENING Completed Data reviewed ASSESSMENT/PLAN: 1. Type 2 diabetes mellitus without complication, without long-term current use of insulin (HCC) - ICD9: 250.00, ICD10: E11.9 (primary diagnosis) uncontrolled Check labs; if A1c elevated consider victoza or trulicity (This may be covered by insurance), as she did not tolerate byetta - HGB A1C - LIPID PANEL BASIC - COMP METABOLIC PANEL 2. Hyperlipidemia, unspecified hyperlipidemia type - ICD9: 272.4, ICD10: E78.5 - LIPID PANEL BASIC 3. Morbid obesity (HCC) - ICD9: 278.01, ICD10: E66.01 Discussed bariatric surgery - [facility] 4. Essential hypertension - ICD9: 401.9, ICD10: I1 Notify of lab results; follow up in 3 months Sidney Schafer MD The documentation for this note was completed by Anca Alvarado Ma acting as scribe for Sidney Schafer MD. April 27, 2018 11:32 AM. [facility] CNPTOUTREACHon 04-10-2018 CNPTOUTREACH Patient Outreach (FAMPST) -------- ANNIA BRIGGS ([id number]) 1960 F Date Time Provider Department 04/10/18 SIDNEY SCHAFER During your visit today, we recorded the following information about you: Allergies As of Date: 04/10/2018 Noted Allergy Reaction LISINOPRIL 12/16/2016 3 - Cough PRAVACHOL (PRAVASTATIN SODIUM) 11/08/2007 5 - Intolerance Comments: Severe myalgias SERTRALINE 06/26/2008 5 - Intolerance Comments: anorgasmia ZOCOR (SIMVASTATIN) 11/08/2007 5 - Intolerance Comments: Severe myalgias Date Reviewed: 02/09/2018 Reviewed by: Joni Saha (Rn) [place] - Fully Assessed Visit Diagnosis:Medication management [Z79.899] Order(s):ALBUMIN/CREAT RATIO RND UR [SQUACR] Order #: [id number] FUTURE HGB A1C [[id number]] Order #: [id number] FUTURE Prescriptions as of 04/10/2018 Sig: X PIOGLITAZONE 30 MG TABLET TAKE 1 TABLET DAILY ROSUVASTATIN 10 MG TABLET TAKE 1 TABLET DAILY AT BEDTIME X GLIMEPIRIDE 4 MG TABLET TAKE 1 TABLET DAILY WITH SARAHI* METFORMIN ER 500 MG TABLET,EX* Take one with breakfast and 2* ALBUTEROL SULFATE HFA 90 MCG/* Inhale 2 Puffs as instructed * X BUPROPION HCL SR 200 MG TABLE* TAKE 1 TABLET TWICE A DAY X LOSARTAN 25 MG TABLET Take 1 tablet by mouth once d* X EXENATIDE 10 MCG/DOSE(250 MCG* Inject dose 5-60 prior to br* Patient not taking: Reported on 05/29/2018 BUDESONIDE-FORMOTEROL HFA 160* Inhale 2 Puffs as instructed * FLUOCINONIDE 0.05 % TOPICAL C* Apply 1 application to affect* BLOOD-GLUCOSE METER KIT Glucose Meter of Choice - Kit* LANCETS Test blood sugar(s) 2 times d* X BLOOD SUGAR DIAGNOSTIC STRIPS Test blood sugar(s) 2 times d* PEN NEEDLE, DIABETIC 31 GAUGE* Use as directed 2-3 times bonnie* OMEGA-3 FATTY ACIDS 500 MG CA* Take 2 capsules by mouth once* COCONUT OIL 1,000 MG CAPSULE Take 1 capsule by mouth once * ADULT LOW DOSE ASPIRIN 81 MG * Take one(1) tablet daily. Problem List As Of Date 04/10/2018 Noted Resolved Type II or unspecified type diabetes mellitus w*INVALID FOR*09/07/2016 More... Hyperlipidemia [E78.5] INVALID FOR* Obesity, unspecified [E66.9] INVALID FOR*03/31/2017 Abdominal pain, generalized [R10.84] INVALID FOR*11/30/2010 DYSTHYMIC DISORDER [F34.1] INVALID FOR* Asthma [J45.909] INVALID FOR* Type 2 diabetes mellitus without complication (*INVALID FOR* More... Trigger ring finger of right hand [M65.341] INVALID FOR*11/24/2017 Morbid obesity (HCC) [E66.01] Left carpal tunnel syndrome [G56.02] INVALID FOR* More... Encounter Status:Closed by EPIC, PRODUSER on 07/27/18 [facility] NURSING PROGon 11-29-2017 NURSING PROG HNO ID: [id number]: Joni (Rn) Ned, RNService: (none)Author Type: Registered NurseType: Nursing Progress NoteFiled: 11/29/2017 4:02 PMNote Text:PACC Nurse Progress NoteHistory AND Physical:PACC Visit Date: 11/24Original HANDP Date: N/AED visit Date: N/AOutside HANDP Scanned Date: N/ALabs Within Last 6 Months:BMP/CMP: Date BA1C: Date 11/24Glucose, HBA1C elevated, patient a known diabetic.Imaging Within Last 12 Months:N/ACardiac Testing:EKG in last 12 Months: Yes: Date: 11/24, Comment: confirmed-NSRLast Menstrual Period:LMP Date: UnknownPostmenopausal >1yr: Yes,S/P Hysterectomy: N/ABMI Percentile (PEDS):N/ARisk Assessment:N/AAnesthesia Review:N/ANarrative:HBA1 C and CMP results sent by SUPERVISOR CL[employer] WINDING for surgeon and PCP to review .Pre-op Considerations:N/AChart Check:Minnie Marino, ALETAebruary 2017 3:59 PM [facility] Vital Signs Date Time Vital Sign Value Performing Clinician Jesusi tri 03-26-2025 12:00-0400 Body temperature 98 [degF] Dr. Ramo Rico MD Work Phone: [facility] 03-26-2025 12:00-0400 Diastolic blood pressure 74 mm[Hg] Dr. Ramo Rico MD Work Phone: [facility] 03-26-2025 12:00-0400 Heart rate 72 /min Dr. Ramo Rico MD Work Phone: [facility] 03-26-2025 12:00-0400 Respiratory rate 18 /min Dr. Ramo Rico MD Work Phone: [facility] 03-26-2025 12:00-0400 SaO2% (BldA) [Mass fraction] 99 % Dr. Ramo Rico MD Work Phone: [facility] 03-26-2025 12:00-0400 Systolic blood pressure 108 mm[Hg] Dr. Ramo Rico MD Work Phone: [facility] 03-26-2025 09:08-0400 Body height 162.[address] Ramo Rico MD Work Phone: [facility] 03-26-2025 09:08-0400 Body mass index (BMI) [Ratio] 39.4 kg/m2 Dr. Ramo Rico MD Work Phone: [facility] 03-26-2025 09:08-0400 Body weight 104.[address] Ramo Rico MD Work Phone: [facility] 03-17-2025 11:36-0400 Body temperature 98.8 [degF] Dr. Ramo Rico MD Work Phone: [facility] 03-17-2025 11:36-0400 Diastolic blood pressure 80 mm[Hg] Dr. Ramo Rico MD Work Phone: [facility] 03-17-2025 11:36-0400 Heart rate 93 /min Dr. Ramo Rico MD Work Phone: [facility] 03-17-2025 11:36-0400 SaO2% (BldA) [Mass fraction] 98 % Dr. Ramo Rico MD Work Phone: [facility] 03-17-2025 11:36-0400 Systolic blood pressure 130 mm[Hg] Dr. Ramo Rico MD Work Phone: [facility] 02-17-2025 15:11-0400 Body height 162.[address] Ramo Rico MD Work Phone: [facility] 02-17-2025 15:11-0400 Body mass index (BMI) [Ratio] 40.4 kg/m2 Dr. Ramo Rico MD Work Phone: [facility] 02-17-2025 15:11-0400 Body weight 106.[address] Ramo Rico MD Work Phone: [facility] 02-10-2025 10:23-0400 Body mass index (BMI) [Ratio] 41.2 kg/m2 Dr. Ramo Rico MD Work Phone: [facility] 02-10-2025 10:23-0400 Body temperature 96.6 [degF] Dr. Ramo Rico MD Work Phone: [facility] 02-10-2025 10:23-0400 Body weight 109.[address] Ramo Rico MD Work Phone: [facility] 02-10-2025 10:23-0400 Diastolic blood pressure 72 mm[Hg] Dr. Ramo Rico MD Work Phone: [facility] 02-10-2025 10:23-0400 Heart rate 85 /min Dr. Ramo Rico MD Work Phone: [facility] 02-10-2025 10:23-0400 Respiratory rate 16 /min Dr. Ramo Rico MD Work Phone: [facility] 02-10-2025 10:23-0400 SaO2% (BldA) [Mass fraction] 95 % Dr. Ramo Rico MD Work Phone: [facility] 02-10-2025 10:23-0400 Systolic blood pressure 116 mm[Hg] Dr. Ramo Rico MD Work Phone: [facility] 12-25-2024 11:07-0400 Body height 162.[address] Ramo Rico MD Work Phone: [facility] 12-25-2024 11:04-0400 Body mass index (BMI) [Ratio] 39.9 kg/m2 Dr. Ramo Rico MD Work Phone: [facility] 12-25-2024 11:04-0400 Body weight 105.[address] Ramo Rico MD Work Phone: [facility] 12-25-2024 11:04-0400 Diastolic blood pressure 66 mm[Hg] Dr. Ramo Rico MD Work Phone: [facility] 12-25-2024 11:04-0400 Systolic blood pressure 119 mm[Hg] Dr. Ramo Rico MD Work Phone: [facility] 11-06-2024 09:43-0500 Body mass index (BMI) [Ratio] 39.3 kg/m2 Dr. Ramo Rico MD Work Phone: [facility] 11-06-2024 09:43-0500 Body weight 103.[address] Ramo Rico MD Work Phone: [facility] 11-06-2024 09:43-0500 Diastolic blood pressure 66 mm[Hg] Dr. Ramo Rico MD Work Phone: [facility] 11-06-2024 09:43-0500 Heart rate 87 /min Dr. Ramo Rico MD Work Phone: [facility] 11-06-2024 09:43-0500 Respiratory rate 16 /min Dr. Ramo Rico MD Work Phone: [facility] 11-06-2024 09:43-0500 SaO2% (BldA) [Mass fraction] 98 % Dr. Ramo Rico MD Work Phone: [facility] 11-06-2024 09:43-0500 Systolic blood pressure 136 mm[Hg] Dr. Ramo Rico MD Work Phone: [facility] 02-02-2024 10:58-0400 Body height 162.[address] Ramo Rico Work Phone: [facility] 02-02-2024 10:58-0400 Body mass index (BMI) [Ratio] 43.2 kg/m2 Dr. Ramo Rico Work Phone: [facility] 02-02-2024 10:58-0400 Body temperature 97.8 [degF] Dr. Ramo Rico Work Phone: [facility] 02-02-2024 10:58-0400 Body weight 114.[address] Ramo Rico Work Phone: [facility] 02-02-2024 10:58-0400 Diastolic blood pressure 72 mm[Hg] Dr. Ramo Rico Work Phone: [facility] 02-02-2024 10:58-0400 Heart rate 83 /min Dr. Ramo Rico Work Phone: [facility] 02-02-2024 10:58-0400 Respiratory rate 16 /min Dr. Ramo Rico Work Phone: [facility] 02-02-2024 10:58-0400 SaO2% (BldA) [Mass fraction] 98 % Dr. Ramo Rico Work Phone: [facility] 02-02-2024 10:58-0400 Systolic blood pressure 128 mm[Hg] Dr. Ramo Rico Work Phone: [facility] 01-16-2024 16:21-0400 Body temperature 98.2 [degF] Dr. Ramo Rico Work Phone: [facility] 01-16-2024 16:21-0400 Diastolic blood pressure 64 mm[Hg] Dr. Ramo Rico Work Phone: [facility] 01-16-2024 16:21-0400 Heart rate 92 /min Dr. Ramo Rico Work Phone: [facility] 01-16-2024 16:21-0400 Respiratory rate 16 /min Dr. Ramo Rico Work Phone: [facility] 01-16-2024 16:21-0400 SaO2% (BldA) [Mass fraction] 93 % Dr. Ramo Rico Work Phone: [facility] 01-16-2024 16:21-0400 Systolic blood pressure 146 mm[Hg] Dr. Ramo Rico Work Phone: [facility] 12-25-2023 11:25-0400 Body mass index (BMI) [Ratio] 44.2 kg/m2 Dr. Ramo Rico Work Phone: [facility] 12-25-2023 11:25-0400 Body temperature 98.2 [degF] Dr. Ramo Rico Work Phone: [facility] 12-25-2023 11:25-0400 Body weight 117.[address] Ramo Rico Work Phone: [facility] 12-25-2023 11:25-0400 Diastolic blood pressure 73 mm[Hg] Dr. Ramo Rico Work Phone: [facility] 12-25-2023 11:25-0400 Heart rate 92 /min Dr. Ramo Rico Work Phone: [facility] 12-25-2023 11:25-0400 Respiratory rate 18 /min Dr. Ramo Rico Work Phone: [facility] 12-25-2023 11:25-0400 SaO2% (BldA) [Mass fraction] 97 % Dr. Ramo Rico Work Phone: [facility] 12-25-2023 11:25-0400 Systolic blood pressure 123 mm[Hg] Dr. Ramo Rico Work Phone: [facility] 11-10-2023 10:09-0500 Body height 162.[address] Ramo Rico Work Phone: [facility] 11-10-2023 10:09-0500 Body mass index (BMI) [Ratio] 44.1 kg/m2 Dr. Ramo Rico Work Phone: [facility] 11-10-2023 10:09-0500 Body temperature 97.5 [degF] Dr. Ramo Rico Work Phone: [facility] 11-10-2023 10:09-0500 Body weight 116.[address] Ramo Rico Work Phone: [facility] 11-10-2023 10:09-0500 Diastolic blood pressure 72 mm[Hg] Dr. Ramo Rico Work Phone: [facility] 11-10-2023 10:09-0500 Heart rate 80 /min Dr. Ramo Rico Work Phone: [facility] 11-10-2023 10:09-0500 Respiratory rate 16 /min Dr. Ramo Rico Work Phone: [facility] 11-10-2023 10:09-0500 SaO2% (BldA) [Mass fraction] 97 % Dr. Ramo Rico Work Phone: [facility] 11-10-2023 10:09-0500 Systolic blood pressure 126 mm[Hg] Dr. Ramo Rico Work Phone: [facility] 2023 15:32-0500 Body temperature 98.5 [degF] Dr. Ramo Rico Work Phone: [facility] 2023 15:32-0500 Diastolic blood pressure 76 mm[Hg] Dr. Ramo Rico Work Phone: [facility] 2023 15:32-0500 Heart rate 97 /min Dr. Ramo Rico Work Phone: [facility] 2023 15:32-0500 Respiratory rate 14 /min Dr. Ramo Rico Work Phone: [facility] 2023 15:32-0500 SaO2% (BldA) [Mass fraction] 95 % Dr. Ramo Rico Work Phone: [facility] 2023 15:32-0500 Systolic blood pressure 148 mm[Hg] Dr. Ramo Rico Work Phone: [facility] 08-17-2023 08:32-0400 Body mass index (BMI) [Ratio] 43.2 kg/m2 Dr. Ramo Rico Work Phone: [facility] 08-17-2023 08:32-0400 Body temperature 95.9 [degF] Dr. Ramo Rico Work Phone: [facility] 08-17-2023 08:32-0400 Body weight 114.[address] Ramo Rico Work Phone: [facility] 08-17-2023 08:32-0400 Diastolic blood pressure 78 mm[Hg] Dr. Ramo Rico Work Phone: [facility] 08-17-2023 08:32-0400 Heart rate 82 /min Dr. Ramo Rico Work Phone: [facility] 08-17-2023 08:32-0400 Respiratory rate 20 /min Dr. Ramo Rico Work Phone: [facility] 08-17-2023 08:32-0400 SaO2% (BldA) [Mass fraction] 98 % Dr. Ramo Rico Work Phone: [facility] 08-17-2023 08:32-0400 Systolic blood pressure 150 mm[Hg] Dr. Ramo Rico Work Phone: [facility] 05-25-2023 10:01-0400 Body height 162.[address] Ramo Rico Work Phone: [facility] 05-25-2023 10:01-0400 Body mass index (BMI) [Ratio] 44.2 kg/m2 Dr. Ramo Rico Work Phone: [facility] 05-25-2023 10:01-0400 Body weight 117.[address] Ramo Rico Work Phone: [facility] 05-05-2023 09:59-0400 Body height 162.[address] Ramo Rico Work Phone: [facility] 05-05-2023 09:59-0400 Body mass index (BMI) [Ratio] 44.1 kg/m2 Dr. Ramo Rico Work Phone: [facility] 05-05-2023 09:59-0400 Body temperature 97.8 [degF] Dr. Ramo Rico Work Phone: [facility] 05-05-2023 09:59-0400 Body weight 116.[address] Ramo Rico Work Phone: [facility] 05-05-2023 09:59-0400 Diastolic blood pressure 70 mm[Hg] Dr. Ramo Rico Work Phone: [facility] 05-05-2023 09:59-0400 Heart rate 82 /min Dr. Ramo Rico Work Phone: [facility] 05-05-2023 09:59-0400 Respiratory rate 16 /min Dr. Ramo Rico Work Phone: [facility] 05-05-2023 09:59-0400 SaO2% (BldA) [Mass fraction] 98 % Dr. Ramo Rico Work Phone: [facility] 05-05-2023 09:59-0400 Systolic blood pressure 146 mm[Hg] Dr. Ramo Rico Work Phone: [facility] 04-11-2023 10:04-0400 Body mass index (BMI) [Ratio] 44.2 kg/m2 Dr. Ramo Rico Work Phone: [facility] 04-11-2023 10:04-0400 Body weight 117.[address] Ramo Rico Work Phone: [facility] 04-11-2023 10:04-0400 Diastolic blood pressure 73 mm[Hg] Dr. Ramo Rico Work Phone: [facility] 04-11-2023 10:04-0400 Heart rate 80 /min Dr. Ramo Rico Work Phone: [facility] 04-11-2023 10:04-0400 Respiratory rate 18 /min Dr. Ramo Rico Work Phone: [facility] 04-11-2023 10:04-0400 Systolic blood pressure 125 mm[Hg] Dr. Ramo Rico Work Phone: [facility] 03-07-2023 14:43-0400 Body temperature 97.4 [degF] Dr. Ramo Rico Work Phone: [facility] 03-07-2023 14:43-0400 Diastolic blood pressure 72 mm[Hg] Dr. Ramo Rico Work Phone: [facility] 03-07-2023 14:43-0400 Heart rate 85 /min Dr. Ramo Rico Work Phone: [facility] 03-07-2023 14:43-0400 Respiratory rate 16 /min Dr. Ramo Rico Work Phone: [facility] 03-07-2023 14:43-0400 SaO2% (BldA) [Mass fraction] 99 % Dr. Ramo Rico Work Phone: [facility] 03-07-2023 14:43-0400 Systolic blood pressure 142 mm[Hg] Dr. Ramo Rico Work Phone: [facility] 02-09-2023 14:34-0400 Body height 162.[address] Ramo Rico Work Phone: [facility] 02-09-2023 14:34-0400 Body mass index (BMI) [Ratio] 45.3 kg/m2 Dr. Ramo Rico Work Phone: [facility] 02-09-2023 14:34-0400 Body temperature 98.6 [degF] Dr. Ramo Rico Work Phone: [facility] 02-09-2023 14:34-0400 Body weight 119.[address] Ramo Rico Work Phone: [facility] 02-09-2023 14:34-0400 Diastolic blood pressure 86 mm[Hg] Dr. Ramo Rico Work Phone: [facility] 02-09-2023 14:34-0400 Heart rate 103 /min Dr. Ramo Rico Work Phone: [facility] 02-09-2023 14:34-0400 Respiratory rate 20 /min Dr. Ramo Rico Work Phone: [facility] 02-09-2023 14:34-0400 SaO2% (BldA) [Mass fraction] 96 % Dr. Ramo Rico Work Phone: [facility] 02-09-2023 14:34-0400 Systolic blood pressure 150 mm[Hg] Dr. Raom Rico Work Phone: [facility] 12-27-2022 08:24-0400 Body mass index (BMI) [Ratio] 44.1 kg/m2 Dr. Ramo Rico Work Phone: [facility] 12-27-2022 08:24-0400 Body temperature 97.2 [degF] Dr. Ramo Rico Work Phone: [facility] 12-27-2022 08:24-0400 Body weight 116.[address] Ramo Rico Work Phone: [facility] 12-27-2022 08:24-0400 Diastolic blood pressure 77 mm[Hg] Dr. Ramo Rico Work Phone: [facility] 12-27-2022 08:24-0400 Heart rate 85 /min Dr. Ramo Rico Work Phone: [facility] 12-27-2022 08:24-0400 Respiratory rate 18 /min Dr. Ramo Rico Work Phone: [facility] 12-27-2022 08:24-0400 SaO2% (BldA) [Mass fraction] 95 % Dr. Ramo Rico Work Phone: [facility] 12-27-2022 08:24-0400 Systolic blood pressure 149 mm[Hg] Dr. Ramo Rico Work Phone: [facility] 10-28-2022 11:04-0500 Body height 162.[address] Ramo Rico Work Phone: [facility] 10-28-2022 11:04-0500 Body mass index (BMI) [Ratio] 43.7 kg/m2 Dr. Ramo Rico Work Phone: [facility] 10-28-2022 11:04-0500 Body temperature 96.8 [degF] Dr. Ramo Rico Work Phone: [facility] 10-28-2022 11:04-0500 Body weight 115.[address] Ramo Rico Work Phone: [facility] 10-28-2022 11:04-0500 Diastolic blood pressure 80 mm[Hg] Dr. Ramo Rico Work Phone: [facility] 10-28-2022 11:04-0500 Heart rate 64 /min Dr. Ramo Rico Work Phone: [facility] 10-28-2022 11:04-0500 Respiratory rate 16 /min Dr. Ramo Rico Work Phone: [facility] 10-28-2022 11:04-0500 SaO2% (BldA) [Mass fraction] 98 % Dr. Ramo Rico Work Phone: [facility] 10-28-2022 11:04-0500 Systolic blood pressure 130 mm[Hg] Dr. Ramo Rico Work Phone: [facility] 10-12-2022 13:49-0500 Body mass index (BMI) [Ratio] 44 kg/m2 Dr. Ramo Rico Work Phone: [facility] 10-12-2022 13:49-0500 Body weight 116.[address] Ramo Rico Work Phone: [facility] 10-12-2022 13:49-0500 Diastolic blood pressure 62 mm[Hg] Dr. Ramo Rico Work Phone: [facility] 10-12-2022 13:49-0500 Heart rate 100 /min Dr. Ramo Rico Work Phone: [facility] 10-12-2022 13:49-0500 Respiratory rate 18 /min Dr. Ramo Rico Work Phone: [facility] 10-12-2022 13:49-0500 Systolic blood pressure 134 mm[Hg] Dr. Ramo Rico Work Phone: [facility] Encounters Encounter Date Encounter Type Care Provider Facility Start: 03-26-2025 End: 03-26-2025 Emergency department patient visit Dr. Ramo Rico MD Work Phone: -Emergency Department Work Phone: Start: 03-26-2025 ambulatory Ramo Rioc Facili [facility] Start: 03-17-2025 End: 03-17-2025 Patient encounter procedure Clifford Damon [place] -[facility] Work Phone: Start: 03-17-2025 End: 03-17-[address] Ramo Rico MD Work Phone: [facility] Work Phone: Start: 02-17-2025 End: 02-17-[address] Breezy Martinez DO -[facility] Work Phone: Start: 02-17-2025 End: 02-17-2025 ambulatory Ramo Rico Facility:[facility] Start: 02-10-2025 End: 02-10-[address] Ramo Rico MD -[facility] Work Phone: Start: 02-10-2025 End: 02-10-2025 ambulatory Ramo Rico Facility:[facility] Start: 12-25-2024 End: 12-25-[address] Ramo Rico MD Work Phone: [facility] Work Phone: Start: 12-25-2024 End: 12-25-2024 Patient encounter procedure Xenia Leija CNM -Laboratory, Specimen Work Phone: Start: 12-25-2024 Encounter for gynecological examination (general) (routine) without abnormal findings Xenia Leija [facility] Start: 12-25-2024 End: 12-25-2024 Patient encounter procedure Xenia Leija CNM -[facility] Start: 12-25-2024 End: 12-25-2024 Patient encounter status Xenia Leija CNM [facility] Start: 12-25-2024 End: 12-25-2024 ambulatory Efewongbe Oleghe Facility:[facility] Start: 12-25-2024 End: 12-25-2024 ambulatory Xenia Leija Facility:[facility] Start: 11-06-2024 End: 11-06-2024 ambulatory Efewongbe Olebreezye Facility:[facility] Start: 11-06-2024 End: 11-06-[address] Ramo Rico MD -[facility] Work Phone: Start: 11-06-2024 End: 11-06-2024 [facility] Start: 08-05-2024 Encounter for genera l adult medical examination without abnormal findings [facility] Start: 08-05-[address] Kiarra Rico MD Work Phone: [facility] Start: 08-05-2024 End: 08-05-2024 ambulatory Efewongbe Oleghe Facility:[facility] Start: 07-01-2024 End: 07-01-2024 ambulatory Efewongbe Oleghe Facility:[facility] Start: 06-11-2024 End: 06-11-2024 ambulatory Efewongbe Oleghe Facility:[facility] Start: 05-08-2024 [facility] Start: 05-08-2024 End: 05-08-2024 ambulatory Efewongbe Oleghe Facility:[facility] Start: 05-03-2024 End: 05-03-2024 [facility] Start: 05-03-2024 End: 05-03-2024 [facility] Start: 04-05-2024 End: 04-05-20[facility] Start: 02-02-2024 End: 02-02-[address] Ramo Rico Work Phone: [facility] Work Phone: Start: 02-02-2024 End: 02-02-[address] Ramo Rico Work Phone: [facility] Internal Medicine Work Phone: Start: 01-16-2024 End: 01-16-[address] Ramo Rico Work Phone: [facility] Work Phone: Start: 12-25-2023 End: 12-25-[address] Ramo Rico Work Phone: [facility] Pulmonary Medicine Work Phone: Start: 11-10-2023 End: 11-10-[address] Ramo Rico Work Phone: [facility] Work Phone: Start: 11-10-2023 End: 11-10-[address] Ramo Rico Work Phone: [facility] Internal Medicine Work Phone: Start: 2023 End: [address] Ramo Rico Work Phone: [facility] Work Phone: Start: 08-17-2023 End: 08-17-[address] Ramo Rico Work Phone: [facility]-Pulmonary Medicine [facility] Work Phone: Start: 05-25-2023 End: 05-25-[address] Ramo Rico Work Phone: [facility] Work Phone: Start: 05-19-2023 End: 05-19-[address] Ramo Rico Work Phone: [facility] Work Phone: Start: 05-19-2023 End: 05-19-[address] Ramo Rico Work Phone: [facility]-Radiology, [place] Work Phone: Start: 05-12-2023 End: 05-12-[address] Ramo Rico Work Phone: [facility] Work Phone: Start: 05-12-2023 End: 05-12-[address] Ramo Rico Work Phone: [facility]-Outpatient Breast Imaging Work Phone: Start: 05-05-2023 End: 05-05-[address] Ramo Rico Work Phone: [facility] Internal Medicine Work Phone: Start: 04-11-2023 End: 04-11-[address] Ramo Rico Work Phone: [facility] Work Phone: Start: 03-07-2023 End: 03-07-[address] Ramo Rico Work Phone: [facility]-Laboratory, Specimen Work Phone: Start: 03-07-2023 End: 03-07-[address] Raom Rico Work Phone: [facility] Work Phone: Start: 02-09-2023 End: 02-09-[address] Ramo Rico Work Phone: [facility] Work Phone: Start: 02-09-2023 End: 02-09-[address] Ramo Rico Work Phone: [facility] Start: 12-27-2022 End: 12-27-[address] Ramo Rico Work Phone: [facility] Start: 10-28-2022 End: 10-28-[address] Ramo Rico Work Phone: [facility] Work Phone: Start: 10-28-2022 End: 10-28-[address] Ramo Rico Work Phone: [facility] Internal Medicine Start: 10-12-2022 End: 10-12-[address] Ramo Rico Work Phone: [facility] Start: 07-30-2018 End: 07-30-2018 Patient encounter procedure SIDNEY SCHAFER [facility] Start: 07-30-2018 End: 07-31-2018 Patient encounter procedure SIDNEY SCHAFER [facility] Start: 05-29-2018 End: 05-29-2018 Patient encounter procedure WILLIAM LEIJA [facility] Start: 05-07-2018 End: 05-09-2018 Patient encounter procedure MELBA GU [facility] Start: 05-04-2018 End: 05-07-2018 Patient encounter procedure MIKE (PA) [facility] Start: 04-30-2018 End: 04-30-2018 Patient encounter procedure SIDNEY Kulkarni [facility] Start: 04-27-2018 End: 04-30-2018 Patient encounter procedure SIDNEY Kulkarni [facility] Procedures Date Procedure Procedure Detail Performing Clinician Start: 03-26-[address] Ramo Rico MD Work Phone: Start: 03-26-2025 X-ray of chest, PA a nd lateral views Dr. Ramo Rico MD Work Phone: Start: 02-17-2025 X-ray of knee, four or more views Dr[address] Ramo Rico MD Work Phone: Start: 12-25-2024 Liquid based cervica l cytology screening Dr. Ramo Rico MD Work Phone: Comment on above: NEGATIVE FOR INTRAEP ITHELIAL LESION OR MALIGNANCY. This liquid based Th inPrep(R) pap test was screened withthe use of an image guided system. Start: 11-06-2024 Screening mammography Shad Rico MD Work Phone: Start: 05-19-2023 Radiologic examinati on of knee Dr. Ramo Rico Work Phone: Start: 05-12-2023 Screening mammography Shad Rico Work Phone: Start: 03-07-[address] Kristina Rico Work Phone: Start: 02-09-2023 Plain chest X-ray Dr. Kiarra Rico Work Phone: Plan of Treatment Date Care Activity Detail Author Start: 03-26-2025 End: 03-26-2025 [facility] Start: 02-10-2025 Patient referral [facility] Work Phone: CBC W Auto Different ial panel - Blood [facility] DXA Bone [Mass/Area] Bone density [facility] Hemoglobin A1c/Hemoglobin.total in Blood [facility] Patient Education ED Palpitations [facility] Work Phone: Patient referral [facility] Work Phone: Troponin T.cardiac [Mass/volume] in Serum or Plasma by High sensitivity method [facility] Urine microalbumin/creatinine ratio measurement [facility] XR Knee 3 Views [facility] XR Knee 3 Views [facility] Payers Date Payer Category Payer Unknown [id number] 2024 Self-pay [id number] 2023 Unknown [id number] Unknown [id number] 2.16.8 [id number] Unknown [id number] 2.16.8 [id number] Unknown [id number] 2.16.8 [id number] Unknown [id number] 2.16.8 [id number] Unknown [id number] 2.16.8 [id number] Unknown [id number] 2.16.8 [id number] Unknown [id number] 2.16.8 [id number] Unknown [id number] 2.16.8 [id number] Unknown [id number] 2.16.8 [id number] Unknown [id number] 2.16.8 [id number] Unknown [id number] 2.16.8 [id number] Unknown [id number] 2.16.8 [id number] Unknown [id number] 2.16.8 [id number] Unknown [id number] 2.16.8 [id number] Unknown [id number] 2.16.8 [id number] Unknown [id number] 2.16.8 [id number] Unknown [id number] 2.16.8 [id number] Social History Date Type Detail Facility Start: 10-28-2022 End: 01-16-2024 Tobacco smoking status NHIS Unknown if ever smoked [facility] Start: 1960 Sex Assigned At Female [facility] Start: 12-25-2024 End: 03-26-2025 Tobacco smoking status NHIS Never smoked tobacco (finding) [facility] Start: 01-03-2025 Sex Female (finding) [facility] Gender Identity Identifies as fe male gender (finding) [facility] Sexual Orientation Heterosexual (finding) [facility] Medical Equipment Procedure Code Equipment Code Equipment Origin al Text Equipment Identifier Dates Blood Sugar Diagnostic (Freestyle Lite Strips) strip Start: 08-05-2024 Lancets (Freesty le Lancets) 28 gauge [facility] Start: 08-05-2024 Blood Sugar Diagnostic (Freestyle Lite Strips) strip Start: 08-05-2024 Lancets ([facility]esty le Lancets) [facility] Start: 08-05-2024 Blood Sugar Diagnostic (Freestyle Lite Strips) strip Start: 08-05-2024 Lancets (Freesty le Lancets) 28 gauge [facility] Start: 08-05-2024 Mental Status Date Assessment Result Facility 03-26-2025 Cognitive function Voice/Name [facility] Work Phone: Clinical Notes 11-06-2024 to 03-26-2025 Note Date & Type Note Facility 03-26-2025 Discharge summary [facility] 03-26-2025 Radiology Diagnostic study note [facility] Imaging Services [address] [place] [address] Chest PA and Lateral MR#: [id number] Acct: [id number] Name: ANNIA BRIGGS Rep #: [id number] : 1960 F 64 From: Adrian Arciniega MD PCP: Dr. Ramo Rico MD Status: R EG ER Study:Chest PA and Lateral Date of Exam: 03/26/25 Exam# [id number] Ordering Dr: Shilpi Jimenez MD PROCEDURE: CHEST PA AND LATERAL 03/26/2025 REASON FOR EXAM: CHEST PAIN TECHNIQUE: Frontal and lateral views of the chest. COMPARISON: Chest x-ray of 02/09/2023. RAD/Chest PA and Lateral IMPRESSION: Generalized osteopenia is seen. No acute osseous change is evident. No pleural effusion or pneumothorax is seen. The lungs appear clear of acute disease. The cardiomediastinal silhouette is within the normal range. No evidence of acute cardiopulmonary disease. Reading Location: [address] CC: Dr. Ramo Rico MD; Dr. 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 Satisfactory for evaluation. Endocervical and/or squamous metaplasticcells (endocervical component) are present.Areas of partially obscuring inflammatory exudate are present. Comment on above: Satisfactory for jluis luation. Endocervical and/or squamous metaplasticcells (endocervical component) are present.Areas of partially obscuring inflammatory exudate are present. 12-25-2024 Evaluation note Diagnosis Onset Date Resolution Encounter for routine gynecological examination noneactive December 25, 2024 10:51am Essential hypertension chronic Ap 2024 10:11am Obesity, morbid, BMI 40.0-49.9 chronic February 10, 2025 10:11am Osteoarthritis of left knee chronic February 10, 2025 10:11am Type 2 diabetes mellitus chronic February 10, 2025 10:11am Osteoarthritis of left knee chronic February 17, 2025 2: 52pm [facility] Work Phone: [phone]) 312-319901-22-2025 Evaluation note* Diagnosis Onset Date Resolution Status Admit Date Depression chronic November 06, 2024 9:34am Essential hypertension chronic Ja nuary 2024 9:34am Hyperlipidemia chronic November 062024 9:34am Type 2 diabetes mellitus chronic November 06, 2024 9:34am Encounter for routine gynecological examination noneactive December 25, 2024 10:51am [facility] Work Phone: Discharge summary Author Mich Jimenez [facility] Note Date/Time March 26, 2025 12:0 4pm [facility] Medical Records Department [address] [place] [address] Emergency Department Summary 03/26/25 MR#: [id number] Acct: [id number] Name: ANNIA BRIGGS Rep #:[id number] : [id number] 64 From: Mich Jimenez MD PCP: Dr. Ramo Rico MD Status:R EG ER Location: ED HPI History of Present Illness Chief Complaint: Palpitations Detail of Chief Complaint: Palpitations since 11 PM last night. Informant: patient and spouse/S.O. Onset/Context/Timing Onset: Today and Yesterday Activity at onset: sudden Timing: Intermittent Current Severity: Gone Narrative Narrative: 64-year-old female history of GERD and diabetes. No cardiac history otherwise. No prior MS nor stents nor bypass. States since 11 PM last night she has had palpitations. Currently they are resolved. She denies any chest pain or shortness of breath. No history of thyroid disease. Prior history of palpitations without specific diagnosis. Prior Similar Symptoms: Yes Recent Illness/Hospitalization: No CVD Risk Factors: Positive for Diabetes PE Risk Factors: Negative for Recent Travel/Surgery, Recent Immobilization, Prior DVT or PE, Cancer or OCP + Smoking + >/=35 TAD Risk Factors: Negative for Marfan's Syndrome PFSH PFS Medical History Colon cancer screening Health care maintenance Intertriginous dermatitis associated with moisture Post-menopausal Encounter for vitamin deficiency screening Pneumonia Gastroenteritis Osteoarthritis of left knee Breast cancer screening Venous insufficiency (chronic) (peripheral) Left knee pain Asthmatic bronchitis with exacerbation Contact with and (suspected) exposure to other viral communicable diseases URI (upper respiratory infection) Essential hypertension Hearing impairment Tremor COVID-19 Carpal tunnel syndrome Strain of right ankle and foot Urinary tract infection Chills (without fever) Right lower lobe pneumonia Acute bronchitis Asthma Seasonal depression Bronchitis Dysthymic disorder Obesity Asthma Hyperlipidemia Type 2 diabetes mellitus without complications Supraventricular tachycardia Home Medications ?Medication ?Instructions ?Recorded ?Last Taken ?Type fluocinonide 0.05 % topical cream 1 applic topical BID #120 grams 01/06/23 Unknown Rx pioglitazone 45 mg tablet 45 mg PO DAILY #90 TABLETS 0 01/12/24 Unknown Rx blood sugar diagnostic (FreeStyle #200 ea 08/05/24 Unk nown Rx Lite Strips) blood-glucose meter (FreeStyle #1 ea 08/05/24 Unknown Rx Lite Meter kit) lancets 28 gauge (FreeStyle #200 ea 08/05/24 Unknown R x Lancets) bupropion HCl 300 mg 24 hr tablet, 300 mg PO QAM #90 t abs 12/04/24 Unknown Rx extended release rosuvastatin 5 mg tablet 5 mg PO QHS #90 tabs 5 Unknown Rx metformin 500 mg tablet,extended See Rx Instructions . Route 02/03/25 Unknown Rx release 24 hr .COMPLEX #180 tabs tirzepatide 7.5 mg/0.5 mL 7.5 mg (0.5 mL) subcut QWEEK 1 02/11/25 Unknown Rx subcutaneous pen injector month #2.5 mL losartan 25 mg tablet 25 mg PO DAILY #90 TABLETS 0 03/10/25 Unknown Rx Allergy/AdvReac Type Severity Reaction Status Date / Time lisinopril AdvReac cough Verified 02/17/25 15:11 pravastatin AdvReac myalgias Verified 02/17/25 15:11 sertraline AdvReac anorgasmia Verified 02/17/25 15:11 simvastatin (From Zocor) AdvReac myalgias Verified 02/17/25 15:11 Family History Mother Diabetes Father COPD (chronic obstructive pulmonary disease) emphysema Alcohol abuse Surgical History History of appendectomy History of left oophorectomy History of bilateral carpal tunnel release Social History adopted: No household members: spouse housing: house number of children: 6 current occupational status: employed current occupation: [employer] [place] pets and animals: Yes pets and animals: dog(s) history of recent travel: No sexually active: Yes Smoking Status: Never smoker second hand exposure: No alcohol intake: never substance use type: does not use diet: other well-balanced diet: daily or most days caffeine: No eating out: rarely or never during the past year weight has: decreased > 10 lbs what type of physical activity do you participate in: walking manjula/yarsani: Non-Anabaptist/Independent seatbelt use: always do you feel safe at home: Yes additional social history: - Don ROS ROS ED ROS Narrative Patient is currently resolved. No chest pain. No shortness of breath. Constitutional Constitutional ED: Denies chills or fever(s) Eyes Eyes: Reports none ENT ENT ED: Denies ear pain Cardiovascular Cardiovascular: Reports as per HPI and palpitations; Denies chest pain or racingheartbeat Respiratory/Chest Respiratory/Chest: Denies cough, dyspnea or dyspnea on exertion Gastrointestinal Gastrointestinal: Denies abdominal pain Genitourinary Genitourinary ED: Denies dysuria or hematuria Musculoskeletal Musculoskeletal: Denies arthralgias Integumentary Denies abscess Neurologic Neurologic: Denies headache(s) Psychiatric Psychiatric: Denies anxiety Endocrine Endocrinology: Denies cold intolerance Hematologic/Lymphatic Hematologic/Lymphatic: Denies easy bleeding, easy bruising or lymphadenopathy Allergic/Immunologic Allergic/Immunologic ED: Denies mouth swelling, tongue swelling or urticaria EXAM Physical Exam Narrative Exam Narrative: 64-year-old female sitting upright in bed. Vital signs are stable afebrile. Pulse ox 98% on room air no hypoxia. Spouse at bedside. H EENT exam pupils round react to light. Moist mucous membranes. No facial droop. Normal speech. Neck nontender. No JVD. No thyromegaly. No mass. Lungs clear to auscultation bilaterally. Heart regular rhythm rate about 90 no murmur. Currently she is not having any abnormal rhythm on the monitor. She is on normal sinus rhythm. On her EKG she has PACs. Abdomen soft, nontender, nondistended, normal bowel sounds without peritoneal signs. Moving all 4 extremities. Nontender no edema. Normal strength. Normal range of motion. Back nontender. Neurologic exam she is awake alert. Answering questions following commands. Const Vital Signs: 03/26/25 09:08 03/26/25 09:53 03/26/25 10:00 Temperature 97 F L Temperature Source Temporal Pulse Rate 91 Respiratory Rate 18 Respiratory Effort Normal Respiratory Pattern Normal Blood Pressure 138/69 H Blood Pressure Mean 92 Pulse Ox 98 Oxygen Delivery Method Room Air Room Air 03/26/25 11:25 Temperature Temperature Source Pulse Rate 79 Respiratory Rate 16 Respiratory Effort Respiratory Pattern Blood Pressure 107/50 L Blood Pressure Mean 69 Pulse Ox 94 Oxygen Delivery Method Positive well developed; Negative for cachectic, contractures or unkempt General Appearance ED: well developed and NAD; Negative for unkempt, cachectic, contractures or pallor Nutritional Appearance: Negative for cachectic HEENT Reports moist mucous membranes normocephalic and atraumatic; Negative for trauma or tenderness Eyes PERRL and EOMs intact bilaterally General Eye ED: Negative for pale conjunctiva or scleral icterus Neck no lymphadenopathy, supple and no JVD General: Negative for tenderness Chest Wall inspection of chest normal and palpation of chest normal Chest: Negative for tenderness Resp normal respiratory effort and clear to auscultation bilaterally Auscultation: Negative for rales, rhonchi, wheezes or diminished lung sounds Cardio regular rate, regular rhythm, S1 normal heart sound, S2 normal heart sound and no murmurs Rate: Negative for bradycardia or tachycardic Rhythm: Negative for abnormal rhythm Peripheral Pulses: pulses 2+ throughout GI normal to inspection, nondistended, normoactive bowel sounds, soft to palpation,non-tender, non-distended and no masses Back/Spine no CVA tenderness and no thoracic nor lumbar tenderness General Back: Negative for CVA tenderness Cervical Spine: Negative for cervical spine tenderness Extremity normal to inspection General Extremety ED: Negative for edema, pulses abnormal or tenderness General Extremity: Negative for edema or pulses abnormal Neuro oriented x3 and CN's II-XII intact bilaterally Sensorium / Orientation: awake, alert, oriented to person, oriented to place andoriented to time; Negative for confused, lethargic or stuporous Motor Exam: strength 5/5 throughout Psych mental status grossly normal Appearance: Negative for unkempt Attitude: No agitated Mood & Affect: Negative for depressed, anxious or tearful Skin no rashes or lesions noted and no wounds General Skin Exam: Negative for jaundice or pallor Rashes: No rashes noted Trauma: Negative for abrasion or laceration MDM MDM MDM Narrative Medical decision making narrative: 64-year-old female with palpitations currently resolved. Consider thyroid disease, anemia, electrolyte abnormalities. She undergo cardiac workup. If that is negative she will be discharged to home. I do not think this is an MS. Repeat exam patient doing well at 12 PM. Normal sinus rhythm rate of 83. We went over her test results. She and her are comfortable being discharged to home. History & Record Review Discussion w/independent historian: Patient and Family Additional record(s) reviewed:: Prior inpatient record, Prior outpatient record,Prior ED visit and Prior labs Lab Data Attestation: I reviewed the patient's lab results. Lab results narrative: CBC showed a white count of 4.2. H&H 12.5 and 37. Platelets 244. Electrolytes show sodium 140. Gap 12. BUN of 18 creatinine 0.64. Glucose 92. Troponins 8. TSH is normal at 2.0. Chest x-ray normal. Labs: Laboratory Results - last 24 hr 03/26/25 10:00 WBC 4.2 L RBC 4.01 L Hgb 12.5 Hct 37.2 MCV 92.8 MCH 31.2 MCHC 33.6 RDW Std Deviation 43.9 RDW Coeff of Sia 12.8 Plt Count 244 MPV 8.8 Immature Gran % (Auto) 0.200 Neut % (Auto) 63.0 Lymph % (Auto) 23.7 Burt % (Auto) 9.3 Eos % (Auto) 3.6 Baso % (Auto) 0.2 Absolute Neuts (auto) 2.6 Absolute Lymphs (auto) 0.99 Nucleated RBC % 0 Sodium 140 Potassium 3.7 Chloride 103 Carbon Dioxide 24.7 Anion Gap 12 BUN 18 Creatinine 0.64 L Estim Creat Clear Calc 104.51 Est GFR (MDRD) Non-Af 99 BUN/Creatinine Ratio 27.5 H Glucose 92 Calcium 9.5 Troponin T High Sens 8 TSH 2.030 Radiography Chest X-Ray - ED: 2 View, Read by ED Physician, Read by Radiologist, Normal, Lungs, Mediastinum, Bony Structures, No Acute Disease and Chronic Changes Diagnostic Testing: Clinical Impression(s) from Imaging Studies Chest X-Ray 03/26/25 10:00 IMPRESSION: Generalized osteopenia is seen. No acute osseous change is evident. No pleural effusion or pneumothorax is seen. The lungs appear clear of acute disease. The cardiomediastinal silhouette is within the normal range. No evidence of acute cardiopulmonary disease. Reading Location: [id number] Chest x-ray, 2 views, interpreted by myself and radiologist. Shows chronic changes no acute process. Normal cardiac silhouette. Normal lung magana. Normal mediastinum. Rhythm Strip Rhythm Strip: Sinus Rhythm Rate: 83 Ectopy: None and PAC(s) EKG Initial EKG: Attestation: I personally reviewed and interpreted this EKG as follows: Interpretation: Sinus Rhythm and No Acute Injury Pattern Comments: Normal sinus rhythm rate of 83 no acute signs of MS or ischemia. Occasional PACs. Discharge Plan Triage Chief Complaint: Palpitations ED Provider: Mich Jimenez Dx/Rx/DC Orders Clinical Impression: Heart palpitations, APC (atrial premature contractions), History of diabetes mellitus Instructions: ED Palpitations Prescriptions: No Action (DME) lancets [FreeStyle Lancets] 28 gauge misc See Rx Instructions .ROUTE .MEDSUPPLY Qty: 200 3RF Rx Instructions: check blood glucose bid for type 2 DM (DME) FreeStyle Lite Strips Strip See Rx Instructions .ROUTE .MEDSUPPLY Qty: 200 3RF Rx Instructions: check blood glucose BID for type 2 DM (DME) blood-glucose meter [FreeStyle Lite Meter] Kit See Rx Instructions .MEDSUPPLY Qty: 1 0RF Rx Instructions: As directed, check blood glucose daily for type 2 DM fluocinonide 0.05 % cream 1 applic TOPICAL BID Qty: 120 2RF pioglitazone 45 mg tablet 45 mg PO DAILY Qty: 90 3RF bupropion HCl 300 mg tablet extended release 24 hr 300 mg PO QAM Qty: 90 1RF rosuvastatin 5 mg tablet 5 mg PO QHS Qty: 90 1RF metformin 500 mg tablet extended release 24 hr See Rx Instructions .ROUTE .COMPLEX Qty: 180 1RF Dose Instruction: TAKE 1 TABLET TWICE A DAY Rx Instructions: TAKE 1 TABLET TWICE A DAY tirzepatide 7.5 mg/0.5 mL pen injector 7.5 mg subcut QWEEK 30 Days Qty: 2.5 3RF losartan 25 mg tablet 25 mg PO DAILY Qty: 90 1RF Primary Care Provider: Ramo Rico Referrals: Ramo Rico MD [Primary Care Provider] - As Needed Activity Restrictions/Additional Instructions: You have premature atrial contractions. Your labs look good. Follow-up with your doctor as needed. Generally these will come and go. They should resolve on their own. There is no medications we need to put you on for them. Print Language: Norwegian Disposition Disposition: Home, Self Care What to do if you have Problems For any increased pain, shortness of breath, bleeding, nausea or vomiting, chestpain, or any unexpected problems, contact your Primary Care Provider. Call [facility] ([phone]) or report to the closest Emergency Room. Call 911 if necessary. 03/26/25 1204 <Electronically signed by Mich Jimenez MD> Cosigner Signature (if applicable): CC: Dr. Ramo Rico MD ~ Signed [facility] Work Phone: Evaluation note* Diagnosis Onset Date Resolution Status Cardiac murmur acute Palpitations acute Supraventricular tachycardia acute Hyperlipidemia chronic Essential hypertension acute Type 2 diabetes mellitus chr onic [facility] Work Phone: Evaluation note* Diagnosis Onset Date Resolution Status Essential hypertension acute Type 2 diabetes mellitus chr onic Asthma, moderate persistent, poorly-controlled chronic Obesity, morbid, BMI 40.0-49.9 chronic EMELYN (obstructive sleep apnea) chronic Asthmatic bronchitis with exacerbation acute Contact with and (suspected) exposure to other viral communicable diseases acute URI (upper respiratory infection) acute [facility] Work Phone: Evaluation note* Diagnosis Onset Date Resolution Status Asthmatic bronchitis with exacerbation acute Contact with and (suspected) exposure to other viral communicable diseases acute URI (upper respiratory infection) acute Pelvic pressure in female ac norris Cardiac murmur acute Supraventricular tachycardia acute Hyperlipidemia chronic Breast cancer screening acut e Left knee pain acute Essential hypertension chron ic Type 2 diabetes mellitus chr onic Venous insufficiency (chronic) (peripheral) chronic [facility] Work Phone: Evaluation note* Diagnosis Onset Date Resolution Status Asthmatic bronchitis with exacerbation acute Contact with and (suspected) exposure to other viral communicable diseases acute URI (upper respiratory infection) acute Pelvic pressure in female ac norris Cardiac murmur acute Supraventricular tachycardia acute Hyperlipidemia chronic Breast cancer screening acut e Left knee pain acute Essential hypertension chron ic Type 2 diabetes mellitus chr onic Venous insufficiency (chronic) (peripheral) chronic Left knee pain acute Osteoarthritis of left knee acute [facility] Work Phone: Evaluation note* Diagnosis Onset Date Resolution Status Asthma chronic Obesity chronic EMELYN (obstructive sleep apnea) chronic Acute sinusitis acute Gastroenteritis acute Essential hypertension chron ic Type 2 diabetes mellitus chr onic Venous insufficiency (chronic) (peripheral) chronic [facility] Work Phone: Evaluation note* Diagnosis Onset Date Resolution Status Gastroenteritis acute Essential hypertension chron ic Type 2 diabetes mellitus chr onic Venous insufficiency (chronic) (peripheral) chronic Asthma, moderate persistent, poorly-controlled chronic Obesity, morbid, BMI 40.0-49.9 chronic EMELYN (obstructive sleep apnea) chronic Acute sinusitis acute Encounter for vitamin deficiency screening acute Post-menopausal acute URI (upper respiratory infection) acute Type 2 diabetes mellitus chr onic Venous insufficiency (chronic) (peripheral) chronic [facility] Work Phone: Hospital Discharge instructions Additional Instructions You have premature atrial contractions. Your labs look good. Follow-up with your doctor as needed. Generally these will come and go. They should resolve on their own. There is no medications we need to put you on for them.[facility] Work Phone: Reason for referral (narrative)No reason for referral [facility] Work [facility]: Summary Purpose Family History Relationship Condition Age at Onset Recorded Date/T ted mother Diabetes mellitus Unknown father Chronic obstructive pulmonary disease Unk nown Alcohol abuse Unknown Advance Directives Advance Directive Response Recorded Date/ Time Living Will Yes June 16 022 1:20pm Power of Manager Telemetry Yes June 16, 2022 1:20pm Advance Directive Response Recorded Date/ Time Living Will Yes June 16, 2 022 2:20pm Power of Manager Telemetry Yes June 16, 2022 2:20pm Advance Directive Response Recorded Date/ Time Living Will Yes September 14, 2 023 3:25pm Power of Manager Telemetry Yes 2023 3:25pm Advance Directive Response Recorded Date/ Time Living Will Yes September 14, 2 023 4:25pm Power of Manager Telemetry Yes 2023 4:25pm Advance Directive Response Recorded Date/ Time Living Will Yes September 14, 2 023 4:25pm Do you have a Healthcare Power of Manager Telemetry? Yes 2023 4:25pm Advance Directive Response Recorded Date/ Time Do you have a Healthcare Pow er of Manager Telemetry? 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 Reason for Visit Cardiac murmur Palpitations Supraventricular tachycardia Hyperlipidemia Essential hypertension Type 2 diabetes mellitus Chief Complaint TRULICITY REFILL 6 M FU BODY ACHE, HEADACHE, FATIGUE short of breath Reason for Visit Essential hypertensi on Type 2 diabetes mellitus Asthma, moderate persistent, poorly-controlled Obesity, morbid, BMI 40.0-49.9 EMELYN (obstructive sleep apnea) Asthmatic bronchitis with exacerbation Contact with and (suspected) exposure to other viral communicable diseases URI (upper respiratory infection) Chief Complaint BODY ACHE, HEADACHE, FATIGUE short of breath CONCERN FOR UTI Urgency of urination 6 M FU 6 M FU SCREENING Reason for Visit Asthmatic bronchitis with exacerbation Contact with and (suspected) exposure to other viral communicable diseases URI (upper respiratory infection) Pelvic pressure in female Cardiac murmur Supraventricular tachycardia Hyperlipidemia Breast cancer screening Left knee pain Essential hypertension Type 2 diabetes mellitus Venous insufficiency (chronic) (peripheral) Chief Complaint BODY ACHE, HEADACHE, FATIGUE short of breath CONCERN FOR UTI Urgency of urination 6 M FU 6 M FU SCREENING EORDER- Left Knee Pain LEFT KNEE Reason for Visit Asthmatic bronchitis with exacerbation Contact with and (suspected) exposure to other viral communicable diseases URI (upper respiratory infection) Pelvic pressure in female Cardiac murmur Supraventricular tachycardia Hyperlipidemia Breast cancer screening Left knee pain Essential hypertension Type 2 diabetes mellitus Venous insufficiency (chronic) (peripheral) Left knee pain Osteoarthritis of left knee Chief Complaint Pap Compliance SINUS PRESSURE 6 M FU Reason for Visit Asthma Obesity EMELYN (obstructive sleep apnea) Acute sinusitis Gastroenteritis Essential hypertension Type 2 diabetes mellitus Venous insufficiency (chronic) (peripheral) Chief Complaint 6 M FU 6 M FU FEVER/TABARES/COUGH/CONGESTION 3 M FU Reason for Visit Gastroenteritis Essential hypertension Type 2 diabetes mellitus Venous insufficiency (chronic) (peripheral) Asthma, moderate persistent, poorly-controlled Obesity, morbid, BMI 40.0-49.9 EMELYN (obstructive sleep apnea) Acute sinusitis Encounter for vitamin deficiency screening Post-menopausal URI (upper respiratory infection) Type 2 diabetes mellitus Venous insufficiency (chronic) (peripheral) Chief Complaint Admit Date SCREENING November 06, 2024 9 :02am 3 M FU November 06, 2024 9 :34am 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) December 25, 2024 10: 51am PAP IG HPV APTIMA December 25, 2024 6:0 3pm Reason for Visit Admit Date Depression November 06, 2024 9 :34am Essential hypertension November 06 9:34am Hyperlipidemia November 06, 2024 9 :34am Type 2 diabetes mellitus November 06 9:34am Encounter for routine gynecological exam ination December 25, 2024 10:51am Chief Complaint Admit Date 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) December 25, 2024 10: 51am PAP IG HPV APTIMA December 25, 2024 6:0 3pm 3 M FU February 10, 2025 10: 11am LEFT KNEE February 17, 2025 2:52pm Room 2 February 17, 2025 3:25pm SORE THROAT March 17, 2025 11:09 am Reason for Visit Admit Date Encounter for routine gynecological exam ination December 25, 2024 10:51am Essential hypertension February 10, 2025 10:11am Obesity, morbid, BMI 40.0-49.9 January 10:11am Osteoarthritis of left knee February 10, 2025 10:11am Type 2 diabetes mellitus February 10 10:11am Osteoarthritis of left knee February 17 2:52pm Chief Complaint Admit Date 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) December 25, 2024 10: 51am PAP IG HPV APTIMA December 25, 2024 6:0 3pm 3 M FU February 10, 2025 10: 11am LEFT KNEE February 17, 2025 2:52pm Room 2 February 17, 2025 3:25pm SORE THROAT March 17, 2025 11:09 am ARRYTHMIA March 26, 2025 9:07 am Additional Source Comments INFORMATION SOURCE (unrecogn ized section and content) DATE CREATED AUTHOR 04/06/2018 [facility] DATE CREATED AUTHOR AUTHOR'S ORGANIZ ATION 02/08/2019 [facility] DATE CREATED AUTHOR AUTHOR'S ORGANIZ ATION 03/26/2025 [facility] Care Teams (unrecognized sec tion and content) Team Status: Active Member Role Status Dates Dr. Ramo Rico MD Family Provider Active Dr. Ramo Rico MD Primary Care Provider Active Team Status: Inactive Member Role Status Dates Dr. Ramo Rico MD Primary Care Provider, Refer ring Provider Active Dr. Alberto Pan MD Attending Provider Active Team Status: Inactive Member Role Status Dates Dr. Ramo Rico MD Primary Care Provider, Refer ring Provider Active Sidney Bob REGIONAL LOSS PREVENTION MANAGER, REGIONAL LOSS PREVENTION MANAGER-C Attending Provider Active Team Status: Inactive Member Role Status Dates Dr. Ramo Rico MD Primary Care Provider Active Sidney Bob REGIONAL LOSS PREVENTION MANAGER, REGIONAL LOSS PREVENTION MANAGER-C Attending Provider, Referring Prov ider Active Team Status: Inactive Member Role Status Dates Dr. Ramo Rico MD Primary Care Provider, Refer ring Provider Active Anh Phan REGIONAL LOSS PREVENTION MANAGER, REGIONAL LOSS PREVENTION MANAGER-C Attending Provider Active Team Status: Inactive Member Role Status Dates Dr. Ramo Rico MD Primary Care Provider, Refer ring Provider Active Clifford Damon PA, PA Attending Provider Active Team Status: Inactive Member Role Status Dates Dr. Ramo Rico MD Primary Care Provider Active Clifford Damon PA, PA Attending Provider, Referring Pr ovider Active Team Status: Inactive Member Role Status Dates Dr. Ramo Rico MD Primary Care Provider, Refer ring Provider Active Meagan Boo PA, PA Attending Provider Active Team Status: Inactive Member Role Status Dates Dr. Ramo Rico MD Primary Care P roryder, Attending Provider, Referring Provider Active Team Status: Inactive Member Role Status Dates Dr. Ramo Rico MD Primary Care Provider, Refer ring Provider Active Luis Manuel Montalvo PA, PA Attending Provider Active Team Status: Inactive Member Role Status Dates Dr. Ramo Rico MD Primary Care Provider Active Luis Manuel Montalvo PA, PA Attending Provider, Referring Provi holley Active Team Status: Inactive Member Role Status Dates Dr. Ramo Rico MD Primary Care Provider, Refer ring Provider Active Narciso Ramirez MD Attending Provider Active Team Status: Inactive Member Role Status Dates Dr. Ramo Rico MD Primary Care Provider, Refer ring Provider Active Dr. Henrique Liang MD Attending Provider Active Team Status: Inactive Member Role Status Dates Dr. Ramo Rico MD Primary Care Provider, Atten ding Provider Active Team Status: Active Member Role Status Dates Dr. Ramo Rico MD Primary Care Provider Active Team Status: Inactive Member Role Status Dates Dr. Ramo Rico MD Primary Care Provider Active Start: November 06, 2024 End: November 06, 2024 Dr. Ramo Rico MD Attending Provider Active Start: November 06, 2024 End: November 06, 2024 Dr. Ramo Rico MD Referring Provider Active Start: November 06, 2024 End: November 06, 2024 Team Status: Inactive Member Role Status Dates Dr. Ramo Rico MD Primary Care Provider Active Start: December 25, 2024 End: December 25, 2024 Dr. Ramo Rico MD Referring Provider Active Start: December 25, 2024 End: December 25, 2024 Xenia Leija CNM Attending Provider Active S tart: December 25, 2024 End: December 25, 2024 Team Status: Inactive Member Role Status Dates Dr. Ramo Rico MD Primary Care Provider Active Start: December 25, 2024 End: December 25, 2024 Xenia Leija CNM Attending Provider Active S tart: December 25, 2024 End: December 25, 2024 Team Status: Inactive Member Role Status Dates Dr. Ramo Rico MD Primary Care Provider Active Start: February 10, 2025 End: February 10, 2025 Dr. Ramo Rico MD Attending Provider Active Start: February 10, 2025 End: February 10, 2025 Dr. Ramo Rico MD Referring Provider Active Start: February 10, 2025 End: February 10, 2025 Team Status: Inactive Member Role Status Dates Dr. Ramo Rico MD Primary Care Provider Active Start: February 17, 2025 End: February 17, 2025 Dr. Ramo Rico MD Referring Provider Active Start: February 17, 2025 End: February 17, 2025 Dr. Breezy Martinez DO Attending Provider Active Start: February 17, 2025 End: February 17, 2025 Team Status: Inactive Member Role Status Dates Dr. Ramo Rico MD Primary Care Provider Active Start: February 17, 2025 End: February 17, 2025 Dr. Lino Meneses MD Attending Provider Active S tart: February 17, 2025 End: February 17, 2025 Team Status: Inactive Member Role Status Dates Dr. Ramo Rico MD Primary Care Provider Active Start: March 17, 2025 End: March 17, 2025 Dr. Ramo Rico MD Referring Provider Active Start: March 17, 2025 End: March 17, 2025 Clifford JOSEPH, PA Attending Provider Active Start: March 17, 2025 End: March 17, 2025 Team Status: Inactive Member Role Status Dates Dr. Ramo Rico MD Primary Care Provider Active Start: March 26, 2025 End: March 26, 2025 Dr. Mich Jimenez MD Emergency Provider Active S tart: March 26, 2025 End: March 26, 2025 Goals (unrecognized section and content) Goals may be documented in a n alternate sectionGoals may be documented in an alternate sectionGoals may be documented in an alternate sectionGoals may be documented in an alternate sectionGoals may be documented in an alternate sectionGoals may be documented in an alternate sectionGoals may be documented in an alternate sectionGoals may be documented in an alternate sectionGoals may be documented in an alternate section FOR RECORDS PERTAINING TO PATIENTS WHO ARE [...] BE BASED ON THE PRIMARY CLINICAL RECORDS. [employer] provides no warranty or guarantee of the accuracy or completeness of information in this document.
== END 2025-03-26 12:24 | disposition home or self-care (01) ==
PROVIDERS: Emergency Provider Emergency Medicine; PCP Internal Medicine; Visit Provider Emergency Medicine
DX: R00.2 Palpitations (principal); E11.9 Type 2 diabetes mellitus without complications; Z83.3 Family history of diabetes mellitus; I49.1 Atrial premature depolarization; E78.5 Hyperlipidemia, unspecified; I10 Essential (primary) hypertension; Z86.16 Personal history of COVID-19; Z90.721 Acquired absence of ovaries, unilateral
CPT/HCPCS: 71046; 80048; 84443; 84484; 85025; 93005; 99284; A4216

== ENCOUNTER → 2025-08-13 | Outpatient (CLI) | payer BC, SELFPAY | END | disposition home or self-care (01) | LOC: LABSPEC 23:07 | PROVIDERS: PCP Internal Medicine; Visit Provider Internal Medicine | DX: J02.9 Acute pharyngitis, unspecified (principal) | CPT/HCPCS: 87070 ==

== ENCOUNTER → 2025-10-06 | Outpatient (CLI) | payer BC, SELFPAY ==
[2025-10-06 17:54] LABS: Hematocrit 39.4 % (37-47); Hemoglobin 12.8 g/dL (12.0-15.0); Immature Granulocytes Count 0.010 X10^3/uL (0.0-0.0); Mean Corp Hgb Conc 32.5 g/dL (32-36); Mean Corpuscular Volume 94.3 fL (81-99); Mean Platelet Vol. 8.9 fl (6.2-12.0); NRBC Flagged by Analyzer 0 % (0-5); Platelet Count 295 K/mm3 (150-450); RBC Distribution Width CV 12.5 % (11.6-14.6); RBC Distribution Width SD 43.5 fl (35.1-43.9); Red Blood Count 4.18 M/mm3 (4.2-5.4); White Blood Count 5.3 K/mm3 (4.4-11.0)
[2025-10-06 18:31] LABS: AST(SGOT) 22 U/L (<=31); Alanine Aminotransfer ALT/SGPT 16 U/L (<=34); Albumin, Serum 4.6 g/dL (3.4-4.8); Alkaline Phosphatase 65 U/L (35-104); Anion Gap 10 (7-18); BUN 11 mg/dL (4-19); BUN/Creat Ratio 16.5 RATIO (10-20); Calcium,Total 9.8 mg/dL (7.6-11.0); Carbon Dioxide 29.1 mmol/L (20.0-29.0); Chloride 103 mmol/L (96-106); Globulin 2.3 g/dL (2.2-4.2); Glucose 72 mg/dL (70-99); Potassium 4.0 mmol/L (3.5-5.1)
[2025-10-06 18:41] LABS: CRP < 3.00 mg/L (0.0-3.0)
[2025-10-07 10:31] LABS: CPK Total, Creatine Kinase 75 U/L (24-195)
== END | disposition home or self-care (01) ==
LOC: MTLAB 14:40
PROVIDERS: PCP Internal Medicine; Referring Provider Internal Medicine; Visit Provider Internal Medicine
DX: R68.89 Other general symptoms and signs (principal); E11.69 Type 2 diabetes mellitus with other specified complication
CPT/HCPCS: 36415; 80053; 82550; 84439; 84443; 85025; 85652; 86140